=== PATIENT | male | born 1970 | race Caucasian/White ===

== ENCOUNTER → 2020-05-22 | Outpatient (CLI) | payer OTHER ==
[~2020-05-22] MED LIST: ASPI-9 PO; GEMF600T3 PO; NFNEB10T PO; POTA10TA36 PO
--- NOTE | 2020-05-22 10:49 | Diagnostic Imaging Report ---
EXAMINATION: Left wrist 3 or more views HISTORY: Pain COMPARISON: 06/07/2010 FINDINGS: Alignment is normal. No fracture is seen. Joint spaces are normal. IMPRESSION: 1. No fracture. Dictated by: Dictated on workstation # [id number]
== END ==
LOC: RAD 10:22
PROVIDERS: ATTEND Nurse Practitioner Family
DX: M25.532 Pain in left wrist (principal)
CPT/HCPCS: 73110

== ENCOUNTER 2021-05-20 11:10 | Inpatient (IN) | payer OTHER ==
[~2021-05-20] VITALS: Ht 177.8 cm; Wt 91.2 kg
[~2021-05-20 11:10] MED LIST changes: -ACETAMINOPHEN 500 MG TAB (TYLENOL) PO PRN; -ALBU18HF2 INH; -ASPI-1238 PO; -ATOR40TA70 PO; -AZIT250T12 PO; -CASIRIVIMAB/IMDEVIMAB 1,200 MG in NS (IVPB) 250 ML IV ONE; -EMPA10TA PO; -EPINEPHrine INJECTION 1 MG/ML AMP IM PRN; -FENO160T12 PO; -INSU100I44 SQ; -LOSA100T57 PO; -METO50TA7 PO; -MULT-1136 PO; -ONDANSETRON 4 MG/2 ML (SDV) Z0FRAN IV PRN; -diphenhydrAMINE 50 MG/ML INJ (BENADRYL) IV PRN
--- NOTE | 2021-05-20 11:26 | ED General ---
General Stated Complaint: LOW O2 Source of Information: Patient Exam Limitations: No Limitations History of Present Illness Date Seen by Provider: May 20, 2021 Time Seen by Provider: 11:23 Initial Comments To ER from the infusion center where he was to receive Regeneron with reports of hypoxia at 65% on room air. He did not receive the infusion but was given supplemental oxygen and brought to the emergency room. His is also receiving the Regeneron infusion for Covid. He is unvaccinated against Covid. He has hypertension and diabetes on insulin and oral medications to control the diabetes. This is day 8 of Covid for him, he states that symptoms began on 05/12/2021. Timing/Duration: 1 Week Severity: Moderate Associated Systoms: Cough Allergies and Home Medications Allergies Coded Allergies: No Known Drug Allergies (Unverified , 06/09/10) Patient Home Medication List Home Medication List Reviewed: Yes Aspirin/Calcium Carbonate/Mag (Aspirin Buffered 325 Mg Tab) 325 Mg Tablet, 325 MG PO DAILY, (Reported) Entered as Reported by: MAGED CHAKRABORTY on 04/22/1141 Gemfibrozil (Gemfibrozil) 600 Mg Tablet, 1 EACH PO BID, (Reported) Entered as Reported by: MAGED CHAKRABORTY on 04/22/1141 Nebivolol Hcl (Bystolic) 10 Mg Tablet, 1 EACH PO DAILY, (Reported) Entered as Reported by: MAGED CHAKRABORTY on 04/22/1141 Potassium Chloride (K-Dur) 10 Meq Tab.prt.sr, 1 EACH PO DAILY WITH MEAL, (Reported) Entered as Reported by: MAGED CHAKRABORTY on 04/22/1141 Review of Systems Review of Systems Constitutional: see HPI EENTM: see HPI Respiratory: see HPI, cough Cardiovascular: no symptoms reported Genitourinary: no symptoms reported Musculoskeletal: no symptoms reported Skin: no symptoms reported Psychiatric/Neurological: No Symptoms Reported Hematologic/Lymphatic: No Symptoms Reported Immunological/Allergic: no symptoms reported Physical Exam Vital Signs Capillary Refill : Height, Weight, BMI Height: '" Weight: lbs. oz. kg; BMI Method: General Appearance: No Apparent Distress, WD/WN, Other (87% on 15L simple mask. Will transition to Bipap) Eyes: Bilateral Eye Normal Inspection, Bilateral Eye PERRL, Bilateral Eye EOMI HEENT: PERRL/EOMI, TMs Normal Neck: Full Range of Motion, Normal Inspection Respiratory: No Accessory Muscle Use, No Respiratory Distress Cardiovascular: Regular Rate, Rhythm, Normal Peripheral Pulses Gastrointestinal: Normal Bowel Sounds, Non Tender, Soft Extremity: Normal Capillary Refill, Normal Inspection Neurologic/Psychiatric: Alert, Oriented x3 Skin: Normal Color, Warm/Dry Focused Exam Lactate Level 05/20/21 11:11: Lactic Acid Level Laboratory Tests Test 05/20/21 11:11 Progress/Results/Core Measures Suspected Sepsis SIRS Temperature: Pulse: Respiratory Rate: Laboratory Tests 05/20/21 11:11: White Blood Count 6.0 Blood Pressure / Mean: 05/20/21 11:11: Laboratory Tests 05/20/21 11:11: Creatinine 1.60H, Platelet Count 257, Total Bilirubin 0.5 Results/Orders Lab Results Laboratory Tests Test 05/20/21 11:11 Range/Units White Blood Count 6.0 4.3-11.0 10^3/uL Red Blood Count 4.85 4.30-5.52 10^6/uL Hemoglobin 13.4 13.3-17.7 g/dL Hematocrit 42 40-54 % Mean Corpuscular Volume 87 80-99 fL Mean Corpuscular Hemoglobin 28 25-34 pg Mean Corpuscular Hemoglobin Concent 32 32-36 g/dL Red Cell Distribution Width 13.2 10.0-14.5 % Platelet Count 257 130-400 10^3/uL Mean Platelet Volume 10.0 9.0-12.2 fL Immature Granulocyte % (Auto) 3 % Neutrophils (%) (Auto) 74 42-75 % Lymphocytes (%) (Auto) 17 12-44 % Monocytes (%) (Auto) 6 0-12 % Eosinophils (%) (Auto) 0 0-10 % Basophils (%) (Auto) 0 0-10 % Neutrophils # (Auto) 4.4 1.8-7.8 10^3/uL Lymphocytes # (Auto) 1.0 1.0-4.0 10^3/uL Monocytes # (Auto) 0.3 0.0-1.0 10^3/uL Eosinophils # (Auto) 0.0 0.0-0.3 10^3/uL Basophils # (Auto) 0.0 0.0-0.1 10^3/uL Immature Granulocyte # (Auto) 0.2 H 0.0-0.1 10^3/uL D-Dimer 3.66 H 0.00-0.49 UG/ML Blood Gas Puncture Site LEFT RADIAL Blood Gas Patient Temperature 36.6 Arterial Blood pH 7.34 *L 7.37-7.43 Arterial Blood Partial Pressure CO2 28 L 35-45 MMHG Arterial Blood Partial Pressure O2 67 L 79-93 MMHG Arterial Blood HCO3 15 *L 23-27 MMOL/L Arterial Blood Total CO2 15.7 L 21.0-31.0 MMOL/L Arterial Blood Oxygen Saturation 91 L 94-100 % Arterial Blood Base Excess -9.8 L -2.5-2.5 MMOL/L Bandar Test POSITIVE Blood Gas Ventilator Setting NO Blood Gas Inspired Oxygen 10 L Sodium Level 141 135-145 MMOL/L Potassium Level 4.3 3.6-5.0 MMOL/L Chloride Level 103 98-107 MMOL/L Carbon Dioxide Level 17 L 21-32 MMOL/L Anion Gap 21 H 5-14 MMOL/L Creatinine 1.60 H 0.60-1.30 MG/DL Estimat Glomerular Filtration Rate 46 Glucose Level 180 H 70-105 MG/DL Calcium Level 10.0 8.5-10.1 MG/DL Corrected Calcium 10.4 H 8.5-10.1 MG/DL Total Bilirubin 0.5 0.1-1.0 MG/DL Alkaline Phosphatase 62 40-136 U/L Total Protein 7.5 6.4-8.2 GM/DL Albumin 3.5 3.2-4.5 GM/DL My Orders Orders - MONICA [employer] Cbc With Automated Diff (05/20/21 11:20) Comprehensive Metabolic Panel (05/20/21 11:20) Hs C Reactive Protein (05/20/21 11:20) Fibrin Degradation Products (05/20/21 11:20) Procalcitonin (Pct) (05/20/21 11:20) Blood Culture (05/20/21 11:20) Lactic Acid Analyzer (05/20/21 11:20) Chest 1 View, Ap/Pa Only (05/20/21 11:20) Ed Iv/Invasive Line Start (05/20/21 11:20) Arterial Blood Gas (05/20/21 11:20) Vapotherm - Admin Rt Rfs (05/20/21 11:20) Vital Signs/I&O Capillary Refill : Diagnostic Imaging Diagonstic Imaging: Xray Plain Films/CT/US/NM/MRI: chest Comments NAME: NAVA GAMEZ [facility] REC#: [id number] PT STATUS: REG ER : 1970 PHYSICIAN: MONICA SALES APRN ADMIT DATE: 05/20/21/ER Draft Date of Exam:05/20/21 CHEST 1 VIEW, AP/PA ONLY INDICATION: Shortness of breath, pneumonia. COMPARISON: None FINDINGS: Single view of the chest demonstrates bilateral pulmonary infiltrates. Heart is normal. There is no pneumothorax or effusion. Osseous structures are normal. IMPRESSION: Bilateral pulmonary infiltrates compatible with pneumonia. Dictated on workstation # [id number] Dict: 05/20/21 1139 Trans: 05/20/21 1141 [facility] [id number] Interpreted by: SULEMAN LOUISE Electronically signed by: Departure Communication (Admissions) 1147-was SPO2 of 87% on 15 L simple mask. I put him on BiPAP 12/6 60% FiO2 with resultant SPO2 of 95%. Respiratory rate is 21. Backup rate on the BiPAP is 14. Heart rate 101 blood pressure 118/81. He is tolerating the mask well. Impression Primary Impression: COVID-19 Additional Impression: Hypoxia Disposition: ADMITTED INPATIENT Condition: Stable Admissions Decision to Admit Reason: Admit from ER (General) Decision to Admit/Date: May 20, 2021 Time/Decision to Admit Time: 11:49 Departure-Patient Inst. Referrals: ROXANNA MENDOZA MD (PCP/Family) Primary Care Physician MONICA SALES APRN May 20, 2021 11:26
--- OUTSIDE RECORDS SUMMARY | 2021-05-20 11:26 | XMS REPORT | CCD ---
Author Lio Rogel Organization Carolina Box MD, [facility] Address [address] [place] [address] Phone Care Team Providers Care Residency Program Coordinator Name Role Phone Carolina Box PP Unavailable CCM Unavailable Summary Purpose Interface Exchange Insurance Providers Payer name Policy type / Coverage type Covered constitution party ID Effective Begin Date Effective End Date UMR Commercial Insurance [id number] Unknown Unknown Family history Mother Diagnosis Age At Onset Hyperlipidemia Unknown Brother Diagnosis Age At Onset Diabetes mellitus Type 2 Unknown Hyperlipidemia Unknown Hypertension Unknown Sister Diagnosis Age At Onset Skin cancer Unknown Father Diagnosis Age At Onset Hypertension Unknown Stroke Unknown Hypertension Unknown Social History Social History Element Codes Description Effective Dates Number of children Unknown 1 10/13/[address]: 920983194 Never smoker 10/13/[address]: 021604763 Never drinks alcohol 2016 Allergies, Adverse Reactions, Alerts Substance Reaction Codes Entered Date Inactivated Date Status NO KNOWN ALLERGIES Unknown 10/13/2016 No Inactive Date Active Problems Condition Codes Effective Dates Condition Status Type 2 diabetes mellitus with hyperglycemia ICD-10: E1 1.65 ICD-9: 250.00 02/09/2017 Active Essential (primary) hypertension ICD-10: I10 ICD-9: 401.9 10/13/2016 Active Mixed hyperlipidemia ICD-10: E78.2 ICD-9: 272.2 05/18/2017 Active Left shoulder pain ICD-10: M25.512 ICD-9: 719.41 09/17/2020 Active Elevated C-reactive protein (CRP) ICD-10: R79.82 ICD-9: 790.95 05/20/2020 Active Left wrist pain ICD-10: M25.532 ICD-9: 719.43 05/19/2020 Active Type 2 diabetes mellitus without complications ICD-10: E11.9 ICD-9: 250.00 05/14/2020 Active Chronic kidney disease, stage 3 (moderate) ICD-10: N18 .3 ICD-9: 585.3 04/19/2018 Active Localized edema ICD-10: R60.0 ICD-9: 782.3 08/23/2018 Active Acute kidney failure, unspecified ICD-10: N17.9 ICD-9: 584.9 12/21/2017 Active Pain in right shoulder ICD-10: M25.511 ICD-9: 719.41 07/12/2017 Active Acute recurrent maxillary sinusitis ICD-10: J01.01 ICD-9: 461.0 05/18/2017 Active Bicipital tendinitis, right shoulder ICD-10: M75.21 ICD-9: 726.12 05/18/2017 Active Diabetes Unknown 02/09/2017 Active Hypertension Unknown 02/09/2017 Active Encounter for general adult medical examination withou t abnormal findings ICD- 10: Z00.00 ICD-9: V70.9 10/13/2016 Active Personal history of malignant melanoma of skin ICD-10: Z85.820 ICD-9: V10.82 10/13/2016 Active Medications Medication Codes Instructions Start Date Stop Date Status Fill Instructions losartan 100 mg tablet RxNorm: 584539 TAKE ONE TABLET BY MOUTH CRISTAL Y 05/05/2021 08/02/2021 Active fenofibrate 160 mg tablet RxNorm: 019832 TAKE ONE TABLET BY ROMEO TH DAILY 05/03/2021 06/01/2021 Active Novolin 70/30 U-100 Insulin 100 unit/mL subcutaneous suspens ion RxNorm: 160257 Administer 25 Unit(s) Subcutaneous two times a day 04/29/2021 10/25/2021 Active PT TO USE GOOD RX CARD FOR PENS acyclovir 800 mg tablet RxNorm: 818309 TAKE ONE TABLET BY MOUTH FOUR TIMES A DAY 03/17/2021 No Stop Date Active Lipitor 40 mg tablet RxNorm: 060363 TAKE ONE TABLET BY MOUTH EVERY NIGHT AT BEDTIME 02/21/2021 No Stop Date Active Novolin 70/30 U-100 Insulin 100 unit/mL subcutaneous suspens ion RxNorm: 126367 25 Unit(s) Subcutaneous two times a day 01/25/2021 04/28/2021 Inactive give qty sufficient for 30 days supply- either pen or vial. DC lantus Novolin 70/30 U-100 Insulin 100 unit/mL subcutaneous suspens ion RxNorm: 468553 25 Unit(s) Subcutaneous two times a day 01/25/2021 01/24/2021 Inactive give qty sufficient for 30 days supply- either pen or vial. DC lantus Jardiance 10 mg tablet RxNorm: 8362698 TAKE ONE TABLET BY MOUTH EVERY MORNING 01/24/2021 07/22/2021 Active - First Attempt Ref : [id number] Lantus Solostar U-100 Insulin 100 unit/mL (3 mL) subcu taneous pen RxNorm: 988449 55 Unit(s) Subcutaneous two times a day 01/17/2021 01/24/2021 I nactive qty sufficient for 30 day supply and pen needles Basaglar KwikPen U-100 Insulin 100 unit/mL (3 mL) subcutaneo us RxNorm: 4885044 55 Unit(s) Subcutaneous two times a day 01/14/2021 01/24/2021 Inactive Basaglar KwikPen U-100 Insulin 100 unit/mL (3 mL) subcutaneo us RxNorm: 6495695 55 Unit(s) Subcutaneous two times a day 01/14/2021 01/13/2021 Inactive tramadol 50 mg tablet RxNorm: 006112 TAKE ONE TABLET BY MOUTH EVERY 8 HOURS NEEDED FOR PAIN 11/18/2020 No Stop Date Active Lipitor 40 mg tablet RxNorm: 121751 TAKE ONE TABLET BY MOUTH EVERY NIGHT AT BEDTIME 10/11/2020 02/20/2021 Inactive Lantus Solostar U-100 Insulin 100 unit/mL (3 mL) subcu taneous pen RxNorm: 627850 55 Unit(s) Subcutaneous two times a day 10/06/2020 01/13/2021 I nactive qty sufficient for 30 day supply and pen needles Lantus Solostar U-100 Insulin 100 unit/mL (3 mL) subcu taneous pen RxNorm: 148793 55 Unit(s) Subcutaneous two times a day 10/06/2020 10/05/2020 I nactive Toujeo SoloStar U-300 Insulin 300 unit/mL (1.5 mL) sub cutaneous pen RxNorm: 0128993 INJECT 55 UNITS UNDER THE SKIN TWICE A DAY 09/22/202010/05 Inactive metoprolol succinate ER 50 mg tablet,extended release 24 hr RxNorm: 635988 TAKE ONE TABLET BY MOUTH TWICE A DAY 09/21/2020 No Stop Date Active tramadol 50 mg tablet RxNorm: 135604 1 Tablet(s) Oral E very 8 hrs as needed as needed pain 09/17/2020 09/17/2020 Inactive losartan 100 mg tablet RxNorm: 364455 TAKE ONE TABLET BY MOUTH CRISTAL Y 08/09/2020 08/09/2020 Inactive fenofibrate 160 mg tablet RxNorm: 018707 TAKE ONE TABLET BY ROMEO TH DAILY 07/26/2020 07/26/2020 Inactive Jardiance 10 mg tablet RxNorm: 6544911 TAKE ONE TABLET BY MOUTH EVERY MORNING 06/24/2020 12/20/2020 Inactive - First Attempt Ref : [id number] tramadol 50 mg tablet RxNorm: 666995 1 Tablet(s) Oral t hree times a day as needed pain 05/21/2020 05/20/2020 Inactive tramadol 50 mg tablet RxNorm: 331511 1 Tablet(s) Oral t hree times a day as needed pain 05/21/2020 05/21/2020 Inactive prednisone 20 mg tablet RxNorm: 689833 2 Tablet(s) Oral every day 0 05/19/2020 05/24/2020 Inactive Colcrys 0.6 mg tablet RxNorm: 202852 Tablet(s) Oral 2 p ills now and 1 pill in 1 hour 05/19/2020 04/28/2021 Inactive prednisone 20 mg tablet RxNorm: 664151 2 Tablet(s) Oral every day 0 05/19/2020 05/18/2020 Inactive Lipitor 40 mg tablet RxNorm: 568791 TAKE ONE TABLET BY MOUTH EVERY NIGHT AT BEDTIME 05/10/2020 10/10/2020 Inactive Toujeo SoloStar U-300 Insulin 300 unit/mL (1.5 mL) sub cutaneous pen RxNorm: 6294570 INJECT 50 UNITS UNDER THE SKIN TWICE A DAY 05/03/202009/21 Inactive Jardiance 10 mg tablet RxNorm: 3122478 TAKE ONE TABLET BY MOUTH EVERY MORNING 01/06/2020 06/23/2020 Inactive - First Attempt Ref: [id number] Toujeo SoloStar U-300 Insulin 300 unit/mL (1.5 mL) sub cutaneous pen RxNorm: 8323246 58 Unit(s) Subcutaneous two times a day 12/25/2019 09/16/2020 I nactive acyclovir 800 mg tablet RxNorm: 213838 TAKE ONE TABLET BY MOUTH FOUR TIMES A DAY 12/22/2019 06/10/2020 Inactive losartan 100 mg tablet RxNorm: 732145 TAKE ONE TABLET BY MOUTH CRISTAL Y 11/07/2019 08/08/2020 Inactive Lipitor 40 mg tablet RxNorm: 962550 TAKE ONE TABLET BY MOUTH EVERY NIGHT AT BEDTIME 11/07/2019 05/09/2020 Inactive metoprolol succinate ER 50 mg tablet,extended release 24 hr RxNorm: 645065 TAKE ONE TABLET BY MOUTH TWICE A DAY 11/03/2019 09/20/2020 Inactive fenofibrate 160 mg tablet RxNorm: 384413 TAKE ONE TABLET BY ROMEO TH DAILY 09/17/2019 07/25/2020 Inactive Lipitor 40 mg tablet RxNorm: 777851 TAKE ONE TABLET BY MOUTH EVERY NIGHT AT BEDTIME 08/08/2019 11/06/2019 Inactive Toujeo SoloStar U-300 Insulin 300 unit/mL (1.5 mL) sub cutaneous pen RxNorm: 3863670 55 Unit(s) Subcutaneous two times a day 07/30/2019 12/24/2019 I nactive Novolog Flexpen U-100 Insulin aspart 100 unit/mL (3 mL ) subcutaneous RxNorm: 7007258 5 Unit(s) Subcutaneous three times a day with meals 07/30/2012/11/2019 Inactive Toujeo SoloStar U-300 Insulin 300 unit/mL (1.5 mL) sub cutaneous pen RxNorm: 8418293 50 Unit(s) SQ BID 05/23/2019 07/29/2019 Inactive Lipitor 40 mg tablet RxNorm: 696734 TAKE ONE TABLET BY MOUTH EVERY NIGHT AT BEDTIME 03/27/2019 03/26/2019 Inactive Lipitor 40 mg tablet RxNorm: 018230 TAKE ONE TABLET BY MOUTH EVERY NIGHT AT BEDTIME 03/27/2019 06/10/2020 Inactive Lasix 20 mg tablet RxNorm: 916442 TAKE ONE TABLET BY MOUTH DAILY 06/10/2020 Inactive Jardiance 10 mg tablet RxNorm: 5842795 Tablet(s) TAKE ON E TABLET BY MOUTH EVERY MORNING 03/19/2019 03/18/2019 Inactive Jardiance 10 mg tablet RxNorm: 1237093 Tablet(s) TAKE ON E TABLET BY MOUTH EVERY MORNING 03/19/2019 01/05/2020 Inactive Toujeo SoloStar U-300 Insulin 300 unit/mL (1.5 mL) sub cutaneous pen RxNorm: 1457694 50 Unit(s) SQ BID 02/28/2019 05/22/2019 Inactive updated in structions metoprolol succinate ER 50 mg tablet,extended release 24 hr RxNorm: 664100 TAKE ONE TABLET BY MOUTH TWICE A DAY 01/15/2019 08/12/2019 Inactive Jardiance 10 mg tablet RxNorm: 0908890 TAKE ONE TABLET BY MOUTH EVERY MORNING 12/20/2018 03/18/2019 Inactive losartan 100 mg tablet RxNorm: 760372 1 Tablet(s) PO daily 11/06/1911/05/2018 Inactive losartan 100 mg tablet RxNorm: 948238 1 Tablet(s) PO daily 11/06/1910/31/2019 Inactive Toujeo SoloStar U-300 Insulin 300 unit/mL (1.5 mL) sub cutaneous pen RxNorm: 2583912 45 Unit(s) SQ BID 10/29/2018 02/27/2019 Inactive updated in structions Lipitor 40 mg tablet RxNorm: 148075 TAKE ONE TABLET BY MOUTH EVERY NIGHT AT BEDTIME 10/25/2018 03/23/2019 Inactive fenofibrate 160 mg tablet RxNorm: 878931 TAKE ONE TABLET BY ROMEO TH DAILY 10/15/2018 09/09/2019 Inactive Toujeo SoloStar U-300 Insulin 300 unit/mL (1.5 mL) sub cutaneous pen RxNorm: 5794076 45 Unit(s) SQ UD 40 units SQ QAM and 45 units SQ QPM 019 10/28/2018 Inactive updated instructions Lasix 20 mg tablet RxNorm: 932467 1 Tablet(s) PO daily as needed 09/21/2018 Inactive acyclovir 800 mg tablet RxNorm: 595181 1 Tablet(s) PO QID 08/23/2018 09/01/2018 Inactive Lasix 20 mg tablet RxNorm: 462332 1 Tablet(s) PO daily 08/12/2018 Inactive Lasix 20 mg tablet RxNorm: 814209 1 Tablet(s) PO daily 08/12/201810/2017 Inactive metoprolol succinate ER 50 mg tablet,extended release 24 hr RxNorm: 761512 TAKE ONE TABLET BY MOUTH TWICE A DAY 08/09/2018 01/05/2019 Inactive Benicar 40 mg tablet RxNorm: 230715 1 Tablet(s) PO daily 07/22/2018 1 09/20/2017 Inactive Med change! Toujeo SoloStar U-300 Insulin 300 unit/mL (1.5 mL) sub cutaneous pen RxNorm: 4894332 40 Unit(s) SQ BID x2 weeks then increase to 40 units SQ QAM and 45 units SQ QPM 07/22/2018 09/29/2018 Inactive updated instruct ions Benicar 40 mg tablet RxNorm: 854002 1 Tablet(s) PO daily 07/22/2018 0 11/05/2018 Inactive Med change! Toujeo SoloStar U-300 Insulin 300 unit/mL (1.5 mL) sub cutaneous pen RxNorm: 5188427 40 in am and 35 pm Unit(s) SQ BID 07/19/2018 07/21/2018 Inactiv e update instructions Jardiance 10 mg tablet RxNorm: 6405527 TAKE ONE TABLET BY MOUTH EVERY MORNING 06/24/2018 12/19/2018 Inactive Zyrtec 10 mg tablet RxNorm: 3722265 TAKE ONE TABLET BY MOUTH DAILY 05/01/2018 07/29/2018 Inactive Lipitor 40 mg tablet RxNorm: 762616 TAKE ONE TABLET BY MOUTH EVERY NIGHT AT BEDTIME 04/25/2018 10/21/2018 Inactive Toujeo SoloStar U-300 Insulin 300 unit/mL (1.5 mL) sub cutaneous pen RxNorm: 4339603 40 Unit(s) SQ BID 04/19/2018 07/18/2018 Inactive update ins tructions Benicar HCT 40 mg-25 mg tablet RxNorm: 413667 TAKE ONE TABLET B Y MOUTH DAILY 04/08/2018 07/21/2018 Inactive fenofibrate 160 mg tablet RxNorm: 491181 TAKE ONE TABLET BY ROMEO TH DAILY 03/20/2018 10/14/2018 Inactive fenofibrate 160 mg tablet RxNorm: 333914 TAKE ONE TABLET BY ROMEO TH DAILY 01/14/2018 03/19/2018 Inactive metoprolol succinate ER 50 mg tablet,extended release 24 hr RxNorm: 769823 TAKE ONE TABLET BY MOUTH TWICE A DAY 12/27/2017 06/24/2018 Inactive Toujeo SoloStar U-300 Insulin 300 unit/mL (1.5 mL) sub cutaneous pen RxNorm: 8259025 34 Unit(s) SQ BID 12/21/2017 04/18/2018 Inactive update ins tructions: increase to 32 units twice daily x 1 week then 34 units twice daily Jardiance 10 mg tablet RxNorm: 6210277 1 Tablet(s) PO QAM 11/28/2017 09/21/2020 Inactive Toujeo SoloStar U-300 Insulin 300 unit/mL (1.5 mL) sub cutaneous pen RxNorm: 1469373 30 Unit(s) SQ BID 10/25/2017 12/20/2017 Inactive Invokana 100 mg tablet RxNorm: 6200616 1 Tablet(s) PO daily 018 10/25/2017 Inactive Invokana 100 mg tablet RxNorm: 0205222 1 Tablet(s) PO daily 018 10/24/2017 Inactive Toujeo SoloStar U-300 Insulin 300 unit/mL (1.5 mL) sub cutaneous pen RxNorm: 5191359 30 Unit(s) SQ BID 10/25/2017 10/24/2017 Inactive Januvia 100 mg tablet RxNorm: 984840 1 Tablet(s) PO daily 10/25/2017 11/27/2017 Inactive fenofibrate 160 mg tablet RxNorm: 493587 TAKE ONE TABLET BY ROMEO TH DAILY 10/17/2017 01/13/2018 Inactive Tresiba FlexTouch U-200 200 unit/mL (3 mL) subcutaneou s insulin pen RxNorm: 2437648 66 Unit(s) SQ daily 10/16/2017 10/24/2017 Inactive Please g sapphire 90 day supply Tresiba FlexTouch U-200 200 unit/mL (3 mL) subcutaneou s insulin pen RxNorm: 6859282 66 Unit(s) SQ daily 10/11/2017 10/15/2017 Inactive Onglyza 5 mg tablet RxNorm: 016183 2 Tablet(s) PO daily 10/02/2017 Inactive d/c jardiance Onglyza 5 mg tablet RxNorm: 546947 2 Tablet(s) PO daily 10/02/2017 Inactive d/c jardiance Tresiba FlexTouch U-200 200 unit/mL (3 mL) subcutaneou s insulin pen RxNorm: 0421918 35 Unit(s) SQ BID 10/02/2017 06/12/2019 Inactive Lipitor 40 mg tablet RxNorm: 760187 TAKE ONE TABLET BY MOUTH EVERY NIGHT AT BEDTIME 09/17/2017 04/14/2018 Inactive Tresiba FlexTouch U-200 200 unit/mL (3 mL) subcutaneou s insulin pen RxNorm: 1478750 66 Unit(s) SQ daily 08/28/2017 08/29/2017 Inactive Jardiance 10 mg tablet RxNorm: 3813533 1 Tablet(s) PO QAM 08/28/2017 10/01/2017 Inactive Jardiance 10 mg tablet RxNorm: 1906272 1 Tablet(s) PO QAM 08/28/2017 08/27/2017 Inactive Tresiba FlexTouch U-200 200 unit/mL (3 mL) subcutaneou s insulin pen RxNorm: 7420156 62 Unit(s) SQ daily 08/17/2017 08/18/2017 Inactive Zipsor 25 mg capsule RxNorm: 496075 1 Capsule(s) PO QID as needed 1 09/12/2016 12/20/2017 Inactive fenofibrate 160 mg tablet RxNorm: 461862 TAKE ONE TABLET BY ROMEO TH DAILY 07/12/2017 10/16/2017 Inactive Lipitor 40 mg tablet RxNorm: 013541 TAKE ONE TABLET BY MOUTH EVERY NIGHT AT BEDTIME 06/14/2017 09/11/2017 Inactive metformin 1,000 mg tablet RxNorm: 309697 TAKE ONE TABLET BY ROMEO TH TWICE A DAY 06/01/2017 12/03/2017 Inactive metoprolol succinate ER 50 mg tablet,extended release 24 hr RxNorm: 930507 TAKE ONE TABLET BY MOUTH TWICE A DAY 06/01/2017 11/27/2017 Inactive prednisone 10 mg tablets in a dose pack RxNorm: 878194 1 Tablet(s) PO UD ; take as prescribed on dose pack 06/01/2017 06/05/2017 Inactive prednisone 10 mg tablets in a dose pack RxNorm: 821292 1 Tablet(s) PO UD ; take as prescribed on dose pack 06/01/2017 05/31/2017 Inactive Tresiba FlexTouch U-200 200 unit/mL (3 mL) subcutaneou s insulin pen RxNorm: 1099884 58 Unit(s) SQ daily INJECT 58 UNITS UNDER THE SKIN DAILY 05/24/2017 Inactive doxycycline hyclate 100 mg tablet RxNorm: 909942 1 Tablet(s) PO BID 05/18/2017 05/24/2017 Inactive metformin 1,000 mg tablet RxNorm: 494327 TAKE ONE TABLET BY ROMEO TH TWICE A DAY 04/30/2017 05/29/2017 Inactive fenofibrate 160 mg tablet RxNorm: 569569 TAKE ONE TABLET BY ROMEO TH DAILY 04/11/2017 07/11/2017 Inactive Benicar HCT 40 mg-25 mg tablet RxNorm: 534745 TAKE ONE TABLET B Y MOUTH DAILY 04/11/2017 04/05/2018 Inactive Tresiba FlexTouch U-200 200 unit/mL (3 mL) subcutaneou s insulin pen RxNorm: 8753879 54 Unit(s) SQ daily INJECT 54 UNITS UNDER THE SKIN DAILY 03/201705/22/2017 Inactive metoprolol succinate ER 50 mg tablet,extended release 24 hr RxNorm: 908088 TAKE ONE TABLET BY MOUTH TWICE A DAY 02/20/2017 04/20/2017 Inactive metformin 1,000 mg tablet RxNorm: 502261 TAKE ONE TABLET BY ROMEO TH TWICE A DAY 02/20/2017 04/20/2017 Inactive fenofibrate 160 mg tablet RxNorm: 593754 TAKE ONE TABLET BY ROMEO TH DAILY 02/13/2017 04/10/2017 Inactive Lipitor 40 mg tablet RxNorm: 346467 1 Tablet(s) PO QHS 02/07/2017 Inactive Lipitor 40 mg tablet RxNorm: 922288 1 Tablet(s) PO QHS 02/07/2017 Inactive Tresiba FlexTouch U-200 200 unit/mL (3 mL) subcutaneou s insulin pen RxNorm: 7134299 Unit(s) INJECT 45 UNITS UNDER THE SKIN DAILY 02/07/201702/2017 Inactive Benicar HCT 40 mg-25 mg tablet RxNorm: 859130 TAKE ONE TABLET B Y MOUTH DAILY 01/12/2017 04/10/2017 Inactive Tresiba FlexTouch U-200 200 unit/mL (3 mL) subcutaneou s insulin pen RxNorm: 6183230 INJECT 30 UNITS UNDER THE SKIN DAILY 12/28/2016 02/06/2017 Inac tive metoprolol succinate ER 50 mg tablet,extended release 24 hr RxNorm: 635175 TAKE ONE TABLET BY MOUTH TWICE A DAY 11/14/2016 02/11/2017 Inactive metformin 1,000 mg tablet RxNorm: 880443 TAKE ONE TABLET BY ROMEO TH TWICE A DAY 11/14/2016 02/11/2017 Inactive fenofibrate 160 mg tablet RxNorm: 592817 TAKE ONE TABLET BY ROMEO TH DAILY 11/14/2016 02/11/2017 Inactive Lipitor 10 mg tablet RxNorm: 085564 1 Tablet(s) PO daily 10/19/2016 0 10/18/2016 Inactive Januvia 100 mg tablet RxNorm: 226014 1 Tablet(s) PO daily 10/19/2016 02/08/2017 Inactive Lipitor 10 mg tablet RxNorm: 189243 1 Tablet(s) PO daily 10/19/2016 0 02/06/2017 Inactive Januvia 100 mg tablet RxNorm: 063745 1 Tablet(s) PO daily 10/15/2016 10/18/2016 Inactive Tresiba FlexTouch U-200 200 unit/mL (3 mL) subcutaneou s insulin pen RxNorm: 5788972 30 Unit(s) SQ daily 10/13/2016 12/27/2016 Inactive Please d ispense quantity sufficient for 90 days Zyrtec 10 mg tablet RxNorm: 4366030 1 Tablet(s) PO daily 10/13/2016 0 01/10/2017 Inactive metoprolol succinate ER 50 mg tablet,extended release 24 hr RxNorm: 266583 1 Tablet(s) PO BID 10/13/2016 11/11/2016 Inactive fenofibrate 160 mg tablet RxNorm: 618249 1 Tablet(s) PO daily 10/1311/11/2016 Inactive metformin 1,000 mg tablet RxNorm: 682621 1 Tablet(s) PO BID 017 11/11/2016 Inactive Benicar HCT 40 mg-25 mg tablet RxNorm: 515490 1 Tablet(s) PO daily 10/13/2016 01/10/2017 Inactive fenofibrate 160 mg tablet RxNorm: 845683 1 Tablet(s) PO daily 10/1310/12/2016 Inactive Januvia 100 mg tablet RxNorm: 473217 1 Tablet(s) PO daily 02/09/2017 02/08/2017 Inactive metformin 1,000 mg tablet RxNorm: 539244 1 Tablet(s) PO BID 017 10/12/2016 Inactive Novolin 70/30 U-100 Insulin subcutaneous RxNorm: 7516828 subcuta neous 01/25/2021 01/24/2021 Inactive Benicar HCT 40 mg-25 mg tablet RxNorm: 015647 1 Tablet(s) PO daily 10/13/2016 10/12/2016 Inactive Tresiba FlexTouch U-200 200 unit/mL (3 mL) subcutaneou s insulin pen RxNorm: 1049204 30 Unit(s) SQ daily 10/13/2016 10/12/2016 Inactive metoprolol succinate ER 50 mg tablet,extended release 24 hr RxNorm: 329938 1 Tablet(s) PO BID 10/13/2016 10/12/2016 Inactive Medication Administered No Medication Administered data Immunizations No Immunization data Results Observation Observation Code Item Item Code Result Date S ervice Location %Hba1C Uti102 % HbA1c 90412-2 14.0 % 01/14/2021 Unknown %Hba1C Wtz190 Gluc Ave 355 mg/dL 01/14/2021 Unknown Comp Metabolic Krx764 NA 139 mEq/L 01/14/2021 Unkn own Comp Metabolic Ocn441 K 4.0 mEq/L 01/14/2021 Unkn own Comp Metabolic Pyb876 CL 106 mEq/L 01/14/2021 Unkn own Comp Metabolic Cxb483 CO2 24.0 mEq/L 01/14/2021 Unk nown Comp Metabolic Kpp431 ANION GAP 13 01/14/2021 Unkn own Comp Metabolic Xyn127 GLUCOSE 295 mg/dL 01/14/2021 Unkn own Comp Metabolic Jtk122 Creat 1.2 mg/dL 01/14/2021 Unkn own Comp Metabolic Guc289 eGFR 68 ml/min/1.73m2 01/15/20 21 Unknown Comp Metabolic Phz420 BUN 37 mg/dL 01/14/2021 Unkn own Comp Metabolic Qbw311 B/C Ratio 30.8 Ratio 01/14/2021 Unk nown Comp Metabolic Gdh381 CALCIUM 9.2 mg/dL 01/14/2021 Unkn own Comp Metabolic Bxh904 ALK PHOS 58 U/L 01/14/2021 Unkn own Comp Metabolic Vfc410 AST(SGOT) 20 U/L 01/14/2021 Unkn own Comp Metabolic Hbv830 ALT(SGPT) 28 U/L 01/14/2021 Unkn own Comp Metabolic Epr983 BILI T 0.5 mg/dL 01/14/2021 Unkn own Comp Metabolic Wxh803 ALBUMIN 4.0 g/dL 01/14/2021 Unkn own Comp Metabolic Gji919 TPRO 6.4 g/dL 01/14/2021 Unkn own Comp Metabolic Azh454 GLOB 2.4 g/dL 01/14/2021 Unkn own Comp Metabolic Ego795 A/G Ratio 1.7 Ratio 01/14/2021 Unkn own Comp Metabolic Vgt840 Osmo 297 mOsmo 01/14/2021 Unkn own Lipid Ord30 CHOL 169 mg/dL 09/17/2020 Unknown Lipid Ord30 HDL 40.0 mg/dl 09/17/2020 Unknown Lipid Ord30 TRIG 146 mg/dL 09/17/2020 Unknown Lipid Ord30 LDL 100 mg/dL 09/17/2020 Unknown Lipid Ord30 C/HDL 4.2 Ratio 09/17/2020 Unknown Comp Metabolic Eyc667 NA 141 mEq/L 09/17/2020 Unkn own Comp Metabolic Dix166 K 4.3 mEq/L 09/17/2020 Unkn own Comp Metabolic Rck556 CL 105 mEq/L 09/17/2020 Unkn own Comp Metabolic Qip972 CO2 28.0 mEq/L 09/17/2020 Unk nown Comp Metabolic Jea404 ANION GAP 12 09/17/2020 Unkn own Comp Metabolic Mcq136 GLUCOSE 126 mg/dL 09/17/2020 Unkn own Comp Metabolic Azw303 Creat 1.2 mg/dL 09/17/2020 Unkn own Comp Metabolic Qno687 eGFR 65 ml/min/1.73m2 09/17/19 21 Unknown Comp Metabolic Yhf460 BUN 27 mg/dL 09/17/2020 Unkn own Comp Metabolic Rwy970 B/C Ratio 21.8 Ratio 09/17/2020 Unk nown Comp Metabolic Yty314 CALCIUM 9.4 mg/dL 09/17/2020 Unkn own Comp Metabolic Thh531 ALK PHOS 49 U/L 09/17/2020 Unkn own Comp Metabolic Jze206 AST(SGOT) 24 U/L 09/17/2020 Unkn own Comp Metabolic Jdo201 ALT(SGPT) 33 U/L 09/17/2020 Unkn own Comp Metabolic Pzl361 BILI T 0.5 mg/dL 09/17/2020 Unkn own Comp Metabolic Ykd440 ALBUMIN 4.4 g/dL 09/17/2020 Unkn own Comp Metabolic Hxq053 TPRO 6.8 g/dL 09/17/2020 Unkn own Comp Metabolic Gpp596 GLOB 2.4 g/dL 09/17/2020 Unkn own Comp Metabolic Dlo140 A/G Ratio 1.8 Ratio 09/17/2020 Unkn own Comp Metabolic Cco811 Osmo 288 mOsmo 09/17/2020 Unkn own Cbc With Differential Ord2 WBC 5.08 K/ul 09/17/19 21 Unknown Cbc With Differential Ord2 RBC 5.37 M/ul 09/17/19 21 Unknown Cbc With Differential Ord2 HGB 14.9 g/dl 09/17/19 21 Unknown Cbc With Differential Ord2 HCT 46.4 % 09/17/19 21 Unknown Cbc With Differential Ord2 Neut% 58.6 % 09/17/19 21 Unknown Cbc With Differential Ord2 MCV 86.4 fl 09/17/19 21 Unknown Cbc With Differential Ord2 Lymph% 29.3 % 09/17/19 21 Unknown Cbc With Differential Ord2 MCH 27.7 pg 09/17/19 21 Unknown Cbc With Differential Ord2 Evans% 9.1 % 09/17/19 21 Unknown Cbc With Differential Ord2 Eos% 2.4 % 09/17/19 21 Unknown Cbc With Differential Ord2 MCHC 32.1 pg 09/17/19 21 Unknown Cbc With Differential Ord2 PLT 235 K/ul 09/17/19 21 Unknown Cbc With Differential Ord2 Baso% 0.6 % 09/17/19 21 Unknown Cbc With Differential Ord2 RDW 14.4 % 09/17/19 21 Unknown Cbc With Differential Ord2 Neut ABS# 2.98 K/ul 09/17/19 21 Unknown Cbc With Differential Ord2 Lymph ABS# 1.49 K/ul 021 Unknown Cbc With Differential Ord2 Evans ABS# 0.5 K/ul 09/17/19 21 Unknown Cbc With Differential Ord2 Eos ABS# 0.1 K/ul 09/17/19 21 Unknown Cbc With Differential Ord2 Baso ABS# 0.0 K/ul 09/17/19 21 Unknown %Hba1C Gxx620 % HbA1c 18182-3 9.7 % 09/17/2020 Unknown %Hba1C Ycy956 Gluc Ave 232 mg/dL 09/17/2020 Unknown JESUS (ABE) ROUTINE F307 Antinuclear Antibody Negative 05/24/2020 Unknown Ra Factor Haw613 RA FACTOR 11.8 IU/ml 05/20/2020 Unknown Uric Acid Ord77 Uric A 4.2 mg/dL 05/19/2020 Unknown Sed Rate Ord21 ESR 1 mm/hr 05/19/2020 Unknown C-Reactive Protein Qnt Crqnt CRP 0.9 mg/dl 2019 Unknown %Hba1C Spv516 % HbA1c 18744-8 12.0 % 05/14/2020 Unknown %Hba1C Ypg462 Gluc Ave 298 mg/dL 05/14/2020 Unknown Comp Metabolic Ibj710 NA 142 mEq/L 05/14/2020 Unkn own Comp Metabolic Zpr172 K 4.1 mEq/L 05/14/2020 Unkn own Comp Metabolic Ofk356 CL 108 mEq/L 05/14/2020 Unkn own Comp Metabolic Yxn219 CO2 26.0 mEq/L 05/14/2020 Unk nown Comp Metabolic Kxo994 ANION GAP 12 05/14/2020 Unkn own Comp Metabolic Bdz136 GLUCOSE 229 mg/dL 05/14/2020 Unkn own Comp Metabolic Egl546 Creat 1.4 mg/dL 05/14/2020 Unkn own Comp Metabolic Ppk851 eGFR 58 ml/min/1.73m2 05/14/20 20 Unknown Comp Metabolic Jex995 BUN 27 mg/dL 05/14/2020 Unkn own Comp Metabolic Qgi216 B/C Ratio 19.7 Ratio 05/14/2020 Unk nown Comp Metabolic Clm572 CALCIUM 9.4 mg/dL 05/14/2020 Unkn own Comp Metabolic Jrf095 ALK PHOS 62 U/L 05/14/2020 Unkn own Comp Metabolic Nbh406 AST(SGOT) 21 U/L 05/14/2020 Unkn own Comp Metabolic Qav566 ALT(SGPT) 31 U/L 05/14/2020 Unkn own Comp Metabolic Cai650 BILI T 0.4 mg/dL 05/14/2020 Unkn own Comp Metabolic Ywd985 ALBUMIN 4.3 g/dL 05/14/2020 Unkn own Comp Metabolic Npu264 TPRO 6.8 g/dL 05/14/2020 Unkn own Comp Metabolic Ciu531 GLOB 2.5 g/dL 05/14/2020 Unkn own Comp Metabolic Qfk409 A/G Ratio 1.7 Ratio 05/14/2020 Unkn own Comp Metabolic Kke767 Osmo 295 mOsmo 05/14/2020 Unkn own Cbc With Differential Ord2 WBC 6.15 K/ul 05/14/20 20 Unknown Cbc With Differential Ord2 RBC 5.31 M/ul 05/14/20 20 Unknown Cbc With Differential Ord2 HGB 14.9 g/dl 05/14/20 20 Unknown Cbc With Differential Ord2 HCT 46.0 % 05/14/20 20 Unknown Cbc With Differential Ord2 Neut% 60.3 % 05/14/20 20 Unknown Cbc With Differential Ord2 Lymph% 29.6 % 05/14/20 20 Unknown Cbc With Differential Ord2 MCV 86.6 fl 05/14/20 20 Unknown Cbc With Differential Ord2 MCH 28.1 pg 05/14/20 20 Unknown Cbc With Differential Ord2 Evans% 7.6 % 05/14/20 20 Unknown Cbc With Differential Ord2 MCHC 32.4 pg 05/14/20 20 Unknown Cbc With Differential Ord2 Eos% 2.0 % 05/14/20 20 Unknown Cbc With Differential Ord2 PLT 222 K/ul 05/14/20 20 Unknown Cbc With Differential Ord2 Baso% 0.5 % 05/14/20 20 Unknown Cbc With Differential Ord2 Neut ABS# 3.71 K/ul 05/14/20 20 Unknown Cbc With Differential Ord2 RDW 14.0 % 05/14/20 20 Unknown Cbc With Differential Ord2 Lymph ABS# 1.82 K/ul 020 Unknown Cbc With Differential Ord2 Evans ABS# 0.5 K/ul 05/14/20 20 Unknown Cbc With Differential Ord2 Eos ABS# 0.1 K/ul 05/14/20 20 Unknown Cbc With Differential Ord2 Baso ABS# 0.0 K/ul 05/14/20 20 Unknown Tsh Ord6 TSH (3rd IS) 1.93 uIU/mL 12/12/2019 Unkn own Lipid Ord30 CHOL 156 mg/dL 12/12/2019 Unknown Lipid Ord30 HDL 36.0 mg/dl 12/12/2019 Unknown Lipid Ord30 TRIG 190 mg/dL 12/12/2019 Unknown Lipid Ord30 LDL 82 mg/dL 12/12/2019 Unknown Lipid Ord30 C/HDL 4.3 Ratio 12/12/2019 Unknown Cbc With Differential Ord2 WBC 4.61 K/ul 12/12/19 20 Unknown Cbc With Differential Ord2 RBC 5.24 M/ul 12/12/19 20 Unknown Cbc With Differential Ord2 HGB 14.4 g/dl 12/12/19 20 Unknown Cbc With Differential Ord2 HCT 44.4 % 12/12/19 20 Unknown Cbc With Differential Ord2 Neut% 52.8 % 12/12/19 Unknown Cbc With Differential Ord2 MCV 84.7 fl 12/12/19 Unknown Cbc With Differential Ord2 Lymph% 35.4 % 12/12/19 20 Unknown Cbc With Differential Ord2 Evans% 9.1 % 12/12/19 Unknown Cbc With Differential Ord2 MCH 27.5 pg 12/12/19 20 Unknown Cbc With Differential Ord2 MCHC 32.4 pg 12/12/19 20 Unknown Cbc With Differential Ord2 Eos% 2.0 % 12/12/19 20 Unknown Cbc With Differential Ord2 Baso% 0.7 % 12/12/19 20 Unknown Cbc With Differential Ord2 PLT 228 K/ul 12/12/19 20 Unknown Cbc With Differential Ord2 Neut ABS# 2.44 K/ul 12/12/19 20 Unknown Cbc With Differential Ord2 RDW 14.1 % 12/12/19 20 Unknown Cbc With Differential Ord2 Lymph ABS# 1.63 K/ul 020 Unknown Cbc With Differential Ord2 Evans ABS# 0.4 K/ul 12/12/19 20 Unknown Cbc With Differential Ord2 Eos ABS# 0.1 K/ul 12/12/19 20 Unknown Cbc With Differential Ord2 Baso ABS# 0.0 K/ul 12/12/19 20 Unknown %Hba1C Uxz394 % HbA1c 59543-6 11.3 % 12/12/2019 Unknown %Hba1C Yaz780 Gluc Ave 278 mg/dL 12/12/2019 Unknown Comp Metabolic Urj301 NA 147 mEq/L 12/12/2019 Unkn own Comp Metabolic Jrt190 K 3.9 mEq/L 12/12/2019 Unkn own Comp Metabolic Vdy941 CL 110 mEq/L 12/12/2019 Unkn own Comp Metabolic Xkq851 CO2 28.0 mEq/L 12/12/2019 Unk nown Comp Metabolic Mby491 ANION GAP 13 12/12/2019 Unkn own Comp Metabolic Aaj088 GLUCOSE 170 mg/dL 12/12/2019 Unkn own Comp Metabolic Rxl463 Creat 1.2 mg/dL 12/12/2019 Unkn own Comp Metabolic Ntw216 eGFR 65 ml/min/1.73m2 12/12/19 20 Unknown Comp Metabolic Mpj843 BUN 24 mg/dL 12/12/2019 Unkn own Comp Metabolic Buo051 B/C Ratio 19.4 Ratio 12/12/2019 Unk nown Comp Metabolic Wps527 CALCIUM 9.5 mg/dL 12/12/2019 Unkn own Comp Metabolic Ucd626 ALK PHOS 57 U/L 12/12/2019 Unkn own Comp Metabolic Ivw615 AST(SGOT) 21 U/L 12/12/2019 Unkn own Comp Metabolic Njf581 ALT(SGPT) 29 U/L 12/12/2019 Unkn own Comp Metabolic Wul689 BILI T 0.4 mg/dL 12/12/2019 Unkn own Comp Metabolic Ifw408 ALBUMIN 4.1 g/dL 12/12/2019 Unkn own Comp Metabolic Whx044 TPRO 6.7 g/dL 12/12/2019 Unkn own Comp Metabolic Wno727 GLOB 2.6 g/dL 12/12/2019 Unkn own Comp Metabolic Bnm201 A/G Ratio 1.6 Ratio 12/12/2019 Unkn own Comp Metabolic Oyk341 Osmo 300 mOsmo 12/12/2019 Unkn own %Hba1C Yrh298 % HbA1c 94652-3 10.0 % 06/13/2019 Unknown %Hba1C Pgu378 Gluc Ave 240 mg/dL 06/13/2019 Unknown Comp Metabolic Btc026 NA 143 mEq/L 06/13/2019 Unkn own Comp Metabolic Afw563 K 3.7 mEq/L 06/13/2019 Unkn own Comp Metabolic Lzu316 CL 107 mEq/L 06/13/2019 Unkn own Comp Metabolic Wlh345 CO2 26.0 mEq/L 06/13/2019 Unk nown Comp Metabolic Ywy905 ANION GAP 14 06/13/2019 Unkn own Comp Metabolic Ggv984 GLUCOSE 125 mg/dL 06/13/2019 Unkn own Comp Metabolic Jqz269 Creat 1.2 mg/dL 06/13/2019 Unkn own Comp Metabolic Ert922 eGFR 65 ml/min/1.73m2 06/13/20 19 Unknown Comp Metabolic Eaj077 BUN 25 mg/dL 06/13/2019 Unkn own Comp Metabolic Lpc576 B/C Ratio 20.2 Ratio 06/13/2019 Unk nown Comp Metabolic Jqc381 CALCIUM 9.2 mg/dL 06/13/2019 Unkn own Comp Metabolic Rcm002 ALK PHOS 54 U/L 06/13/2019 Unkn own Comp Metabolic Qhi636 AST(SGOT) 21 U/L 06/13/2019 Unkn own Comp Metabolic Abn614 ALT(SGPT) 30 U/L 06/13/2019 Unkn own Comp Metabolic Wmk666 BILI T 0.4 mg/dL 06/13/2019 Unkn own Comp Metabolic Gvd238 ALBUMIN 4.2 g/dL 06/13/2019 Unkn own Comp Metabolic Xxl811 TPRO 6.5 g/dL 06/13/2019 Unkn own Comp Metabolic Wgh691 GLOB 2.4 g/dL 06/13/2019 Unkn own Comp Metabolic Kcd008 A/G Ratio 1.8 Ratio 06/13/2019 Unkn own Comp Metabolic Wet392 Osmo 291 mOsmo 06/13/2019 Unkn own Cbc With Differential Ord2 WBC 5.22 K/ul 06/13/20 19 Unknown Cbc With Differential Ord2 RBC 5.23 M/ul 06/13/20 19 Unknown Cbc With Differential Ord2 HGB 14.3 g/dl 06/13/20 19 Unknown Cbc With Differential Ord2 Neut% 55.2 % 06/13/20 19 Unknown Cbc With Differential Ord2 HCT 44.2 % 06/13/20 19 Unknown Cbc With Differential Ord2 MCV 84.5 fl 06/13/20 19 Unknown Cbc With Differential Ord2 Lymph% 35.6 % 06/13/20 19 Unknown Cbc With Differential Ord2 MCH 27.3 pg 06/13/20 19 Unknown Cbc With Differential Ord2 Evans% 6.7 % 06/13/20 19 Unknown Cbc With Differential Ord2 MCHC 32.4 pg 06/13/20 19 Unknown Cbc With Differential Ord2 Eos% 1.9 % 06/13/20 19 Unknown Cbc With Differential Ord2 PLT 226 K/ul 06/13/20 19 Unknown Cbc With Differential Ord2 Baso% 0.6 % 06/13/20 19 Unknown Cbc With Differential Ord2 RDW 14.5 % 06/13/20 19 Unknown Cbc With Differential Ord2 Neut ABS# 2.88 K/ul 06/13/20 19 Unknown Cbc With Differential Ord2 Lymph ABS# 1.86 K/ul 019 Unknown Cbc With Differential Ord2 Evans ABS# 0.4 K/ul 06/13/20 19 Unknown Cbc With Differential Ord2 Eos ABS# 0.1 K/ul 06/13/20 19 Unknown Cbc With Differential Ord2 Baso ABS# 0.0 K/ul 06/13/20 19 Unknown Lipid Ord30 CHOL 164 mg/dL 02/14/2019 Unknown Lipid Ord30 HDL 38.0 mg/dl 02/14/2019 Unknown Lipid Ord30 TRIG 158 mg/dL 02/14/2019 Unknown Lipid Ord30 LDL 94 mg/dL 02/14/2019 Unknown Lipid Ord30 C/HDL 4.3 Ratio 02/14/2019 Unknown Comp Metabolic Ryw742 NA 144 mEq/L 02/14/2019 Unkn own Comp Metabolic Ajm533 K 3.8 mEq/L 02/14/2019 Unkn own Comp Metabolic Wef492 CL 110 mEq/L 02/14/2019 Unkn own Comp Metabolic Jdl241 CO2 26.0 mEq/L 02/14/2019 Unk nown Comp Metabolic Rlr034 ANION GAP 12 02/14/2019 Unkn own Comp Metabolic Tij428 GLUCOSE 143 mg/dL 02/14/2019 Unkn own Comp Metabolic Lmv841 Creat 1.3 mg/dL 02/14/2019 Unkn own Comp Metabolic Kre564 eGFR 61 ml/min/1.73m2 02/15/20 19 Unknown Comp Metabolic Uii887 BUN 29 mg/dL 02/14/2019 Unkn own Comp Metabolic Txc014 B/C Ratio 22.0 Ratio 02/14/2019 Unk nown Comp Metabolic Fmw729 CALCIUM 9.5 mg/dL 02/14/2019 Unkn own Comp Metabolic Ovb862 ALK PHOS 49 U/L 02/14/2019 Unkn own Comp Metabolic Zar028 AST(SGOT) 18 U/L 02/14/2019 Unkn own Comp Metabolic Iao982 ALT(SGPT) 23 U/L 02/14/2019 Unkn own Comp Metabolic Wjs349 BILI T 0.4 mg/dL 02/14/2019 Unkn own Comp Metabolic Ggs283 ALBUMIN 4.4 g/dL 02/14/2019 Unkn own Comp Metabolic Zfd005 TPRO 6.8 g/dL 02/14/2019 Unkn own Comp Metabolic Aag901 GLOB 2.4 g/dL 02/14/2019 Unkn own Comp Metabolic Gnn727 A/G Ratio 1.8 Ratio 02/14/2019 Unkn own Comp Metabolic Zhx310 Osmo 295 mOsmo 02/14/2019 Unkn own %Hba1C Veb997 % HbA1c 28820-2 9.9 % 02/14/2019 Unknown %Hba1C Jvf467 Gluc Ave 237 mg/dL 02/14/2019 Unknown Cbc With Differential Ord2 WBC 4.52 K/ul 10/25/19 19 Unknown Cbc With Differential Ord2 RBC 5.32 M/ul 10/25/19 19 Unknown Cbc With Differential Ord2 HGB 14.7 g/dl 10/25/19 19 Unknown Cbc With Differential Ord2 HCT 45.4 % 10/25/19 19 Unknown Cbc With Differential Ord2 Neut% 60.9 % 10/25/19 19 Unknown Cbc With Differential Ord2 MCV 85.3 fl 10/25/19 19 Unknown Cbc With Differential Ord2 Lymph% 28.3 % 10/25/19 19 Unknown Cbc With Differential Ord2 MCH 27.6 pg 10/25/19 19 Unknown Cbc With Differential Ord2 Evans% 8.6 % 10/25/19 19 Unknown Cbc With Differential Ord2 MCHC 32.4 pg 10/25/19 19 Unknown Cbc With Differential Ord2 Eos% 1.8 % 10/25/19 19 Unknown Cbc With Differential Ord2 Baso% 0.4 % 10/25/19 19 Unknown Cbc With Differential Ord2 PLT 216 K/ul 10/25/19 19 Unknown Cbc With Differential Ord2 RDW 15.0 % 10/25/19 19 Unknown Cbc With Differential Ord2 Neut ABS# 2.75 K/ul 10/25/19 19 Unknown Cbc With Differential Ord2 Lymph ABS# 1.28 K/ul 019 Unknown Cbc With Differential Ord2 Evans ABS# 0.4 K/ul 10/25/19 19 Unknown Cbc With Differential Ord2 Eos ABS# 0.1 K/ul 10/25/19 19 Unknown Cbc With Differential Ord2 Baso ABS# 0.0 K/ul 10/25/19 19 Unknown Lipid Ord30 CHOL 153 mg/dL 10/25/2018 Unknown Lipid Ord30 HDL 39.0 mg/dl 10/25/2018 Unknown Lipid Ord30 TRIG 112 mg/dL 10/25/2018 Unknown Lipid Ord30 LDL 92 mg/dL 10/25/2018 Unknown Lipid Ord30 C/HDL 3.9 Ratio 10/25/2018 Unknown Comp Metabolic Sxc772 NA 144 mEq/L 10/25/2018 Unkn own Comp Metabolic Lpg706 K 4.7 mEq/L 10/25/2018 Unkn own Comp Metabolic Okt408 CL 113 mEq/L 10/25/2018 Unkn own Comp Metabolic Gqb304 CO2 21.0 mEq/L 10/25/2018 Unk nown Comp Metabolic Bvm419 ANION GAP 15 10/25/2018 Unkn own Comp Metabolic Hgu832 GLUCOSE 136 mg/dL 10/25/2018 Unkn own Comp Metabolic Pcj991 Creat 1.3 mg/dL 10/25/2018 Unkn own Comp Metabolic Mbk815 eGFR 61 ml/min/1.73m2 10/25/19 19 Unknown Comp Metabolic Ofm216 BUN 26 mg/dL 10/25/2018 Unkn own Comp Metabolic Ade045 B/C Ratio 19.7 Ratio 10/25/2018 Unk nown Comp Metabolic Hjs743 CALCIUM 9.8 mg/dL 10/25/2018 Unkn own Comp Metabolic Sor133 ALK PHOS 51 U/L 10/25/2018 Unkn own Comp Metabolic Faf045 AST(SGOT) 33 U/L 10/25/2018 Unkn own Comp Metabolic Kwj839 ALT(SGPT) 28 U/L 10/25/2018 Unkn own Comp Metabolic Kxz136 BILI T 0.5 mg/dL 10/25/2018 Unkn own Comp Metabolic Tax434 ALBUMIN 4.3 g/dL 10/25/2018 Unkn own Comp Metabolic Lhq199 TPRO 6.9 g/dL 10/25/2018 Unkn own Comp Metabolic Hvh619 GLOB 2.6 g/dL 10/25/2018 Unkn own Comp Metabolic Acv101 A/G Ratio 1.6 Ratio 10/25/2018 Unkn own Comp Metabolic Hvj090 Osmo 294 mOsmo 10/25/2018 Unkn own %Hba1C Ghr424 % HbA1c 17606-1 9.7 % 10/25/2018 Unknown %Hba1C Ndy562 Gluc Ave 232 mg/dL 10/25/2018 Unknown Metabolic Ord15 NA 143 mEq/L 08/23/2018 Unknown Metabolic Ord15 K 3.7 mEq/L 08/23/2018 Unknown Metabolic Ord15 CL 107 mEq/L 08/23/2018 Unknown Metabolic Ord15 CO2 28.0 mEq/L 08/23/2018 Unknown Metabolic Ord15 GLUCOSE 99 mg/dL 08/23/2018 Unknown Metabolic Ord15 BUN 35 mg/dL 08/23/2018 Unknown Metabolic Ord15 Creat 1.3 mg/dL 08/23/2018 Unknown Metabolic Ord15 B/C Ratio 27.1 Ratio 08/23/2018 Unknown Metabolic Ord15 eGFR 63 ml/min/1.73m2 08/23/2018 Un known Metabolic Ord15 Osmo 293 mOsmo 08/23/2018 Unknown Metabolic Ord15 ANION GAP 12 08/23/2018 Unknown Metabolic Ord15 CALCIUM 10.1 mg/dL 08/23/2018 Unknown %Hba1C Cbb231 % HbA1c 03074-9 12.4 % 07/19/2018 Unknown %Hba1C Fno381 Gluc Ave 309 mg/dL 07/19/2018 Unknown Lipid Ord30 CHOL 159 mg/dL 07/19/2018 Unknown Lipid Ord30 HDL 36.0 mg/dl 07/19/2018 Unknown Lipid Ord30 TRIG 218 mg/dL 07/19/2018 Unknown Lipid Ord30 LDL 79 mg/dL 07/19/2018 Unknown Lipid Ord30 C/HDL 4.4 Ratio 07/19/2018 Unknown Cbc With Differential Ord2 WBC 4.81 K/ul 07/19/20 18 Unknown Cbc With Differential Ord2 RBC 5.16 M/ul 07/19/20 18 Unknown Cbc With Differential Ord2 HGB 13.9 g/dl 07/19/20 18 Unknown Cbc With Differential Ord2 Neut% 54.7 % 07/19/20 18 Unknown Cbc With Differential Ord2 HCT 43.0 % 07/19/20 18 Unknown Cbc With Differential Ord2 Lymph% 34.1 % 07/19/20 18 Unknown Cbc With Differential Ord2 MCV 83.3 fl 07/19/20 18 Unknown Cbc With Differential Ord2 Evans% 8.1 % 07/19/20 18 Unknown Cbc With Differential Ord2 MCH 26.9 pg 07/19/20 18 Unknown Cbc With Differential Ord2 MCHC 32.3 pg 07/19/20 18 Unknown Cbc With Differential Ord2 Eos% 2.9 % 07/19/20 18 Unknown Cbc With Differential Ord2 Baso% 0.2 % 07/19/20 18 Unknown Cbc With Differential Ord2 PLT 232 K/ul 07/19/20 18 Unknown Cbc With Differential Ord2 Neut ABS# 2.63 K/ul 07/19/20 18 Unknown Cbc With Differential Ord2 RDW 14.9 % 07/19/20 18 Unknown Cbc With Differential Ord2 Lymph ABS# 1.64 K/ul 018 Unknown Cbc With Differential Ord2 Evans ABS# 0.4 K/ul 07/19/20 18 Unknown Cbc With Differential Ord2 Eos ABS# 0.1 K/ul 07/19/20 18 Unknown Cbc With Differential Ord2 Baso ABS# 0.0 K/ul 07/19/20 18 Unknown Comp Metabolic Zbe289 NA 142 mEq/L 07/19/2018 Unkn own Comp Metabolic Igb201 K 3.9 mEq/L 07/19/2018 Unkn own Comp Metabolic Rex785 CL 104 mEq/L 07/19/2018 Unkn own Comp Metabolic Gom586 CO2 27.0 mEq/L 07/19/2018 Unk nown Comp Metabolic Hdr566 ANION GAP 15 07/19/2018 Unkn own Comp Metabolic Zut345 GLUCOSE 168 mg/dL 07/19/2018 Unkn own Comp Metabolic Zxw847 Creat 1.4 mg/dL 07/19/2018 Unkn own Comp Metabolic Rez377 eGFR 56 ml/min/1.73m2 07/19/20 18 Unknown Comp Metabolic Nap311 BUN 34 mg/dL 07/19/2018 Unkn own Comp Metabolic Kyc134 B/C Ratio 23.8 Ratio 07/19/2018 Unk nown Comp Metabolic Huf776 CALCIUM 9.6 mg/dL 07/19/2018 Unkn own Comp Metabolic Dbz815 ALK PHOS 55 U/L 07/19/2018 Unkn own Comp Metabolic Jsb393 AST(SGOT) 24 U/L 07/19/2018 Unkn own Comp Metabolic Jrn336 ALT(SGPT) 30 U/L 07/19/2018 Unkn own Comp Metabolic Mre704 BILI T 0.4 mg/dL 07/19/2018 Unkn own Comp Metabolic Ieo120 ALBUMIN 4.2 g/dL 07/19/2018 Unkn own Comp Metabolic Cwz443 TPRO 6.8 g/dL 07/19/2018 Unkn own Comp Metabolic Bci842 GLOB 2.6 g/dL 07/19/2018 Unkn own Comp Metabolic Eru235 A/G Ratio 1.6 Ratio 07/19/2018 Unkn own Comp Metabolic Skp634 Osmo 295 mOsmo 07/19/2018 Unkn own Cbc With Differential Ord2 WBC 4.88 K/ul 04/12/20 18 Unknown Cbc With Differential Ord2 RBC 5.03 M/ul 04/12/20 18 Unknown Cbc With Differential Ord2 HGB 13.8 g/dl 04/12/20 18 Unknown Cbc With Differential Ord2 Neut% 50.0 % 04/12/20 18 Unknown Cbc With Differential Ord2 HCT 42.5 % 04/12/20 18 Unknown Cbc With Differential Ord2 MCV 84.5 fl 04/12/20 18 Unknown Cbc With Differential Ord2 Lymph% 39.1 % 04/12/20 18 Unknown Cbc With Differential Ord2 MCH 27.4 pg 04/12/20 18 Unknown Cbc With Differential Ord2 Evans% 8.0 % 04/12/20 18 Unknown Cbc With Differential Ord2 Eos% 2.3 % 04/12/20 18 Unknown Cbc With Differential Ord2 MCHC 32.5 pg 04/12/20 18 Unknown Cbc With Differential Ord2 PLT 229 K/ul 04/12/20 18 Unknown Cbc With Differential Ord2 Baso% 0.6 % 04/12/20 18 Unknown Cbc With Differential Ord2 RDW 13.9 % 04/12/20 18 Unknown Cbc With Differential Ord2 Neut ABS# 2.44 K/ul 04/12/20 18 Unknown Cbc With Differential Ord2 Lymph ABS# 1.91 K/ul 018 Unknown Cbc With Differential Ord2 Evans ABS# 0.4 K/ul 04/12/20 18 Unknown Cbc With Differential Ord2 Eos ABS# 0.1 K/ul 04/12/20 18 Unknown Cbc With Differential Ord2 Baso ABS# 0.0 K/ul 04/12/20 18 Unknown %Hba1C Jta368 % HbA1c 83805-0 10.8 % 04/12/2018 Unknown %Hba1C Lmo365 Gluc Ave 263 mg/dL 04/12/2018 Unknown Comp Metabolic Xbs065 NA 143 mEq/L 04/12/2018 Unkn own Comp Metabolic Mfy371 K 3.9 mEq/L 04/12/2018 Unkn own Comp Metabolic Ehd787 CL 106 mEq/L 04/12/2018 Unkn own Comp Metabolic Ewd711 CO2 30.0 mEq/L 04/12/2018 Unk nown Comp Metabolic Fhk721 ANION GAP 11 04/12/2018 Unkn own Comp Metabolic Nox188 GLUCOSE 203 mg/dL 04/12/2018 Unkn own Comp Metabolic Xuf730 Creat 1.5 mg/dL 04/12/2018 Unkn own Comp Metabolic Yec705 eGFR 53 ml/min/1.73m2 04/12/20 18 Unknown Comp Metabolic Drw154 BUN 37 mg/dL 04/12/2018 Unkn own Comp Metabolic Lnb258 B/C Ratio 24.7 Ratio 04/12/2018 Unk nown Comp Metabolic Wgh610 CALCIUM 9.5 mg/dL 04/12/2018 Unkn own Comp Metabolic Hsv190 ALK PHOS 46 U/L 04/12/2018 Unkn own Comp Metabolic Nvg153 AST(SGOT) 19 U/L 04/12/2018 Unkn own Comp Metabolic Rol827 ALT(SGPT) 25 U/L 04/12/2018 Unkn own Comp Metabolic Ydf266 BILI T 0.4 mg/dL 04/12/2018 Unkn own Comp Metabolic Xyj904 ALBUMIN 4.1 g/dL 04/12/2018 Unkn own Comp Metabolic Dih066 TPRO 6.6 g/dL 04/12/2018 Unkn own Comp Metabolic Qdq486 GLOB 2.5 g/dL 04/12/2018 Unkn own Comp Metabolic Vdf185 A/G Ratio 1.7 Ratio 04/12/2018 Unkn own Comp Metabolic Ozy402 Osmo 299 mOsmo 04/12/2018 Unkn own Metabolic Ord15 NA 145 mEq/L 01/18/2018 Unknown Metabolic Ord15 K 4.0 mEq/L 01/18/2018 Unknown Metabolic Ord15 CL 108 mEq/L 01/18/2018 Unknown Metabolic Ord15 CO2 27.0 mEq/L 01/18/2018 Unknown Metabolic Ord15 GLUCOSE 159 mg/dL 01/18/2018 Unknown Metabolic Ord15 BUN 29 mg/dL 01/18/2018 Unknown Metabolic Ord15 Creat 1.5 mg/dL 01/18/2018 Unknown Metabolic Ord15 B/C Ratio 19.6 Ratio 01/18/2018 Unknown Metabolic Ord15 eGFR 54 ml/min/1.73m2 01/18/2018 Un known Metabolic Ord15 Osmo 298 mOsmo 01/18/2018 Unknown Metabolic Ord15 ANION GAP 14 01/18/2018 Unknown Metabolic Ord15 CALCIUM 9.7 mg/dL 01/18/2018 Unknown Lipid Ord30 CHOL 172 mg/dL 12/03/2017 Unknown Lipid Ord30 HDL 37.0 mg/dl 12/03/2017 Unknown Lipid Ord30 TRIG 214 mg/dL 12/03/2017 Unknown Lipid Ord30 LDL 92 mg/dL 12/03/2017 Unknown Lipid Ord30 C/HDL 4.6 Ratio 12/03/2017 Unknown Comp Metabolic God924 NA 140 mEq/L 12/03/2017 Unkn own Comp Metabolic Slv567 K 4.0 mEq/L 12/03/2017 Unkn own Comp Metabolic Uqe804 CL 103 mEq/L 12/03/2017 Unkn own Comp Metabolic Plp170 CO2 26.0 mEq/L 12/03/2017 Unk nown Comp Metabolic Fvt883 ANION GAP 15 12/03/2017 Unkn own Comp Metabolic Xzy121 GLUCOSE 142 mg/dL 12/03/2017 Unkn own Comp Metabolic Ima658 Creat 1.9 mg/dL 12/03/2017 Unkn own Comp Metabolic Yxg064 eGFR 39 ml/min/1.73m2 12/04/19 18 Unknown Comp Metabolic Ysd574 BUN 34 mg/dL 12/03/2017 Unkn own Comp Metabolic Iwx215 B/C Ratio 17.5 Ratio 12/03/2017 Unk nown Comp Metabolic Jjl154 CALCIUM 9.7 mg/dL 12/03/2017 Unkn own Comp Metabolic Buz722 ALK PHOS 46 U/L 12/03/2017 Unkn own Comp Metabolic Ilf184 AST(SGOT) 34 U/L 12/03/2017 Unkn own Comp Metabolic Bpn574 ALT(SGPT) 38 U/L 12/03/2017 Unkn own Comp Metabolic Epe255 BILI T 0.5 mg/dL 12/03/2017 Unkn own Comp Metabolic Jsf371 ALBUMIN 4.5 g/dL 12/03/2017 Unkn own Comp Metabolic Ctx240 TPRO 6.9 g/dL 12/03/2017 Unkn own Comp Metabolic Qou001 GLOB 2.4 g/dL 12/03/2017 Unkn own Comp Metabolic Jzf900 A/G Ratio 1.8 Ratio 12/03/2017 Unkn own Comp Metabolic Tqe032 Osmo 289 mOsmo 12/03/2017 Unkn own %Hba1C Tsc520 % HbA1c 53223-4 10.2 % 12/03/2017 Unknown %Hba1C Toi424 Gluc Ave 246 mg/dL 12/03/2017 Unknown Cbc With Differential Ord2 WBC 8.08 K/ul 12/04/19 18 Unknown Cbc With Differential Ord2 RBC 4.77 M/ul 12/04/19 18 Unknown Cbc With Differential Ord2 HGB 13.3 g/dl 12/04/19 18 Unknown Cbc With Differential Ord2 Neut% 59.6 % 12/04/19 18 Unknown Cbc With Differential Ord2 HCT 40.0 % 12/04/19 18 Unknown Cbc With Differential Ord2 Lymph% 31.3 % 12/04/19 18 Unknown Cbc With Differential Ord2 MCV 83.9 fl 12/04/19 18 Unknown Cbc With Differential Ord2 Evans% 7.7 % 12/04/19 18 Unknown Cbc With Differential Ord2 MCH 27.9 pg 12/04/19 18 Unknown Cbc With Differential Ord2 MCHC 33.3 pg 12/04/19 18 Unknown Cbc With Differential Ord2 Eos% 1.0 % 12/04/19 18 Unknown Cbc With Differential Ord2 PLT 248 K/ul 12/04/19 18 Unknown Cbc With Differential Ord2 Baso% 0.4 % 12/04/19 18 Unknown Cbc With Differential Ord2 Neut ABS# 4.82 K/ul 12/04/19 18 Unknown Cbc With Differential Ord2 RDW 14.5 % 12/04/19 18 Unknown Cbc With Differential Ord2 Lymph ABS# 2.53 K/ul 018 Unknown Cbc With Differential Ord2 Evans ABS# 0.6 K/ul 12/04/19 18 Unknown Cbc With Differential Ord2 Eos ABS# 0.1 K/ul 12/04/19 18 Unknown Cbc With Differential Ord2 Baso ABS# 0.0 K/ul 12/04/19 18 Unknown Lipid Ord30 CHOL 146 mg/dL 08/17/2017 Unknown Lipid Ord30 HDL 35.0 mg/dl 08/17/2017 Unknown Lipid Ord30 TRIG 210 mg/dL 08/17/2017 Unknown Lipid Ord30 LDL 69 mg/dL 08/17/2017 Unknown Lipid Ord30 C/HDL 4.2 Ratio 08/17/2017 Unknown Comp Metabolic Fjk197 NA 142 mEq/L 08/17/2017 Unkn own Comp Metabolic Eoy081 K 4.0 mEq/L 08/17/2017 Unkn own Comp Metabolic Tlc324 CL 108 mEq/L 08/17/2017 Unkn own Comp Metabolic Fvv203 CO2 27.0 mEq/L 08/17/2017 Unk nown Comp Metabolic Gpv164 ANION GAP 11 08/17/2017 Unkn own Comp Metabolic Xbq812 GLUCOSE 213 mg/dL 08/17/2017 Unkn own Comp Metabolic Ajj749 Creat 1.2 mg/dL 08/17/2017 Unkn own Comp Metabolic Jxf934 eGFR 70 ml/min/1.73m2 08/17/20 17 Unknown Comp Metabolic Ekb218 BUN 29 mg/dL 08/17/2017 Unkn own Comp Metabolic Yxm688 B/C Ratio 24.6 Ratio 08/17/2017 Unk nown Comp Metabolic Hzc436 CALCIUM 9.3 mg/dL 08/17/2017 Unkn own Comp Metabolic Ldj863 ALK PHOS 43 U/L 08/17/2017 Unkn own Comp Metabolic Cxw523 AST(SGOT) 18 U/L 08/17/2017 Unkn own Comp Metabolic Qzj926 ALT(SGPT) 23 U/L 08/17/2017 Unkn own Comp Metabolic Yth516 BILI T 0.3 mg/dL 08/17/2017 Unkn own Comp Metabolic Bmg037 ALBUMIN 4.0 g/dL 08/17/2017 Unkn own Comp Metabolic Zep190 TPRO 6.1 g/dL 08/17/2017 Unkn own Comp Metabolic Gbq779 GLOB 2.1 g/dL 08/17/2017 Unkn own Comp Metabolic Prx731 A/G Ratio 1.9 Ratio 08/17/2017 Unkn own Comp Metabolic Kgb839 Osmo 295 mOsmo 08/17/2017 Unkn own Cbc With Differential Ord2 WBC 5.36 K/ul 08/17/20 17 Unknown Cbc With Differential Ord2 RBC 4.67 M/ul 08/17/20 17 Unknown Cbc With Differential Ord2 HGB 12.6 g/dl 08/17/20 17 Unknown Cbc With Differential Ord2 HCT 39.2 % 08/17/20 17 Unknown Cbc With Differential Ord2 Neut% 61.0 % 08/17/20 17 Unknown Cbc With Differential Ord2 Lymph% 27.8 % 08/17/20 17 Unknown Cbc With Differential Ord2 MCV 83.9 fl 08/17/20 17 Unknown Cbc With Differential Ord2 Evans% 8.0 % 08/17/20 17 Unknown Cbc With Differential Ord2 MCH 27.0 pg 08/17/20 17 Unknown Cbc With Differential Ord2 MCHC 32.1 pg 08/17/20 17 Unknown Cbc With Differential Ord2 Eos% 2.6 % 08/17/20 17 Unknown Cbc With Differential Ord2 PLT 225 K/ul 08/17/20 17 Unknown Cbc With Differential Ord2 Baso% 0.6 % 08/17/20 17 Unknown Cbc With Differential Ord2 RDW 14.4 % 08/17/20 17 Unknown Cbc With Differential Ord2 Neut ABS# 3.27 K/ul 08/17/20 17 Unknown Cbc With Differential Ord2 Lymph ABS# 1.49 K/ul 017 Unknown Cbc With Differential Ord2 Evans ABS# 0.4 K/ul 08/17/20 17 Unknown Cbc With Differential Ord2 Eos ABS# 0.1 K/ul 08/17/20 17 Unknown Cbc With Differential Ord2 Baso ABS# 0.0 K/ul 08/17/20 17 Unknown %Hba1C Uqi762 % HbA1c 00045-4 10.6 % 08/17/2017 Unknown %Hba1C Dym058 Gluc Ave 258 mg/dL 08/17/2017 Unknown Microalbumin Ify757 MicroAlb 4.2 mg/dL 05/18/2017 Unknow n %Hba1C Pim493 % HbA1c 55534-9 10.4 % 05/18/2017 Unknown %Hba1C Sdr317 Gluc Ave 252 mg/dL 05/18/2017 Unknown Comp Metabolic Whu163 NA 141 mEq/L 05/18/2017 Unkn own Comp Metabolic Bfd904 K 4.0 mEq/L 05/18/2017 Unkn own Comp Metabolic Esr424 CL 104 mEq/L 05/18/2017 Unkn own Comp Metabolic Hpi874 CO2 28.0 mEq/L 05/18/2017 Unk nown Comp Metabolic Qbp298 ANION GAP 13 05/18/2017 Unkn own Comp Metabolic Fsb976 GLUCOSE 157 mg/dL 05/18/2017 Unkn own Comp Metabolic Qhq907 Creat 1.2 mg/dL 05/18/2017 Unkn own Comp Metabolic Nub755 eGFR 68 ml/min/1.73m2 05/18/20 17 Unknown Comp Metabolic Gir748 BUN 32 mg/dL 05/18/2017 Unkn own Comp Metabolic Mfx664 B/C Ratio 26.4 Ratio 05/18/2017 Unk nown Comp Metabolic Mvi772 CALCIUM 9.5 mg/dL 05/18/2017 Unkn own Comp Metabolic Ifq927 ALK PHOS 51 U/L 05/18/2017 Unkn own Comp Metabolic Gaq893 AST(SGOT) 18 U/L 05/18/2017 Unkn own Comp Metabolic Jpr033 ALT(SGPT) 24 U/L 05/18/2017 Unkn own Comp Metabolic Lhl203 BILI T 0.5 mg/dL 05/18/2017 Unkn own Comp Metabolic Clx559 ALBUMIN 4.1 g/dL 05/18/2017 Unkn own Comp Metabolic Ncm649 TPRO 6.7 g/dL 05/18/2017 Unkn own Comp Metabolic Axd669 GLOB 2.6 g/dL 05/18/2017 Unkn own Comp Metabolic Dtl736 A/G Ratio 1.5 Ratio 05/18/2017 Unkn own Comp Metabolic Kip062 Osmo 291 mOsmo 05/18/2017 Unkn own Cbc With Differential Ord2 WBC 5.19 K/ul 05/18/20 17 Unknown Cbc With Differential Ord2 RBC 4.91 M/ul 05/18/20 17 Unknown Cbc With Differential Ord2 HGB 13.6 g/dl 05/18/20 17 Unknown Cbc With Differential Ord2 Neut% 54.5 % 05/18/20 17 Unknown Cbc With Differential Ord2 HCT 41.6 % 05/18/20 17 Unknown Cbc With Differential Ord2 Lymph% 32.9 % 05/18/20 17 Unknown Cbc With Differential Ord2 MCV 84.7 fl 05/18/20 17 Unknown Cbc With Differential Ord2 MCH 27.7 pg 05/18/20 17 Unknown Cbc With Differential Ord2 Evans% 8.5 % 05/18/20 17 Unknown Cbc With Differential Ord2 MCHC 32.7 pg 05/18/20 17 Unknown Cbc With Differential Ord2 Eos% 3.7 % 05/18/20 17 Unknown Cbc With Differential Ord2 Baso% 0.4 % 05/18/20 17 Unknown Cbc With Differential Ord2 PLT 224 K/ul 05/18/20 17 Unknown Cbc With Differential Ord2 RDW 13.9 % 05/18/20 17 Unknown Cbc With Differential Ord2 Neut ABS# 2.83 K/ul 05/18/20 17 Unknown Cbc With Differential Ord2 Lymph ABS# 1.71 K/ul 017 Unknown Cbc With Differential Ord2 Evans ABS# 0.4 K/ul 05/18/20 17 Unknown Cbc With Differential Ord2 Eos ABS# 0.2 K/ul 05/18/20 17 Unknown Cbc With Differential Ord2 Baso ABS# 0.0 K/ul 05/18/20 17 Unknown Tsh Ord6 hTSH II 1.11 uIU/mL 05/18/2017 Unknown Lipid Ord30 CHOL 156 mg/dL 05/18/2017 Unknown Lipid Ord30 HDL 40.0 mg/dl 05/18/2017 Unknown Lipid Ord30 TRIG 155 mg/dL 05/18/2017 Unknown Lipid Ord30 LDL 85 mg/dL 05/18/2017 Unknown Lipid Ord30 C/HDL 3.9 Ratio 05/18/2017 Unknown Lipid Ord30 CHOL 198 mg/dL 01/26/2017 Unknown Lipid Ord30 HDL 35.0 mg/dl 01/26/2017 Unknown Lipid Ord30 TRIG 370 mg/dL 01/26/2017 Unknown Lipid Ord30 LDL Unable to calculate Due t o elevated triglycerides mg/dL 01/26/2017 Unknown Lipid Ord30 C/HDL 5.7 Ratio 01/26/2017 Unknown %Hba1C Uns884 % HbA1c 58106-5 13.2 % 01/26/2017 Unknown %Hba1C Xxn130 Gluc Ave 332 mg/dL 01/26/2017 Unknown %Hba1C Lym987 % HbA1c 24201-6 12.1 % 10/13/2016 Unknown %Hba1C Ltx791 Gluc Ave 301 mg/dL 10/13/2016 Unknown Tsh Ord6 hTSH II 0.78 uIU/mL 10/13/2016 Unknown Comp Metabolic Oad560 NA 137 mEq/L 10/13/2016 Unkn own Comp Metabolic Wfn573 K 4.1 mEq/L 10/13/2016 Unkn own Comp Metabolic Ucf427 CL 104 mEq/L 10/13/2016 Unkn own Comp Metabolic Sun366 CO2 26.0 mEq/L 10/13/2016 Unk nown Comp Metabolic Roz962 ANION GAP 11 10/13/2016 Unkn own Comp Metabolic Foo426 GLUCOSE 308 mg/dL 10/13/2016 Unkn own Comp Metabolic Tws613 Creat 1.0 mg/dL 10/13/2016 Unkn own Comp Metabolic Wre727 eGFR 81 ml/min/1.73m2 10/13/19 17 Unknown Comp Metabolic Mzw785 BUN 20 mg/dL 10/13/2016 Unkn own Comp Metabolic Qew687 B/C Ratio 19.2 Ratio 10/13/2016 Unk nown Comp Metabolic Qcr481 CALCIUM 9.7 mg/dL 10/13/2016 Unkn own Comp Metabolic Wrg991 ALK PHOS 62 U/L 10/13/2016 Unkn own Comp Metabolic Kyc160 AST(SGOT) 24 U/L 10/13/2016 Unkn own Comp Metabolic Zqw781 ALT(SGPT) 37 U/L 10/13/2016 Unkn own Comp Metabolic Mqz057 BILI T 0.4 mg/dL 10/13/2016 Unkn own Comp Metabolic Cvf726 ALBUMIN 4.2 g/dL 10/13/2016 Unkn own Comp Metabolic Ucv242 TPRO 6.9 g/dL 10/13/2016 Unkn own Comp Metabolic Ymz272 GLOB 2.7 g/dL 10/13/2016 Unkn own Comp Metabolic Nod444 A/G Ratio 1.5 Ratio 10/13/2016 Unkn own Comp Metabolic Rgq013 Osmo 288 mOsmo 10/13/2016 Unkn own Cbc With Differential Ord2 WBC 4.86 K/ul 10/13/19 17 Unknown Cbc With Differential Ord2 RBC 4.91 M/ul 10/13/19 17 Unknown Cbc With Differential Ord2 HGB 13.7 g/dl 10/13/19 17 Unknown Cbc With Differential Ord2 HCT 40.9 % 10/13/19 17 Unknown Cbc With Differential Ord2 Neut% 57.2 % 10/13/19 17 Unknown Cbc With Differential Ord2 Lymph% 32.9 % 10/13/19 17 Unknown Cbc With Differential Ord2 MCV 83.3 fl 10/13/19 17 Unknown Cbc With Differential Ord2 MCH 27.9 pg 10/13/19 17 Unknown Cbc With Differential Ord2 Evans% 7.4 % 10/13/19 17 Unknown Cbc With Differential Ord2 MCHC 33.5 pg 10/13/19 17 Unknown Cbc With Differential Ord2 Eos% 2.1 % 10/13/19 17 Unknown Cbc With Differential Ord2 Baso% 0.4 % 10/13/19 17 Unknown Cbc With Differential Ord2 PLT 231 K/ul 10/13/19 17 Unknown Cbc With Differential Ord2 Neut ABS# 2.78 K/ul 10/13/19 17 Unknown Cbc With Differential Ord2 RDW 14.0 % 10/13/19 17 Unknown Cbc With Differential Ord2 Lymph ABS# 1.60 K/ul 017 Unknown Cbc With Differential Ord2 Evans ABS# 0.4 K/ul 10/13/19 17 Unknown Cbc With Differential Ord2 Eos ABS# 0.1 K/ul 10/13/19 17 Unknown Cbc With Differential Ord2 Baso ABS# 0.0 K/ul 10/13/19 17 Unknown Lipid Ord30 CHOL 228 mg/dL 10/13/2016 Unknown Lipid Ord30 HDL 40.0 mg/dl 10/13/2016 Unknown Lipid Ord30 TRIG 326 mg/dL 10/13/2016 Unknown Lipid Ord30 LDL 123 mg/dL 10/13/2016 Unknown Lipid Ord30 C/HDL 5.7 Ratio 10/13/2016 Unknown Procedures No Procedures data Vital Signs Date Vital 04/29/2021 Blood Pressure 1: 140/90 Code: 8480-6 BMI: 31.9 Code: 07233-0 Heart Rate 1: 96 bpm Height: 5'10" Code: 8302-2 SpO2: 96% Temperature: 36.3 (C) / 97.4 (F) Weight: 222 lbs Code: 87107-4 01/14/2021 Blood Pressure 1: 140/90 Code: 8480-6 BMI: 31.7 Code: 52762-6 Heart Rate 1: 92 bpm Height: 5'10" Code: 8302-2 SpO2: 93% Temperature: 36.3 (C) / 97.3 (F) Weight: 221 lbs Code: 74315-5 09/17/2020 Blood Pressure 1: 116/72 Code: 8480-6 BMI: 32.6 Code: 00589-0 Heart Rate 1: 89 bpm Height: 5'10" Code: 8302-2 SpO2: 97% Temperature: 35.8 (C) / 96.4 (F) Weight: 227 lbs Code: 84558-6 06/11/2020 Blood Pressure 1: 122/70 Code: 8480-6 BMI: 32.7 Code: 83313-4 Heart Rate 1: 75 bpm Height: 5'10" Code: 8302-2 SpO2: 97% Temperature: 36.2 (C) / 97.1 (F) Weight: 228 lbs Code: 36017-2 05/19/2020 Blood Pressure 1: 154/66 Code: 8480-6 BMI: 33.1 Code: 24239-3 Heart Rate 1: 80 bpm Height: 5'10" Code: 8302-2 SpO2: 98% Temperature: 36.3 (C) / 97.3 (F) Weight: 231 lbs Code: 75859-0 12/12/2019 Blood Pressure 1: 130/74 Code: 8480-6 BMI: 32.9 Code: 81220-7 Heart Rate 1: 95 bpm Height: 5'10" Code: 8302-2 SpO2: 96% Temperature: 36.3 (C) / 97.4 (F) Weight: 229 lbs Code: 71093-0 06/13/2019 Blood Pressure 1: 138/82 Code: 8480-6 BMI: 33.1 Code: 21719-9 Heart Rate 1: 80 bpm Height: 5'10" Code: 8302-2 SpO2: 96% Weight: 231 l bs Code: 91227-5 02/14/2019 Blood Pressure 1: 120/84 Code: 8480-6 BMI: 33.1 Code: 78531-7 Heart Rate 1: 85 bpm Height: 5'10" Code: 8302-2 SpO2: 98% Weight: 231 l bs Code: 42731-6 10/18/2018 Blood Pressure 1: 126/78 Code: 8480-6 BMI: 33.0 Code: 27596-2 Heart Rate 1: 81 bpm Height: 5'10" Code: 8302-2 SpO2: 98% Weight: 230 l bs Code: 08043-7 08/23/2018 Blood Pressure 1: 130/70 Code: 8480-6 BMI: 32.9 Code: 39838-1 Heart Rate 1: 85 bpm Height: 5'10" Code: 8302-2 SpO2: 96% Weight: 229 l bs Code: 85266-0 07/19/2018 Blood Pressure 1: 130/80 Code: 8480-6 BMI: 32.3 Code: 43794-3 Heart Rate 1: 86 bpm Height: 5'10" Code: 8302-2 SpO2: 96% Weight: 225 l bs Code: 60795-0 04/19/2018 Blood Pressure 1: 128/82 Code: 8480-6 BMI: 32.7 Code: 45493-1 Heart Rate 1: 83 bpm Height: 5'10" Code: 8302-2 SpO2: 94% Weight: 228 l bs Code: 50059-8 01/18/2018 Blood Pressure 1: 130/78 Code: 8480-6 BMI: 32.9 Code: 99589-2 Heart Rate 1: 80 bpm Height: 5'10" Code: 8302-2 SpO2: 95% Weight: 229 l bs Code: 92309-3 12/21/2017 Blood Pressure 1: 112/60 Code: 8480-6 BMI: 32.9 Code: 94165-9 Heart Rate 1: 92 bpm Height: 5'10" Code: 8302-2 SpO2: 93% Weight: 229 l bs Code: 81058-5 08/17/2017 Blood Pressure 1: 130/78 Code: 8480-6 BMI: 33.3 Code: 77493-8 Heart Rate 1: 88 bpm Height: 5'10" Code: 8302-2 SpO2: 96% Weight: 232 l bs Code: 08048-2 07/12/2017 Blood Pressure 1: 130/74 Code: 8480-6 BMI: 32.7 Code: 27966-4 Heart Rate 1: 88 bpm Height: 5'10" Code: 8302-2 SpO2: 98% Weight: 228 l bs Code: 62442-6 05/18/2017 Blood Pressure 1: 120/74 Code: 8480-6 BMI: 32.7 Code: 05397-9 Heart Rate 1: 86 bpm Height: 5'10" Code: 8302-2 SpO2: 97% Weight: 228 l bs Code: 37515-5 03/16/2017 Blood Pressure 1: 126/78 Code: 8480-6 BMI: 32.6 Code: 94480-6 Heart Rate 1: 81 bpm Height: 5'10" Code: 8302-2 SpO2: 95% Weight: 227 l bs Code: 90420-1 02/09/2017 Blood Pressure 1: 132/80 Code: 8480-6 BMI: 32.6 Code: 21856-5 Heart Rate 1: 89 bpm Height: 5'10" Code: 8302-2 SpO2: 96% Weight: 227 l bs Code: 85078-7 10/13/2016 Blood Pressure 1: 146/90 Code: 8480-6 BMI: 32.3 Code: 37811-6 Heart Rate 1: 88 bpm Height: 5'10" Code: 8302-2 SpO2: 98% Weight: 225 l bs Code: 94540-1 Functional Status No Functional Status data Reason For Visit Reason For Visit Effective Dates Notes diabetes mellitus 04/29/2021 diabetes mellitus 01/14/2021 diabetes mellitus 09/17/2020 diabetes mellitus 06/11/2020 wrist pain 05/19/2020 diabetes mellitus 12/12/2019 diabetes mellitus 06/13/2019 diabetes mellitus 02/14/2019 diabetes mellitus 10/18/2018 diabetes mellitus 08/23/2018 diabetes mellitus 07/19/2018 diabetes mellitus 04/19/2018 diabetes mellitus 01/18/2018 diabetes mellitus 12/21/2017 diabetes mellitus 08/17/2017 shoulder pain 07/12/2017 diabetes mellitus 05/18/2017 diabetes mellitus 03/16/2017 diabetes mellitus 02/09/2017 diabetes mellitus 10/13/2016 Encounters Encounter Performer Location Codes Date ([id number]) [id number] EST. PATIENT, LEVEL III Diagnosis: Type 2 diabetes mellitus with hyperglycemia[ICD10: E11.65] [facility] CPT-4: 83871 04/29/2021 [id number]) 01949 EST. PATIENT, LEVEL IV Diagnosis: Essential (primary) hypertension[ICD10: I10] Diagnosis: Type 2 diabetes mellitus with hyperglycemia[ICD10: E11.65] Diagnosis: Mixed hyperlipidemia[ICD10: E78.2] [facility] CPT-4: 41194 01/14/2021 ([id number]) 20787 EST. PATIENT, LEVEL IV Diagnosis: Type 2 diabetes mellitus with hyperglycemia[ICD10: E11.65] Diagnosis: Essential (primary) hypertension[ICD10: I10] Diagnosis: Mixed hyperlipidemia[ICD10: E78.2] Diagnosis: Left shoulder pain[ICD10: M25.512] Mary espinoza MD, [facility] CPT-4: 61182 09/17/2020 ([id number]) 20137 EST. PATIENT, LEVEL IV Diagnosis: Essential (primary) hypertension[ICD10: I10] Diagnosis: Type 2 diabetes mellitus with hyperglycemia[ICD10: E11.65] Mary Box MD, [facility] CPT-4: 50620 06/11/2020 [id number] EST. PATIENT, LEVEL III Diagnosis: Left wrist pain[ICD10: M25.532] Miya Box MD , [facility] CPT-4: 83985 05/19/2020 [id number] EST. PATIENT, LEVEL IV Diagnosis: Essential (primary) hypertension[ICD10: I10] Diagnosis: Type 2 diabetes mellitus without complications[ICD10: E11.9] Miya Box MD, [facility] CPT-4: 59436 12/12/2019 ([id number]) 82575 EST. PATIENT, LEVEL IV Diagnosis: Type 2 diabetes mellitus with hyperglycemia[ICD10: E11.65] Diagnosis: Essential (primary) hypertension[ICD10: I10] Diagnosis: Chronic kidney disease, stage 3 (moderate)[ICD10: N18.3] Mary Box MD, [facility] CPT-4: 36934 06/13/2019 ([id number]) 99290 EST. PATIENT, LEVEL III Diagnosis: Type 2 diabetes mellitus with hyperglycemia[ICD10: E11.65] Diagnosis: Essential (primary) hypertension[ICD10: I10] Mary Box MD, [facility] CPT-4: 49305 02/14/2019 ([id number]) 31529 EST. PATIENT, LEVEL IV Diagnosis: Type 2 diabetes mellitus with hyperglycemia[ICD10: E11.65] Diagnosis: Essential (primary) hypertension[ICD10: I10] Diagnosis: Chronic kidney disease, stage 3 (moderate)[ICD10: N18.3] Diagnosis: Mixed hyperlipidemia[ICD10: E78.2] Mary espinoza MD, [facility] CPT-4: 18990 10/18/2018 ([id number]) 29124 EST. PATIENT, LEVEL IV Diagnosis: Essential (primary) hypertension[ICD10: I10] Diagnosis: Type 2 diabetes mellitus with hyperglycemia[ICD10: E11.65] Diagnosis: Localized edema[ICD10: R60.0] Mary perla MD, [facility] CPT-4: 28833 08/23/2018 ([id number]) 00105 EST. PATIENT, LEVEL IV Diagnosis: Type 2 diabetes mellitus with hyperglycemia[ICD10: E11.65] Diagnosis: Mixed hyperlipidemia[ICD10: E78.2] Diagnosis: Essential (primary) hypertension[ICD10: I10] Mary Box MD, [facility] CPT-4: 22977 07/19/2018 ([id number]) 33784 EST. PATIENT, LEVEL IV Diagnosis: Type 2 diabetes mellitus with hyperglycemia[ICD10: E11.65] Diagnosis: Essential (primary) hypertension[ICD10: I10] Diagnosis: Chronic kidney disease, stage 3 (moderate)[ICD10: N18.3] Mary Box MD, [facility] CPT-4: 45445 04/19/2018 ([id number]) 98687 EST. PATIENT, LEVEL III Diagnosis: Type 2 diabetes mellitus with hyperglycemia[ICD10: E11.65] Mary Box MD, [facility] CPT-4: 41723 01/18/2018 ([id number]) 68086 EST. PATIENT, LEVEL IV Diagnosis: Type 2 diabetes mellitus with hyperglycemia[ICD10: E11.65] Diagnosis: Essential (primary) hypertension[ICD10: I10] Diagnosis: Mixed hyperlipidemia[ICD10: E78.2] Diagnosis: Acute kidney failure, unspecified[ICD10: N17.9] Mary Box MD, [facility] CPT-4: 42873 12/21/2017 ([id number]) 64885 EST. PATIENT, LEVEL IV Diagnosis: Type 2 diabetes mellitus with hyperglycemia[ICD10: E11.65] Diagnosis: Essential (primary) hypertension[ICD10: I10] Diagnosis: Mixed hyperlipidemia[ICD10: E78.2] Mary espinoza MD, [facility] CPT-4: 66477 08/17/2017 97065 EST. PATIENT, LEVEL III Diagnosis: Pain in right shoulder[ICD10: M25.511] Miya Hanley MD, [facility] CPT-4: 31115 07/12/2017 ([id number]) 37709 EST. PATIENT, LEVEL IV Diagnosis: Type 2 diabetes mellitus with hyperglycemia[ICD10: E11.65] Diagnosis: Essential (primary) hypertension[ICD10: I10] Diagnosis: Mixed hyperlipidemia[ICD10: E78.2] Diagnosis: Bicipital tendinitis, right shoulder[ICD10: M75.21] Diagnosis: Acute recurrent maxillary sinusitis[ICD10: J01.01] Mary Box MD, [facility] CPT-4: 84765 05/18/2017 ([id number]) 65376 EST. PATIENT, LEVEL III Diagnosis: Type 2 diabetes mellitus with hyperglycemia[ICD10: E11.65] Mary Box MD, [facility] CPT-4: 44155 03/16/2017 ([id number]) 92279 EST. PATIENT, LEVEL III Diagnosis: Type 2 diabetes mellitus with hyperglycemia[ICD10: E11.65] Diagnosis: Essential (primary) hypertension[ICD10: I10] Mary Box MD, [facility] CPT-4: 18088 02/09/2017 OFFICE VISIT, NEW - LEVEL 4 Diagnosis: Essential (primary) hypertension[ICD10: I10] Diagnosis: Type 2 diabetes mellitus without complications[ICD10: E11.9] Diagnosis: Personal history of malignant melanoma of skin[ICD10: Z85.820] Miya Box MD, [facility] CPT-4: 70901 10/13/2016 Plan of Care Planned Activity Notes Codes Status Date Visit Plan: Diabetes Mellitus - Uncontro lled - I have recommended for the patient to have follow up labs prior to the next office visit. The patient has been instructed to continue with current medications as previously directed, continue with regular FSBS monitoring to assure continued control of diabetes. Pt to call for any acute concerns, complaints, or if the blood glucose readings are starting to become less controlled. I have recommended for the patient to follow more strictly to the diabetic diet as discussed in clinic to allow for greater blood glucose control. 04/29/2021 Patient Education: Patient Medication Summary Completed 04/29/2021 Patient Education: Hypertension Completed 04/29/2021 [facility]ment[facility] [phone] [phone] (15 min) Moderate 04/15/2021 Visit Plan: Hypertension - well controll ed - continue with current medications, continue with no added salt diet. Pt has been encouraged to exercise daily. The pt has been advised to call the office if there are any acute concerns about change in blood pressure readings at home. Diabetes Mellitus - Uncontrolled - per recent FSBS reports. I have recommended for the patient to have follow up labs prior to the next office visit. The patient has been instructed to continue with current medications as previously directed, continue with regular FSBS monitoring to assure continued control of diabetes. Pt to call for any acute concerns, complaints, or if the blood glucose readings are starting to become less controlled. I have recommended for the patient to follow more strictly to the diabetic diet as discussed in clinic to allow for greater blood glucose control. Pt reports has not been on insulin since September. BS today 363. Reports insurance was no longer covering Toujeo with discount card and Lantus was $700. Discussed importance of taking insulin and notifying provider of coverage issues to find alternative. Basaglar rx sent to pharmacy. Provided samples of Basaglar and discount card. Pt to agreed to notify office if issues with cost. Pt to start Basaglar at 1/2 of previous dose and titrate up to 55 units twice a day. Will check labs today. Hyperlipidemia- continue current medications 01/14/2021 Appointment: [facility] Craw[facility] [phone] [phone] (15 min) Moderate 01/14/2021 Patient Education: Patient Medication Summary Completed 01/14/2021 Patient Education: Hypertension Completed 01/14/2021 Patient Education: Cholesterol Management Completed 01/14/2021 Visit Plan: Hypertension - well controll ed - continue with current medications, continue with no added salt diet. Pt has been encouraged to exercise daily. The pt has been advised to call the office if there are any acute concerns about change in blood pressure readings at home. Hyperlipidemia - pt has been counseled about appropriate diet, exercise, and need for low fat food choices. I have discussed the need for the patient to take medications as prescribed. If the patient has negative side effects from the medication, they are to CALL the office and not abruptly discontinue the medication without discussion with a practitioner in the office. We will check labs in 3-6 months for follow up on the patient's chronic medical problem and to assure normal liver response to medications. DM - patient taking toujeo 50 units twice daily - check hgb a1c today Left shoulder pain -refill tramadol for prn use- patient to go through work comp for evaluation 09/17/2020 Appointment: [facility] Craw[facility] [phone] [phone] (15 min) Moderate 09/17/2020 Patient Education: Patient Medication Summary Completed 09/17/2020 Patient Education: Hypertension Completed 09/17/2020 Patient Education: Cholesterol Management Completed 09/17/2020 Visit Plan: Diabetes Mellitus - Uncontro lled - per recent FSBS reports. I have recommended for the patient to have follow up labs prior to the next office visit. The patient has been instructed to continue with current medications as previously directed, continue with regular FSBS monitoring to assure continued control of diabetes. Pt to call for any acute concerns, complaints, or if the blood glucose readings are starting to become less controlled. I have recommended for the patient to follow more strictly to the diabetic diet as discussed in clinic to allow for greater blood glucose control. Obtain follow up labs in 3 months. Hypertension - well controlled - continue with current medications, continue with no added salt diet. Pt has been encouraged to exercise daily. The pt has been advised to call the office if there are any acute concerns about change in blood pressure readings at home. 06/11/2020 Appointment: Mary Crawley [facility]el[facility] [phone] [facility] [phone] [place] (15 min) Moderate 06/11/2020 Patient Education: Patient Medication Summary Completed 06/11/2020 Patient Education: Hypertension Completed 06/11/2020 Patient Education: Diabetes Completed 06/11/2020 Patient Education: Patient Medication Summary Completed 05/20/2020 Visit Plan: Left wrist pain - will check labs and treat as indicated - will send RX - pt is to notify clinic if symptoms do not improve, if they worsen, or with any changes, questions, or concerns. 05/19/2020 Appointment: Miya Ruelas [facility]el[facility] [phone] [facility] [place] [place] (30 min) Complex 05/19/2020 Patient Education: Patient Medication Summary Completed 05/19/2020 Patient Education: Patient Medication Summary Completed 05/14/2020 Visit Plan: Hypertension - well controll ed - continue with current medications, continue with no added salt diet. Pt has been encouraged to exercise daily. The pt has been advised to call the office if there are any acute concerns about change in blood pressure readings at home. Diabetes Mellitus - I have recommended for the patient to have follow up labs prior to the next office visit. The patient has been instructed to continue with current medications as previously directed, continue with regular FSBS monitoring to assure continued control of diabetes. Pt to call for any acute concerns, complaints, or if the blood glucose readings are starting to become less controlled. I have recommended for the patient to follow more strictly to the diabetic diet as discussed in clinic to allow for greater blood glucose control. 12/12/2019 Appointment: Miya Ruelas [facility]el[facility] [phone] [facility] [place] [place] (15 min) Moderate 12/12/2019 Patient Education: Patient Medication Summary Completed 12/12/2019 Patient Education: Hypertension Completed 12/12/2019 Patient Education: Diabetes Completed 12/12/2019 Visit Plan: Diabetes Mellitus - controll ed - per recent FSBS reports. I have recommended for the patient to have follow up labs prior to the next office visit. The patient has been instructed to continue with current medications as previously directed, continue with regular FSBS monitoring to assure continued control of diabetes. Pt to call for any acute concerns, complaints, or if the blood glucose readings are starting to become less controlled. Hypertension - well controlled - continue with current medications, continue with no added salt diet. Pt has been encouraged to exercise daily. The pt has been advised to call the office if there are any acute concerns about change in blood pressure readings at home. CKD-check labs today 06/13/2019 Appointment: Mary Crawley WPtel: [phone] [phone] [place] (15 min) Moderate 06/13/2019 Patient Education: Patient Medication Summary Completed 06/13/2019 Patient Education: Hypertension Completed 06/13/2019 Visit Plan: Diabetes Mellitus - controll ed - per recent FSBS reports. I have recommended for the patient to have follow up labs prior to the next office visit. The patient has been instructed to continue with current medications as previously directed, continue with regular FSBS monitoring to assure continued control of diabetes. Pt to call for any acute concerns, complaints, or if the blood glucose readings are starting to become less controlled. Hypertension - well controlled - continue with current medications, continue with no added salt diet. Pt has been encouraged to exercise daily. The pt has been advised to call the office if there are any acute concerns about change in blood pressure readings at home. 02/14/2019 Appointment: Mary Crawley WPtel: [phone] [phone] [place] (15 min) Moderate 02/14/2019 Patient Education: Patient Medication Summary Completed 02/14/2019 Patient Education: Hypertension Completed 02/14/2019 Appointment: Mary Crawley WPtel: [phone] [phone] [place] (15 min) Moderate 11/22/2018 Visit Plan: Diabetes Mellitus - I have r ecommended for the patient to have follow up labs prior to the next office visit. The patient has been instructed to continue with current medications as previously directed, continue with regular FSBS monitoring to assure continued control of diabetes. Pt to call for any acute concerns, complaints, or if the blood glucose readings are starting to become less controlled. I have recommended for the patient to follow more strictly to the diabetic diet as discussed in clinic to allow for greater blood glucose control. Hypertension - well controlled - continue with current me dications, continue with no added salt diet. Pt has been encouraged to exercise daily. The pt has been advised to call the office if there are any acute concerns about change in blood pressure readings at home. Hyperlipidemia - pt has been counseled about appropriate diet, exercise, and need for low fat food choices. I have discussed the need for the patient to take medications as prescribed. If the patient has negative side effects from the medication, they are to CALL the office and not abruptly discontinue the medication without discussion with a practitioner in the office. We will check labs in 3-6 months for follow up on the patient's chronic medical problem and to assure normal liver response to medications. 10/18/2018 Appointment: Mary Crawley WPtel: [phone] [phone] (15 min) Moderate 10/18/2018 Patient Education: Patient Medication Summary Completed 10/18/2018 Patient Education: Hypertension Completed 10/18/2018 Patient Education: Cholesterol Management Completed 10/18/2018 Visit Plan: Hypertension - well controll ed - continue with current medications, continue with no added salt diet. Pt has been encouraged to exercise daily. The pt has been advised to call the office if there are any acute concerns about change in blood pressure readings at home. DM-improved per patient's readings-no changes today-repeat labs in 3 months to monitor a1c Kyzkq-fpyqen-hrpvl lasix only as needed for swelling-check kidney function today 08/23/2018 Appointment: Mary Crawley WPtel: [phone] [id number] [place] (15 min) Moderate 08/23/2018 Patient Education: Patient Medication Summary Completed 08/23/2018 Patient Education: Hypertension Completed 08/23/2018 Visit Plan: Hypertension - well controll ed - continue with current medications, continue with no added salt diet. Pt has been encouraged to exercise daily. The pt has been advised to call the office if there are any acute concerns about change in blood pressure readings at home. Hyperlipidemia - pt has been counseled about appropriate diet, exercise, and need for low fat food choices. I have discussed the need for the patient to take medications as prescribed. If the patient has negative side effects from the medication, they are to CALL the office and not abruptly discontinue the medication without discussion with a practitioner in the office. We will check labs in 3-6 months for follow up on the patient's chronic medical problem and to assure normal liver response to medications. Diabetes Mellitus - I have recommended for the patient to have follow up labs prior to the next office visit. The patient has been instructed to continue with current medications as previously directed, continue with regular FSBS monitoring to assure continued control of diabetes. Pt to call for any acute concerns, complaints, or if the blood glucose readings are starting to become less controlled. 07/19/2018 Appointment: Mary Crawley [facility]el[phone] (15 min) Moderate 07/19/2018 Patient Education: Patient Medication Summary Completed 07/19/2018 Patient Education: Cholesterol Management Completed 07/19/2018 Patient Education: Hypertension Completed 07/19/2018 Visit Plan: Diabetes Mellitus - Uncontro lled - per recent FSBS reports. I have recommended for the patient to have follow up labs prior to the next office visit. The patient has been instructed to continue with current medications as previously directed, continue with regular FSBS monitoring to assure continued control of diabetes. Pt to call for any acute concerns, complaints, or if the blood glucose readings are starting to become less controlled. I have recommended for the patient to follow more strictly to the diabetic diet as discussed in clinic to allow for greater blood glucose control. INCREASE TOUJEO TO 40 UNITS TWICE DAILY -WILL SEND IN INSURANCE VERIFICATION TO SEE IF SM[employer]CT (CONTINUOUS GLUCOSE MONITOR) IS COVERED. Hyperlipidemia - pt has been counseled about appropriate diet, exercise, and need for low fat food choices. I have discussed the need for the patient to take medications as prescribed. If the patient has negative side effects from the medication, they are to CALL the office and not abruptly discontinue the medication without discussion with a practitioner in the office. We will check labs in 3-6 months for follow up on the patient's chronic medical problem and to assure normal liver response to medications. 04/19/2018 Appointment: Mary Crawley WPtel: [phone] [phone] (15 min) Moderate 04/19/2018 Patient Education: Patient Medication Summary Completed 04/19/2018 Patient Education: Patient Medication Summary Completed 04/11/2018 Visit Plan: Diabetes Mellitus - I have r ecommended for the patient to have follow up labs prior to the next office visit. The patient has been instructed to continue with current medications as previously directed, continue with regular FSBS monitoring to assure continued control of diabetes. Pt to call for any acute concerns, complaints, or if the blood glucose readings are starting to become less controlled. Decreased renal function-patient off metformin-check labs today 01/18/2018 Appointment: Mary Crawleyl: [address] [id number] (15 min) Moderate 01/18/2018 Patient Education: Patient Medication Summary Completed 01/18/2018 Visit Plan: Hypertension - well controll ed - continue with current medications, continue with no added salt diet. Pt has been encouraged to exercise daily. The pt has been advised to call the office if there are any acute concerns about change in blood pressure readings at home. Hyperlipidemia - pt has been counseled about appropriate diet, exercise, and need for low fat food choices. I have discussed the need for the patient to take medications as prescribed. If the patient has negative side effects from the medication, they are to CALL the office and not abruptly discontinue the medication without discussion with a practitioner in the office. We will check labs in 3-6 months for follow up on the patient's chronic medical problem and to assure normal liver response to medications. Diabetes Mellitus - Uncontrolled - per recent FSBS reports. I have recommended for the patient to have follow up labs prior to the next office visit. The patient has been instructed to continue with current medications as previously directed, continue with regular FSBS monitoring to assure continued control of diabetes. Pt to call for any acute concerns, complaints, or if the blood glucose readings are starting to become less controlled. I have recommended for the patient to follow more strictly to the diabetic diet as discussed in clinic to allow for greater blood glucose control. Renal failure- due to NSAIDS/metformin-patient has stopped both-stay adequately hydrated-repeat labs in 1 month to monitor 12/21/2017 Appointment: Mary Crawley WPtel: [phone] [phone] (15 min) Moderate 12/21/2017 Patient Education: Patient Medication Summary Completed 12/21/2017 Care Plan: Comp Metabolic patient to have done in 1 month before appt Pending 12/21/2017 Appointment: Mary Crawley WPtel: [phone] [phone] (30 min) Complex 12/14/2017 Visit Plan: Hypertension - well controll ed - continue with current medications, continue with no added salt diet. Pt has been encouraged to exercise daily. The pt has been advised to call the office if there are any acute concerns about change in blood pressure readings at home. Diabetes Mellitus - I have recommended for the patient to have follow up labs prior to the next office visit. The patient has been instructed to continue with current medications as previously directed, continue with regular FSBS monitoring to assure continued control of diabetes. Pt to call for any acute concerns, complaints, or if the blood glucose readings are starting to become less controlled. I have recommended for the patient to follow more strictly to the diabetic diet as discussed in clinic to allow for greater blood glucose control. Hyperlipidemia - pt has been counseled about appropriate diet, exercise, and need for low fat food choices. I have discussed the need for the patient to take medications as prescribed. If the patient has negative side effects from the medication, they are to CALL the office and not abruptly discontinue the medication without discussion with a practitioner in the office. We will check labs in 3-6 months for follow up on the patient's chronic medical problem and to assure normal liver response to medications. 08/17/2017 Appointment: Mary Crawley WPtel: [phone] [phone] (15 min) Moderate 08/17/2017 Patient Education: Patient Medication Summary Completed 08/17/2017 Visit Plan: Right shoulder pain - ongoin g - pt would like to think about being referred vs getting imaging - The pt is to use prn antiinflammatories to manage acute pain. The patient is to call the office if the pain is worsening or does not improve. 07/12/2017 Appointment: Miya Ruelas WPtel: [phone] [place] (30 min) Complex 07/12/2017 Patient Education: Patient Medication Summary Completed 07/12/2017 Visit Plan: Diabetes Mellitus - Uncontro lled - per recent FSBS reports. I have recommended for the patient to have follow up labs prior to the next office visit. The patient has been instructed to continue with current medications as previously directed, continue with regular FSBS monitoring to assure continued control of diabetes. Pt to call for any acute concerns, complaints, or if the blood glucose readings are starting to become less controlled. I have recommended for the patient to follow more strictly to the diabetic diet as discussed in clinic to allow for greater blood glucose control. Hypertension - well controlled - continue with current medications, continue with no added salt diet. Pt has been encouraged to exercise daily. The pt has been advised to call the office if there are any acute concerns about change in blood pressure readings at home. Hyperlipidemia - pt has been counseled about appropriate diet, exercise, and need for low fat food choices. I have discussed the need for the patient to take medications as prescribed. If the patient has negative side effects from the medication, they are to CALL the office and not abruptly discontinue the medication without discussion with a practitioner in the office. We will check labs in 3-6 months for follow up on the patient's chronic medical problem and to assure normal liver response to medications. Sinusitis - Pt has acute infection - pain in face, maxillary region, Pt informed to use decongestant, RX given to patient, sinus rinses also recommended. Call if symptoms do not show improvement. Biceps tendinitis - pt to do exercises as directed, ant-inflammatories directed to be taken per RX instructions and pt to call if symptoms are not improved. 05/18/2017 Appointment: Mary Crawley WPtel: [phone] (15 min) Moderate 05/18/2017 Patient Education: Patient Medication Summary Completed 05/18/2017 Patient Education: Obesity Completed 0 05/18/2017 Visit Plan: Diabetes Mellitus - I have r ecommended for the patient to have follow up labs prior to the next office visit. The patient has been instructed to continue with current medications as previously directed, continue with regular FSBS monitoring to assure continued control of diabetes. Pt to call for any acute concerns, complaints, or if the blood glucose readings are starting to become less controlled. I have recommended for the patient to follow more strictly to the diabetic diet as discussed in clinic to allow for greater blood glucose control. 03/16/2017 Appointment: Mary Crawley WPtel: [phone] [phone] (15 min) Moderate 03/16/2017 Patient Education: Patient Medication Summary Completed 03/16/2017 Patient Education: Obesity Completed 0 03/16/2017 Visit Plan: Diabetes Mellitus - Uncontro lled - per recent FSBS reports. I have recommended for the patient to have follow up labs prior to the next office visit. The patient has been instructed to continue with current medications as previously directed, continue with regular FSBS monitoring to assure continued control of diabetes. Pt to call for any acute concerns, complaints, or if the blood glucose readings are starting to become less controlled. I have recommended for the patient to follow more strictly to the diabetic diet as discussed in clinic to allow for greater blood glucose control. Hypertension - well controlled - continue with current medications, continue with no added salt diet. Pt has been encouraged to exercise daily. The pt has been advised to call the office if there are any acute concerns about change in blood pressure readings at home. 02/09/2017 Appointment: Mary Crawley WPtel: [phone] [phone] (30 min) [facility] 02/09/2017 Patient Education: Patient Medication Summary Completed 02/09/2017 Patient Education: Obesity Completed 0 02/09/2017 Referral: Maryana Wick WPtel: Referral Initiated 10/17/2016 Care Plan: Referral Order SNOMED-CT : [id number] Pending 10/15/2016 Visit Plan: Hypertension - well controll ed - continue with current medications, continue with no added salt diet. Pt has been encouraged to exercise daily. The pt has been advised to call the office if there are any acute concerns about change in blood pressure readings at home. Diabetes Mellitus - I have recommended for the patient to have follow up labs prior to the next office visit. The patient has been instructed to continue with current medications as previously directed, continue with regular FSBS monitoring to assure continued control of diabetes. Pt to call for any acute concerns, complaints, or if the blood glucose readings are starting to become less controlled. Personal history of melanoma - will refer to Dr. Wick for routine monitoring. 10/13/2016 Appointment: Miya Ruelas WPtel: [phone] [place] New Patient 10/13/2016 Patient Education: Patient Medication Summary Completed 10/13/2016 Care Plan: Comp Metabolic Pending Care Plan: Cbc With Differential Pending 10/13/2016 Care Plan: %Hba1C LOINC : 38580-0 Pending 10/13/2016 Care Plan: Tsh Pending 10/13/2016 Care Plan: Lipid Pending 10/13/2016 Referral: Maryana Wick WPtel: Referral Initiated Instructions Comment NOVOLOG 70/30 25 UNITS TWICE DAILY TO WA ROBERTO CARLOSEENS CALL IF YOU ARE UNABLE TO GET/DO THE INSULIN . Diabetes Mellitus - Uncontrolled - I h ave recommended for the patient to have follow up labs prior to the next office visit. The patient has been instructed to continue with current medications as previously directed, continue with regular FSBS monitoring to assure continued control of diabetes. Pt to call for any acute concerns, complaints, or if the blood glucose readings are starting to become less controlled. I have recommended for the patient to follow more strictly to the diabetic diet as discussed in clinic to allow for greater blood glucose control. START BASAGLAR AT 1/2 DOSE TWICE A DAY AND TITRATE UP TO 55 UNITS TWICE A DAY CHECK LABS TODAY . Hypertension - well controlled - freedom nue with current medications, continue with no added salt diet. Pt has been encouraged to exercise daily. The pt has been advised to call the office if there are any acute concerns about change in blood pressure readings at home. Diabetes Mellitus - Uncontrolled - per recent FSBS reports. I have recommended for the patient to have follow up labs prior to the next office visit. The patient has been instructed to continue with current medications as previously directed, continue with regular FSBS monitoring to assure continued control of diabetes. Pt to call for any acute concerns, complaints, or if the blood glucose readings are starting to become less controlled. I have recommended for the patient to follow more strictly to the diabetic diet as discussed in clinic to allow for greater blood glucose control. Pt reports has not been on insulin since September. BS today 363. Reports insurance was no longer covering Toujeo with discount card and Lantus was $700. Discussed importance of taking insulin and notifying provider of coverage issues to find alternative. Basaglar rx sent to pharmacy. Provided samples of Basaglar and discount card. Pt to agreed to notify office if issues with cost. Pt to start Basaglar at 1/2 of previous dose and titrate up to 55 units twice a day. Will check labs today. Hyperlipidemia- continue current medications . Hypertension - well controlled - freedom nue with current medications, continue with no added salt diet. Pt has been encouraged to exercise daily. The pt has been advised to call the office if there are any acute concerns about change in blood pressure readings at home. Hyperlipidemia - pt has been counseled about appropriate diet, exercise, and need for low fat food choices. I have discussed the need for the patient to take medications as prescribed. If the patient has negative side effects from the medication, they are to CALL the office and not abruptly discontinue the medication without discussion with a practitioner in the office. We will check labs in 3-6 months for follow up on the patient's chronic medical problem and to assure normal liver response to medications. DM - patient taking toujeo 50 units twice daily - check hgb a1c today Left shoulder pain -refill tramadol for prn use- patient to go through work comp for evaluation Continue working on diet, blood sugar mo nitoring, and lifestyle modifications Obtain labs in 3 months . Diabetes Mellitus - Uncontrolled - per recent FSBS reports. I have recommended for the patient to have follow up labs prior to the next office visit. The patient has been instructed to continue with current medications as previously directed, continue with regular FSBS monitoring to assure continued control of diabetes. Pt to call for any acute concerns, complaints, or if the blood glucose readings are starting to become less controlled. I have recommended for the patient to follow more strictly to the diabetic diet as discussed in clinic to allow for greater blood glucose control. Obtain follow up labs in 3 months. Hypertension - well controlled - continue with current medications, continue with no added salt diet. Pt has been encouraged to exercise daily. The pt has been advised to call the office if there are any acute concerns about change in blood pressure readings at home. . Left wrist pain - will check labs and treat as indicated - will send RX - pt is to notify clinic if symptoms do not improve, if they worsen, or with any changes, questions, or concerns. . Hypertension - well controlled - freedom nue with current medications, continue with no added salt diet. Pt has been encouraged to exercise daily. The pt has been advised to call the office if there are any acute concerns about change in blood pressure readings at home. Diabetes Mellitus - I have recommended for the patient to have follow up labs prior to the next office visit. The patient has been instructed to continue with current medications as previously directed, continue with regular FSBS monitoring to assure continued control of diabetes. Pt to call for any acute concerns, complaints, or if the blood glucose readings are starting to become less controlled. I have recommended for the patient to follow more strictly to the diabetic diet as discussed in clinic to allow for greater blood glucose control. . Diabetes Mellitus - controlled - per r ecent FSBS reports. I have recommended for the patient to have follow up labs prior to the next office visit. The patient has been instructed to continue with current medications as previously directed, continue with regular FSBS monitoring to assure continued control of diabetes. Pt to call for any acute concerns, complaints, or if the blood glucose readings are starting to become less controlled. Hypertension - well controlled - continue with current medications, continue with no added salt diet. Pt has been encouraged to exercise daily. The pt has been advised to call the office if there are any acute concerns about change in blood pressure readings at home. CKD-check labs today . Diabetes Mellitus - controlled - per r ecent FSBS reports. I have recommended for the patient to have follow up labs prior to the next office visit. The patient has been instructed to continue with current medications as previously directed, continue with regular FSBS monitoring to assure continued control of diabetes. Pt to call for any acute concerns, complaints, or if the blood glucose readings are starting to become less controlled. Hypertension - well controlled - continue with current medications, continue with no added salt diet. Pt has been encouraged to exercise daily. The pt has been advised to call the office if there are any acute concerns about change in blood pressure readings at home. COME NEXT SUNDAY FOR BLOODWORK . Diabetes Mellitus - I have recommende d for the patient to have follow up labs prior to the next office visit. The patient has been instructed to continue with current medications as previously directed, continue with regular FSBS monitoring to assure continued control of diabetes. Pt to call for any acute concerns, complaints, or if the blood glucose readings are starting to become less controlled. I have recommended for the patient to follow more strictly to the diabetic diet as discussed in clinic to allow for greater blood glucose control. Hypertension - well controlled - continue with current medications, continue with no added salt diet. Pt has been encouraged to exercise daily. The pt has been advised to call the office if there are any acute concerns about change in blood pressure readings at home. Hyperlipidemia - pt has been counseled about appropriate diet, exercise, and need for low fat food choices. I have discussed the need for the patient to take medications as prescribed. If the patient has negative side effects from the medication, they are to CALL the office and not abruptly discontinue the medication without discussion with a practitioner in the office. We will check labs in 3-6 months for follow up on the patient's chronic medical problem and to assure normal liver response to medications. . Hypertension - well controlled - freedom nue with current medications, continue with no added salt diet. Pt has been encouraged to exercise daily. The pt has been advised to call the office if there are any acute concerns about change in blood pressure readings at home. DM-improved per patient's readings-no changes today-repeat labs in 3 months to monitor a1c Ivzip-xzcxpm-gnnda lasix only as needed for swelling-check kidney function today . Hypertension - well controlled - freedom nue with current medications, continue with no added salt diet. Pt has been encouraged to exercise daily. The pt has been advised to call the office if there are any acute concerns about change in blood pressure readings at home. Hyperlipidemia - pt has been counseled about appropriate diet, exercise, and need for low fat food choices. I have discussed the need for the patient to take medications as prescribed. If the patient has negative side effects from the medication, they are to CALL the office and not abruptly discontinue the medication without discussion with a practitioner in the office. We will check labs in 3-6 months for follow up on the patient's chronic medical problem and to assure normal liver response to medications. Diabetes Mellitus - I have recommended for the patient to have follow up labs prior to the next office visit. The patient has been instructed to continue with current medications as previously directed, continue with regular FSBS monitoring to assure continued control of diabetes. Pt to call for any acute concerns, complaints, or if the blood glucose readings are starting to become less controlled. INCREASE TO 40 UNITS TWICE DAILY stay off metformin avoid NSAIDS . Diabetes Mellitus - Uncontrolled - per recent FSBS reports. I have recommended for the patient to have follow up labs prior to the next office visit. The patient has been instructed to continue with current medications as previously directed, continue with regular FSBS monitoring to assure continued control of diabetes. Pt to call for any acute concerns, complaints, or if the blood glucose readings are starting to become less controlled. I have recommended for the patient to follow more strictly to the diabetic diet as discussed in clinic to allow for greater blood glucose control. INCREASE TOUJEO TO 40 UNITS TWICE DAILY -WILL SEND IN INSURANCE VERIFICATION TO SEE IF [employer] (CONTINUOUS GLUCOSE MONITOR) IS COVERED. Hyperlipidemia - pt has been counseled about appropriate diet, exercise, and need for low fat food choices. I have discussed the need for the patient to take medications as prescribed. If the patient has negative side effects from the medication, they are to CALL the office and not abruptly discontinue the medication without discussion with a practitioner in the office. We will check labs in 3-6 months for follow up on the patient's chronic medical problem and to assure normal liver response to medications. . Diabetes Mellitus - I have recommende d for the patient to have follow up labs prior to the next office visit. The patient has been instructed to continue with current medications as previously directed, continue with regular FSBS monitoring to assure continued control of diabetes. Pt to call for any acute concerns, complaints, or if the blood glucose readings are starting to become less controlled. Decreased renal function-patient off metformin-check labs today STAY OFF METFORMIN -REPEAT KIDNEY FUNCTI ON IN 1 MONTH INCREASE TOUJEO TO 32 UNITS TWICE DAILY X 1 WEEK THEN 34 UNITS TWICE DAILY THEREAFTER . Hypertension - well controlled - freedom nue with current medications, continue with no added salt diet. Pt has been encouraged to exercise daily. The pt has been advised to call the office if there are any acute concerns about change in blood pressure readings at home. Hyperlipidemia - pt has been counseled about appropriate diet, exercise, and need for low fat food choices. I have discussed the need for the patient to take medications as prescribed. If the patient has negative side effects from the medication, they are to CALL the office and not abruptly discontinue the medication without discussion with a practitioner in the office. We will check labs in 3-6 months for follow up on the patient's chronic medical problem and to assure normal liver response to medications. Diabetes Mellitus - Uncontrolled - per recent FSBS reports. I have recommended for the patient to have follow up labs prior to the next office visit. The patient has been instructed to continue with current medications as previously directed, continue with regular FSBS monitoring to assure continued control of diabetes. Pt to call for any acute concerns, complaints, or if the blood glucose readings are starting to become less controlled. I have recommended for the patient to follow more strictly to the diabetic diet as discussed in clinic to allow for greater blood glucose control. Renal failure-due to NSAIDS/metformin-patient has stopped both-stay adequately hydrated-repeat labs in 1 month to monitor . Hypertension - well controlled - freedom nue with current medications, continue with no added salt diet. Pt has been encouraged to exercise daily. The pt has been advised to call the office if there are any acute concerns about change in blood pressure readings at home. Diabetes Mellitus - I have recommended for the patient to have follow up labs prior to the next office visit. The patient has been instructed to continue with current medications as previously directed, continue with regular FSBS monitoring to assure continued control of diabetes. Pt to call for any acute concerns, complaints, or if the blood glucose readings are starting to become less controlled. I have recommended for the patient to follow more strictly to the diabetic diet as discussed in clinic to allow for greater blood glucose control. Hyperlipidemia - pt has been counseled about appropriate diet, exercise, and need for low fat food choices. I have discussed the need for the patient to take medications as prescribed. If the patient has negative side effects from the medication, they are to CALL the office and not abruptly discontinue the medication without discussion with a practitioner in the office. We will check labs in 3-6 months for follow up on the patient's chronic medical problem and to assure normal liver response to medications. Zipsor 1 pill 4 times a day as needed. We need to either refer you to ortho or order an x-ray and MRI. Right shoulder pain - ongoing - pt would like to think about being referred vs getting imaging - The pt is to use prn antiinflammatories to manage acute pain. The patient is to call the office if the pain is worsening or does not improve. ALEVE 2 TABS TWICE DAILY WITH FOOD-CALL IF RIGHT SHOULDER PAIN DOES NOT IMPROVE CHECK LABS DOXYCYCLINE 100MG TWICE DAILY SENT TO [facility]-START OVER THE WEEKEND IF NEEDED FOR SINUSES/COUGH-CALL IF SYMPTOMS DO NOT RESOLVE . Diabetes Mellitus - Uncontrolled - per recent FSBS reports. I have recommended for the patient to have follow up labs prior to the next office visit. The patient has been instructed to continue with current medications as previously directed, continue with regular FSBS monitoring to assure continued control of diabetes. Pt to call for any acute concerns, complaints, or if the blood glucose readings are starting to become less controlled. I have recommended for the patient to follow more strictly to the diabetic diet as discussed in clinic to allow for greater blood glucose control. Hypertension - well controlled - continue with current medications, continue with no added salt diet. Pt has been encouraged to exercise daily. The pt has been advised to call the office if there are any acute concerns about change in blood pressure readings at home. Hyperlipidemia - pt has been counseled about appropriate diet, exercise, and need for low fat food choices. I have discussed the need for the patient to take medications as prescribed. If the patient has negative side effects from the medication, they are to CALL the office and not abruptly discontinue the medication without discussion with a practitioner in the office. We will check labs in 3-6 months for follow up on the patient's chronic medical problem and to assure normal liver response to medications. Sinusitis - Pt has acute infection - pain in face, maxillary region, Pt informed to use decongestant, RX given to patient, sinus rinses also recommended. Call if symptoms do not show improvement. Biceps tendinitis - pt to do exercises as directed, ant-inflammatories directed to be taken per RX instructions and pt to call if symptoms are not improved. continue TRESIBA 54 UNITS DAILY Labs before next appointment Recommend yearly eye exam . Diabetes Mellitus - I have recommende d for the patient to have follow up labs prior to the next office visit. The patient has been instructed to continue with current medications as previously directed, continue with regular FSBS monitoring to assure continued control of diabetes. Pt to call for any acute concerns, complaints, or if the blood glucose readings are starting to become less controlled. I have recommended for the patient to follow more strictly to the diabetic diet as discussed in clinic to allow for greater blood glucose control. INCREASE TO 50 UNITS DAILY IF STILL OVER 200 THEN 55 UNITS IF BLOOD SUGARS CONTINUE TO RUN OVER 200 . Diabetes Mellitus - Uncontrolled - per recent FSBS reports. I have recommended for the patient to have follow up labs prior to the next office visit. The patient has been instructed to continue with current medications as previously directed, continue with regular FSBS monitoring to assure continued control of diabetes. Pt to call for any acute concerns, complaints, or if the blood glucose readings are starting to become less controlled. I have recommended for the patient to follow more strictly to the diabetic diet as discussed in clinic to allow for greater blood glucose control. Hypertension - well controlled - continue with current medications, continue with no added salt diet. Pt has been encouraged to exercise daily. The pt has been advised to call the office if there are any acute concerns about change in blood pressure readings at home. . Hypertension - well controlled - freedom nue with current medications, continue with no added salt diet. Pt has been encouraged to exercise daily. The pt has been advised to call the office if there are any acute concerns about change in blood pressure readings at home. Diabetes Mellitus - I have recommended for the patient to have follow up labs prior to the next office visit. The patient has been instructed to continue with current medications as previously directed, continue with regular FSBS monitoring to assure continued control of diabetes. Pt to call for any acute concerns, complaints, or if the blood glucose readings are starting to become less controlled. Personal history of melanoma - will refer to Dr. Wick for routine monitoring. Medical Equipment No Medical Equipment data Health Concerns Section Health Concerns data not found Goals Section Goals data not found Interventions Section Interventions data not found Health Status Evaluations/Outcomes Section Health Status Evaluations/Outcomes data not found Advance Directives No Advance Directive data
--- OUTSIDE RECORDS SUMMARY | 2021-05-20 11:26 | XMS REPORT | CCD ---
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 [id number] Unknown Unknown Family history Mother Diagnosis Age At Onset Hyperlipidemia Unknown Brother Diagnosis Age At Onset Diabetes mellitus Type 2 Unknown Hyperlipidemia Unknown Hypertension Unknown Sister Diagnosis Age At Onset Skin cancer Unknown Father Diagnosis Age At Onset Hypertension Unknown Stroke Unknown Hypertension Unknown Social History Social History Element Codes Description Effective Dates Number of children Unknown 1 10/13/[address]: 721098097 Never smoker 10/13/[address]: 400903222 Never drinks alcohol 2016 Allergies, Adverse Reactions, Alerts Substance Reaction Codes Entered Date Inactivated Date Status NO KNOWN ALLERGIES Unknown 10/13/2016 No Inactive Date Active Problems Condition Codes Effective Dates Condition Status Cough ICD-10: R05 ICD-9: 786.2 05/19/2021 Active COVID-19 ICD-10: U07.1 ICD-9: 079.89 05/19/2021 Active Essential (primary) hypertension ICD-10: I10 ICD-9: 401.9 10/13/2016 Active Type 2 diabetes mellitus with hyperglycemia ICD-10: E1 1.65 ICD-9: 250.00 02/09/2017 Active Mixed hyperlipidemia ICD-10: E78.2 ICD-9: 272.2 [...] Start Date Stop Date Status Fill Instructions dexamethasone 0.5 mg tablet RxNorm: 785234 Take 1 Tablet(s) Ora l every day 05/19/2021 05/23/2021 Active Zithromax 250 mg tablet RxNorm: 866891 Take 1 Tablet(s) Oral as directed 05/19/2021 05/23/2021 Active Ventolin HFA 90 mcg/actuation aerosol inhaler RxNorm: 767756 Take 1-2 Puff(s) Inhalation four times a day 05/19/2021 No Stop Date Active losartan 100 mg tablet RxNorm: 310356 TAKE ONE TABLET BY MOUTH CRISTAL Y 05/05/2021 08/02/2021 Active fenofibrate 160 mg tablet RxNorm: 146101 TAKE ONE TABLET BY ROMEO TH DAILY 05/03/2021 06/01/2021 Active Novolin 70/30 U-100 Insulin 100 unit/mL subcutaneous suspens ion RxNorm: 936253 Administer 25 Unit(s) Subcutaneous two times a day 04/29/2021 10/25/2021 Active PT TO USE GOOD RX CARD FOR PENS acyclovir 800 mg tablet RxNorm: 027215 TAKE ONE TABLET BY MOUTH FOUR TIMES A DAY 03/17/2021 No Stop Date Active Lipitor 40 mg tablet RxNorm: 791068 TAKE ONE TABLET BY MOUTH EVERY NIGHT AT BEDTIME 02/21/2021 No Stop Date Active Novolin 70/30 U-100 Insulin 100 unit/mL subcutaneous suspens ion RxNorm: 930889 25 Unit(s) Subcutaneous two times a day 01/25/2021 04/28/2021 Inactive give qty sufficient for 30 days supply- either pen or vial. DC lantus Novolin 70/30 U-100 Insulin 100 unit/mL subcutaneous suspens ion RxNorm: 359314 25 Unit(s) Subcutaneous two times a day 01/25/2021 01/24/2021 Inactive give qty sufficient for 30 days supply- either pen or vial. DC lantus Jardiance 10 mg tablet RxNorm: 6526664 TAKE ONE TABLET BY MOUTH EVERY MORNING 01/24/2021 07/22/2021 Active - First Attempt Ref : [id number] Lantus Solostar U-100 Insulin 100 unit/mL (3 mL) subcu taneous pen RxNorm: 673705 55 Unit(s) Subcutaneous two times a day 01/17/2021 01/24/2021 I nactive qty sufficient for 30 day supply and pen needles Basaglar KwikPen U-100 Insulin 100 unit/mL (3 mL) subcutaneo us RxNorm: 4307964 55 Unit(s) Subcutaneous two times a day 01/14/2021 01/24/2021 Inactive Basaglar KwikPen U-100 Insulin 100 unit/mL (3 mL) subcutaneo us RxNorm: 4183517 55 Unit(s) Subcutaneous two times a day 01/14/2021 01/13/2021 Inactive tramadol 50 mg tablet RxNorm: 898215 TAKE ONE TABLET BY MOUTH EVERY 8 HOURS NEEDED FOR PAIN 11/18/2020 No Stop Date Active Lipitor 40 mg tablet RxNorm: 580447 TAKE ONE TABLET BY MOUTH EVERY NIGHT AT BEDTIME 10/11/2020 02/20/2021 Inactive Lantus Solostar U-100 Insulin 100 unit/mL (3 mL) subcu taneous pen RxNorm: 546592 55 Unit(s) Subcutaneous two times a day 10/06/2020 01/13/2021 I nactive qty sufficient for 30 day supply and pen needles Lantus Solostar U-100 Insulin 100 unit/mL (3 mL) subcu taneous pen RxNorm: 090113 55 Unit(s) Subcutaneous two times a day 10/06/2020 10/05/2020 I nactive Toujeo SoloStar U-300 Insulin 300 unit/mL (1.5 mL) sub cutaneous pen RxNorm: 0739939 INJECT 55 UNITS UNDER THE SKIN TWICE A DAY 09/22/202010/05 Inactive metoprolol succinate ER 50 mg tablet,extended release 24 hr RxNorm: 225477 TAKE ONE TABLET BY MOUTH TWICE A DAY 09/21/2020 No Stop Date Active tramadol 50 mg tablet RxNorm: 819187 1 Tablet(s) Oral E very 8 hrs as needed as needed pain 09/17/2020 09/17/2020 Inactive losartan 100 mg tablet RxNorm: 739784 TAKE ONE TABLET BY MOUTH CRISTAL Y 08/09/2020 08/09/2020 Inactive fenofibrate 160 mg tablet RxNorm: 276923 TAKE ONE TABLET BY ROMEO TH DAILY 07/26/2020 07/26/2020 Inactive Jardiance 10 mg tablet RxNorm: 1623069 TAKE ONE TABLET BY MOUTH EVERY MORNING 06/24/2020 12/20/2020 Inactive - First Attempt Ref : [id number] tramadol 50 mg tablet RxNorm: 421666 1 Tablet(s) Oral t hree times a day as needed pain 05/21/2020 05/20/2020 Inactive tramadol 50 mg tablet RxNorm: 184895 1 Tablet(s) Oral t hree times a day as needed pain 05/21/2020 05/21/2020 Inactive prednisone 20 mg tablet RxNorm: 500049 2 Tablet(s) Oral every day 0 05/19/2020 05/24/2020 Inactive Colcrys 0.6 mg tablet RxNorm: 188371 Tablet(s) Oral 2 p ills now and 1 pill in 1 hour 05/19/2020 04/28/2021 Inactive prednisone 20 mg tablet RxNorm: 155888 2 Tablet(s) Oral every day 0 05/19/2020 05/18/2020 Inactive Lipitor 40 mg tablet RxNorm: 950219 TAKE ONE TABLET BY MOUTH EVERY NIGHT AT BEDTIME 05/10/2020 10/10/2020 Inactive Toujeo SoloStar U-300 Insulin 300 unit/mL (1.5 mL) sub cutaneous pen RxNorm: 0446189 INJECT 50 UNITS UNDER THE SKIN TWICE A DAY 05/03/202009/21 Inactive Jardiance 10 mg tablet RxNorm: 9871159 TAKE ONE TABLET BY MOUTH EVERY MORNING 01/06/2020 06/23/2020 Inactive - First Attempt Ref: [id number] Toujeo SoloStar U-300 Insulin 300 unit/mL (1.5 mL) sub cutaneous pen RxNorm: 2102755 58 Unit(s) Subcutaneous two times a day 12/25/2019 09/16/2020 I nactive acyclovir 800 mg tablet RxNorm: 579899 TAKE ONE TABLET BY MOUTH FOUR TIMES A DAY 12/22/2019 06/10/2020 Inactive losartan 100 mg tablet RxNorm: 128863 TAKE ONE TABLET BY MOUTH CRISTAL Y 11/07/2019 08/08/2020 Inactive Lipitor 40 mg tablet RxNorm: 868105 TAKE ONE TABLET BY MOUTH EVERY NIGHT AT BEDTIME 11/07/2019 05/09/2020 Inactive metoprolol succinate ER 50 mg tablet,extended release 24 hr RxNorm: 302567 TAKE ONE TABLET BY MOUTH TWICE A DAY 11/03/2019 09/20/2020 Inactive fenofibrate 160 mg tablet RxNorm: 156888 TAKE ONE TABLET BY ROMEO TH DAILY 09/17/2019 07/25/2020 Inactive Lipitor 40 mg tablet RxNorm: 135525 TAKE ONE TABLET BY MOUTH EVERY NIGHT AT BEDTIME 08/08/2019 11/06/2019 Inactive Toujeo SoloStar U-300 Insulin 300 unit/mL (1.5 mL) sub cutaneous pen RxNorm: 5905129 55 Unit(s) Subcutaneous two times a day 07/30/2019 12/24/2019 I nactive Novolog Flexpen U-100 Insulin aspart 100 unit/mL (3 mL ) subcutaneous RxNorm: 7314145 5 Unit(s) Subcutaneous three times a day with meals 07/30/2012/11/2019 Inactive Toujeo SoloStar U-300 Insulin 300 unit/mL (1.5 mL) sub cutaneous pen RxNorm: 5061923 50 Unit(s) SQ BID 05/23/2019 07/29/2019 Inactive Lipitor 40 mg tablet RxNorm: 401309 TAKE ONE TABLET BY MOUTH EVERY NIGHT AT BEDTIME 03/27/2019 03/26/2019 Inactive Lipitor 40 mg tablet RxNorm: 088730 TAKE ONE TABLET BY MOUTH EVERY NIGHT AT BEDTIME 03/27/2019 06/10/2020 Inactive Lasix 20 mg tablet RxNorm: 132492 TAKE ONE TABLET BY MOUTH DAILY 06/10/2020 Inactive Jardiance 10 mg tablet RxNorm: 2693951 Tablet(s) TAKE ON E TABLET BY MOUTH EVERY MORNING 03/19/2019 03/18/2019 Inactive Jardiance 10 mg tablet RxNorm: 5675186 Tablet(s) TAKE ON E TABLET BY MOUTH EVERY MORNING 03/19/2019 01/05/2020 Inactive Toujeo SoloStar U-300 Insulin 300 unit/mL (1.5 mL) sub cutaneous pen RxNorm: 4098977 50 Unit(s) SQ BID 02/28/2019 05/22/2019 Inactive updated in structions metoprolol succinate ER 50 mg tablet,extended release 24 hr RxNorm: 472457 TAKE ONE TABLET BY MOUTH TWICE A DAY 01/15/2019 08/12/2019 Inactive Jardiance 10 mg tablet RxNorm: 8830269 TAKE ONE TABLET BY MOUTH EVERY MORNING 12/20/2018 03/18/2019 Inactive losartan 100 mg tablet RxNorm: 692526 1 Tablet(s) PO daily 11/06/1911/05/2018 Inactive losartan 100 mg tablet RxNorm: 875379 1 Tablet(s) PO daily 11/06/1910/31/2019 Inactive Toujeo SoloStar U-300 Insulin 300 unit/mL (1.5 mL) sub cutaneous pen RxNorm: 6797666 45 Unit(s) SQ BID 10/29/2018 02/27/2019 Inactive updated in structions Lipitor 40 mg tablet RxNorm: 855773 TAKE ONE TABLET BY MOUTH EVERY NIGHT AT BEDTIME 10/25/2018 03/23/2019 Inactive fenofibrate 160 mg tablet RxNorm: 430921 TAKE ONE TABLET BY ROMEO TH DAILY 10/15/2018 09/09/2019 Inactive Toujeo SoloStar U-300 Insulin 300 unit/mL (1.5 mL) sub cutaneous pen RxNorm: 6427431 45 Unit(s) SQ UD 40 units SQ QAM and 45 units SQ QPM 019 10/28/2018 Inactive updated instructions Lasix 20 mg tablet RxNorm: 1 Tablet(s) PO daily as needed 09/21/2018 Inactive acyclovir 800 mg tablet RxNorm: 634237 1 Tablet(s) PO QID 08/23/2018 09/01/2018 Inactive Lasix 20 mg tablet RxNorm: 1 Tablet(s) PO daily 08/12/2018 Inactive Lasix 20 mg tablet RxNorm: 1 Tablet(s) PO daily 08/12/201810/2017 Inactive metoprolol succinate ER 50 mg tablet,extended release 24 hr RxNorm: 451701 TAKE ONE TABLET BY MOUTH TWICE A DAY 08/09/2018 01/05/2019 Inactive Benicar 40 mg tablet RxNorm: 374546 1 Tablet(s) PO daily 07/22/2018 1 09/20/2017 Inactive Med change! Toujeo SoloStar U-300 Insulin 300 unit/mL (1.5 mL) sub cutaneous pen RxNorm: 0948395 40 Unit(s) SQ BID x2 weeks then increase to 40 units SQ QAM and 45 units SQ QPM 07/22/2018 09/29/2018 Inactive updated instruct ions Benicar 40 mg tablet RxNorm: 034318 1 Tablet(s) PO daily 07/22/2018 0 11/05/2018 Inactive Med change! Toujeo SoloStar U-300 Insulin 300 unit/mL (1.5 mL) sub cutaneous pen RxNorm: 1019452 40 in am and 35 pm Unit(s) SQ BID 07/19/2018 07/21/2018 Inactiv e update instructions Jardiance 10 mg tablet RxNorm: 8580634 TAKE ONE TABLET BY MOUTH EVERY MORNING 06/24/2018 12/19/2018 Inactive Zyrtec 10 mg tablet RxNorm: 3319698 TAKE ONE TABLET BY MOUTH DAILY 05/01/2018 07/29/2018 Inactive Lipitor 40 mg tablet RxNorm: 230570 TAKE ONE TABLET BY MOUTH EVERY NIGHT AT BEDTIME 04/25/2018 10/21/2018 Inactive Toujeo SoloStar U-300 Insulin 300 unit/mL (1.5 mL) sub cutaneous pen RxNorm: 1444787 40 Unit(s) SQ BID 04/19/2018 07/18/2018 Inactive update ins tructions Benicar HCT 40 mg-25 mg tablet RxNorm: 516622 TAKE ONE TABLET B Y MOUTH DAILY 04/08/2018 07/21/2018 Inactive fenofibrate 160 mg tablet RxNorm: 728826 TAKE ONE TABLET BY ROMEO TH DAILY 03/20/2018 10/14/2018 Inactive fenofibrate 160 mg tablet RxNorm: 486506 TAKE ONE TABLET BY ROMEO TH DAILY 01/14/2018 03/19/2018 Inactive metoprolol succinate ER 50 mg tablet,extended release 24 hr RxNorm: 778132 TAKE ONE TABLET BY MOUTH TWICE A DAY 12/27/2017 06/24/2018 Inactive Toujeo SoloStar U-300 Insulin 300 unit/mL (1.5 mL) sub cutaneous pen RxNorm: 2591993 34 Unit(s) SQ BID 12/21/2017 04/18/2018 Inactive update ins tructions: increase to 32 units twice daily x 1 week then 34 units twice daily Jardiance 10 mg tablet RxNorm: 2651401 1 Tablet(s) PO QAM 11/28/2017 09/21/2020 Inactive Toujeo SoloStar U-300 Insulin 300 unit/mL (1.5 mL) sub cutaneous pen RxNorm: 6663658 30 Unit(s) SQ BID 10/25/2017 12/20/2017 Inactive Invokana 100 mg tablet RxNorm: 8354859 1 Tablet(s) PO daily 018 10/25/2017 Inactive Invokana 100 mg tablet RxNorm: 8424764 1 Tablet(s) PO daily 018 10/24/2017 Inactive Toujeo SoloStar U-300 Insulin 300 unit/mL (1.5 mL) sub cutaneous pen RxNorm: 9294231 30 Unit(s) SQ BID 10/25/2017 10/24/2017 Inactive Januvia 100 mg tablet RxNorm: 916991 1 Tablet(s) PO daily 10/25/2017 11/27/2017 Inactive fenofibrate 160 mg tablet RxNorm: 630769 TAKE ONE TABLET BY ROMEO TH DAILY 10/17/2017 01/13/2018 Inactive Tresiba FlexTouch U-200 200 unit/mL (3 mL) subcutaneou s insulin pen RxNorm: 7400747 66 Unit(s) SQ daily 10/16/2017 10/24/2017 Inactive Please doni sapphire 90 day supply Tresiba FlexTouch U-200 200 unit/mL (3 mL) subcutaneou s insulin pen RxNorm: 4183565 66 Unit(s) SQ daily 10/11/2017 10/15/2017 Inactive Onglyza 5 mg tablet RxNorm: 704546 2 Tablet(s) PO daily 10/02/2017 Inactive d/c jardiance Onglyza 5 mg tablet RxNorm: 771670 2 Tablet(s) PO daily 10/02/2017 Inactive d/c jardiance Tresiba FlexTouch U-200 200 unit/mL (3 mL) subcutaneou s insulin pen RxNorm: 2910833 35 Unit(s) SQ BID 10/02/2017 06/12/2019 Inactive Lipitor 40 mg tablet RxNorm: 633523 TAKE ONE TABLET BY MOUTH EVERY NIGHT AT BEDTIME 09/17/2017 04/14/2018 Inactive Tresiba FlexTouch U-200 200 unit/mL (3 mL) subcutaneou s insulin pen RxNorm: 6024566 66 Unit(s) SQ daily 08/28/2017 08/29/2017 Inactive Jardiance 10 mg tablet RxNorm: 7025071 1 Tablet(s) PO QAM 08/28/2017 10/01/2017 Inactive Jardiance 10 mg tablet RxNorm: 7266802 1 Tablet(s) PO QAM 08/28/2017 08/27/2017 Inactive Tresiba FlexTouch U-200 200 unit/mL (3 mL) subcutaneou s insulin pen RxNorm: 2129138 62 Unit(s) SQ daily 08/17/2017 08/18/2017 Inactive Zipsor 25 mg capsule RxNorm: 570951 1 Capsule(s) PO QID as needed 1 09/12/2016 12/20/2017 Inactive fenofibrate 160 mg tablet RxNorm: 090188 TAKE ONE TABLET BY ROMEO TH DAILY 07/12/2017 10/16/2017 Inactive Lipitor 40 mg tablet RxNorm: 245756 TAKE ONE TABLET BY MOUTH EVERY NIGHT AT BEDTIME 06/14/2017 09/11/2017 Inactive metformin 1,000 mg tablet RxNorm: 225941 TAKE ONE TABLET BY ROMEO TH TWICE A DAY 06/01/2017 12/03/2017 Inactive metoprolol succinate ER 50 mg tablet,extended release 24 hr RxNorm: 137401 TAKE ONE TABLET BY MOUTH TWICE A DAY 06/01/2017 11/27/2017 Inactive prednisone 10 mg tablets in a dose pack RxNorm: 867203 1 Tablet(s) PO UD ; take as prescribed on dose pack 06/01/2017 06/05/2017 Inactive prednisone 10 mg tablets in a dose pack RxNorm: 004858 1 Tablet(s) PO UD ; take as prescribed on dose pack 06/01/2017 05/31/2017 Inactive Tresiba FlexTouch U-200 200 unit/mL (3 mL) subcutaneou s insulin pen RxNorm: 3230049 58 Unit(s) SQ daily INJECT 58 UNITS UNDER THE SKIN DAILY 05/24/2017 Inactive doxycycline hyclate 100 mg tablet RxNorm: 231694 1 Tablet(s) PO BID 05/18/2017 05/24/2017 Inactive metformin 1,000 mg tablet RxNorm: 143170 TAKE ONE TABLET BY ROMEO TH TWICE A DAY 04/30/2017 05/29/2017 Inactive fenofibrate 160 mg tablet RxNorm: 657755 TAKE ONE TABLET BY ROMEO TH DAILY 04/11/2017 07/11/2017 Inactive Benicar HCT 40 mg-25 mg tablet RxNorm: 734728 TAKE ONE TABLET B Y MOUTH DAILY 04/11/2017 04/05/2018 Inactive Tresiba FlexTouch U-200 200 unit/mL (3 mL) subcutaneou s insulin pen RxNorm: 5937354 54 Unit(s) SQ daily INJECT 54 UNITS UNDER THE SKIN DAILY 03/201705/22/2017 Inactive metoprolol succinate ER 50 mg tablet,extended release 24 hr RxNorm: 906645 TAKE ONE TABLET BY MOUTH TWICE A DAY 02/20/2017 04/20/2017 Inactive metformin 1,000 mg tablet RxNorm: 900555 TAKE ONE TABLET BY ROMEO TH TWICE A DAY 02/20/2017 04/20/2017 Inactive fenofibrate 160 mg tablet RxNorm: 986700 TAKE ONE TABLET BY ROMEO TH DAILY 02/13/2017 04/10/2017 Inactive Lipitor 40 mg tablet RxNorm: 425737 1 Tablet(s) PO QHS 02/07/2017 Inactive Lipitor 40 mg tablet RxNorm: 419205 1 Tablet(s) PO QHS 02/07/2017 Inactive Tresiba FlexTouch U-200 200 unit/mL (3 mL) subcutaneou s insulin pen RxNorm: 5804085 Unit(s) INJECT 45 UNITS UNDER THE SKIN DAILY 02/07/201702/2017 Inactive Benicar HCT 40 mg-25 mg tablet RxNorm: 609705 TAKE ONE TABLET B Y MOUTH DAILY 01/12/2017 04/10/2017 Inactive Tresiba FlexTouch U-200 200 unit/mL (3 mL) subcutaneou s insulin pen RxNorm: 3564573 INJECT 30 UNITS UNDER THE SKIN DAILY 12/28/2016 02/06/2017 Inac tive metoprolol succinate ER 50 mg tablet,extended release 24 hr RxNorm: 423966 TAKE ONE TABLET BY MOUTH TWICE A DAY 11/14/2016 02/11/2017 Inactive metformin 1,000 mg tablet RxNorm: 374730 TAKE ONE TABLET BY ROMEO TH TWICE A DAY 11/14/2016 02/11/2017 Inactive fenofibrate 160 mg tablet RxNorm: 625480 TAKE ONE TABLET BY ROMEO TH DAILY 11/14/2016 02/11/2017 Inactive Lipitor 10 mg tablet RxNorm: 563394 1 Tablet(s) PO daily 10/19/2016 0 10/18/2016 Inactive Januvia 100 mg tablet RxNorm: 254927 1 Tablet(s) PO daily 10/19/2016 02/08/2017 Inactive Lipitor 10 mg tablet RxNorm: 190628 1 Tablet(s) PO daily 10/19/2016 0 02/06/2017 Inactive Januvia 100 mg tablet RxNorm: 802673 1 Tablet(s) PO daily 10/15/2016 10/18/2016 Inactive Tresiba FlexTouch U-200 200 unit/mL (3 mL) subcutaneou s insulin pen RxNorm: 6755847 30 Unit(s) SQ daily 10/13/2016 12/27/2016 Inactive Please d ispense quantity sufficient for 90 days Zyrtec 10 mg tablet RxNorm: 9359170 1 Tablet(s) PO daily 10/13/2016 0 01/10/2017 Inactive metoprolol succinate ER 50 mg tablet,extended release 24 hr RxNorm: 516986 1 Tablet(s) PO BID 10/13/2016 11/11/2016 Inactive fenofibrate 160 mg tablet RxNorm: 601352 1 Tablet(s) PO daily 10/1311/11/2016 Inactive metformin 1,000 mg tablet RxNorm: 201638 1 Tablet(s) PO BID 017 11/11/2016 Inactive Benicar HCT 40 mg-25 mg tablet RxNorm: 336214 1 Tablet(s) PO daily 10/13/2016 01/10/2017 Inactive fenofibrate 160 mg tablet RxNorm: 016277 1 Tablet(s) PO daily 10/1310/12/2016 Inactive Januvia 100 mg tablet RxNorm: 801590 1 Tablet(s) PO daily 02/09/2017 02/08/2017 Inactive metformin 1,000 mg tablet RxNorm: 470986 1 Tablet(s) PO BID 017 10/12/2016 Inactive Novolin 70/30 U-100 Insulin subcutaneous RxNorm: 9691669 subcuta neous 01/25/2021 01/24/2021 Inactive Benicar HCT 40 mg-25 mg tablet RxNorm: 273488 1 Tablet(s) PO daily 10/13/2016 10/12/2016 Inactive Tresiba FlexTouch U-200 200 unit/mL (3 mL) subcutaneou s insulin pen RxNorm: 7667855 30 Unit(s) SQ daily 10/13/2016 10/12/2016 Inactive metoprolol succinate ER 50 mg tablet,extended release 24 hr RxNorm: 939290 1 Tablet(s) PO BID 10/13/2016 10/12/2016 Inactive Medication Administered No Medication Administered data Immunizations No Immunization data Results Observation Observation Code Item Item Code Result Date S ervice Location %Hba1C Mra291 % HbA1c 60181-7 14.0 % 01/14/2021 Unknown %Hba1C Woh427 Gluc Ave 355 mg/dL 01/14/2021 Unknown Comp Metabolic Jnn151 NA 139 mEq/L 01/14/2021 Unkn own Comp Metabolic Szq103 K 4.0 mEq/L 01/14/2021 Unkn own Comp Metabolic Stz764 CL 106 mEq/L 01/14/2021 Unkn own Comp Metabolic Uny860 CO2 24.0 mEq/L 01/14/2021 Unk nown Comp Metabolic Wdy838 ANION GAP 13 01/14/2021 Unkn own Comp Metabolic Hnn774 GLUCOSE 295 mg/dL 01/14/2021 Unkn own Comp Metabolic Egs527 Creat 1.2 mg/dL 01/14/2021 Unkn own Comp Metabolic Cag351 eGFR 68 ml/min/1.73m2 01/15/20 21 Unknown Comp Metabolic Jrg200 BUN 37 mg/dL 01/14/2021 Unkn own Comp Metabolic Zgu591 B/C Ratio 30.8 Ratio 01/14/2021 Unk nown Comp Metabolic Wxa706 CALCIUM 9.2 mg/dL 01/14/2021 Unkn own Comp Metabolic Zfr730 ALK PHOS 58 U/L 01/14/2021 Unkn own Comp Metabolic Lzw242 AST(SGOT) 20 U/L 01/14/2021 Unkn own Comp Metabolic Mvs574 ALT(SGPT) 28 U/L 01/14/2021 Unkn own Comp Metabolic Fdg830 BILI T 0.5 mg/dL 01/14/2021 Unkn own Comp Metabolic Cva928 ALBUMIN 4.0 g/dL 01/14/2021 Unkn own Comp Metabolic Rvc329 TPRO 6.4 g/dL 01/14/2021 Unkn own Comp Metabolic Ted614 GLOB 2.4 g/dL 01/14/2021 Unkn own Comp Metabolic Ket786 A/G Ratio 1.7 Ratio 01/14/2021 Unkn own Comp Metabolic Wyt273 Osmo 297 mOsmo 01/14/2021 Unkn own Lipid Ord30 CHOL 169 mg/dL 09/17/2020 Unknown Lipid Ord30 HDL 40.0 mg/dl 09/17/2020 Unknown Lipid Ord30 TRIG 146 mg/dL 09/17/2020 Unknown Lipid Ord30 LDL 100 mg/dL 09/17/2020 Unknown Lipid Ord30 C/HDL 4.2 Ratio 09/17/2020 Unknown Comp Metabolic Ehc528 NA 141 mEq/L 09/17/2020 Unkn own Comp Metabolic Jim978 K 4.3 mEq/L 09/17/2020 Unkn own Comp Metabolic Het666 CL 105 mEq/L 09/17/2020 Unkn own Comp Metabolic Mlh794 CO2 28.0 mEq/L 09/17/2020 Unk nown Comp Metabolic Tue519 ANION GAP 12 09/17/2020 Unkn own Comp Metabolic Zhy873 GLUCOSE 126 mg/dL 09/17/2020 Unkn own Comp Metabolic Mzz270 Creat 1.2 mg/dL 09/17/2020 Unkn own Comp Metabolic Oqj874 eGFR 65 ml/min/1.73m2 09/17/19 21 Unknown Comp Metabolic Bow160 BUN 27 mg/dL 09/17/2020 Unkn own Comp Metabolic Vfu521 B/C Ratio 21.8 Ratio 09/17/2020 Unk nown Comp Metabolic Bng970 CALCIUM 9.4 mg/dL 09/17/2020 Unkn own Comp Metabolic Jcx164 ALK PHOS 49 U/L 09/17/2020 Unkn own Comp Metabolic Bzy752 AST(SGOT) 24 U/L 09/17/2020 Unkn own Comp Metabolic Qas551 ALT(SGPT) 33 U/L 09/17/2020 Unkn own Comp Metabolic Lnm785 BILI T 0.5 mg/dL 09/17/2020 Unkn own Comp Metabolic Cny375 ALBUMIN 4.4 g/dL 09/17/2020 Unkn own Comp Metabolic Seo988 TPRO 6.8 g/dL 09/17/2020 Unkn own Comp Metabolic Rki076 GLOB 2.4 g/dL 09/17/2020 Unkn own Comp Metabolic Dff171 A/G Ratio 1.8 Ratio 09/17/2020 Unkn own Comp Metabolic Zzf448 Osmo 288 mOsmo 09/17/2020 Unkn own Cbc [...] 09/17/19 21 Unknown Cbc With Differential Ord2 [place]% 9.1 % 09/17/19 21 Unknown Cbc With [...] K/ul 021 Unknown Cbc With Differential Ord2 [place] ABS# 0.5 K/ul 09/17/19 21 Unknown Cbc With Differential Ord2 Eos ABS# 0.1 K/ul 09/17/19 21 Unknown Cbc With Differential Ord2 Baso ABS# 0.0 K/ul 09/17/19 21 Unknown %Hba1C Ixb414 % HbA1c 13380-6 9.7 % 09/17/2020 Unknown %Hba1C Roz093 Gluc Ave 232 mg/dL 09/17/2020 Unknown JESUS (ABE) ROUTINE F307 Antinuclear Antibody Negative 05/24/2020 Unknown Ra Factor Cxr504 RA FACTOR 11.8 IU/ml 05/20/2020 Unknown Uric Acid Ord77 Uric A 4.2 mg/dL 05/19/2020 Unknown Sed Rate Ord21 ESR 1 mm/hr 05/19/2020 Unknown C-Reactive Protein Qnt Crqnt CRP 0.9 mg/dl 2019 Unknown %Hba1C Lvy048 % HbA1c 28836-8 12.0 % 05/14/2020 Unknown %Hba1C Bjq484 Gluc Ave 298 mg/dL 05/14/2020 Unknown Comp Metabolic Did754 NA 142 mEq/L 05/14/2020 Unkn own Comp Metabolic Ztf166 K 4.1 mEq/L 05/14/2020 Unkn own Comp Metabolic Pmt552 CL 108 mEq/L 05/14/2020 Unkn own Comp Metabolic Rlf274 CO2 26.0 mEq/L 05/14/2020 Unk nown Comp Metabolic Thj193 ANION GAP 12 05/14/2020 Unkn own Comp Metabolic Vpm447 GLUCOSE 229 mg/dL 05/14/2020 Unkn own Comp Metabolic Jnm380 Creat 1.4 mg/dL 05/14/2020 Unkn own Comp Metabolic Icu531 eGFR 58 ml/min/1.73m2 05/14/20 20 Unknown Comp Metabolic Rdu153 BUN 27 mg/dL 05/14/2020 Unkn own Comp Metabolic Mkr268 B/C Ratio 19.7 Ratio 05/14/2020 Unk nown Comp Metabolic Brq335 CALCIUM 9.4 mg/dL 05/14/2020 Unkn own Comp Metabolic Jhp414 ALK PHOS 62 U/L 05/14/2020 Unkn own Comp Metabolic Jzk389 AST(SGOT) 21 U/L 05/14/2020 Unkn own Comp Metabolic Swc800 ALT(SGPT) 31 U/L 05/14/2020 Unkn own Comp Metabolic Ceh112 BILI T 0.4 mg/dL 05/14/2020 Unkn own Comp Metabolic Hts473 ALBUMIN 4.3 g/dL 05/14/2020 Unkn own Comp Metabolic Fpz329 TPRO 6.8 g/dL 05/14/2020 Unkn own Comp Metabolic Wwe628 GLOB 2.5 g/dL 05/14/2020 Unkn own Comp Metabolic Rru726 A/G Ratio 1.7 Ratio 05/14/2020 Unkn own Comp Metabolic Lqx420 Osmo 295 mOsmo 05/14/2020 Unkn own Cbc [...] 05/14/20 20 Unknown Cbc With Differential Ord2 [place]% 7.6 % 05/14/20 20 Unknown Cbc With [...] K/ul 020 Unknown Cbc With Differential Ord2 [place] ABS# 0.5 K/ul 05/14/20 20 Unknown Cbc [...] With Differential Ord2 Neut% 52.8 % 12/12/19 20 Unknown Cbc With Differential Ord2 MCV 84.7 fl 12/12/19 20 Unknown Cbc With Differential Ord2 Lymph% 35.4 % 12/12/19 20 Unknown Cbc With Differential Ord2 [place]% 9.1 % 12/12/19 20 Unknown Cbc With Differential Ord2 MCH 27.5 [...] K/ul 020 Unknown Cbc With Differential Ord2 [place] ABS# 0.4 K/ul 12/12/19 20 Unknown Cbc With Differential Ord2 Eos ABS# 0.1 K/ul 12/12/19 20 Unknown Cbc With Differential Ord2 Baso ABS# 0.0 K/ul 12/12/19 20 Unknown %Hba1C Qqa650 % HbA1c 91060-0 11.3 % 12/12/2019 Unknown %Hba1C Uln290 Gluc Ave 278 mg/dL 12/12/2019 Unknown Comp Metabolic Tri156 NA 147 mEq/L 12/12/2019 Unkn own Comp Metabolic Iqb309 K 3.9 mEq/L 12/12/2019 Unkn own Comp Metabolic Qpj345 CL 110 mEq/L 12/12/2019 Unkn own Comp Metabolic Glb038 CO2 28.0 mEq/L 12/12/2019 Unk nown Comp Metabolic Mcw386 ANION GAP 13 12/12/2019 Unkn own Comp Metabolic Tvt730 GLUCOSE 170 mg/dL 12/12/2019 Unkn own Comp Metabolic Yxr484 Creat 1.2 mg/dL 12/12/2019 Unkn own Comp Metabolic Nbo441 eGFR 65 ml/min/1.73m2 12/12/19 20 Unknown Comp Metabolic Oru600 BUN 24 mg/dL 12/12/2019 Unkn own Comp Metabolic Zle657 B/C Ratio 19.4 Ratio 12/12/2019 Unk nown Comp Metabolic Iym744 CALCIUM 9.5 mg/dL 12/12/2019 Unkn own Comp Metabolic Sbc285 ALK PHOS 57 U/L 12/12/2019 Unkn own Comp Metabolic Abo660 AST(SGOT) 21 U/L 12/12/2019 Unkn own Comp Metabolic Ify395 ALT(SGPT) 29 U/L 12/12/2019 Unkn own Comp Metabolic Tvd579 BILI T 0.4 mg/dL 12/12/2019 Unkn own Comp Metabolic Vbx541 ALBUMIN 4.1 g/dL 12/12/2019 Unkn own Comp Metabolic Nwn785 TPRO 6.7 g/dL 12/12/2019 Unkn own Comp Metabolic Wnb226 GLOB 2.6 g/dL 12/12/2019 Unkn own Comp Metabolic Hfd577 A/G Ratio 1.6 Ratio 12/12/2019 Unkn own Comp Metabolic Yqv588 Osmo 300 mOsmo 12/12/2019 Unkn own %Hba1C Fwk291 % HbA1c 58236-6 10.0 % 06/13/2019 Unknown %Hba1C Pds274 Gluc Ave 240 mg/dL 06/13/2019 Unknown Comp Metabolic Pjo718 NA 143 mEq/L 06/13/2019 Unkn own Comp Metabolic Wqt281 K 3.7 mEq/L 06/13/2019 Unkn own Comp Metabolic Zuz006 CL 107 mEq/L 06/13/2019 Unkn own Comp Metabolic Agj206 CO2 26.0 mEq/L 06/13/2019 Unk nown Comp Metabolic Gjj074 ANION GAP 14 06/13/2019 Unkn own Comp Metabolic Xcj619 GLUCOSE 125 mg/dL 06/13/2019 Unkn own Comp Metabolic Yir351 Creat 1.2 mg/dL 06/13/2019 Unkn own Comp Metabolic Awf236 eGFR 65 ml/min/1.73m2 06/13/20 19 Unknown Comp Metabolic Diw238 BUN 25 mg/dL 06/13/2019 Unkn own Comp Metabolic Bgm099 B/C Ratio 20.2 Ratio 06/13/2019 Unk nown Comp Metabolic Gas295 CALCIUM 9.2 mg/dL 06/13/2019 Unkn own Comp Metabolic Moo990 ALK PHOS 54 U/L 06/13/2019 Unkn own Comp Metabolic Jdn568 AST(SGOT) 21 U/L 06/13/2019 Unkn own Comp Metabolic Mfz165 ALT(SGPT) 30 U/L 06/13/2019 Unkn own Comp Metabolic Lvo858 BILI T 0.4 mg/dL 06/13/2019 Unkn own Comp Metabolic Lir860 ALBUMIN 4.2 g/dL 06/13/2019 Unkn own Comp Metabolic Meb327 TPRO 6.5 g/dL 06/13/2019 Unkn own Comp Metabolic Kgg459 GLOB 2.4 g/dL 06/13/2019 Unkn own Comp Metabolic Wib377 A/G Ratio 1.8 Ratio 06/13/2019 Unkn own Comp Metabolic Kvb691 Osmo 291 mOsmo 06/13/2019 Unkn own Cbc [...] 06/13/20 19 Unknown Cbc With Differential Ord2 [place]% 6.7 % 06/13/20 19 Unknown Cbc With [...] K/ul 019 Unknown Cbc With Differential Ord2 [place] ABS# 0.4 K/ul 06/13/20 19 Unknown Cbc [...] C/HDL 4.3 Ratio 02/14/2019 Unknown Comp Metabolic Gks212 NA 144 mEq/L 02/14/2019 Unkn own Comp Metabolic Dei743 K 3.8 mEq/L 02/14/2019 Unkn own Comp Metabolic Fjb080 CL 110 mEq/L 02/14/2019 Unkn own Comp Metabolic Dwx011 CO2 26.0 mEq/L 02/14/2019 Unk nown Comp Metabolic Kem716 ANION GAP 12 02/14/2019 Unkn own Comp Metabolic Vbr803 GLUCOSE 143 mg/dL 02/14/2019 Unkn own Comp Metabolic Qly176 Creat 1.3 mg/dL 02/14/2019 Unkn own Comp Metabolic Kyn281 eGFR 61 ml/min/1.73m2 02/15/20 19 Unknown Comp Metabolic Fjy592 BUN 29 mg/dL 02/14/2019 Unkn own Comp Metabolic Wva409 B/C Ratio 22.0 Ratio 02/14/2019 Unk nown Comp Metabolic Vaz414 CALCIUM 9.5 mg/dL 02/14/2019 Unkn own Comp Metabolic Dct593 ALK PHOS 49 U/L 02/14/2019 Unkn own Comp Metabolic Lbl643 AST(SGOT) 18 U/L 02/14/2019 Unkn own Comp Metabolic Ukc260 ALT(SGPT) 23 U/L 02/14/2019 Unkn own Comp Metabolic Nzc707 BILI T 0.4 mg/dL 02/14/2019 Unkn own Comp Metabolic Tcu120 ALBUMIN 4.4 g/dL 02/14/2019 Unkn own Comp Metabolic Ajr035 TPRO 6.8 g/dL 02/14/2019 Unkn own Comp Metabolic Gpa665 GLOB 2.4 g/dL 02/14/2019 Unkn own Comp Metabolic Quv782 A/G Ratio 1.8 Ratio 02/14/2019 Unkn own Comp Metabolic Ktg131 Osmo 295 mOsmo 02/14/2019 Unkn own %Hba1C Kxi684 % HbA1c 93232-4 9.9 % 02/14/2019 Unknown %Hba1C Jxk349 Gluc Ave 237 mg/dL 02/14/2019 Unknown Cbc [...] 10/25/19 19 Unknown Cbc With Differential Ord2 [place]% 8.6 % 10/25/19 19 Unknown Cbc With [...] K/ul 019 Unknown Cbc With Differential Ord2 [place] ABS# 0.4 K/ul 10/25/19 19 Unknown Cbc [...] C/HDL 3.9 Ratio 10/25/2018 Unknown Comp Metabolic Nwe457 NA 144 mEq/L 10/25/2018 Unkn own Comp Metabolic Lup975 K 4.7 mEq/L 10/25/2018 Unkn own Comp Metabolic Vgj697 CL 113 mEq/L 10/25/2018 Unkn own Comp Metabolic Roe528 CO2 21.0 mEq/L 10/25/2018 Unk nown Comp Metabolic Gim484 ANION GAP 15 10/25/2018 Unkn own Comp Metabolic Boj031 GLUCOSE 136 mg/dL 10/25/2018 Unkn own Comp Metabolic Lxk474 Creat 1.3 mg/dL 10/25/2018 Unkn own Comp Metabolic Dyw771 eGFR 61 ml/min/1.73m2 10/25/19 19 Unknown Comp Metabolic Lis712 BUN 26 mg/dL 10/25/2018 Unkn own Comp Metabolic Fxq931 B/C Ratio 19.7 Ratio 10/25/2018 Unk nown Comp Metabolic Wpm030 CALCIUM 9.8 mg/dL 10/25/2018 Unkn own Comp Metabolic Euy133 ALK PHOS 51 U/L 10/25/2018 Unkn own Comp Metabolic Fdn160 AST(SGOT) 33 U/L 10/25/2018 Unkn own Comp Metabolic Onk368 ALT(SGPT) 28 U/L 10/25/2018 Unkn own Comp Metabolic Grl590 BILI T 0.5 mg/dL 10/25/2018 Unkn own Comp Metabolic Lvz991 ALBUMIN 4.3 g/dL 10/25/2018 Unkn own Comp Metabolic Rpp677 TPRO 6.9 g/dL 10/25/2018 Unkn own Comp Metabolic Ygs613 GLOB 2.6 g/dL 10/25/2018 Unkn own Comp Metabolic Upz843 A/G Ratio 1.6 Ratio 10/25/2018 Unkn own Comp Metabolic Kzk317 Osmo 294 mOsmo 10/25/2018 Unkn own %Hba1C Vpu331 % HbA1c 88967-8 9.7 % 10/25/2018 Unknown %Hba1C Cnv516 Gluc Ave 232 mg/dL 10/25/2018 Unknown Metabolic [...] Ord15 CALCIUM 10.1 mg/dL 08/23/2018 Unknown %Hba1C Dif132 % HbA1c 36889-7 12.4 % 07/19/2018 Unknown %Hba1C Udc815 Gluc Ave 309 mg/dL 07/19/2018 Unknown Lipid [...] 07/19/20 18 Unknown Cbc With Differential Ord2 [place]% 8.1 % 07/19/20 18 Unknown Cbc With [...] K/ul 018 Unknown Cbc With Differential Ord2 [place] ABS# 0.4 K/ul 07/19/20 18 Unknown Cbc With Differential Ord2 Eos ABS# 0.1 K/ul 07/19/20 18 Unknown Cbc With Differential Ord2 Baso ABS# 0.0 K/ul 07/19/20 18 Unknown Comp Metabolic Ypf646 NA 142 mEq/L 07/19/2018 Unkn own Comp Metabolic Hfv825 K 3.9 mEq/L 07/19/2018 Unkn own Comp Metabolic Uly751 CL 104 mEq/L 07/19/2018 Unkn own Comp Metabolic Myo303 CO2 27.0 mEq/L 07/19/2018 Unk nown Comp Metabolic Mey825 ANION GAP 15 07/19/2018 Unkn own Comp Metabolic Djx628 GLUCOSE 168 mg/dL 07/19/2018 Unkn own Comp Metabolic Naj769 Creat 1.4 mg/dL 07/19/2018 Unkn own Comp Metabolic Ngp824 eGFR 56 ml/min/1.73m2 07/19/20 18 Unknown Comp Metabolic Opx023 BUN 34 mg/dL 07/19/2018 Unkn own Comp Metabolic Ocu965 B/C Ratio 23.8 Ratio 07/19/2018 Unk nown Comp Metabolic Wng970 CALCIUM 9.6 mg/dL 07/19/2018 Unkn own Comp Metabolic Pej478 ALK PHOS 55 U/L 07/19/2018 Unkn own Comp Metabolic Tvc887 AST(SGOT) 24 U/L 07/19/2018 Unkn own Comp Metabolic Hmo749 ALT(SGPT) 30 U/L 07/19/2018 Unkn own Comp Metabolic Zmc522 BILI T 0.4 mg/dL 07/19/2018 Unkn own Comp Metabolic Dqi270 ALBUMIN 4.2 g/dL 07/19/2018 Unkn own Comp Metabolic Qca452 TPRO 6.8 g/dL 07/19/2018 Unkn own Comp Metabolic Lxf953 GLOB 2.6 g/dL 07/19/2018 Unkn own Comp Metabolic Nne316 A/G Ratio 1.6 Ratio 07/19/2018 Unkn own Comp Metabolic Mag649 Osmo 295 mOsmo 07/19/2018 Unkn own Cbc [...] 04/12/20 18 Unknown Cbc With Differential Ord2 [place]% 8.0 % 04/12/20 18 Unknown Cbc With [...] K/ul 018 Unknown Cbc With Differential Ord2 [place] ABS# 0.4 K/ul 04/12/20 18 Unknown Cbc With Differential Ord2 Eos ABS# 0.1 K/ul 04/12/20 18 Unknown Cbc With Differential Ord2 Baso ABS# 0.0 K/ul 04/12/20 18 Unknown %Hba1C Lqg016 % HbA1c 01418-9 10.8 % 04/12/2018 Unknown %Hba1C Xqq306 Gluc Ave 263 mg/dL 04/12/2018 Unknown Comp Metabolic Jsy635 NA 143 mEq/L 04/12/2018 Unkn own Comp Metabolic Lke362 K 3.9 mEq/L 04/12/2018 Unkn own Comp Metabolic Sik871 CL 106 mEq/L 04/12/2018 Unkn own Comp Metabolic Urs093 CO2 30.0 mEq/L 04/12/2018 Unk nown Comp Metabolic Gir516 ANION GAP 11 04/12/2018 Unkn own Comp Metabolic Eon486 GLUCOSE 203 mg/dL 04/12/2018 Unkn own Comp Metabolic Coa233 Creat 1.5 mg/dL 04/12/2018 Unkn own Comp Metabolic Lsm018 eGFR 53 ml/min/1.73m2 04/12/20 18 Unknown Comp Metabolic Syo203 BUN 37 mg/dL 04/12/2018 Unkn own Comp Metabolic Upb558 B/C Ratio 24.7 Ratio 04/12/2018 Unk nown Comp Metabolic Wig747 CALCIUM 9.5 mg/dL 04/12/2018 Unkn own Comp Metabolic Isx812 ALK PHOS 46 U/L 04/12/2018 Unkn own Comp Metabolic Uch584 AST(SGOT) 19 U/L 04/12/2018 Unkn own Comp Metabolic Vvy465 ALT(SGPT) 25 U/L 04/12/2018 Unkn own Comp Metabolic Adn151 BILI T 0.4 mg/dL 04/12/2018 Unkn own Comp Metabolic Ssh036 ALBUMIN 4.1 g/dL 04/12/2018 Unkn own Comp Metabolic Iox855 TPRO 6.6 g/dL 04/12/2018 Unkn own Comp Metabolic Dgg580 GLOB 2.5 g/dL 04/12/2018 Unkn own Comp Metabolic Qml237 A/G Ratio 1.7 Ratio 04/12/2018 Unkn own Comp Metabolic Erq910 Osmo 299 mOsmo 04/12/2018 Unkn own Metabolic [...] C/HDL 4.6 Ratio 12/03/2017 Unknown Comp Metabolic Qko795 NA 140 mEq/L 12/03/2017 Unkn own Comp Metabolic Vnz100 K 4.0 mEq/L 12/03/2017 Unkn own Comp Metabolic Qpa764 CL 103 mEq/L 12/03/2017 Unkn own Comp Metabolic Bdn823 CO2 26.0 mEq/L 12/03/2017 Unk nown Comp Metabolic Nmc200 ANION GAP 15 12/03/2017 Unkn own Comp Metabolic Jir314 GLUCOSE 142 mg/dL 12/03/2017 Unkn own Comp Metabolic Tlp735 Creat 1.9 mg/dL 12/03/2017 Unkn own Comp Metabolic Qox263 eGFR 39 ml/min/1.73m2 12/04/19 18 Unknown Comp Metabolic Qpq072 BUN 34 mg/dL 12/03/2017 Unkn own Comp Metabolic Vrr534 B/C Ratio 17.5 Ratio 12/03/2017 Unk nown Comp Metabolic Lrg737 CALCIUM 9.7 mg/dL 12/03/2017 Unkn own Comp Metabolic Wtn386 ALK PHOS 46 U/L 12/03/2017 Unkn own Comp Metabolic Rgd705 AST(SGOT) 34 U/L 12/03/2017 Unkn own Comp Metabolic Ern787 ALT(SGPT) 38 U/L 12/03/2017 Unkn own Comp Metabolic Obk077 BILI T 0.5 mg/dL 12/03/2017 Unkn own Comp Metabolic Cbk214 ALBUMIN 4.5 g/dL 12/03/2017 Unkn own Comp Metabolic Aca662 TPRO 6.9 g/dL 12/03/2017 Unkn own Comp Metabolic Ldv397 GLOB 2.4 g/dL 12/03/2017 Unkn own Comp Metabolic Fcq096 A/G Ratio 1.8 Ratio 12/03/2017 Unkn own Comp Metabolic Nny950 Osmo 289 mOsmo 12/03/2017 Unkn own %Hba1C Ney399 % HbA1c 46390-4 10.2 % 12/03/2017 Unknown %Hba1C Fov955 Gluc Ave 246 mg/dL 12/03/2017 Unknown Cbc [...] 12/04/19 18 Unknown Cbc With Differential Ord2 [place]% 7.7 % 12/04/19 18 Unknown Cbc With [...] K/ul 018 Unknown Cbc With Differential Ord2 [place] ABS# 0.6 K/ul 12/04/19 18 Unknown Cbc [...] C/HDL 4.2 Ratio 08/17/2017 Unknown Comp Metabolic Ked037 NA 142 mEq/L 08/17/2017 Unkn own Comp Metabolic Coh521 K 4.0 mEq/L 08/17/2017 Unkn own Comp Metabolic Ovt816 CL 108 mEq/L 08/17/2017 Unkn own Comp Metabolic Cjn649 CO2 27.0 mEq/L 08/17/2017 Unk nown Comp Metabolic Nbi969 ANION GAP 11 08/17/2017 Unkn own Comp Metabolic Rkz286 GLUCOSE 213 mg/dL 08/17/2017 Unkn own Comp Metabolic Xag936 Creat 1.2 mg/dL 08/17/2017 Unkn own Comp Metabolic Dfj357 eGFR 70 ml/min/1.73m2 08/17/20 17 Unknown Comp Metabolic Yph652 BUN 29 mg/dL 08/17/2017 Unkn own Comp Metabolic Cyi159 B/C Ratio 24.6 Ratio 08/17/2017 Unk nown Comp Metabolic Rvm986 CALCIUM 9.3 mg/dL 08/17/2017 Unkn own Comp Metabolic Mcv136 ALK PHOS 43 U/L 08/17/2017 Unkn own Comp Metabolic Zyy553 AST(SGOT) 18 U/L 08/17/2017 Unkn own Comp Metabolic Qpl113 ALT(SGPT) 23 U/L 08/17/2017 Unkn own Comp Metabolic Akg651 BILI T 0.3 mg/dL 08/17/2017 Unkn own Comp Metabolic Wlm001 ALBUMIN 4.0 g/dL 08/17/2017 Unkn own Comp Metabolic Pqt132 TPRO 6.1 g/dL 08/17/2017 Unkn own Comp Metabolic Uzr583 GLOB 2.1 g/dL 08/17/2017 Unkn own Comp Metabolic Cqc467 A/G Ratio 1.9 Ratio 08/17/2017 Unkn own Comp Metabolic Cet737 Osmo 295 mOsmo 08/17/2017 Unkn own Cbc [...] 08/17/20 17 Unknown Cbc With Differential Ord2 [place]% 8.0 % 08/17/20 17 Unknown Cbc With [...] K/ul 017 Unknown Cbc With Differential Ord2 [place] ABS# 0.4 K/ul 08/17/20 17 Unknown Cbc With Differential Ord2 Eos ABS# 0.1 K/ul 08/17/20 17 Unknown Cbc With Differential Ord2 Baso ABS# 0.0 K/ul 08/17/20 17 Unknown %Hba1C Afg940 % HbA1c 38384-3 10.6 % 08/17/2017 Unknown %Hba1C Nsa250 Gluc Ave 258 mg/dL 08/17/2017 Unknown Microalbumin Epf547 MicroAlb 4.2 mg/dL 05/18/2017 Unknow n %Hba1C Klg317 % HbA1c 85692-8 10.4 % 05/18/2017 Unknown %Hba1C Ssc657 Gluc Ave 252 mg/dL 05/18/2017 Unknown Comp Metabolic Vyq854 NA 141 mEq/L 05/18/2017 Unkn own Comp Metabolic Vgw758 K 4.0 mEq/L 05/18/2017 Unkn own Comp Metabolic Nlj829 CL 104 mEq/L 05/18/2017 Unkn own Comp Metabolic Grx573 CO2 28.0 mEq/L 05/18/2017 Unk nown Comp Metabolic Ktp428 ANION GAP 13 05/18/2017 Unkn own Comp Metabolic Hlg303 GLUCOSE 157 mg/dL 05/18/2017 Unkn own Comp Metabolic Suc856 Creat 1.2 mg/dL 05/18/2017 Unkn own Comp Metabolic Auk327 eGFR 68 ml/min/1.73m2 05/18/20 17 Unknown Comp Metabolic Ior281 BUN 32 mg/dL 05/18/2017 Unkn own Comp Metabolic Wat040 B/C Ratio 26.4 Ratio 05/18/2017 Unk nown Comp Metabolic Eks326 CALCIUM 9.5 mg/dL 05/18/2017 Unkn own Comp Metabolic Zaa721 ALK PHOS 51 U/L 05/18/2017 Unkn own Comp Metabolic Shm495 AST(SGOT) 18 U/L 05/18/2017 Unkn own Comp Metabolic Kkp503 ALT(SGPT) 24 U/L 05/18/2017 Unkn own Comp Metabolic Olp311 BILI T 0.5 mg/dL 05/18/2017 Unkn own Comp Metabolic Jwr352 ALBUMIN 4.1 g/dL 05/18/2017 Unkn own Comp Metabolic Mbv640 TPRO 6.7 g/dL 05/18/2017 Unkn own Comp Metabolic Cta064 GLOB 2.6 g/dL 05/18/2017 Unkn own Comp Metabolic Clu759 A/G Ratio 1.5 Ratio 05/18/2017 Unkn own Comp Metabolic Slp688 Osmo 291 mOsmo 05/18/2017 Unkn own Cbc [...] 05/18/20 17 Unknown Cbc With Differential Ord2 [place]% 8.5 % 05/18/20 17 Unknown Cbc With [...] K/ul 017 Unknown Cbc With Differential Ord2 [place] ABS# 0.4 K/ul 05/18/20 17 Unknown Cbc [...] Ord30 C/HDL 5.7 Ratio 01/26/2017 Unknown %Hba1C Mrc178 % HbA1c 97827-2 13.2 % 01/26/2017 Unknown %Hba1C Oli764 Gluc Ave 332 mg/dL 01/26/2017 Unknown %Hba1C Wwe084 % HbA1c 52664-1 12.1 % 10/13/2016 Unknown %Hba1C Jty319 Gluc Ave 301 mg/dL 10/13/2016 Unknown Tsh Ord6 hTSH II 0.78 uIU/mL 10/13/2016 Unknown Comp Metabolic Xlv652 NA 137 mEq/L 10/13/2016 Unkn own Comp Metabolic Dpt721 K 4.1 mEq/L 10/13/2016 Unkn own Comp Metabolic Rhl922 CL 104 mEq/L 10/13/2016 Unkn own Comp Metabolic Vro667 CO2 26.0 mEq/L 10/13/2016 Unk nown Comp Metabolic Ehp430 ANION GAP 11 10/13/2016 Unkn own Comp Metabolic Xti111 GLUCOSE 308 mg/dL 10/13/2016 Unkn own Comp Metabolic Csj011 Creat 1.0 mg/dL 10/13/2016 Unkn own Comp Metabolic Fyg281 eGFR 81 ml/min/1.73m2 10/13/19 17 Unknown Comp Metabolic Frx840 BUN 20 mg/dL 10/13/2016 Unkn own Comp Metabolic Toi546 B/C Ratio 19.2 Ratio 10/13/2016 Unk nown Comp Metabolic Slr088 CALCIUM 9.7 mg/dL 10/13/2016 Unkn own Comp Metabolic Xlr743 ALK PHOS 62 U/L 10/13/2016 Unkn own Comp Metabolic Hna155 AST(SGOT) 24 U/L 10/13/2016 Unkn own Comp Metabolic Igf731 ALT(SGPT) 37 U/L 10/13/2016 Unkn own Comp Metabolic Xqh894 BILI T 0.4 mg/dL 10/13/2016 Unkn own Comp Metabolic Otq908 ALBUMIN 4.2 g/dL 10/13/2016 Unkn own Comp Metabolic Vgf352 TPRO 6.9 g/dL 10/13/2016 Unkn own Comp Metabolic Qek196 GLOB 2.7 g/dL 10/13/2016 Unkn own Comp Metabolic Svl505 A/G Ratio 1.5 Ratio 10/13/2016 Unkn own Comp Metabolic Rce504 Osmo 288 mOsmo 10/13/2016 Unkn own Cbc [...] 10/13/19 17 Unknown Cbc With Differential Ord2 [place]% 7.4 % 10/13/19 17 Unknown Cbc With [...] K/ul 017 Unknown Cbc With Differential Ord2 [place] ABS# 0.4 K/ul 10/13/19 17 Unknown Cbc [...] No Procedures data Vital Signs Date Vital 05/19/2021 Height: Code: 8302-2 Weight: Code: 294 63-7 04/29/2021 Blood Pressure 1: 140/90 Code: 8480-6 BMI: 31.9 Code: 58650-1 Heart Rate 1: 96 bpm Height: 5'10" Code: 8302-2 SpO2: 96% Temperature: 36.3 (C) / 97.4 (F) Weight: 222 lbs Code: 02429-9 01/14/2021 Blood Pressure 1: 140/90 Code: 8480-6 BMI: 31.7 Code: 28707-4 Heart Rate 1: 92 bpm Height: 5'10" Code: 8302-2 SpO2: 93% Temperature: 36.3 (C) / 97.3 (F) Weight: 221 lbs Code: 43911-3 09/17/2020 Blood Pressure 1: 116/72 Code: 8480-6 BMI: 32.6 Code: 69481-1 Heart Rate 1: 89 bpm Height: 5'10" Code: 8302-2 SpO2: 97% Temperature: 35.8 (C) / 96.4 (F) Weight: 227 lbs Code: 33432-5 06/11/2020 Blood Pressure 1: 122/70 Code: 8480-6 BMI: 32.7 Code: 70528-5 Heart Rate 1: 75 bpm Height: 5'10" Code: 8302-2 SpO2: 97% Temperature: 36.2 (C) / 97.1 (F) Weight: 228 lbs Code: 78460-2 05/19/2020 Blood Pressure 1: 154/66 Code: 8480-6 BMI: 33.1 Code: 50043-4 Heart Rate 1: 80 bpm Height: 5'10" Code: 8302-2 SpO2: 98% Temperature: 36.3 (C) / 97.3 (F) Weight: 231 lbs Code: 37487-3 12/12/2019 Blood Pressure 1: 130/74 Code: 8480-6 BMI: 32.9 Code: 27076-8 Heart Rate 1: 95 bpm Height: 5'10" Code: 8302-2 SpO2: 96% Temperature: 36.3 (C) / 97.4 (F) Weight: 229 lbs Code: 91202-8 06/13/2019 Blood Pressure 1: 138/82 Code: 8480-6 BMI: 33.1 Code: 93861-0 Heart Rate 1: 80 bpm Height: 5'10" Code: 8302-2 SpO2: 96% Weight: 231 l bs Code: 46591-2 02/14/2019 Blood Pressure 1: 120/84 Code: 8480-6 BMI: 33.1 Code: 88017-2 Heart Rate 1: 85 bpm Height: 5'10" Code: 8302-2 SpO2: 98% Weight: 231 l bs Code: 45541-0 10/18/2018 Blood Pressure 1: 126/78 Code: 8480-6 BMI: 33.0 Code: 69969-3 Heart Rate 1: 81 bpm Height: 5'10" Code: 8302-2 SpO2: 98% Weight: 230 l bs Code: 58544-7 08/23/2018 Blood Pressure 1: 130/70 Code: 8480-6 BMI: 32.9 Code: 81232-6 Heart Rate 1: 85 bpm Height: 5'10" Code: 8302-2 SpO2: 96% Weight: 229 l bs Code: 00505-2 07/19/2018 Blood Pressure 1: 130/80 Code: 8480-6 BMI: 32.3 Code: 27734-2 Heart Rate 1: 86 bpm Height: 5'10" Code: 8302-2 SpO2: 96% Weight: 225 l bs Code: 90904-2 04/19/2018 Blood Pressure 1: 128/82 Code: 8480-6 BMI: 32.7 Code: 99882-1 Heart Rate 1: 83 bpm Height: 5'10" Code: 8302-2 SpO2: 94% Weight: 228 l bs Code: 99053-7 01/18/2018 Blood Pressure 1: 130/78 Code: 8480-6 BMI: 32.9 Code: 51584-3 Heart Rate 1: 80 bpm Height: 5'10" Code: 8302-2 SpO2: 95% Weight: 229 l bs Code: 75870-1 12/21/2017 Blood Pressure 1: 112/60 Code: 8480-6 BMI: 32.9 Code: 53872-2 Heart Rate 1: 92 bpm Height: 5'10" Code: 8302-2 SpO2: 93% Weight: 229 l bs Code: 15386-8 08/17/2017 Blood Pressure 1: 130/78 Code: 8480-6 BMI: 33.3 Code: 96180-5 Heart Rate 1: 88 bpm Height: 5'10" Code: 8302-2 SpO2: 96% Weight: 232 l bs Code: 91442-3 07/12/2017 Blood Pressure 1: 130/74 Code: 8480-6 BMI: 32.7 Code: 67684-4 Heart Rate 1: 88 bpm Height: 5'10" Code: 8302-2 SpO2: 98% Weight: 228 l bs Code: 05738-2 05/18/2017 Blood Pressure 1: 120/74 Code: 8480-6 BMI: 32.7 Code: 62565-4 Heart Rate 1: 86 bpm Height: 5'10" Code: 8302-2 SpO2: 97% Weight: 228 l bs Code: 62730-6 03/16/2017 Blood Pressure 1: 126/78 Code: 8480-6 BMI: 32.6 Code: 81349-8 Heart Rate 1: 81 bpm Height: 5'10" Code: 8302-2 SpO2: 95% Weight: 227 l bs Code: 44058-1 02/09/2017 Blood Pressure 1: 132/80 Code: 8480-6 BMI: 32.6 Code: 22356-9 Heart Rate 1: 89 bpm Height: 5'10" Code: 8302-2 SpO2: 96% Weight: 227 l bs Code: 94091-0 10/13/2016 Blood Pressure 1: 146/90 Code: 8480-6 BMI: 32.3 Code: 22817-7 Heart Rate 1: 88 bpm Height: 5'10" Code: 8302-2 SpO2: 98% Weight: 225 l bs Code: 85777-8 Functional Status No Functional Status data Reason For Visit Reason For Visit Effective Dates Notes dyspnea 05/19/2021 diabetes mellitus 04/29/2021 diabetes mellitus 01/14/2021 diabetes [...] 10/13/2016 Encounters Encounter Performer Location Codes Date () [id number] EST. PATIENT, LEVEL III Diagnosis: COVID-19[ICD10: U07.1] Diagnosis: Cough[ICD10: R05] Diagnosis: Type 2 diabetes mellitus with hyperglycemia[ICD10: E11.65] Diagnosis: Essential (primary) hypertension[ICD10: I10] Mary Craw[facility] CPT-4: 27584 05/19/2021 ([id number]) 34743 EST. PATIENT, LEVEL III Diagnosis: Type 2 diabetes mellitus with hyperglycemia[ICD10: E11.65] Mary Box MD, [facility] CPT-4: 76834 04/29/2021 ([id number]) 84030 EST. PATIENT, LEVEL IV Diagnosis: Essential (primary) hypertension[ICD10: I10] Diagnosis: Type 2 diabetes mellitus with hyperglycemia[ICD10: E11.65] Diagnosis: Mixed hyperlipidemia[ICD10: E78.2] Mary espinoza MD, [facility] CPT-4: 54394 01/14/2021 ([id number]) 19813 EST. PATIENT, LEVEL IV Diagnosis: Type 2 diabetes mellitus with hyperglycemia[ICD10: E11.65] Diagnosis: Essential (primary) hypertension[ICD10: I10] Diagnosis: Mixed hyperlipidemia[ICD10: E78.2] Diagnosis: Left shoulder pain[ICD10: M25.512] Mary espinoza MD, [facility] CPT-4: 95822 09/17/2020 ([id number]) 26215 EST. PATIENT, LEVEL IV Diagnosis: Essential (primary) hypertension[ICD10: I10] Diagnosis: Type 2 diabetes mellitus with hyperglycemia[ICD10: E11.65] Mary Box MD, [facility] CPT-4: 04831 06/11/2020 62337 EST. PATIENT, LEVEL III Diagnosis: Left wrist pain[ICD10: M25.532] Miya Box MD , [facility] CPT-4: 81654 05/19/2020 [id number] EST. PATIENT, LEVEL IV Diagnosis: Essential (primary) hypertension[ICD10: I10] Diagnosis: Type 2 diabetes mellitus without complications[ICD10: E11.9] Miya Box MD, [facility] CPT-4: 42304 12/12/2019 ([id number]) 06193 EST. PATIENT, LEVEL IV Diagnosis: Type 2 diabetes mellitus with hyperglycemia[ICD10: E11.65] Diagnosis: Essential (primary) hypertension[ICD10: I10] Diagnosis: Chronic kidney disease, stage 3 (moderate)[ICD10: N18.3] Mary Box MD, [facility] CPT-4: 38630 06/13/2019 ([id number]) 76471 EST. PATIENT, LEVEL III Diagnosis: Type 2 diabetes mellitus with hyperglycemia[ICD10: E11.65] Diagnosis: Essential (primary) hypertension[ICD10: I10] Mary Box MD, [facility] CPT-4: 12327 02/14/2019 ([id number]) 44063 EST. PATIENT, LEVEL IV Diagnosis: Type 2 diabetes mellitus with hyperglycemia[ICD10: E11.65] Diagnosis: Essential (primary) hypertension[ICD10: I10] Diagnosis: Chronic kidney disease, stage 3 (moderate)[ICD10: N18.3] Diagnosis: Mixed hyperlipidemia[ICD10: E78.2] Mary espinoza MD, [facility] CPT-4: 44432 10/18/2018 ([id number]) 41890 EST. PATIENT, LEVEL IV Diagnosis: Essential (primary) hypertension[ICD10: I10] Diagnosis: Type 2 diabetes mellitus with hyperglycemia[ICD10: E11.65] Diagnosis: Localized edema[ICD10: R60.0] Mary perla MD, [facility] CPT-4: 55803 08/23/2018 ([id number]) 57509 EST. PATIENT, LEVEL IV Diagnosis: Type 2 diabetes mellitus with hyperglycemia[ICD10: E11.65] Diagnosis: Mixed hyperlipidemia[ICD10: E78.2] Diagnosis: Essential (primary) hypertension[ICD10: I10] Mary Box MD, [facility] CPT-4: 11882 07/19/2018 ([id number]) 06183 EST. PATIENT, LEVEL IV Diagnosis: Type 2 diabetes mellitus with hyperglycemia[ICD10: E11.65] Diagnosis: Essential (primary) hypertension[ICD10: I10] Diagnosis: Chronic kidney disease, stage 3 (moderate)[ICD10: N18.3] Mary Box MD, [facility] CPT-4: 13602 04/19/2018 ([id number]) [id number] EST. PATIENT, LEVEL III Diagnosis: Type 2 diabetes mellitus with hyperglycemia[ICD10: E11.65] Mary Box MD, [facility] CPT-4: 65593 01/18/2018 ([id number]) [id number] EST. PATIENT, LEVEL IV Diagnosis: Type 2 diabetes mellitus with hyperglycemia[ICD10: E11.65] Diagnosis: Essential (primary) hypertension[ICD10: I10] Diagnosis: Mixed hyperlipidemia[ICD10: E78.2] Diagnosis: Acute kidney failure, unspecified[ICD10: N17.9] Mary Box MD, [facility] CPT-4: 45258 12/21/2017 ([id number]) 53568 EST. PATIENT, LEVEL IV Diagnosis: Type 2 diabetes mellitus with hyperglycemia[ICD10: E11.65] Diagnosis: Essential (primary) hypertension[ICD10: I10] Diagnosis: Mixed hyperlipidemia[ICD10: E78.2] Mary espinoza MD, [facility] CPT-4: 42705 08/17/2017 [id number] EST. PATIENT, LEVEL III Diagnosis: Pain in right shoulder[ICD10: M25.511] Miya Hanley MD, [facility] CPT-4: 11415 07/12/2017 ([id number]) 22934 EST. PATIENT, LEVEL IV Diagnosis: Type 2 diabetes mellitus with hyperglycemia[ICD10: E11.65] Diagnosis: Essential (primary) hypertension[ICD10: I10] Diagnosis: Mixed hyperlipidemia[ICD10: E78.2] Diagnosis: Bicipital tendinitis, right shoulder[ICD10: M75.21] Diagnosis: Acute recurrent maxillary sinusitis[ICD10: J01.01] Mary Box MD, [facility] CPT-4: 08526 05/18/2017 ([id number]) 12693 EST. PATIENT, LEVEL III Diagnosis: Type 2 diabetes mellitus with hyperglycemia[ICD10: E11.65] Mary Box MD, [facility] CPT-4: 09420 03/16/2017 ([id number]) [id number] EST. PATIENT, LEVEL III Diagnosis: Type 2 diabetes mellitus with hyperglycemia[ICD10: E11.65] Diagnosis: Essential (primary) hypertension[ICD10: I10] [facility] CPT-4: 55817 02/09/2017 OFFICE VISIT, NEW - LEVEL 4 Diagnosis: Essential (primary) hypertension[ICD10: I10] Diagnosis: Type 2 diabetes mellitus without complications[ICD10: E11.9] Diagnosis: Personal history of malignant melanoma of skin[ICD10: Z85.820] [facility] CPT-4: 97136 10/13/2016 Plan of Care Planned Activity Notes Codes Status Date Visit Plan: COVID-19 positive Discussed treatment with patient - pt to start on Vitamin C 500mg daily Zinc 50mg daily Pepcid 20mg twice daily baby aspirin RX for albuterol inhaler or neb to be sent out for patient. Discussed outpatient treatment with monoclonal antibody, casirivimab and that it is not yet FDA approved but has been approved for mild to moderate symptoms of COVID 19. Patient agrees to treatment. Will fax orders to [facility]. PT to go to ER if symptoms not improving or if ANY worse. Patient and verbalized understanding of plan. 05/19/2021 Patient Education: Patient Medication Summary Completed 05/19/2021 Patient Education: Hypertension Completed 05/19/2021 Visit Plan: Diabetes Mellitus - Uncontro lled [...] Hypertension Completed 04/29/2021 Appointment: Mary Crawley WPtel: [address] [place], [place] [phone] (15 min) Moderate 04/15/2021 Visit Plan: Hypertension [...] continue current medications 01/14/2021 Appointment: Mary Crawley WPte: [phone] (15 min) Moderate 01/14/2021 Patient Education: Patient [...] evaluation 09/17/2020 Appointment: [facility] [phone] [phone] (15 min) Moderate 09/17/2020 Patient Education: Patient [...] home. 06/11/2020 Appointment: [facility] [phone] [phone] (15 min) Moderate 06/11/2020 Patient Education: Patient [...] concerns. 05/19/2020 Appointment: Mi[facility] Ruelas [facility] [phone] [phone] (30 min) Complex 05/19/2020 Patient Education: Patient [...] control. 12/12/2019 Appointment: [facility] [phone] [facility] [place] (15 min) Moderate 12/12/2019 Patient Education: [...] today 06/13/2019 Appointment: [facility] Craw[facility]el[facility] [phone] [phone] [place] (15 min) Moderate 06/13/2019 Patient Education: [...] blood pressure readings at home. 02/14/2019 Appointment: aMry Crawley WPtel: [phone] [phone] (15 min) Moderate 02/14/2019 Patient Education: Patient Medication Summary Completed 02/14/2019 Patient Education: Hypertension Completed 02/14/2019 Appointment: Mary Crawley WPtel: [phone] [phone] (15 min) Moderate 11/22/2018 Visit Plan: Diabetes [...] medications. 10/18/2018 Appointment: Mary Crawley WPtel: [phone] [phone] [place] (15 min) Moderate 10/18/2018 Patient Education: Patient [...] labs in 3 months to monitor a1c Cemcb-rsmtae-zsbvy lasix only as needed for swelling-check kidney function today 08/23/2018 Appointment: [facility] Craw[facility]Ptel[facility] [phone] [phone] (15 min) Moderate 08/23/2018 Patient Education: Patient [...] less controlled. 07/19/2018 Appointment: [facility] Craw[facility]el[facility] [phone] [phone] (15 min) Moderate 07/19/2018 Patient Education: Patient [...] SEND IN INSURANCE VERIFICATION TO SEE IF Glowing PlantAN CONNECT (CONTINUOUS GLUCOSE MONITOR) IS COVERED. Hyperlipidemia [...] to medications. 04/19/2018 Appointment: Mary Crawley WPtel: [facility] [place] [phone] (15 min) Moderate 04/19/2018 Patient Education: Patient [...] off metformin-check labs today 01/18/2018 Appointment: Mary Crawley WPtel: [phone] [phone] (15 min) Moderate 01/18/2018 Patient Education: Patient [...] to monitor 12/21/2017 Appointment: Mary Crawley WPtel: [phone] [facility] [place] [address] (15 min) Moderate 12/21/2017 Patient Education: Patient Medication Summary Completed 12/21/2017 Care Plan: Comp Metabolic patient to have done in 1 month before appt Pending 12/21/2017 Appointment: [facility] Craw[facility]Ptel[facility] [phone] [phone] (30 min) Complex 12/14/2017 Visit Plan: Hypertension [...] medications. 08/17/2017 Appointment: [facility] Craw[facility]el[facility] [phone] [phone] (15 min) Moderate 08/17/2017 Patient Education: Patient [...] improve. 07/12/2017 Appointment: Mi[facility] Ruelas [facility]Ptel[facility] [phone] [phone] (30 min) Complex 07/12/2017 Patient Education: Patient [...] not improved. 05/18/2017 Appointment: Mary Crawley WPtel: [phone] [phone] (15 min) Moderate 05/18/2017 Patient Education: Patient [...] control. 03/16/2017 Appointment: Mary Crawley WPtel: [phone] [phone] (15 min) Moderate 03/16/2017 Patient Education: [...] at home. 02/09/2017 Appointment: Mary Crawley WPtel: [phone] (30 min) Complex 02/09/2017 Patient Education: Patient Medication Summary Completed 02/09/2017 Patient Education: Obesity Completed 0 02/09/2017 Referral: Maryana Wick WPtel: Referral Initiated 10/17/2016 Care Plan: Referral Order SNOMED-CT : [id number] Pending 10/15/2016 Visit Plan: Hypertension - well [...] routine monitoring. 10/13/2016 Appointment: Miya Ruelas WPtel: [facility] New Patient 10/13/2016 Patient Education: Patient Medication Summary Completed 10/13/2016 Care Plan: Comp Metabolic Pending Care Plan: Cbc With Differential Pending 10/13/2016 Care Plan: %Hba1C LOINC : 39877-6 Pending 10/13/2016 Care Plan: Tsh Pending 10/13/2016 Care Plan: Lipid Pending 10/13/2016 Referral: Maryana Wick WPtel: Referral Initiated Instructions Comment . COVID-19 positive Discussed treatment with patient - pt to start on Vitamin C 500mg daily Zinc 50mg daily Pepcid 20mg twice daily baby aspirin RX for albuterol inhaler or neb to be sent out for patient. Discussed outpatient treatment with monoclonal antibody, casirivimab and that it is not yet FDA approved but has been approved for mild to moderate symptoms of COVID 19. Patient agrees to treatment. Will fax orders to [facility]. PT to go to ER if symptoms not improving or if ANY worse. Patient and verbalized understanding of plan. NOVOLOG 70/30 25 UNITS TWICE DAILY TO [facility] CALL IF YOU ARE UNABLE TO GET/DO [...] labs in 3 months to monitor a1c Ffdbb-mkaewd-jgigs lasix only as needed for swelling-check kidney [...] LABS DOXYCYCLINE 100MG TWICE DAILY SENT TO [facility] OVER THE WEEKEND IF NEEDED FOR SINUSES/COUGH-CALL [...]
--- OUTSIDE RECORDS SUMMARY | 2021-05-20 11:27 | XMS REPORT | CCD ---
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 [id number] Unknown Unknown Family history Mother Diagnosis Age At Onset Hyperlipidemia Unknown Brother Diagnosis Age At Onset Diabetes mellitus Type 2 Unknown Hyperlipidemia Unknown Hypertension Unknown Sister Diagnosis Age At Onset Skin cancer Unknown Father Diagnosis Age At Onset Hypertension Unknown Stroke Unknown Hypertension Unknown Social History Social History Element Codes Description Effective Dates Number of children Unknown 1 10/13/[address]: 812399692 Never smoker 10/13/[address]: 278328229 Never drinks alcohol 2016 Allergies, Adverse Reactions, [...] Start Date Stop Date Status Fill Instructions fenofibrate 160 mg tablet RxNorm: 879476 TAKE ONE TABLET BY ROMEO TH DAILY 05/03/2021 06/01/2021 Active Novolin 70/30 U-100 Insulin 100 unit/mL subcutaneous suspens ion RxNorm: 724152 Administer 25 Unit(s) Subcutaneous two times a day 04/29/2021 10/25/2021 Active PT TO USE GOOD RX CARD FOR PENS acyclovir 800 mg tablet RxNorm: 782032 TAKE ONE TABLET BY MOUTH FOUR TIMES A DAY 03/17/2021 No Stop Date Active Lipitor 40 mg tablet RxNorm: 026212 TAKE ONE TABLET BY MOUTH EVERY NIGHT AT BEDTIME 02/21/2021 No Stop Date Active Novolin 70/30 U-100 Insulin 100 unit/mL subcutaneous suspens ion RxNorm: 293740 25 Unit(s) Subcutaneous two times a day 01/25/2021 04/28/2021 Inactive give qty sufficient for 30 days supply- either pen or vial. DC lantus Novolin 70/30 U-100 Insulin 100 unit/mL subcutaneous suspens ion RxNorm: 009267 25 Unit(s) Subcutaneous two times a day 01/25/2021 01/24/2021 Inactive give qty sufficient for 30 days supply- either pen or vial. DC lantus Jardiance 10 mg tablet RxNorm: 8793518 TAKE ONE TABLET BY MOUTH EVERY MORNING 01/24/2021 07/22/2021 Active - First Attempt Ref : [id number] Lantus Solostar U-100 Insulin 100 unit/mL (3 mL) subcu taneous pen RxNorm: 573789 55 Unit(s) Subcutaneous two times a day 01/17/2021 01/24/2021 I nactive qty sufficient for 30 day supply and pen needles Basaglar KwikPen U-100 Insulin 100 unit/mL (3 mL) subcutaneo us RxNorm: 2103580 55 Unit(s) Subcutaneous two times a day 01/14/2021 01/24/2021 Inactive Basaglar KwikPen U-100 Insulin 100 unit/mL (3 mL) subcutaneo us RxNorm: 5086081 55 Unit(s) Subcutaneous two times a day 01/14/2021 01/13/2021 Inactive tramadol 50 mg tablet RxNorm: 081954 TAKE ONE TABLET BY MOUTH EVERY 8 HOURS NEEDED FOR PAIN 11/18/2020 No Stop Date Active Lipitor 40 mg tablet RxNorm: 663516 TAKE ONE TABLET BY MOUTH EVERY NIGHT AT BEDTIME 10/11/2020 02/20/2021 Inactive Lantus Solostar U-100 Insulin 100 unit/mL (3 mL) subcu taneous pen RxNorm: 559891 55 Unit(s) Subcutaneous two times a day 10/06/2020 01/13/2021 I nactive qty sufficient for 30 day supply and pen needles Lantus Solostar U-100 Insulin 100 unit/mL (3 mL) subcu taneous pen RxNorm: 505213 55 Unit(s) Subcutaneous two times a day 10/06/2020 10/05/2020 I nactive Toujeo SoloStar U-300 Insulin 300 unit/mL (1.5 mL) sub cutaneous pen RxNorm: 3678330 INJECT 55 UNITS UNDER THE SKIN TWICE A DAY 09/22/202010/05 Inactive metoprolol succinate ER 50 mg tablet,extended release 24 hr RxNorm: 470529 TAKE ONE TABLET BY MOUTH TWICE A DAY 09/21/2020 No Stop Date Active tramadol 50 mg tablet RxNorm: 006340 1 Tablet(s) Oral E very 8 hrs as needed as needed pain 09/17/2020 09/17/2020 Inactive losartan 100 mg tablet RxNorm: 433402 TAKE ONE TABLET BY MOUTH CRISTAL Y 08/09/2020 No Stop Date Active fenofibrate 160 mg tablet RxNorm: 918688 TAKE ONE TABLET BY ROMEO TH DAILY 07/26/2020 07/26/2020 Inactive Jardiance 10 mg tablet RxNorm: 2406899 TAKE ONE TABLET BY MOUTH EVERY MORNING 06/24/2020 12/20/2020 Inactive - First Attempt Ref : [id number] tramadol 50 mg tablet RxNorm: 596207 1 Tablet(s) Oral t hree times a day as needed pain 05/21/2020 05/20/2020 Inactive tramadol 50 mg tablet RxNorm: 749011 1 Tablet(s) Oral t hree times a day as needed pain 05/21/2020 05/21/2020 Inactive prednisone 20 mg tablet RxNorm: 219844 2 Tablet(s) Oral every day 0 05/19/2020 05/24/2020 Inactive Colcrys 0.6 mg tablet RxNorm: 608741 Tablet(s) Oral 2 p ills now and 1 pill in 1 hour 05/19/2020 04/28/2021 Inactive prednisone 20 mg tablet RxNorm: 002247 2 Tablet(s) Oral every day 0 05/19/2020 05/18/2020 Inactive Lipitor 40 mg tablet RxNorm: 612089 TAKE ONE TABLET BY MOUTH EVERY NIGHT AT BEDTIME 05/10/2020 10/10/2020 Inactive Toujeo SoloStar U-300 Insulin 300 unit/mL (1.5 mL) sub cutaneous pen RxNorm: 3680069 INJECT 50 UNITS UNDER THE SKIN TWICE A DAY 05/03/202009/21 Inactive Jardiance 10 mg tablet RxNorm: 5758634 TAKE ONE TABLET BY MOUTH EVERY MORNING 01/06/2020 06/23/2020 Inactive - First Attempt Ref: [id number] Toujeo SoloStar U-300 Insulin 300 unit/mL (1.5 mL) sub cutaneous pen RxNorm: 1495970 58 Unit(s) Subcutaneous two times a day 12/25/2019 09/16/2020 I nactive acyclovir 800 mg tablet RxNorm: 976679 TAKE ONE TABLET BY MOUTH FOUR TIMES A DAY 12/22/2019 06/10/2020 Inactive losartan 100 mg tablet RxNorm: 023935 TAKE ONE TABLET BY MOUTH CRISTAL Y 11/07/2019 08/08/2020 Inactive Lipitor 40 mg tablet RxNorm: 496323 TAKE ONE TABLET BY MOUTH EVERY NIGHT AT BEDTIME 11/07/2019 05/09/2020 Inactive metoprolol succinate ER 50 mg tablet,extended release 24 hr RxNorm: 541908 TAKE ONE TABLET BY MOUTH TWICE A DAY 11/03/2019 09/20/2020 Inactive fenofibrate 160 mg tablet RxNorm: 404759 TAKE ONE TABLET BY ROMEO TH DAILY 09/17/2019 07/25/2020 Inactive Lipitor 40 mg tablet RxNorm: 416756 TAKE ONE TABLET BY MOUTH EVERY NIGHT AT BEDTIME 08/08/2019 11/06/2019 Inactive Toujeo SoloStar U-300 Insulin 300 unit/mL (1.5 mL) sub cutaneous pen RxNorm: 8670150 55 Unit(s) Subcutaneous two times a day 07/30/2019 12/24/2019 I nactive Novolog Flexpen U-100 Insulin aspart 100 unit/mL (3 mL ) subcutaneous RxNorm: 6195193 5 Unit(s) Subcutaneous three times a day with meals 07/30/2012/11/2019 Inactive Toujeo SoloStar U-300 Insulin 300 unit/mL (1.5 mL) sub cutaneous pen RxNorm: 5887647 50 Unit(s) SQ BID 05/23/2019 07/29/2019 Inactive Lipitor 40 mg tablet RxNorm: 505598 TAKE ONE TABLET BY MOUTH EVERY NIGHT AT BEDTIME 03/27/2019 03/26/2019 Inactive Lipitor 40 mg tablet RxNorm: 699484 TAKE ONE TABLET BY MOUTH EVERY NIGHT AT BEDTIME 03/27/2019 06/10/2020 Inactive Lasix 20 mg tablet RxNorm: 550350 TAKE ONE TABLET BY MOUTH DAILY 06/10/2020 Inactive Jardiance 10 mg tablet RxNorm: 7844603 Tablet(s) TAKE ON E TABLET BY MOUTH EVERY MORNING 03/19/2019 03/18/2019 Inactive Jardiance 10 mg tablet RxNorm: 6739175 Tablet(s) TAKE ON E TABLET BY MOUTH EVERY MORNING 03/19/2019 01/05/2020 Inactive Toujeo SoloStar U-300 Insulin 300 unit/mL (1.5 mL) sub cutaneous pen RxNorm: 0074302 50 Unit(s) SQ BID 02/28/2019 05/22/2019 Inactive updated in structions metoprolol succinate ER 50 mg tablet,extended release 24 hr RxNorm: 771569 TAKE ONE TABLET BY MOUTH TWICE A DAY 01/15/2019 08/12/2019 Inactive Jardiance 10 mg tablet RxNorm: 3007698 TAKE ONE TABLET BY MOUTH EVERY MORNING 12/20/2018 03/18/2019 Inactive losartan 100 mg tablet RxNorm: 607669 1 Tablet(s) PO daily 11/06/1911/05/2018 Inactive losartan 100 mg tablet RxNorm: 521559 1 Tablet(s) PO daily 11/06/1910/31/2019 Inactive Toujeo SoloStar U-300 Insulin 300 unit/mL (1.5 mL) sub cutaneous pen RxNorm: 2155020 45 Unit(s) SQ BID 10/29/2018 02/27/2019 Inactive updated in structions Lipitor 40 mg tablet RxNorm: 202522 TAKE ONE TABLET BY MOUTH EVERY NIGHT AT BEDTIME 10/25/2018 03/23/2019 Inactive fenofibrate 160 mg tablet RxNorm: 952985 TAKE ONE TABLET BY RMOEO TH DAILY 10/15/2018 09/09/2019 Inactive Toujeo SoloStar U-300 Insulin 300 unit/mL (1.5 mL) sub cutaneous pen RxNorm: 3059054 45 Unit(s) SQ UD 40 units SQ QAM and 45 units SQ QPM 019 10/28/2018 Inactive updated instructions Lasix 20 mg tablet RxNorm: 1 Tablet(s) PO daily as needed 09/21/2018 Inactive acyclovir 800 mg tablet RxNorm: 542530 1 Tablet(s) PO QID 08/23/2018 09/01/2018 Inactive Lasix 20 mg tablet RxNorm: 1 Tablet(s) PO daily 08/12/2018 Inactive Lasix 20 mg tablet RxNorm: 1 Tablet(s) PO daily 08/12/201810/2017 Inactive metoprolol succinate ER 50 mg tablet,extended release 24 hr RxNorm: 675206 TAKE ONE TABLET BY MOUTH TWICE A DAY 08/09/2018 01/05/2019 Inactive Benicar 40 mg tablet RxNorm: 827808 1 Tablet(s) PO daily 07/22/2018 1 09/20/2017 Inactive Med change! Toujeo SoloStar U-300 Insulin 300 unit/mL (1.5 mL) sub cutaneous pen RxNorm: 7601841 40 Unit(s) SQ BID x2 weeks then increase to 40 units SQ QAM and 45 units SQ QPM 07/22/2018 09/29/2018 Inactive updated instruct ions Benicar 40 mg tablet RxNorm: 879357 1 Tablet(s) PO daily 07/22/2018 0 11/05/2018 Inactive Med change! Toujeo SoloStar U-300 Insulin 300 unit/mL (1.5 mL) sub cutaneous pen RxNorm: 1604081 40 in am and 35 pm Unit(s) SQ BID 07/19/2018 07/21/2018 Inactiv e update instructions Jardiance 10 mg tablet RxNorm: 4649010 TAKE ONE TABLET BY MOUTH EVERY MORNING 06/24/2018 12/19/2018 Inactive Zyrtec 10 mg tablet RxNorm: 4504633 TAKE ONE TABLET BY MOUTH DAILY 05/01/2018 07/29/2018 Inactive Lipitor 40 mg tablet RxNorm: 545463 TAKE ONE TABLET BY MOUTH EVERY NIGHT AT BEDTIME 04/25/2018 10/21/2018 Inactive Toujeo SoloStar U-300 Insulin 300 unit/mL (1.5 mL) sub cutaneous pen RxNorm: 3901214 40 Unit(s) SQ BID 04/19/2018 07/18/2018 Inactive update ins tructions Benicar HCT 40 mg-25 mg tablet RxNorm: 802790 TAKE ONE TABLET B Y MOUTH DAILY 04/08/2018 07/21/2018 Inactive fenofibrate 160 mg tablet RxNorm: 749678 TAKE ONE TABLET BY ROMEO TH DAILY 03/20/2018 10/14/2018 Inactive fenofibrate 160 mg tablet RxNorm: 847622 TAKE ONE TABLET BY ROMOE TH DAILY 01/14/2018 03/19/2018 Inactive metoprolol succinate ER 50 mg tablet,extended release 24 hr RxNorm: 934902 TAKE ONE TABLET BY MOUTH TWICE A DAY 12/27/2017 06/24/2018 Inactive Toujeo SoloStar U-300 Insulin 300 unit/mL (1.5 mL) sub cutaneous pen RxNorm: 8980068 34 Unit(s) SQ BID 12/21/2017 04/18/2018 Inactive update ins tructions: increase to 32 units twice daily x 1 week then 34 units twice daily Jardiance 10 mg tablet RxNorm: 8177470 1 Tablet(s) PO QAM 11/28/2017 09/21/2020 Inactive Toujeo SoloStar U-300 Insulin 300 unit/mL (1.5 mL) sub cutaneous pen RxNorm: 5293309 30 Unit(s) SQ BID 10/25/2017 12/20/2017 Inactive Invokana 100 mg tablet RxNorm: 1278272 1 Tablet(s) PO daily 018 10/25/2017 Inactive Invokana 100 mg tablet RxNorm: 8367747 1 Tablet(s) PO daily 018 10/24/2017 Inactive Toujeo SoloStar U-300 Insulin 300 unit/mL (1.5 mL) sub cutaneous pen RxNorm: 5540468 30 Unit(s) SQ BID 10/25/2017 10/24/2017 Inactive Januvia 100 mg tablet RxNorm: 547152 1 Tablet(s) PO daily 10/25/2017 11/27/2017 Inactive fenofibrate 160 mg tablet RxNorm: 018377 TAKE ONE TABLET BY ROMEO TH DAILY 10/17/2017 01/13/2018 Inactive Tresiba FlexTouch U-200 200 unit/mL (3 mL) subcutaneou s insulin pen RxNorm: 9672646 66 Unit(s) SQ daily 10/16/2017 10/24/2017 Inactive Please g sapphire 90 day supply Tresiba FlexTouch U-200 200 unit/mL (3 mL) subcutaneou s insulin pen RxNorm: 7846135 66 Unit(s) SQ daily 10/11/2017 10/15/2017 Inactive Onglyza 5 mg tablet RxNorm: 820779 2 Tablet(s) PO daily 10/02/2017 Inactive d/c jardiance Onglyza 5 mg tablet RxNorm: 034316 2 Tablet(s) PO daily 10/02/2017 Inactive d/c jardiance Tresiba FlexTouch U-200 200 unit/mL (3 mL) subcutaneou s insulin pen RxNorm: 2635589 35 Unit(s) SQ BID 10/02/2017 06/12/2019 Inactive Lipitor 40 mg tablet RxNorm: 416568 TAKE ONE TABLET BY MOUTH EVERY NIGHT AT BEDTIME 09/17/2017 04/14/2018 Inactive Tresiba FlexTouch U-200 200 unit/mL (3 mL) subcutaneou s insulin pen RxNorm: 1245895 66 Unit(s) SQ daily 08/28/2017 08/29/2017 Inactive Jardiance 10 mg tablet RxNorm: 8401703 1 Tablet(s) PO QAM 08/28/2017 10/01/2017 Inactive Jardiance 10 mg tablet RxNorm: 3429192 1 Tablet(s) PO QAM 08/28/2017 08/27/2017 Inactive Tresiba FlexTouch U-200 200 unit/mL (3 mL) subcutaneou s insulin pen RxNorm: 9798461 62 Unit(s) SQ daily 08/17/2017 08/18/2017 Inactive Zipsor 25 mg capsule RxNorm: 399359 1 Capsule(s) PO QID as needed 1 09/12/2016 12/20/2017 Inactive fenofibrate 160 mg tablet RxNorm: 992220 TAKE ONE TABLET BY ROMEO TH DAILY 07/12/2017 10/16/2017 Inactive Lipitor 40 mg tablet RxNorm: 898572 TAKE ONE TABLET BY MOUTH EVERY NIGHT AT BEDTIME 06/14/2017 09/11/2017 Inactive metformin 1,000 mg tablet RxNorm: 759663 TAKE ONE TABLET BY ROMEO TH TWICE A DAY 06/01/2017 12/03/2017 Inactive metoprolol succinate ER 50 mg tablet,extended release 24 hr RxNorm: 977119 TAKE ONE TABLET BY MOUTH TWICE A DAY 06/01/2017 11/27/2017 Inactive prednisone 10 mg tablets in a dose pack RxNorm: 964183 1 Tablet(s) PO UD ; take as prescribed on dose pack 06/01/2017 06/05/2017 Inactive prednisone 10 mg tablets in a dose pack RxNorm: 053659 1 Tablet(s) PO UD ; take as prescribed on dose pack 06/01/2017 05/31/2017 Inactive Tresiba FlexTouch U-200 200 unit/mL (3 mL) subcutaneou s insulin pen RxNorm: 9220642 58 Unit(s) SQ daily INJECT 58 UNITS UNDER THE SKIN DAILY 05/24/2017 Inactive doxycycline hyclate 100 mg tablet RxNorm: 679872 1 Tablet(s) PO BID 05/18/2017 05/24/2017 Inactive metformin 1,000 mg tablet RxNorm: 609508 TAKE ONE TABLET BY ROMEO TH TWICE A DAY 04/30/2017 05/29/2017 Inactive fenofibrate 160 mg tablet RxNorm: 994016 TAKE ONE TABLET BY ROMEO TH DAILY 04/11/2017 07/11/2017 Inactive Benicar HCT 40 mg-25 mg tablet RxNorm: 593631 TAKE ONE TABLET B Y MOUTH DAILY 04/11/2017 04/05/2018 Inactive Tresiba FlexTouch U-200 200 unit/mL (3 mL) subcutaneou s insulin pen RxNorm: 0527915 54 Unit(s) SQ daily INJECT 54 UNITS UNDER THE SKIN DAILY 03/201705/22/2017 Inactive metoprolol succinate ER 50 mg tablet,extended release 24 hr RxNorm: 537144 TAKE ONE TABLET BY MOUTH TWICE A DAY 02/20/2017 04/20/2017 Inactive metformin 1,000 mg tablet RxNorm: 325993 TAKE ONE TABLET BY ROMEO TH TWICE A DAY 02/20/2017 04/20/2017 Inactive fenofibrate 160 mg tablet RxNorm: 281723 TAKE ONE TABLET BY ROMEO TH DAILY 02/13/2017 04/10/2017 Inactive Lipitor 40 mg tablet RxNorm: 245552 1 Tablet(s) PO QHS 02/07/2017 Inactive Lipitor 40 mg tablet RxNorm: 174838 1 Tablet(s) PO QHS 02/07/2017 Inactive Tresiba FlexTouch U-200 200 unit/mL (3 mL) subcutaneou s insulin pen RxNorm: 4722211 Unit(s) INJECT 45 UNITS UNDER THE SKIN DAILY 02/07/201702/2017 Inactive Benicar HCT 40 mg-25 mg tablet RxNorm: 557627 TAKE ONE TABLET B Y MOUTH DAILY 01/12/2017 04/10/2017 Inactive Tresiba FlexTouch U-200 200 unit/mL (3 mL) subcutaneou s insulin pen RxNorm: 6458875 INJECT 30 UNITS UNDER THE SKIN DAILY 12/28/2016 02/06/2017 Inac tive metoprolol succinate ER 50 mg tablet,extended release 24 hr RxNorm: 201850 TAKE ONE TABLET BY MOUTH TWICE A DAY 11/14/2016 02/11/2017 Inactive metformin 1,000 mg tablet RxNorm: 961268 TAKE ONE TABLET BY ROMEO TH TWICE A DAY 11/14/2016 02/11/2017 Inactive fenofibrate 160 mg tablet RxNorm: 050921 TAKE ONE TABLET BY ROMEO TH DAILY 11/14/2016 02/11/2017 Inactive Lipitor 10 mg tablet RxNorm: 396961 1 Tablet(s) PO daily 10/19/2016 0 10/18/2016 Inactive Januvia 100 mg tablet RxNorm: 608242 1 Tablet(s) PO daily 10/19/2016 02/08/2017 Inactive Lipitor 10 mg tablet RxNorm: 812390 1 Tablet(s) PO daily 10/19/2016 0 02/06/2017 Inactive Januvia 100 mg tablet RxNorm: 142998 1 Tablet(s) PO daily 10/15/2016 10/18/2016 Inactive Tresiba FlexTouch U-200 200 unit/mL (3 mL) subcutaneou s insulin pen RxNorm: 5780369 30 Unit(s) SQ daily 10/13/2016 12/27/2016 Inactive Please d ispense quantity sufficient for 90 days Zyrtec 10 mg tablet RxNorm: 6077838 1 Tablet(s) PO daily 10/13/2016 0 01/10/2017 Inactive metoprolol succinate ER 50 mg tablet,extended release 24 hr RxNorm: 270501 1 Tablet(s) PO BID 10/13/2016 11/11/2016 Inactive fenofibrate 160 mg tablet RxNorm: 936769 1 Tablet(s) PO daily 10/1311/11/2016 Inactive metformin 1,000 mg tablet RxNorm: 627904 1 Tablet(s) PO BID 017 11/11/2016 Inactive Benicar HCT 40 mg-25 mg tablet RxNorm: 181504 1 Tablet(s) PO daily 10/13/2016 01/10/2017 Inactive fenofibrate 160 mg tablet RxNorm: 232710 1 Tablet(s) PO daily 10/1310/12/2016 Inactive Januvia 100 mg tablet RxNorm: 353223 1 Tablet(s) PO daily 02/09/2017 02/08/2017 Inactive metformin 1,000 mg tablet RxNorm: 556854 1 Tablet(s) PO BID 017 10/12/2016 Inactive Novolin 70/30 U-100 Insulin subcutaneous RxNorm: 7864438 subcuta neous 01/25/2021 01/24/2021 Inactive Benicar HCT 40 mg-25 mg tablet RxNorm: 902513 1 Tablet(s) PO daily 10/13/2016 10/12/2016 Inactive Tresiba FlexTouch U-200 200 unit/mL (3 mL) subcutaneou s insulin pen RxNorm: 9854279 30 Unit(s) SQ daily 10/13/2016 10/12/2016 Inactive metoprolol succinate ER 50 mg tablet,extended release 24 hr RxNorm: 228780 1 Tablet(s) PO BID 10/13/2016 10/12/2016 Inactive Medication Administered No Medication Administered data Immunizations No Immunization data Results Observation Observation Code Item Item Code Result Date S ervice Location %Hba1C Vyb834 % HbA1c 26446-3 14.0 % 01/14/2021 Unknown %Hba1C Ajz219 Gluc Ave 355 mg/dL 01/14/2021 Unknown Comp Metabolic Rre641 NA 139 mEq/L 01/14/2021 Unkn own Comp Metabolic Soi992 K 4.0 mEq/L 01/14/2021 Unkn own Comp Metabolic Fqj237 CL 106 mEq/L 01/14/2021 Unkn own Comp Metabolic Ufo635 CO2 24.0 mEq/L 01/14/2021 Unk nown Comp Metabolic Jxf835 ANION GAP 13 01/14/2021 Unkn own Comp Metabolic Wha520 GLUCOSE 295 mg/dL 01/14/2021 Unkn own Comp Metabolic Omr261 Creat 1.2 mg/dL 01/14/2021 Unkn own Comp Metabolic Tbl913 eGFR 68 ml/min/1.73m2 05/07/20 21 Unknown Comp Metabolic Uzc753 BUN 37 mg/dL 01/14/2021 Unkn own Comp Metabolic Hva455 B/C Ratio 30.8 Ratio 01/14/2021 Unk nown Comp Metabolic Qzh821 CALCIUM 9.2 mg/dL 01/14/2021 Unkn own Comp Metabolic Clx640 ALK PHOS 58 U/L 01/14/2021 Unkn own Comp Metabolic Hdk232 AST(SGOT) 20 U/L 01/14/2021 Unkn own Comp Metabolic Ebw097 ALT(SGPT) 28 U/L 01/14/2021 Unkn own Comp Metabolic Osl699 BILI T 0.5 mg/dL 01/14/2021 Unkn own Comp Metabolic Dmx980 ALBUMIN 4.0 g/dL 01/14/2021 Unkn own Comp Metabolic Jjq717 TPRO 6.4 g/dL 01/14/2021 Unkn own Comp Metabolic Jcb043 GLOB 2.4 g/dL 01/14/2021 Unkn own Comp Metabolic Wyi993 A/G Ratio 1.7 Ratio 01/14/2021 Unkn own Comp Metabolic Tpc426 Osmo 297 mOsmo 01/14/2021 Unkn own Lipid Ord30 CHOL 169 mg/dL 09/17/2020 Unknown Lipid Ord30 HDL 40.0 mg/dl 09/17/2020 Unknown Lipid Ord30 TRIG 146 mg/dL 09/17/2020 Unknown Lipid Ord30 LDL 100 mg/dL 09/17/2020 Unknown Lipid Ord30 C/HDL 4.2 Ratio 09/17/2020 Unknown Comp Metabolic Jkn838 NA 141 mEq/L 09/17/2020 Unkn own Comp Metabolic Yle568 K 4.3 mEq/L 09/17/2020 Unkn own Comp Metabolic Tyz873 CL 105 mEq/L 09/17/2020 Unkn own Comp Metabolic Oml578 CO2 28.0 mEq/L 09/17/2020 Unk nown Comp Metabolic Qop555 ANION GAP 12 09/17/2020 Unkn own Comp Metabolic Fdm504 GLUCOSE 126 mg/dL 09/17/2020 Unkn own Comp Metabolic Gmo285 Creat 1.2 mg/dL 09/17/2020 Unkn own Comp Metabolic Azt086 eGFR 65 ml/min/1.73m2 09/17/19 21 Unknown Comp Metabolic Jle448 BUN 27 mg/dL 09/17/2020 Unkn own Comp Metabolic Qvt587 B/C Ratio 21.8 Ratio 09/17/2020 Unk nown Comp Metabolic Vjn545 CALCIUM 9.4 mg/dL 09/17/2020 Unkn own Comp Metabolic Yps958 ALK PHOS 49 U/L 09/17/2020 Unkn own Comp Metabolic Ibh874 AST(SGOT) 24 U/L 09/17/2020 Unkn own Comp Metabolic Uwa953 ALT(SGPT) 33 U/L 09/17/2020 Unkn own Comp Metabolic Uzg367 BILI T 0.5 mg/dL 09/17/2020 Unkn own Comp Metabolic Vic845 ALBUMIN 4.4 g/dL 09/17/2020 Unkn own Comp Metabolic Uon494 TPRO 6.8 g/dL 09/17/2020 Unkn own Comp Metabolic Vmb480 GLOB 2.4 g/dL 09/17/2020 Unkn own Comp Metabolic Krv696 A/G Ratio 1.8 Ratio 09/17/2020 Unkn own Comp Metabolic Myg706 Osmo 288 mOsmo 09/17/2020 Unkn own Cbc [...] 09/17/19 21 Unknown Cbc With Differential Ord2 [place]% 9.1 % 09/17/19 21 Unknown Cbc With [...] K/ul 021 Unknown Cbc With Differential Ord2 [place] ABS# 0.5 K/ul 09/17/19 21 Unknown Cbc With Differential Ord2 Eos ABS# 0.1 K/ul 09/17/19 21 Unknown Cbc With Differential Ord2 Baso ABS# 0.0 K/ul 09/17/19 21 Unknown %Hba1C Uxc057 % HbA1c 79649-3 9.7 % 09/17/2020 Unknown %Hba1C Frz656 Gluc Ave 232 mg/dL 09/17/2020 Unknown JESUS (ABE) ROUTINE F307 Antinuclear Antibody Negative 05/24/2020 Unknown Ra Factor Lju524 RA FACTOR 11.8 IU/ml 05/20/2020 Unknown Uric Acid Ord77 Uric A 4.2 mg/dL 05/19/2020 Unknown Sed Rate Ord21 ESR 1 mm/hr 05/19/2020 Unknown C-Reactive Protein Qnt Crqnt CRP 0.9 mg/dl 2019 Unknown %Hba1C Rgc921 % HbA1c 69765-9 12.0 % 05/14/2020 Unknown %Hba1C Vpo430 Gluc Ave 298 mg/dL 05/14/2020 Unknown Comp Metabolic Kiq206 NA 142 mEq/L 05/14/2020 Unkn own Comp Metabolic Qvn651 K 4.1 mEq/L 05/14/2020 Unkn own Comp Metabolic Vju917 CL 108 mEq/L 05/14/2020 Unkn own Comp Metabolic Ctm894 CO2 26.0 mEq/L 05/14/2020 Unk nown Comp Metabolic Tbo568 ANION GAP 12 05/14/2020 Unkn own Comp Metabolic Kmd302 GLUCOSE 229 mg/dL 05/14/2020 Unkn own Comp Metabolic Ajc409 Creat 1.4 mg/dL 05/14/2020 Unkn own Comp Metabolic Szo590 eGFR 58 ml/min/1.73m2 05/14/20 20 Unknown Comp Metabolic Xpi865 BUN 27 mg/dL 05/14/2020 Unkn own Comp Metabolic Ovj951 B/C Ratio 19.7 Ratio 05/14/2020 Unk nown Comp Metabolic Jaz086 CALCIUM 9.4 mg/dL 05/14/2020 Unkn own Comp Metabolic Xkc301 ALK PHOS 62 U/L 05/14/2020 Unkn own Comp Metabolic Tns794 AST(SGOT) 21 U/L 05/14/2020 Unkn own Comp Metabolic Ola370 ALT(SGPT) 31 U/L 05/14/2020 Unkn own Comp Metabolic Tgy693 BILI T 0.4 mg/dL 05/14/2020 Unkn own Comp Metabolic Sxy224 ALBUMIN 4.3 g/dL 05/14/2020 Unkn own Comp Metabolic Lwm788 TPRO 6.8 g/dL 05/14/2020 Unkn own Comp Metabolic Xjj089 GLOB 2.5 g/dL 05/14/2020 Unkn own Comp Metabolic Qjt990 A/G Ratio 1.7 Ratio 05/14/2020 Unkn own Comp Metabolic Phg245 Osmo 295 mOsmo 05/14/2020 Unkn own Cbc [...] 05/14/20 20 Unknown Cbc With Differential Ord2 [place]% 7.6 % 05/14/20 20 Unknown Cbc With [...] K/ul 020 Unknown Cbc With Differential Ord2 [place] ABS# 0.5 K/ul 05/14/20 20 Unknown Cbc [...] 12/12/19 20 Unknown Cbc With Differential Ord2 [place]% 9.1 % 12/12/19 Unknown Cbc With Differential [...] K/ul 020 Unknown Cbc With Differential Ord2 [place] ABS# 0.4 K/ul 12/12/19 20 Unknown Cbc With Differential Ord2 Eos ABS# 0.1 K/ul 12/12/19 20 Unknown Cbc With Differential Ord2 Baso ABS# 0.0 K/ul 12/12/19 20 Unknown %Hba1C Yrn956 % HbA1c 59162-4 11.3 % 12/12/2019 Unknown %Hba1C Rfl118 Gluc Ave 278 mg/dL 12/12/2019 Unknown Comp Metabolic Vto280 NA 147 mEq/L 12/12/2019 Unkn own Comp Metabolic Kqq594 K 3.9 mEq/L 12/12/2019 Unkn own Comp Metabolic Ote998 CL 110 mEq/L 12/12/2019 Unkn own Comp Metabolic Kjn750 CO2 28.0 mEq/L 12/12/2019 Unk nown Comp Metabolic Vra672 ANION GAP 13 12/12/2019 Unkn own Comp Metabolic Zej452 GLUCOSE 170 mg/dL 12/12/2019 Unkn own Comp Metabolic Alm082 Creat 1.2 mg/dL 12/12/2019 Unkn own Comp Metabolic Aju959 eGFR 65 ml/min/1.73m2 12/12/19 20 Unknown Comp Metabolic Kfy976 BUN 24 mg/dL 12/12/2019 Unkn own Comp Metabolic Zis199 B/C Ratio 19.4 Ratio 12/12/2019 Unk nown Comp Metabolic Rla512 CALCIUM 9.5 mg/dL 12/12/2019 Unkn own Comp Metabolic Qhm872 ALK PHOS 57 U/L 12/12/2019 Unkn own Comp Metabolic Uhv617 AST(SGOT) 21 U/L 12/12/2019 Unkn own Comp Metabolic Mul325 ALT(SGPT) 29 U/L 12/12/2019 Unkn own Comp Metabolic Yqa611 BILI T 0.4 mg/dL 12/12/2019 Unkn own Comp Metabolic Bab320 ALBUMIN 4.1 g/dL 12/12/2019 Unkn own Comp Metabolic Say820 TPRO 6.7 g/dL 12/12/2019 Unkn own Comp Metabolic Qsf598 GLOB 2.6 g/dL 12/12/2019 Unkn own Comp Metabolic Xoq678 A/G Ratio 1.6 Ratio 12/12/2019 Unkn own Comp Metabolic Xje341 Osmo 300 mOsmo 12/12/2019 Unkn own %Hba1C Pmc074 % HbA1c 28955-8 10.0 % 06/13/2019 Unknown %Hba1C Syw807 Gluc Ave 240 mg/dL 06/13/2019 Unknown Comp Metabolic Jcq836 NA 143 mEq/L 06/13/2019 Unkn own Comp Metabolic Jjc692 K 3.7 mEq/L 06/13/2019 Unkn own Comp Metabolic Oyq215 CL 107 mEq/L 06/13/2019 Unkn own Comp Metabolic Hcg969 CO2 26.0 mEq/L 06/13/2019 Unk nown Comp Metabolic Oyg900 ANION GAP 14 06/13/2019 Unkn own Comp Metabolic Owu463 GLUCOSE 125 mg/dL 06/13/2019 Unkn own Comp Metabolic Cwf344 Creat 1.2 mg/dL 06/13/2019 Unkn own Comp Metabolic Vch831 eGFR 65 ml/min/1.73m2 06/13/20 19 Unknown Comp Metabolic Ziu318 BUN 25 mg/dL 06/13/2019 Unkn own Comp Metabolic Ibz795 B/C Ratio 20.2 Ratio 06/13/2019 Unk nown Comp Metabolic Yck920 CALCIUM 9.2 mg/dL 06/13/2019 Unkn own Comp Metabolic Lcj837 ALK PHOS 54 U/L 06/13/2019 Unkn own Comp Metabolic Dul518 AST(SGOT) 21 U/L 06/13/2019 Unkn own Comp Metabolic Cpc816 ALT(SGPT) 30 U/L 06/13/2019 Unkn own Comp Metabolic Sum129 BILI T 0.4 mg/dL 06/13/2019 Unkn own Comp Metabolic Yld729 ALBUMIN 4.2 g/dL 06/13/2019 Unkn own Comp Metabolic Cxj074 TPRO 6.5 g/dL 06/13/2019 Unkn own Comp Metabolic Vnm889 GLOB 2.4 g/dL 06/13/2019 Unkn own Comp Metabolic Uuy403 A/G Ratio 1.8 Ratio 06/13/2019 Unkn own Comp Metabolic Epv893 Osmo 291 mOsmo 06/13/2019 Unkn own Cbc [...] 06/13/20 19 Unknown Cbc With Differential Ord2 [place]% 6.7 % 06/13/20 19 Unknown Cbc With [...] K/ul 019 Unknown Cbc With Differential Ord2 [place] ABS# 0.4 K/ul 06/13/20 19 Unknown Cbc [...] C/HDL 4.3 Ratio 02/14/2019 Unknown Comp Metabolic Pvx413 NA 144 mEq/L 02/14/2019 Unkn own Comp Metabolic Xeq408 K 3.8 mEq/L 02/14/2019 Unkn own Comp Metabolic Vqg393 CL 110 mEq/L 02/14/2019 Unkn own Comp Metabolic Ojq510 CO2 26.0 mEq/L 02/14/2019 Unk nown Comp Metabolic Gdu553 ANION GAP 12 02/14/2019 Unkn own Comp Metabolic Pyh624 GLUCOSE 143 mg/dL 02/14/2019 Unkn own Comp Metabolic Csh582 Creat 1.3 mg/dL 02/14/2019 Unkn own Comp Metabolic Lfw784 eGFR 61 ml/min/1.73m2 02/15/20 19 Unknown Comp Metabolic Xfv127 BUN 29 mg/dL 02/14/2019 Unkn own Comp Metabolic Qny316 B/C Ratio 22.0 Ratio 02/14/2019 Unk nown Comp Metabolic Jgh760 CALCIUM 9.5 mg/dL 02/14/2019 Unkn own Comp Metabolic Hsw284 ALK PHOS 49 U/L 02/14/2019 Unkn own Comp Metabolic Ypw881 AST(SGOT) 18 U/L 02/14/2019 Unkn own Comp Metabolic Aoj730 ALT(SGPT) 23 U/L 02/14/2019 Unkn own Comp Metabolic Atz084 BILI T 0.4 mg/dL 02/14/2019 Unkn own Comp Metabolic Lja055 ALBUMIN 4.4 g/dL 02/14/2019 Unkn own Comp Metabolic Vgc428 TPRO 6.8 g/dL 02/14/2019 Unkn own Comp Metabolic Ori060 GLOB 2.4 g/dL 02/14/2019 Unkn own Comp Metabolic Jiw712 A/G Ratio 1.8 Ratio 02/14/2019 Unkn own Comp Metabolic Qdu203 Osmo 295 mOsmo 02/14/2019 Unkn own %Hba1C Mld302 % HbA1c 05417-4 9.9 % 02/14/2019 Unknown %Hba1C Img232 Gluc Ave 237 mg/dL 02/14/2019 Unknown Cbc [...] 10/25/19 19 Unknown Cbc With Differential Ord2 [place]% 8.6 % 10/25/19 19 Unknown Cbc With [...] K/ul 019 Unknown Cbc With Differential Ord2 [place] ABS# 0.4 K/ul 10/25/19 19 Unknown Cbc [...] C/HDL 3.9 Ratio 10/25/2018 Unknown Comp Metabolic Ubb752 NA 144 mEq/L 10/25/2018 Unkn own Comp Metabolic Qyl102 K 4.7 mEq/L 10/25/2018 Unkn own Comp Metabolic Wnm553 CL 113 mEq/L 10/25/2018 Unkn own Comp Metabolic Qzq057 CO2 21.0 mEq/L 10/25/2018 Unk nown Comp Metabolic Rgd496 ANION GAP 15 10/25/2018 Unkn own Comp Metabolic Txp970 GLUCOSE 136 mg/dL 10/25/2018 Unkn own Comp Metabolic Wso710 Creat 1.3 mg/dL 10/25/2018 Unkn own Comp Metabolic Lhx430 eGFR 61 ml/min/1.73m2 10/25/19 19 Unknown Comp Metabolic Gyw593 BUN 26 mg/dL 10/25/2018 Unkn own Comp Metabolic Mgh608 B/C Ratio 19.7 Ratio 10/25/2018 Unk nown Comp Metabolic Fng278 CALCIUM 9.8 mg/dL 10/25/2018 Unkn own Comp Metabolic Sxi911 ALK PHOS 51 U/L 10/25/2018 Unkn own Comp Metabolic Rtg877 AST(SGOT) 33 U/L 10/25/2018 Unkn own Comp Metabolic Knw361 ALT(SGPT) 28 U/L 10/25/2018 Unkn own Comp Metabolic Rvy508 BILI T 0.5 mg/dL 10/25/2018 Unkn own Comp Metabolic Fgf760 ALBUMIN 4.3 g/dL 10/25/2018 Unkn own Comp Metabolic Ugw796 TPRO 6.9 g/dL 10/25/2018 Unkn own Comp Metabolic Sfr000 GLOB 2.6 g/dL 10/25/2018 Unkn own Comp Metabolic Jxz934 A/G Ratio 1.6 Ratio 10/25/2018 Unkn own Comp Metabolic Izn615 Osmo 294 mOsmo 10/25/2018 Unkn own %Hba1C Ttn135 % HbA1c 14078-2 9.7 % 10/25/2018 Unknown %Hba1C Dpq702 Gluc Ave 232 mg/dL 10/25/2018 Unknown Metabolic [...] Ord15 CALCIUM 10.1 mg/dL 08/23/2018 Unknown %Hba1C Twv391 % HbA1c 84049-2 12.4 % 07/19/2018 Unknown %Hba1C Tts815 Gluc Ave 309 mg/dL 07/19/2018 Unknown Lipid [...] 07/19/20 18 Unknown Cbc With Differential Ord2 [place]% 8.1 % 07/19/20 18 Unknown Cbc With [...] K/ul 018 Unknown Cbc With Differential Ord2 [place] ABS# 0.4 K/ul 07/19/20 18 Unknown Cbc With Differential Ord2 Eos ABS# 0.1 K/ul 07/19/20 18 Unknown Cbc With Differential Ord2 Baso ABS# 0.0 K/ul 07/19/20 18 Unknown Comp Metabolic Hey118 NA 142 mEq/L 07/19/2018 Unkn own Comp Metabolic Xai705 K 3.9 mEq/L 07/19/2018 Unkn own Comp Metabolic Ovo815 CL 104 mEq/L 07/19/2018 Unkn own Comp Metabolic Gxz567 CO2 27.0 mEq/L 07/19/2018 Unk nown Comp Metabolic Ryn415 ANION GAP 15 07/19/2018 Unkn own Comp Metabolic Wxp375 GLUCOSE 168 mg/dL 07/19/2018 Unkn own Comp Metabolic Ien965 Creat 1.4 mg/dL 07/19/2018 Unkn own Comp Metabolic Dpa158 eGFR 56 ml/min/1.73m2 07/19/20 18 Unknown Comp Metabolic Asb195 BUN 34 mg/dL 07/19/2018 Unkn own Comp Metabolic Bfq795 B/C Ratio 23.8 Ratio 07/19/2018 Unk nown Comp Metabolic Ybl532 CALCIUM 9.6 mg/dL 07/19/2018 Unkn own Comp Metabolic Unt121 ALK PHOS 55 U/L 07/19/2018 Unkn own Comp Metabolic Obc455 AST(SGOT) 24 U/L 07/19/2018 Unkn own Comp Metabolic Nsj561 ALT(SGPT) 30 U/L 07/19/2018 Unkn own Comp Metabolic Rcp710 BILI T 0.4 mg/dL 07/19/2018 Unkn own Comp Metabolic Pbe921 ALBUMIN 4.2 g/dL 07/19/2018 Unkn own Comp Metabolic Euk764 TPRO 6.8 g/dL 07/19/2018 Unkn own Comp Metabolic Cgz378 GLOB 2.6 g/dL 07/19/2018 Unkn own Comp Metabolic Mbj242 A/G Ratio 1.6 Ratio 07/19/2018 Unkn own Comp Metabolic Pqw451 Osmo 295 mOsmo 07/19/2018 Unkn own Cbc [...] 04/12/20 18 Unknown Cbc With Differential Ord2 [place]% 8.0 % 04/12/20 18 Unknown Cbc With [...] K/ul 018 Unknown Cbc With Differential Ord2 [place] ABS# 0.4 K/ul 04/12/20 18 Unknown Cbc With Differential Ord2 Eos ABS# 0.1 K/ul 04/12/20 18 Unknown Cbc With Differential Ord2 Baso ABS# 0.0 K/ul 04/12/20 18 Unknown %Hba1C Tmg430 % HbA1c 93003-3 10.8 % 04/12/2018 Unknown %Hba1C Pbd453 Gluc Ave 263 mg/dL 04/12/2018 Unknown Comp Metabolic Smj067 NA 143 mEq/L 04/12/2018 Unkn own Comp Metabolic Agu557 K 3.9 mEq/L 04/12/2018 Unkn own Comp Metabolic Jro906 CL 106 mEq/L 04/12/2018 Unkn own Comp Metabolic Cew706 CO2 30.0 mEq/L 04/12/2018 Unk nown Comp Metabolic Dzd206 ANION GAP 11 04/12/2018 Unkn own Comp Metabolic Iwo230 GLUCOSE 203 mg/dL 04/12/2018 Unkn own Comp Metabolic Gzj814 Creat 1.5 mg/dL 04/12/2018 Unkn own Comp Metabolic Syv994 eGFR 53 ml/min/1.73m2 04/12/20 18 Unknown Comp Metabolic Oxd506 BUN 37 mg/dL 04/12/2018 Unkn own Comp Metabolic Tik669 B/C Ratio 24.7 Ratio 04/12/2018 Unk nown Comp Metabolic Aaz024 CALCIUM 9.5 mg/dL 04/12/2018 Unkn own Comp Metabolic Ooe238 ALK PHOS 46 U/L 04/12/2018 Unkn own Comp Metabolic Dvn243 AST(SGOT) 19 U/L 04/12/2018 Unkn own Comp Metabolic Vqm770 ALT(SGPT) 25 U/L 04/12/2018 Unkn own Comp Metabolic Rxj933 BILI T 0.4 mg/dL 04/12/2018 Unkn own Comp Metabolic Aqm011 ALBUMIN 4.1 g/dL 04/12/2018 Unkn own Comp Metabolic Rhr920 TPRO 6.6 g/dL 04/12/2018 Unkn own Comp Metabolic Kpm725 GLOB 2.5 g/dL 04/12/2018 Unkn own Comp Metabolic Xmm260 A/G Ratio 1.7 Ratio 04/12/2018 Unkn own Comp Metabolic Jaa683 Osmo 299 mOsmo 04/12/2018 Unkn own Metabolic [...] C/HDL 4.6 Ratio 12/03/2017 Unknown Comp Metabolic Iee241 NA 140 mEq/L 12/03/2017 Unkn own Comp Metabolic Zzf092 K 4.0 mEq/L 12/03/2017 Unkn own Comp Metabolic Daa332 CL 103 mEq/L 12/03/2017 Unkn own Comp Metabolic Tyz454 CO2 26.0 mEq/L 12/03/2017 Unk nown Comp Metabolic Fbu292 ANION GAP 15 12/03/2017 Unkn own Comp Metabolic Miq611 GLUCOSE 142 mg/dL 12/03/2017 Unkn own Comp Metabolic Zhy467 Creat 1.9 mg/dL 12/03/2017 Unkn own Comp Metabolic Yri627 eGFR 39 ml/min/1.73m2 12/04/19 18 Unknown Comp Metabolic Rnr790 BUN 34 mg/dL 12/03/2017 Unkn own Comp Metabolic Mxt129 B/C Ratio 17.5 Ratio 12/03/2017 Unk nown Comp Metabolic Yek340 CALCIUM 9.7 mg/dL 12/03/2017 Unkn own Comp Metabolic Nyv778 ALK PHOS 46 U/L 12/03/2017 Unkn own Comp Metabolic Vnn747 AST(SGOT) 34 U/L 12/03/2017 Unkn own Comp Metabolic Pdc485 ALT(SGPT) 38 U/L 12/03/2017 Unkn own Comp Metabolic Gtq868 BILI T 0.5 mg/dL 12/03/2017 Unkn own Comp Metabolic Gem453 ALBUMIN 4.5 g/dL 12/03/2017 Unkn own Comp Metabolic Ecm787 TPRO 6.9 g/dL 12/03/2017 Unkn own Comp Metabolic Ama873 GLOB 2.4 g/dL 12/03/2017 Unkn own Comp Metabolic Vrr388 A/G Ratio 1.8 Ratio 12/03/2017 Unkn own Comp Metabolic Gkx870 Osmo 289 mOsmo 12/03/2017 Unkn own %Hba1C Kwi343 % HbA1c 95884-2 10.2 % 12/03/2017 Unknown %Hba1C Pwd571 Gluc Ave 246 mg/dL 12/03/2017 Unknown Cbc [...] 12/04/19 18 Unknown Cbc With Differential Ord2 [place]% 7.7 % 12/04/19 18 Unknown Cbc With [...] K/ul 018 Unknown Cbc With Differential Ord2 [place] ABS# 0.6 K/ul 12/04/19 18 Unknown Cbc [...] C/HDL 4.2 Ratio 08/17/2017 Unknown Comp Metabolic Pfb412 NA 142 mEq/L 08/17/2017 Unkn own Comp Metabolic Wvu181 K 4.0 mEq/L 08/17/2017 Unkn own Comp Metabolic Knp538 CL 108 mEq/L 08/17/2017 Unkn own Comp Metabolic Gaq546 CO2 27.0 mEq/L 08/17/2017 Unk nown Comp Metabolic Wyj661 ANION GAP 11 08/17/2017 Unkn own Comp Metabolic Kag883 GLUCOSE 213 mg/dL 08/17/2017 Unkn own Comp Metabolic Ucj600 Creat 1.2 mg/dL 08/17/2017 Unkn own Comp Metabolic Foo613 eGFR 70 ml/min/1.73m2 08/17/20 17 Unknown Comp Metabolic Fmr232 BUN 29 mg/dL 08/17/2017 Unkn own Comp Metabolic Gkt055 B/C Ratio 24.6 Ratio 08/17/2017 Unk nown Comp Metabolic Mdl495 CALCIUM 9.3 mg/dL 08/17/2017 Unkn own Comp Metabolic Bmu113 ALK PHOS 43 U/L 08/17/2017 Unkn own Comp Metabolic Fvb644 AST(SGOT) 18 U/L 08/17/2017 Unkn own Comp Metabolic Vpo468 ALT(SGPT) 23 U/L 08/17/2017 Unkn own Comp Metabolic Uuk665 BILI T 0.3 mg/dL 08/17/2017 Unkn own Comp Metabolic Ojr751 ALBUMIN 4.0 g/dL 08/17/2017 Unkn own Comp Metabolic Gwj192 TPRO 6.1 g/dL 08/17/2017 Unkn own Comp Metabolic Fej462 GLOB 2.1 g/dL 08/17/2017 Unkn own Comp Metabolic Iim692 A/G Ratio 1.9 Ratio 08/17/2017 Unkn own Comp Metabolic Xsj093 Osmo 295 mOsmo 08/17/2017 Unkn own Cbc [...] 08/17/20 17 Unknown Cbc With Differential Ord2 [place]% 8.0 % 08/17/20 17 Unknown Cbc With [...] K/ul 017 Unknown Cbc With Differential Ord2 [place] ABS# 0.4 K/ul 08/17/20 17 Unknown Cbc With Differential Ord2 Eos ABS# 0.1 K/ul 08/17/20 17 Unknown Cbc With Differential Ord2 Baso ABS# 0.0 K/ul 08/17/20 17 Unknown %Hba1C Dey123 % HbA1c 23697-2 10.6 % 08/17/2017 Unknown %Hba1C Qri942 Gluc Ave 258 mg/dL 08/17/2017 Unknown Microalbumin Vnt522 MicroAlb 4.2 mg/dL 05/18/2017 Unknow n %Hba1C Ixt312 % HbA1c 15945-6 10.4 % 05/18/2017 Unknown %Hba1C Xge164 Gluc Ave 252 mg/dL 05/18/2017 Unknown Comp Metabolic Unz247 NA 141 mEq/L 05/18/2017 Unkn own Comp Metabolic Kgx520 K 4.0 mEq/L 05/18/2017 Unkn own Comp Metabolic Cpv347 CL 104 mEq/L 05/18/2017 Unkn own Comp Metabolic Zah803 CO2 28.0 mEq/L 05/18/2017 Unk nown Comp Metabolic Ted123 ANION GAP 13 05/18/2017 Unkn own Comp Metabolic Rrv398 GLUCOSE 157 mg/dL 05/18/2017 Unkn own Comp Metabolic Mqn467 Creat 1.2 mg/dL 05/18/2017 Unkn own Comp Metabolic Uab573 eGFR 68 ml/min/1.73m2 05/18/20 17 Unknown Comp Metabolic Rya531 BUN 32 mg/dL 05/18/2017 Unkn own Comp Metabolic Fzu022 B/C Ratio 26.4 Ratio 05/18/2017 Unk nown Comp Metabolic Zhc671 CALCIUM 9.5 mg/dL 05/18/2017 Unkn own Comp Metabolic Fzw781 ALK PHOS 51 U/L 05/18/2017 Unkn own Comp Metabolic Ixa533 AST(SGOT) 18 U/L 05/18/2017 Unkn own Comp Metabolic Cyt750 ALT(SGPT) 24 U/L 05/18/2017 Unkn own Comp Metabolic Gkw566 BILI T 0.5 mg/dL 05/18/2017 Unkn own Comp Metabolic Aqp427 ALBUMIN 4.1 g/dL 05/18/2017 Unkn own Comp Metabolic Thm241 TPRO 6.7 g/dL 05/18/2017 Unkn own Comp Metabolic Xxz365 GLOB 2.6 g/dL 05/18/2017 Unkn own Comp Metabolic Ysc419 A/G Ratio 1.5 Ratio 05/18/2017 Unkn own Comp Metabolic Akf360 Osmo 291 mOsmo 05/18/2017 Unkn own Cbc [...] 05/18/20 17 Unknown Cbc With Differential Ord2 [place]% 8.5 % 05/18/20 17 Unknown Cbc With [...] K/ul 017 Unknown Cbc With Differential Ord2 [place] ABS# 0.4 K/ul 05/18/20 17 Unknown Cbc [...] Ord30 C/HDL 5.7 Ratio 01/26/2017 Unknown %Hba1C Skb018 % HbA1c 40366-9 13.2 % 01/26/2017 Unknown %Hba1C Sly448 Gluc Ave 332 mg/dL 01/26/2017 Unknown %Hba1C Uzp570 % HbA1c 50660-4 12.1 % 10/13/2016 Unknown %Hba1C Juu134 Gluc Ave 301 mg/dL 10/13/2016 Unknown Tsh Ord6 hTSH II 0.78 uIU/mL 10/13/2016 Unknown Comp Metabolic Etc963 NA 137 mEq/L 10/13/2016 Unkn own Comp Metabolic Vmr155 K 4.1 mEq/L 10/13/2016 Unkn own Comp Metabolic Ypj085 CL 104 mEq/L 10/13/2016 Unkn own Comp Metabolic Iij145 CO2 26.0 mEq/L 10/13/2016 Unk nown Comp Metabolic Zkm993 ANION GAP 11 10/13/2016 Unkn own Comp Metabolic Aqi844 GLUCOSE 308 mg/dL 10/13/2016 Unkn own Comp Metabolic Uqa471 Creat 1.0 mg/dL 10/13/2016 Unkn own Comp Metabolic Ntz469 eGFR 81 ml/min/1.73m2 10/13/19 17 Unknown Comp Metabolic Mvu339 BUN 20 mg/dL 10/13/2016 Unkn own Comp Metabolic Cia050 B/C Ratio 19.2 Ratio 10/13/2016 Unk nown Comp Metabolic Ptw405 CALCIUM 9.7 mg/dL 10/13/2016 Unkn own Comp Metabolic Xbm296 ALK PHOS 62 U/L 10/13/2016 Unkn own Comp Metabolic Ksd857 AST(SGOT) 24 U/L 10/13/2016 Unkn own Comp Metabolic Lcz908 ALT(SGPT) 37 U/L 10/13/2016 Unkn own Comp Metabolic Vua612 BILI T 0.4 mg/dL 10/13/2016 Unkn own Comp Metabolic Ztr352 ALBUMIN 4.2 g/dL 10/13/2016 Unkn own Comp Metabolic Cpp172 TPRO 6.9 g/dL 10/13/2016 Unkn own Comp Metabolic Lvc724 GLOB 2.7 g/dL 10/13/2016 Unkn own Comp Metabolic Sgw336 A/G Ratio 1.5 Ratio 10/13/2016 Unkn own Comp Metabolic Fbc121 Osmo 288 mOsmo 10/13/2016 Unkn own Cbc [...] 10/13/19 17 Unknown Cbc With Differential Ord2 [place]% 7.4 % 10/13/19 17 Unknown Cbc With [...] K/ul 017 Unknown Cbc With Differential Ord2 [place] ABS# 0.4 K/ul 10/13/19 17 Unknown Cbc [...] 1: 140/90 Code: 8480-6 BMI: 31.9 Code: 89634-0 Heart Rate 1: 96 bpm Height: 5'10" Code: 8302-2 SpO2: 96% Temperature: 36.3 (C) / 97.4 (F) Weight: 222 lbs Code: 48000-6 01/14/2021 Blood Pressure 1: 140/90 Code: 8480-6 BMI: 31.7 Code: 60047-8 Heart Rate 1: 92 bpm Height: 5'10" Code: 8302-2 SpO2: 93% Temperature: 36.3 (C) / 97.3 (F) Weight: 221 lbs Code: 19521-3 09/17/2020 Blood Pressure 1: 116/72 Code: 8480-6 BMI: 32.6 Code: 02289-7 Heart Rate 1: 89 bpm Height: 5'10" Code: 8302-2 SpO2: 97% Temperature: 35.8 (C) / 96.4 (F) Weight: 227 lbs Code: 42302-0 06/11/2020 Blood Pressure 1: 122/70 Code: 8480-6 BMI: 32.7 Code: 11848-2 Heart Rate 1: 75 bpm Height: 5'10" Code: 8302-2 SpO2: 97% Temperature: 36.2 (C) / 97.1 (F) Weight: 228 lbs Code: 51821-1 05/19/2020 Blood Pressure 1: 154/66 Code: 8480-6 BMI: 33.1 Code: 51154-5 Heart Rate 1: 80 bpm Height: 5'10" Code: 8302-2 SpO2: 98% Temperature: 36.3 (C) / 97.3 (F) Weight: 231 lbs Code: 06159-0 12/12/2019 Blood Pressure 1: 130/74 Code: 8480-6 BMI: 32.9 Code: 70434-8 Heart Rate 1: 95 bpm Height: 5'10" Code: 8302-2 SpO2: 96% Temperature: 36.3 (C) / 97.4 (F) Weight: 229 lbs Code: 88786-1 06/13/2019 Blood Pressure 1: 138/82 Code: 8480-6 BMI: 33.1 Code: 93507-6 Heart Rate 1: 80 bpm Height: 5'10" Code: 8302-2 SpO2: 96% Weight: 231 l bs Code: 33839-5 02/14/2019 Blood Pressure 1: 120/84 Code: 8480-6 BMI: 33.1 Code: 67405-9 Heart Rate 1: 85 bpm Height: 5'10" Code: 8302-2 SpO2: 98% Weight: 231 l bs Code: 51625-1 10/18/2018 Blood Pressure 1: 126/78 Code: 8480-6 BMI: 33.0 Code: 72292-6 Heart Rate 1: 81 bpm Height: 5'10" Code: 8302-2 SpO2: 98% Weight: 230 l bs Code: 10771-7 08/23/2018 Blood Pressure 1: 130/70 Code: 8480-6 BMI: 32.9 Code: 37391-8 Heart Rate 1: 85 bpm Height: 5'10" Code: 8302-2 SpO2: 96% Weight: 229 l bs Code: 33182-3 07/19/2018 Blood Pressure 1: 130/80 Code: 8480-6 BMI: 32.3 Code: 00614-4 Heart Rate 1: 86 bpm Height: 5'10" Code: 8302-2 SpO2: 96% Weight: 225 l bs Code: 10204-0 04/19/2018 Blood Pressure 1: 128/82 Code: 8480-6 BMI: 32.7 Code: 93171-6 Heart Rate 1: 83 bpm Height: 5'10" Code: 8302-2 SpO2: 94% Weight: 228 l bs Code: 98561-1 01/18/2018 Blood Pressure 1: 130/78 Code: 8480-6 BMI: 32.9 Code: 79142-4 Heart Rate 1: 80 bpm Height: 5'10" Code: 8302-2 SpO2: 95% Weight: 229 l bs Code: 51201-9 12/21/2017 Blood Pressure 1: 112/60 Code: 8480-6 BMI: 32.9 Code: 40316-1 Heart Rate 1: 92 bpm Height: 5'10" Code: 8302-2 SpO2: 93% Weight: 229 l bs Code: 89548-9 08/17/2017 Blood Pressure 1: 130/78 Code: 8480-6 BMI: 33.3 Code: 04209-8 Heart Rate 1: 88 bpm Height: 5'10" Code: 8302-2 SpO2: 96% Weight: 232 l bs Code: 25804-0 07/12/2017 Blood Pressure 1: 130/74 Code: 8480-6 BMI: 32.7 Code: 98765-3 Heart Rate 1: 88 bpm Height: 5'10" Code: 8302-2 SpO2: 98% Weight: 228 l bs Code: 20681-9 05/18/2017 Blood Pressure 1: 120/74 Code: 8480-6 BMI: 32.7 Code: 11688-3 Heart Rate 1: 86 bpm Height: 5'10" Code: 8302-2 SpO2: 97% Weight: 228 l bs Code: 11629-0 03/16/2017 Blood Pressure 1: 126/78 Code: 8480-6 BMI: 32.6 Code: 06639-2 Heart Rate 1: 81 bpm Height: 5'10" Code: 8302-2 SpO2: 95% Weight: 227 l bs Code: 83104-4 02/09/2017 Blood Pressure 1: 132/80 Code: 8480-6 BMI: 32.6 Code: 18175-1 Heart Rate 1: 89 bpm Height: 5'10" Code: 8302-2 SpO2: 96% Weight: 227 l bs Code: 12242-6 10/13/2016 Blood Pressure 1: 146/90 Code: 8480-6 BMI: 32.3 Code: 99215-9 Heart Rate 1: 88 bpm Height: 5'10" Code: 8302-2 SpO2: 98% Weight: 225 l bs Code: 34949-4 Functional Status No Functional Status data Reason [...] 10/13/2016 Encounters Encounter Performer Location Codes Date EST. PATIENT, LEVEL III Diagnosis: Type 2 diabetes mellitus with hyperglycemia[ICD10: E11.65] Mary Box MD, [facility] CPT-4: 36240 04/29/2021 ([id number]) 19919 EST. PATIENT, LEVEL IV Diagnosis: Essential (primary) hypertension[ICD10: I10] Diagnosis: Type 2 diabetes mellitus with hyperglycemia[ICD10: E11.65] Diagnosis: Mixed hyperlipidemia[ICD10: E78.2] Mary espinoza MD, [facility] CPT-4: 51353 01/14/2021 [id number]) 57718 EST. PATIENT, LEVEL IV Diagnosis: Type 2 diabetes mellitus with hyperglycemia[ICD10: E11.65] Diagnosis: Essential (primary) hypertension[ICD10: I10] Diagnosis: Mixed hyperlipidemia[ICD10: E78.2] Diagnosis: Left shoulder pain[ICD10: M25.512] Mary espinoza MD, [facility] CPT-4: 04147 09/17/2020 ([id number]) 35725 EST. PATIENT, LEVEL IV Diagnosis: Essential (primary) hypertension[ICD10: I10] Diagnosis: Type 2 diabetes mellitus with hyperglycemia[ICD10: E11.65] Mary Box MD, [facility] CPT-4: 39870 06/11/2020 [id number] EST. PATIENT, LEVEL III Diagnosis: Left wrist pain[ICD10: M25.532] Miya Box MD , [facility] CPT-4: 49454 05/19/2020 13624 EST. PATIENT, LEVEL IV Diagnosis: Essential (primary) hypertension[ICD10: I10] Diagnosis: Type 2 diabetes mellitus without complications[ICD10: E11.9] Miya Box MD, [facility] CPT-4: 05165 12/12/2019 ([id number]) 25264 EST. PATIENT, LEVEL IV Diagnosis: Type 2 diabetes mellitus with hyperglycemia[ICD10: E11.65] Diagnosis: Essential (primary) hypertension[ICD10: I10] Diagnosis: Chronic kidney disease, stage 3 (moderate)[ICD10: N18.3] Mary Box MD, [facility] CPT-4: 34097 06/13/2019 ([id number]) 81396 EST. PATIENT, LEVEL III Diagnosis: Type 2 diabetes mellitus with hyperglycemia[ICD10: E11.65] Diagnosis: Essential (primary) hypertension[ICD10: I10] Mary Box MD, [facility] CPT-4: 67881 02/14/2019 ([id number]) 99907 EST. PATIENT, LEVEL IV Diagnosis: Type 2 diabetes mellitus with hyperglycemia[ICD10: E11.65] Diagnosis: Essential (primary) hypertension[ICD10: I10] Diagnosis: Chronic kidney disease, stage 3 (moderate)[ICD10: N18.3] Diagnosis: Mixed hyperlipidemia[ICD10: E78.2] Mary espinoza MD, [facility] CPT-4: 79389 10/18/2018 ([id number]) 55626 EST. PATIENT, LEVEL IV Diagnosis: Essential (primary) hypertension[ICD10: I10] Diagnosis: Type 2 diabetes mellitus with hyperglycemia[ICD10: E11.65] Diagnosis: Localized edema[ICD10: R60.0] Mary perla MD, [facility] CPT-4: 74348 08/23/2018 ([id number]) 00673 EST. PATIENT, LEVEL IV Diagnosis: Type 2 diabetes mellitus with hyperglycemia[ICD10: E11.65] Diagnosis: Mixed hyperlipidemia[ICD10: E78.2] Diagnosis: Essential (primary) hypertension[ICD10: I10] Mary Box MD, [facility] CPT-4: 41379 07/19/2018 ([id number]) 82158 EST. PATIENT, LEVEL IV Diagnosis: Type 2 diabetes mellitus with hyperglycemia[ICD10: E11.65] Diagnosis: Essential (primary) hypertension[ICD10: I10] Diagnosis: Chronic kidney disease, stage 3 (moderate)[ICD10: N18.3] Mary Box MD, [facility] CPT-4: 06203 04/19/2018 ([id number]) 75730 EST. PATIENT, LEVEL III Diagnosis: Type 2 diabetes mellitus with hyperglycemia[ICD10: E11.65] Mary Box MD, [facility] CPT-4: 55221 01/18/2018 ([id number]) 63158 EST. PATIENT, LEVEL IV Diagnosis: Type 2 diabetes mellitus with hyperglycemia[ICD10: E11.65] Diagnosis: Essential (primary) hypertension[ICD10: I10] Diagnosis: Mixed hyperlipidemia[ICD10: E78.2] Diagnosis: Acute kidney failure, unspecified[ICD10: N17.9] Mary Box MD, [facility] CPT-4: 28110 12/21/2017 ([id number]) 65184 EST. PATIENT, LEVEL IV Diagnosis: Type 2 diabetes mellitus with hyperglycemia[ICD10: E11.65] Diagnosis: Essential (primary) hypertension[ICD10: I10] Diagnosis: Mixed hyperlipidemia[ICD10: E78.2] Mary espinoza MD, [facility] CPT-4: 73427 08/17/2017 19113 EST. PATIENT, LEVEL III Diagnosis: Pain in right shoulder[ICD10: M25.511] Miya Hanley MD, [facility] CPT-4: 02760 07/12/2017 ([id number]) 50040 EST. PATIENT, LEVEL IV Diagnosis: Type 2 diabetes mellitus with hyperglycemia[ICD10: E11.65] Diagnosis: Essential (primary) hypertension[ICD10: I10] Diagnosis: Mixed hyperlipidemia[ICD10: E78.2] Diagnosis: Bicipital tendinitis, right shoulder[ICD10: M75.21] Diagnosis: Acute recurrent maxillary sinusitis[ICD10: J01.01] Mary Box MD, [facility] CPT-4: 00196 05/18/2017 ([id number]) 40951 EST. PATIENT, LEVEL III Diagnosis: Type 2 diabetes mellitus with hyperglycemia[ICD10: E11.65] Mary Box MD, [facility] CPT-4: 58624 03/16/2017 ([id number]) 49763 EST. PATIENT, LEVEL III Diagnosis: Type 2 diabetes mellitus with hyperglycemia[ICD10: E11.65] Diagnosis: Essential (primary) hypertension[ICD10: I10] Mary Box MD, [facility] CPT-4: 51757 02/09/2017 OFFICE VISIT, NEW - LEVEL 4 Diagnosis: Essential (primary) hypertension[ICD10: I10] Diagnosis: Type 2 diabetes mellitus without complications[ICD10: E11.9] Diagnosis: Personal history of malignant melanoma of skin[ICD10: Z85.820] Miya Box MD, [facility] CPT-4: 49832 10/13/2016 Plan of Care Planned Activity Notes [...] Education: Hypertension Completed 04/29/2021 Appointment: Mary Crawley WPtel:[phone] (15 min) Moderate 04/15/2021 Visit Plan: Hypertension [...] current medications 01/14/2021 [facility]ment[phone] [place] (15 min) Moderate 01/14/2021 Patient Education: Patient [...] evaluation 09/17/2020 Appointment: Mary Crawley WPtel: [phone] [phone] (15 min) Moderate 09/17/2020 Patient Education: Patient [...] at home. 06/11/2020 Appointment: Mary Crawley WPtel: [phone] [phone] (15 min) Moderate 06/11/2020 Patient Education: Patient [...] or concerns. 05/19/2020 [facility]ment[phone] [place] (30 min) Complex 05/19/2020 Patient Education: [...] control. 12/12/2019 App[facility]ment: [phone] [place] (15 min) Moderate 12/12/2019 Patient [...] today 06/13/2019 [facility]ment[phone] [place] (15 min) Moderate 06/13/2019 Patient [...] home. 02/14/2019 Appointment: Mary Crawley WPtel: [phone] [phone] (15 min) Moderate 02/14/2019 Patient Education: Patient Medication Summary Completed 02/14/2019 Patient Education: Hypertension Completed 02/14/2019 Appointment: Mary Crawley WPtel: [phone] [phone] (15 min) Moderate 11/22/2018 Visit Plan: Diabetes [...] medications. 10/18/2018 Appointment: Mary Crawley WPtel: [phone] [phone] (15 min) Moderate 10/18/2018 Patient Education: Patient [...] labs in 3 months to monitor a1c Kngkn-[id number]-[id number] lasix only as needed for swelling-check kidney function today 08/23/2018 Appointment: Mary Crawley WPtel: [phone] [phone] (15 min) Moderate 08/23/2018 Patient Education: Patient [...] controlled. 07/19/2018 Appointment: Mary Crawley WPtel: [phone] [place] [phone] (15 min) Moderate 07/19/2018 Patient Education: Patient Medication Summary Completed 07/19/2018 Patient Education: Cholesterol Management Completed 07/19/2018 Patient Education: Hypertension Completed 07/19/2018 Visit Plan: Diabetes Mellitus - Ceceliatrkadi parrished - per recent FSBS reports. I have [...] SEND IN INSURANCE VERIFICATION TO SEE IF CynnyAN CONNECT (CONTINUOUS GLUCOSE MONITOR) IS COVERED. Hyperlipidemia [...] medications. 04/19/2018 [phone] ([facility] min) Moderate 04/19/2018 Patient Education: Patient [...] today 01/18/2018 Appointment: Mary Crawley WPtel: [phone] [phone] [place] (15 min) Moderate 01/18/2018 Patient Education: Patient [...] monitor 12/21/2017 Appointment: Mary Crawley WPtel: [phone] [phone] (15 min) Moderate 12/21/2017 Patient Education: Patient Medication Summary Completed 12/21/2017 Care Plan: Comp Metabolic patient to have done in 1 month before appt Pending 12/21/2017 [phone] [place] (30 min) Complex 12/14/2017 Visit Plan: Hypertension [...] medications. 08/17/2017 [facility]ment[phone] (15 min) Moderate 08/17/2017 Patient Education: [...] not improve. 07/12/2017 [phone] (30 min) Complex 07/12/2017 Patient Education: [...] improved. 05/18/2017 Appointment: Mary Crawley WPtel: [phone] [phone] (15 min) Moderate 05/18/2017 Patient Education: Patient [...] control. 03/16/2017 [facility]ment[phone] (15 min) Moderate 03/16/2017 Patient Education: Patient [...] at home. 02/09/2017 [facility]ment: [phone] (30 min) Complex 02/09/2017 Patient Education: Patient Medication Summary Completed 02/09/2017 Patient Education: Obesity Completed 0 02/09/2017 Referral: Maryana iWck WPtel: Referral Initiated 10/17/2016 Care Plan: Referral Order SNOMED-CT : [id number] Pending 10/15/2016 Visit Plan: Hypertension - well [...] routine monitoring. 10/13/2016 [phone] New Patient 10/13/2016 Patient Education: Patient Medication Summary Completed 10/13/2016 Care Plan: Comp Metabolic Pending Care Plan: Cbc With Differential Pending 10/13/2016 Care Plan: %Hba1C LOINC : 53614-1 Pending 10/13/2016 Care Plan: Tsh Pending 10/13/2016 Care Plan: Lipid Pending 10/13/2016 Referral: Maryana Wick WPtel: Referral Initiated Instructions Comment NOVOLOG 70/30 25 UNITS [facility] IF [facility] ARE UNABLE TO GET/DO [...] 363. Reports insurance was no longer covering [email or web address] with discount card and Lantus was $700. [...] labs in 3 months to monitor a1c Ahnqx-vjwxcm-ageol lasix only as needed for swelling-check kidney [...] SEND IN INSURANCE VERIFICATION TO SEE IF CynnyAN [email or web address] (CONTINUOUS GLUCOSE MONITOR) IS COVERED. Hyperlipidemia - [...] LABS DOXYCYCLINE 100MG TWICE DAILY SENT TO [facility] OVER THE WEEKEND IF NEEDED FOR [...]
--- OUTSIDE RECORDS SUMMARY | 2021-05-20 11:27 | XMS REPORT | CCD ---
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 Name Role Phone Carolina Box PP Unavailable CCM Unavailable Summary Purpose Interface Exchange Insurance Providers Payer name Policy type / Coverage type Covered republican ID Effective Begin Date Effective End Date UMR Commercial Insurance [id number] Unknown Unknown Family history Mother Diagnosis Age At Onset Hyperlipidemia Unknown Brother Diagnosis Age At Onset Diabetes mellitus Type 2 Unknown Hyperlipidemia Unknown Hypertension Unknown Sister Diagnosis Age At Onset Skin cancer Unknown Father Diagnosis Age At Onset Hypertension Unknown Stroke Unknown Hypertension Unknown Social History Social History Element Codes Description Effective Dates Number of children Unknown 1 10/13/[address]: 765451418 Never smoker 10/13/[address]: 964712558 Never drinks alcohol 2016 Allergies, Adverse Reactions, [...] Fill Instructions losartan 100 mg tablet RxNorm: 879410 TAKE ONE TABLET BY MOUTH CRISTAL Y 05/05/2021 08/02/2021 Active fenofibrate 160 mg tablet RxNorm: 670869 TAKE ONE TABLET BY ROMEO TH DAILY 05/03/2021 06/01/2021 Active Novolin 70/30 U-100 Insulin 100 unit/mL subcutaneous suspens ion RxNorm: 989756 Administer 25 Unit(s) Subcutaneous two times a day 04/29/2021 10/25/2021 Active PT TO USE GOOD RX CARD FOR PENS acyclovir 800 mg tablet RxNorm: 941929 TAKE ONE TABLET BY MOUTH FOUR TIMES A DAY 03/17/2021 No Stop Date Active Lipitor 40 mg tablet RxNorm: 229587 TAKE ONE TABLET BY MOUTH EVERY NIGHT AT BEDTIME 02/21/2021 No Stop Date Active Novolin 70/30 U-100 Insulin 100 unit/mL subcutaneous suspens ion RxNorm: 265536 25 Unit(s) Subcutaneous two times a day 01/25/2021 04/28/2021 Inactive give qty sufficient for 30 days supply- either pen or vial. DC lantus Novolin 70/30 U-100 Insulin 100 unit/mL subcutaneous suspens ion RxNorm: 612641 25 Unit(s) Subcutaneous two times a day 01/25/2021 01/24/2021 Inactive give qty sufficient for 30 days supply- either pen or vial. DC lantus Jardiance 10 mg tablet RxNorm: 2750960 TAKE ONE TABLET BY MOUTH EVERY MORNING 01/24/2021 07/22/2021 Active - First Attempt Ref : [id number] Lantus Solostar U-100 Insulin 100 unit/mL (3 mL) subcu taneous pen RxNorm: 466288 55 Unit(s) Subcutaneous two times a day 01/17/2021 01/24/2021 I nactive qty sufficient for 30 day supply and pen needles Basaglar KwikPen U-100 Insulin 100 unit/mL (3 mL) subcutaneo us RxNorm: 4102022 55 Unit(s) Subcutaneous two times a day 01/14/2021 01/24/2021 Inactive Basaglar KwikPen U-100 Insulin 100 unit/mL (3 mL) subcutaneo us RxNorm: 3037080 55 Unit(s) Subcutaneous two times a day 01/14/2021 01/13/2021 Inactive tramadol 50 mg tablet RxNorm: 067690 TAKE ONE TABLET BY MOUTH EVERY 8 HOURS NEEDED FOR PAIN 11/18/2020 No Stop Date Active Lipitor 40 mg tablet RxNorm: 429860 TAKE ONE TABLET BY MOUTH EVERY NIGHT AT BEDTIME 10/11/2020 02/20/2021 Inactive Lantus Solostar U-100 Insulin 100 unit/mL (3 mL) subcu taneous pen RxNorm: 545081 55 Unit(s) Subcutaneous two times a day 10/06/2020 01/13/2021 I nactive qty sufficient for 30 day supply and pen needles Lantus Solostar U-100 Insulin 100 unit/mL (3 mL) subcu taneous pen RxNorm: 678694 55 Unit(s) Subcutaneous two times a day 10/06/2020 10/05/2020 I nactive Toujeo SoloStar U-300 Insulin 300 unit/mL (1.5 mL) sub cutaneous pen RxNorm: 6107770 INJECT 55 UNITS UNDER THE SKIN TWICE A DAY 09/22/202010/05 Inactive metoprolol succinate ER 50 mg tablet,extended release 24 hr RxNorm: 029921 TAKE ONE TABLET BY MOUTH TWICE A DAY 09/21/2020 No Stop Date Active tramadol 50 mg tablet RxNorm: 874853 1 Tablet(s) Oral E very 8 hrs as needed as needed pain 09/17/2020 09/17/2020 Inactive losartan 100 mg tablet RxNorm: 197152 TAKE ONE TABLET BY MOUTH CRISTAL Y 08/09/2020 08/09/2020 Inactive fenofibrate 160 mg tablet RxNorm: 520234 TAKE ONE TABLET BY ROMEO TH DAILY 07/26/2020 07/26/2020 Inactive Jardiance 10 mg tablet RxNorm: 0991297 TAKE ONE TABLET BY MOUTH EVERY MORNING 06/24/2020 12/20/2020 Inactive - First Attempt Ref : [id number] tramadol 50 mg tablet RxNorm: 680661 1 Tablet(s) Oral t hree times a day as needed pain 05/21/2020 05/20/2020 Inactive tramadol 50 mg tablet RxNorm: 468824 1 Tablet(s) Oral t hree times a day as needed pain 05/21/2020 05/21/2020 Inactive prednisone 20 mg tablet RxNorm: 444464 2 Tablet(s) Oral every day 0 05/19/2020 05/24/2020 Inactive Colcrys 0.6 mg tablet RxNorm: 742702 Tablet(s) Oral 2 p ills now and 1 pill in 1 hour 05/19/2020 04/28/2021 Inactive prednisone 20 mg tablet RxNorm: 484977 2 Tablet(s) Oral every day 0 05/19/2020 05/18/2020 Inactive Lipitor 40 mg tablet RxNorm: 143656 TAKE ONE TABLET BY MOUTH EVERY NIGHT AT BEDTIME 05/10/2020 10/10/2020 Inactive Toujeo SoloStar U-300 Insulin 300 unit/mL (1.5 mL) sub cutaneous pen RxNorm: 7516438 INJECT 50 UNITS UNDER THE SKIN TWICE A DAY 05/03/202009/21 Inactive Jardiance 10 mg tablet RxNorm: 8601452 TAKE ONE TABLET BY MOUTH EVERY MORNING 01/06/2020 06/23/2020 Inactive - First Attempt Ref: [id number] Toujeo SoloStar U-300 Insulin 300 unit/mL (1.5 mL) sub cutaneous pen RxNorm: 4072022 58 Unit(s) Subcutaneous two times a day 12/25/2019 09/16/2020 I nactive acyclovir 800 mg tablet RxNorm: 316250 TAKE ONE TABLET BY MOUTH FOUR TIMES A DAY 12/22/2019 06/10/2020 Inactive losartan 100 mg tablet RxNorm: 353873 TAKE ONE TABLET BY MOUTH CRISTAL Y 11/07/2019 08/08/2020 Inactive Lipitor 40 mg tablet RxNorm: 311703 TAKE ONE TABLET BY MOUTH EVERY NIGHT AT BEDTIME 11/07/2019 05/09/2020 Inactive metoprolol succinate ER 50 mg tablet,extended release 24 hr RxNorm: 834631 TAKE ONE TABLET BY MOUTH TWICE A DAY 11/03/2019 09/20/2020 Inactive fenofibrate 160 mg tablet RxNorm: 300734 TAKE ONE TABLET BY ROMEO TH DAILY 09/17/2019 07/25/2020 Inactive Lipitor 40 mg tablet RxNorm: 109625 TAKE ONE TABLET BY MOUTH EVERY NIGHT AT BEDTIME 08/08/2019 11/06/2019 Inactive Toujeo SoloStar U-300 Insulin 300 unit/mL (1.5 mL) sub cutaneous pen RxNorm: 3226196 55 Unit(s) Subcutaneous two times a day 07/30/2019 12/24/2019 I nactive Novolog Flexpen U-100 Insulin aspart 100 unit/mL (3 mL ) subcutaneous RxNorm: 9731112 5 Unit(s) Subcutaneous three times a day with meals 07/30/2012/11/2019 Inactive Toujeo SoloStar U-300 Insulin 300 unit/mL (1.5 mL) sub cutaneous pen RxNorm: 7040878 50 Unit(s) SQ BID 05/23/2019 07/29/2019 Inactive Lipitor 40 mg tablet RxNorm: 883290 TAKE ONE TABLET BY MOUTH EVERY NIGHT AT BEDTIME 03/27/2019 03/26/2019 Inactive Lipitor 40 mg tablet RxNorm: 427074 TAKE ONE TABLET BY MOUTH EVERY NIGHT AT BEDTIME 03/27/2019 06/10/2020 Inactive Lasix 20 mg tablet RxNorm: 258839 TAKE ONE TABLET BY MOUTH DAILY 06/10/2020 Inactive Jardiance 10 mg tablet RxNorm: 5712652 Tablet(s) TAKE ON E TABLET BY MOUTH EVERY MORNING 03/19/2019 03/18/2019 Inactive Jardiance 10 mg tablet RxNorm: 5129110 Tablet(s) TAKE ON E TABLET BY MOUTH EVERY MORNING 03/19/2019 01/05/2020 Inactive Toujeo SoloStar U-300 Insulin 300 unit/mL (1.5 mL) sub cutaneous pen RxNorm: 9032801 50 Unit(s) SQ BID 02/28/2019 05/22/2019 Inactive updated in structions metoprolol succinate ER 50 mg tablet,extended release 24 hr RxNorm: 263929 TAKE ONE TABLET BY MOUTH TWICE A DAY 01/15/2019 08/12/2019 Inactive Jardiance 10 mg tablet RxNorm: 4883956 TAKE ONE TABLET BY MOUTH EVERY MORNING 12/20/2018 03/18/2019 Inactive losartan 100 mg tablet RxNorm: 095207 1 Tablet(s) PO daily 11/06/1911/05/2018 Inactive losartan 100 mg tablet RxNorm: 498131 1 Tablet(s) PO daily 11/06/1910/31/2019 Inactive Toujeo SoloStar U-300 Insulin 300 unit/mL (1.5 mL) sub cutaneous pen RxNorm: 7224422 45 Unit(s) SQ BID 10/29/2018 02/27/2019 Inactive updated in structions Lipitor 40 mg tablet RxNorm: 448485 TAKE ONE TABLET BY MOUTH EVERY NIGHT AT BEDTIME 10/25/2018 03/23/2019 Inactive fenofibrate 160 mg tablet RxNorm: 679308 TAKE ONE TABLET BY ROMEO TH DAILY 10/15/2018 09/09/2019 Inactive Toujeo SoloStar U-300 Insulin 300 unit/mL (1.5 mL) sub cutaneous pen RxNorm: 5142932 45 Unit(s) SQ UD 40 units SQ QAM and 45 units SQ QPM 019 10/28/2018 Inactive updated instructions Lasix 20 mg tablet RxNorm: 069110 1 Tablet(s) PO daily as needed 09/21/2018 Inactive acyclovir 800 mg tablet RxNorm: 347234 1 Tablet(s) PO QID 08/23/2018 09/01/2018 Inactive Lasix 20 mg tablet RxNorm: 514415 1 Tablet(s) PO daily 08/12/2018 Inactive Lasix 20 mg tablet RxNorm: 326949 1 Tablet(s) PO daily 08/12/201810/2017 Inactive metoprolol succinate ER 50 mg tablet,extended release 24 hr RxNorm: 618637 TAKE ONE TABLET BY MOUTH TWICE A DAY 08/09/2018 01/05/2019 Inactive Benicar 40 mg tablet RxNorm: 790529 1 Tablet(s) PO daily 07/22/2018 1 09/20/2017 Inactive Med change! Toujeo SoloStar U-300 Insulin 300 unit/mL (1.5 mL) sub cutaneous pen RxNorm: 2830921 40 Unit(s) SQ BID x2 weeks then increase to 40 units SQ QAM and 45 units SQ QPM 07/22/2018 09/29/2018 Inactive updated instruct ions Benicar 40 mg tablet RxNorm: 804488 1 Tablet(s) PO daily 07/22/2018 0 11/05/2018 Inactive Med change! Toujeo SoloStar U-300 Insulin 300 unit/mL (1.5 mL) sub cutaneous pen RxNorm: 1716939 40 in am and 35 pm Unit(s) SQ BID 07/19/2018 07/21/2018 Inactiv e update instructions Jardiance 10 mg tablet RxNorm: 6534621 TAKE ONE TABLET BY MOUTH EVERY MORNING 06/24/2018 12/19/2018 Inactive Zyrtec 10 mg tablet RxNorm: 4454684 TAKE ONE TABLET BY MOUTH DAILY 05/01/2018 07/29/2018 Inactive Lipitor 40 mg tablet RxNorm: 588655 TAKE ONE TABLET BY MOUTH EVERY NIGHT AT BEDTIME 04/25/2018 10/21/2018 Inactive Toujeo SoloStar U-300 Insulin 300 unit/mL (1.5 mL) sub cutaneous pen RxNorm: 7827300 40 Unit(s) SQ BID 04/19/2018 07/18/2018 Inactive update ins tructions Benicar HCT 40 mg-25 mg tablet RxNorm: 941173 TAKE ONE TABLET B Y MOUTH DAILY 04/08/2018 07/21/2018 Inactive fenofibrate 160 mg tablet RxNorm: 540894 TAKE ONE TABLET BY ROMEO TH DAILY 03/20/2018 10/14/2018 Inactive fenofibrate 160 mg tablet RxNorm: 051386 TAKE ONE TABLET BY ROMEO TH DAILY 01/14/2018 03/19/2018 Inactive metoprolol succinate ER 50 mg tablet,extended release 24 hr RxNorm: 965613 TAKE ONE TABLET BY MOUTH TWICE A DAY 12/27/2017 06/24/2018 Inactive Toujeo SoloStar U-300 Insulin 300 unit/mL (1.5 mL) sub cutaneous pen RxNorm: 8578944 34 Unit(s) SQ BID 12/21/2017 04/18/2018 Inactive update ins tructions: increase to 32 units twice daily x 1 week then 34 units twice daily Jardiance 10 mg tablet RxNorm: 1956911 1 Tablet(s) PO QAM 11/28/2017 09/21/2020 Inactive Toujeo SoloStar U-300 Insulin 300 unit/mL (1.5 mL) sub cutaneous pen RxNorm: 6185251 30 Unit(s) SQ BID 10/25/2017 12/20/2017 Inactive Invokana 100 mg tablet RxNorm: 4736124 1 Tablet(s) PO daily 018 10/25/2017 Inactive Invokana 100 mg tablet RxNorm: 2790172 1 Tablet(s) PO daily 018 10/24/2017 Inactive Toujeo SoloStar U-300 Insulin 300 unit/mL (1.5 mL) sub cutaneous pen RxNorm: 1157050 30 Unit(s) SQ BID 10/25/2017 10/24/2017 Inactive Januvia 100 mg tablet RxNorm: 043253 1 Tablet(s) PO daily 10/25/2017 11/27/2017 Inactive fenofibrate 160 mg tablet RxNorm: 541381 TAKE ONE TABLET BY ROMEO TH DAILY 10/17/2017 01/13/2018 Inactive Tresiba FlexTouch U-200 200 unit/mL (3 mL) subcutaneou s insulin pen RxNorm: 1404199 66 Unit(s) SQ daily 10/16/2017 10/24/2017 Inactive Please g sapphire 90 day supply Tresiba FlexTouch U-200 200 unit/mL (3 mL) subcutaneou s insulin pen RxNorm: 2390557 66 Unit(s) SQ daily 10/11/2017 10/15/2017 Inactive Onglyza 5 mg tablet RxNorm: 891976 2 Tablet(s) PO daily 10/02/2017 Inactive d/c jardiance Onglyza 5 mg tablet RxNorm: 022504 2 Tablet(s) PO daily 10/02/2017 Inactive d/c jardiance Tresiba FlexTouch U-200 200 unit/mL (3 mL) subcutaneou s insulin pen RxNorm: 9588814 35 Unit(s) SQ BID 10/02/2017 06/12/2019 Inactive Lipitor 40 mg tablet RxNorm: 914127 TAKE ONE TABLET BY MOUTH EVERY NIGHT AT BEDTIME 09/17/2017 04/14/2018 Inactive Tresiba FlexTouch U-200 200 unit/mL (3 mL) subcutaneou s insulin pen RxNorm: 9322785 66 Unit(s) SQ daily 08/28/2017 08/29/2017 Inactive Jardiance 10 mg tablet RxNorm: 8353912 1 Tablet(s) PO QAM 08/28/2017 10/01/2017 Inactive Jardiance 10 mg tablet RxNorm: 7819318 1 Tablet(s) PO QAM 08/28/2017 08/27/2017 Inactive Tresiba FlexTouch U-200 200 unit/mL (3 mL) subcutaneou s insulin pen RxNorm: 7401128 62 Unit(s) SQ daily 08/17/2017 08/18/2017 Inactive Zipsor 25 mg capsule RxNorm: 440518 1 Capsule(s) PO QID as needed 1 09/12/2016 12/20/2017 Inactive fenofibrate 160 mg tablet RxNorm: 227261 TAKE ONE TABLET BY ROMEO TH DAILY 07/12/2017 10/16/2017 Inactive Lipitor 40 mg tablet RxNorm: 552837 TAKE ONE TABLET BY MOUTH EVERY NIGHT AT BEDTIME 06/14/2017 09/11/2017 Inactive metformin 1,000 mg tablet RxNorm: 539672 TAKE ONE TABLET BY ROMEO TH TWICE A DAY 06/01/2017 12/03/2017 Inactive metoprolol succinate ER 50 mg tablet,extended release 24 hr RxNorm: 471401 TAKE ONE TABLET BY MOUTH TWICE A DAY 06/01/2017 11/27/2017 Inactive prednisone 10 mg tablets in a dose pack RxNorm: 346831 1 Tablet(s) PO UD ; take as prescribed on dose pack 06/01/2017 06/05/2017 Inactive prednisone 10 mg tablets in a dose pack RxNorm: 909307 1 Tablet(s) PO UD ; take as prescribed on dose pack 06/01/2017 05/31/2017 Inactive Tresiba FlexTouch U-200 200 unit/mL (3 mL) subcutaneou s insulin pen RxNorm: 0151813 58 Unit(s) SQ daily INJECT 58 UNITS UNDER THE SKIN DAILY 05/24/2017 Inactive doxycycline hyclate 100 mg tablet RxNorm: 441929 1 Tablet(s) PO BID 05/18/2017 05/24/2017 Inactive metformin 1,000 mg tablet RxNorm: 995842 TAKE ONE TABLET BY ROMEO TH TWICE A DAY 04/30/2017 05/29/2017 Inactive fenofibrate 160 mg tablet RxNorm: 296681 TAKE ONE TABLET BY ROMEO TH DAILY 04/11/2017 07/11/2017 Inactive Benicar HCT 40 mg-25 mg tablet RxNorm: 689011 TAKE ONE TABLET B Y MOUTH DAILY 04/11/2017 04/05/2018 Inactive Tresiba FlexTouch U-200 200 unit/mL (3 mL) subcutaneou s insulin pen RxNorm: 6964509 54 Unit(s) SQ daily INJECT 54 UNITS UNDER THE SKIN DAILY 03/201705/22/2017 Inactive metoprolol succinate ER 50 mg tablet,extended release 24 hr RxNorm: 933661 TAKE ONE TABLET BY MOUTH TWICE A DAY 02/20/2017 04/20/2017 Inactive metformin 1,000 mg tablet RxNorm: 477881 TAKE ONE TABLET BY ROMEO TH TWICE A DAY 02/20/2017 04/20/2017 Inactive fenofibrate 160 mg tablet RxNorm: 871892 TAKE ONE TABLET BY ROMEO TH DAILY 02/13/2017 04/10/2017 Inactive Lipitor 40 mg tablet RxNorm: 358046 1 Tablet(s) PO QHS 02/07/2017 Inactive Lipitor 40 mg tablet RxNorm: 945945 1 Tablet(s) PO QHS 02/07/2017 Inactive Tresiba FlexTouch U-200 200 unit/mL (3 mL) subcutaneou s insulin pen RxNorm: 8546313 Unit(s) INJECT 45 UNITS UNDER THE SKIN DAILY 02/07/201702/2017 Inactive Benicar HCT 40 mg-25 mg tablet RxNorm: 385579 TAKE ONE TABLET B Y MOUTH DAILY 01/12/2017 04/10/2017 Inactive Tresiba FlexTouch U-200 200 unit/mL (3 mL) subcutaneou s insulin pen RxNorm: 3692904 INJECT 30 UNITS UNDER THE SKIN DAILY 12/28/2016 02/06/2017 Inac tive metoprolol succinate ER 50 mg tablet,extended release 24 hr RxNorm: 317520 TAKE ONE TABLET BY MOUTH TWICE A DAY 11/14/2016 02/11/2017 Inactive metformin 1,000 mg tablet RxNorm: 677039 TAKE ONE TABLET BY ROMEO TH TWICE A DAY 11/14/2016 02/11/2017 Inactive fenofibrate 160 mg tablet RxNorm: 092124 TAKE ONE TABLET BY ROMEO TH DAILY 11/14/2016 02/11/2017 Inactive Lipitor 10 mg tablet RxNorm: 273922 1 Tablet(s) PO daily 10/19/2016 0 10/18/2016 Inactive Januvia 100 mg tablet RxNorm: 581867 1 Tablet(s) PO daily 10/19/2016 02/08/2017 Inactive Lipitor 10 mg tablet RxNorm: 700097 1 Tablet(s) PO daily 10/19/2016 0 02/06/2017 Inactive Januvia 100 mg tablet RxNorm: 266242 1 Tablet(s) PO daily 10/15/2016 10/18/2016 Inactive Tresiba FlexTouch U-200 200 unit/mL (3 mL) subcutaneou s insulin pen RxNorm: 8902266 30 Unit(s) SQ daily 10/13/2016 12/27/2016 Inactive Please d ispense quantity sufficient for 90 days Zyrtec 10 mg tablet RxNorm: 7961563 1 Tablet(s) PO daily 10/13/2016 0 01/10/2017 Inactive metoprolol succinate ER 50 mg tablet,extended release 24 hr RxNorm: 111954 1 Tablet(s) PO BID 10/13/2016 11/11/2016 Inactive fenofibrate 160 mg tablet RxNorm: 695264 1 Tablet(s) PO daily 10/1311/11/2016 Inactive metformin 1,000 mg tablet RxNorm: 404400 1 Tablet(s) PO BID 017 11/11/2016 Inactive Benicar HCT 40 mg-25 mg tablet RxNorm: 688915 1 Tablet(s) PO daily 10/13/2016 01/10/2017 Inactive fenofibrate 160 mg tablet RxNorm: 725874 1 Tablet(s) PO daily 10/1310/12/2016 Inactive Januvia 100 mg tablet RxNorm: 073212 1 Tablet(s) PO daily 02/09/2017 02/08/2017 Inactive metformin 1,000 mg tablet RxNorm: 598281 1 Tablet(s) PO BID 017 10/12/2016 Inactive Novolin 70/30 U-100 Insulin subcutaneous RxNorm: 8425484 subcuta neous 01/25/2021 01/24/2021 Inactive Benicar HCT 40 mg-25 mg tablet RxNorm: 667446 1 Tablet(s) PO daily 10/13/2016 10/12/2016 Inactive Tresiba FlexTouch U-200 200 unit/mL (3 mL) subcutaneou s insulin pen RxNorm: 4587645 30 Unit(s) SQ daily 10/13/2016 10/12/2016 Inactive metoprolol succinate ER 50 mg tablet,extended release 24 hr RxNorm: 597739 1 Tablet(s) PO BID 10/13/2016 10/12/2016 Inactive Medication Administered No Medication Administered data Immunizations No Immunization data Results Observation Observation Code Item Item Code Result Date S ervice Location %Hba1C Gvy153 % HbA1c 75997-8 14.0 % 01/14/2021 Unknown %Hba1C Fow076 Gluc Ave 355 mg/dL 01/14/2021 Unknown Comp Metabolic Dmh664 NA 139 mEq/L 01/14/2021 Unkn own Comp Metabolic Dtg731 K 4.0 mEq/L 01/14/2021 Unkn own Comp Metabolic Syj752 CL 106 mEq/L 01/14/2021 Unkn own Comp Metabolic Bwq954 CO2 24.0 mEq/L 01/14/2021 Unk nown Comp Metabolic Lrb028 ANION GAP 13 01/14/2021 Unkn own Comp Metabolic Lgb933 GLUCOSE 295 mg/dL 01/14/2021 Unkn own Comp Metabolic Atv499 Creat 1.2 mg/dL 01/14/2021 Unkn own Comp Metabolic Jtb946 eGFR 68 ml/min/1.73m2 01/15/20 21 Unknown Comp Metabolic Mmj211 BUN 37 mg/dL 01/14/2021 Unkn own Comp Metabolic Aib704 B/C Ratio 30.8 Ratio 01/14/2021 Unk nown Comp Metabolic Vuo733 CALCIUM 9.2 mg/dL 01/14/2021 Unkn own Comp Metabolic Xfk526 ALK PHOS 58 U/L 01/14/2021 Unkn own Comp Metabolic Csg323 AST(SGOT) 20 U/L 01/14/2021 Unkn own Comp Metabolic Qoe952 ALT(SGPT) 28 U/L 01/14/2021 Unkn own Comp Metabolic Ibl473 BILI T 0.5 mg/dL 01/14/2021 Unkn own Comp Metabolic Hto713 ALBUMIN 4.0 g/dL 01/14/2021 Unkn own Comp Metabolic Duq355 TPRO 6.4 g/dL 01/14/2021 Unkn own Comp Metabolic Muo303 GLOB 2.4 g/dL 01/14/2021 Unkn own Comp Metabolic Jpx324 A/G Ratio 1.7 Ratio 01/14/2021 Unkn own Comp Metabolic Juh375 Osmo 297 mOsmo 01/14/2021 Unkn own Lipid Ord30 CHOL 169 mg/dL 09/17/2020 Unknown Lipid Ord30 HDL 40.0 mg/dl 09/17/2020 Unknown Lipid Ord30 TRIG 146 mg/dL 09/17/2020 Unknown Lipid Ord30 LDL 100 mg/dL 09/17/2020 Unknown Lipid Ord30 C/HDL 4.2 Ratio 09/17/2020 Unknown Comp Metabolic Ple139 NA 141 mEq/L 09/17/2020 Unkn own Comp Metabolic Eva046 K 4.3 mEq/L 09/17/2020 Unkn own Comp Metabolic Xux713 CL 105 mEq/L 09/17/2020 Unkn own Comp Metabolic Dic786 CO2 28.0 mEq/L 09/17/2020 Unk nown Comp Metabolic Mkq623 ANION GAP 12 09/17/2020 Unkn own Comp Metabolic Ais013 GLUCOSE 126 mg/dL 09/17/2020 Unkn own Comp Metabolic Urh398 Creat 1.2 mg/dL 09/17/2020 Unkn own Comp Metabolic Mln033 eGFR 65 ml/min/1.73m2 09/17/19 21 Unknown Comp Metabolic Jol047 BUN 27 mg/dL 09/17/2020 Unkn own Comp Metabolic Zzk833 B/C Ratio 21.8 Ratio 09/17/2020 Unk nown Comp Metabolic Gcj213 CALCIUM 9.4 mg/dL 09/17/2020 Unkn own Comp Metabolic Zbv446 ALK PHOS 49 U/L 09/17/2020 Unkn own Comp Metabolic Svz080 AST(SGOT) 24 U/L 09/17/2020 Unkn own Comp Metabolic Hee138 ALT(SGPT) 33 U/L 09/17/2020 Unkn own Comp Metabolic Xmp318 BILI T 0.5 mg/dL 09/17/2020 Unkn own Comp Metabolic Tlw098 ALBUMIN 4.4 g/dL 09/17/2020 Unkn own Comp Metabolic Phw234 TPRO 6.8 g/dL 09/17/2020 Unkn own Comp Metabolic Qor336 GLOB 2.4 g/dL 09/17/2020 Unkn own Comp Metabolic Ozh242 A/G Ratio 1.8 Ratio 09/17/2020 Unkn own Comp Metabolic Mrh771 Osmo 288 mOsmo 09/17/2020 Unkn own Cbc [...] 09/17/19 21 Unknown Cbc With Differential Ord2 [place]% 9.1 % 09/17/19 21 Unknown Cbc With [...] K/ul 021 Unknown Cbc With Differential Ord2 [place] ABS# 0.5 K/ul 09/17/19 21 Unknown Cbc With Differential Ord2 Eos ABS# 0.1 K/ul 09/17/19 21 Unknown Cbc With Differential Ord2 Baso ABS# 0.0 K/ul 09/17/19 21 Unknown %Hba1C Ifg919 % HbA1c 69800-6 9.7 % 09/17/2020 Unknown %Hba1C Pkf617 Gluc Ave 232 mg/dL 09/17/2020 Unknown JESUS (ABE) ROUTINE F307 Antinuclear Antibody Negative 05/24/2020 Unknown Ra Factor Xyd942 RA FACTOR 11.8 IU/ml 05/20/2020 Unknown Uric Acid Ord77 Uric A 4.2 mg/dL 05/19/2020 Unknown Sed Rate Ord21 ESR 1 mm/hr 05/19/2020 Unknown C-Reactive Protein Qnt Crqnt CRP 0.9 mg/dl 2019 Unknown %Hba1C Pmf747 % HbA1c 06554-4 12.0 % 05/14/2020 Unknown %Hba1C Tsv820 Gluc Ave 298 mg/dL 05/14/2020 Unknown Comp Metabolic Xqr627 NA 142 mEq/L 05/14/2020 Unkn own Comp Metabolic Jvb375 K 4.1 mEq/L 05/14/2020 Unkn own Comp Metabolic Vpw138 CL 108 mEq/L 05/14/2020 Unkn own Comp Metabolic Yuu394 CO2 26.0 mEq/L 05/14/2020 Unk nown Comp Metabolic Btv904 ANION GAP 12 05/14/2020 Unkn own Comp Metabolic Rho312 GLUCOSE 229 mg/dL 05/14/2020 Unkn own Comp Metabolic Dma624 Creat 1.4 mg/dL 05/14/2020 Unkn own Comp Metabolic Qmx525 eGFR 58 ml/min/1.73m2 05/14/20 20 Unknown Comp Metabolic Ego339 BUN 27 mg/dL 05/14/2020 Unkn own Comp Metabolic Rle341 B/C Ratio 19.7 Ratio 05/14/2020 Unk nown Comp Metabolic Two548 CALCIUM 9.4 mg/dL 05/14/2020 Unkn own Comp Metabolic Qnr056 ALK PHOS 62 U/L 05/14/2020 Unkn own Comp Metabolic Jlj207 AST(SGOT) 21 U/L 05/14/2020 Unkn own Comp Metabolic Jzc053 ALT(SGPT) 31 U/L 05/14/2020 Unkn own Comp Metabolic Pre355 BILI T 0.4 mg/dL 05/14/2020 Unkn own Comp Metabolic Bev756 ALBUMIN 4.3 g/dL 05/14/2020 Unkn own Comp Metabolic Obi592 TPRO 6.8 g/dL 05/14/2020 Unkn own Comp Metabolic Zzs748 GLOB 2.5 g/dL 05/14/2020 Unkn own Comp Metabolic Tkb447 A/G Ratio 1.7 Ratio 05/14/2020 Unkn own Comp Metabolic Fju767 Osmo 295 mOsmo 05/14/2020 Unkn own Cbc [...] 05/14/20 20 Unknown Cbc With Differential Ord2 [place]% 7.6 % 05/14/20 20 Unknown Cbc With [...] K/ul 020 Unknown Cbc With Differential Ord2 [place] ABS# 0.5 K/ul 05/14/20 20 Unknown Cbc [...] 12/12/19 20 Unknown Cbc With Differential Ord2 [place]% 9.1 % 12/12/19 Unknown Cbc With Differential [...] K/ul 020 Unknown Cbc With Differential Ord2 [place] ABS# 0.4 K/ul 12/12/19 20 Unknown Cbc With Differential Ord2 Eos ABS# 0.1 K/ul 12/12/19 20 Unknown Cbc With Differential Ord2 Baso ABS# 0.0 K/ul 12/12/19 20 Unknown %Hba1C Vmn516 % HbA1c 99059-7 11.3 % 12/12/2019 Unknown %Hba1C Sxr974 Gluc Ave 278 mg/dL 12/12/2019 Unknown Comp Metabolic Bqi423 NA 147 mEq/L 12/12/2019 Unkn own Comp Metabolic Ign576 K 3.9 mEq/L 12/12/2019 Unkn own Comp Metabolic Qtl218 CL 110 mEq/L 12/12/2019 Unkn own Comp Metabolic Gon310 CO2 28.0 mEq/L 12/12/2019 Unk nown Comp Metabolic Qiw475 ANION GAP 13 12/12/2019 Unkn own Comp Metabolic Xqb334 GLUCOSE 170 mg/dL 12/12/2019 Unkn own Comp Metabolic Ecb266 Creat 1.2 mg/dL 12/12/2019 Unkn own Comp Metabolic Cib241 eGFR 65 ml/min/1.73m2 12/12/19 20 Unknown Comp Metabolic Xvx629 BUN 24 mg/dL 12/12/2019 Unkn own Comp Metabolic Ntg853 B/C Ratio 19.4 Ratio 12/12/2019 Unk nown Comp Metabolic Qnf884 CALCIUM 9.5 mg/dL 12/12/2019 Unkn own Comp Metabolic Xoo249 ALK PHOS 57 U/L 12/12/2019 Unkn own Comp Metabolic Dmk131 AST(SGOT) 21 U/L 12/12/2019 Unkn own Comp Metabolic Req334 ALT(SGPT) 29 U/L 12/12/2019 Unkn own Comp Metabolic Ifj240 BILI T 0.4 mg/dL 12/12/2019 Unkn own Comp Metabolic Pzq055 ALBUMIN 4.1 g/dL 12/12/2019 Unkn own Comp Metabolic Qmu010 TPRO 6.7 g/dL 12/12/2019 Unkn own Comp Metabolic Mws298 GLOB 2.6 g/dL 12/12/2019 Unkn own Comp Metabolic Aif057 A/G Ratio 1.6 Ratio 12/12/2019 Unkn own Comp Metabolic Vey199 Osmo 300 mOsmo 12/12/2019 Unkn own %Hba1C Ska369 % HbA1c 88421-6 10.0 % 06/13/2019 Unknown %Hba1C Xvn227 Gluc Ave 240 mg/dL 06/13/2019 Unknown Comp Metabolic Uxy368 NA 143 mEq/L 06/13/2019 Unkn own Comp Metabolic Buy800 K 3.7 mEq/L 06/13/2019 Unkn own Comp Metabolic Hmk054 CL 107 mEq/L 06/13/2019 Unkn own Comp Metabolic Mxu470 CO2 26.0 mEq/L 06/13/2019 Unk nown Comp Metabolic Utp757 ANION GAP 14 06/13/2019 Unkn own Comp Metabolic Csx380 GLUCOSE 125 mg/dL 06/13/2019 Unkn own Comp Metabolic Mqc251 Creat 1.2 mg/dL 06/13/2019 Unkn own Comp Metabolic Upu565 eGFR 65 ml/min/1.73m2 06/13/20 19 Unknown Comp Metabolic Yhz569 BUN 25 mg/dL 06/13/2019 Unkn own Comp Metabolic Siz165 B/C Ratio 20.2 Ratio 06/13/2019 Unk nown Comp Metabolic Fno530 CALCIUM 9.2 mg/dL 06/13/2019 Unkn own Comp Metabolic Drd840 ALK PHOS 54 U/L 06/13/2019 Unkn own Comp Metabolic Kbn246 AST(SGOT) 21 U/L 06/13/2019 Unkn own Comp Metabolic Jaj447 ALT(SGPT) 30 U/L 06/13/2019 Unkn own Comp Metabolic Dve300 BILI T 0.4 mg/dL 06/13/2019 Unkn own Comp Metabolic Eyr996 ALBUMIN 4.2 g/dL 06/13/2019 Unkn own Comp Metabolic Umv631 TPRO 6.5 g/dL 06/13/2019 Unkn own Comp Metabolic Vtv507 GLOB 2.4 g/dL 06/13/2019 Unkn own Comp Metabolic Edx124 A/G Ratio 1.8 Ratio 06/13/2019 Unkn own Comp Metabolic Dfk141 Osmo 291 mOsmo 06/13/2019 Unkn own Cbc [...] 06/13/20 19 Unknown Cbc With Differential Ord2 [place]% 6.7 % 06/13/20 19 Unknown Cbc With [...] K/ul 019 Unknown Cbc With Differential Ord2 [place] ABS# 0.4 K/ul 06/13/20 19 Unknown Cbc [...] C/HDL 4.3 Ratio 02/14/2019 Unknown Comp Metabolic Vzs983 NA 144 mEq/L 02/14/2019 Unkn own Comp Metabolic Qpu148 K 3.8 mEq/L 02/14/2019 Unkn own Comp Metabolic Brq615 CL 110 mEq/L 02/14/2019 Unkn own Comp Metabolic Ddc283 CO2 26.0 mEq/L 02/14/2019 Unk nown Comp Metabolic Zca050 ANION GAP 12 02/14/2019 Unkn own Comp Metabolic Gwt000 GLUCOSE 143 mg/dL 02/14/2019 Unkn own Comp Metabolic Pjr482 Creat 1.3 mg/dL 02/14/2019 Unkn own Comp Metabolic Onr496 eGFR 61 ml/min/1.73m2 02/15/20 19 Unknown Comp Metabolic Osu655 BUN 29 mg/dL 02/14/2019 Unkn own Comp Metabolic Gqo662 B/C Ratio 22.0 Ratio 02/14/2019 Unk nown Comp Metabolic Xkw661 CALCIUM 9.5 mg/dL 02/14/2019 Unkn own Comp Metabolic Dru894 ALK PHOS 49 U/L 02/14/2019 Unkn own Comp Metabolic Val890 AST(SGOT) 18 U/L 02/14/2019 Unkn own Comp Metabolic Lyc006 ALT(SGPT) 23 U/L 02/14/2019 Unkn own Comp Metabolic Kun429 BILI T 0.4 mg/dL 02/14/2019 Unkn own Comp Metabolic Unw424 ALBUMIN 4.4 g/dL 02/14/2019 Unkn own Comp Metabolic Nay114 TPRO 6.8 g/dL 02/14/2019 Unkn own Comp Metabolic Cav973 GLOB 2.4 g/dL 02/14/2019 Unkn own Comp Metabolic Dqe259 A/G Ratio 1.8 Ratio 02/14/2019 Unkn own Comp Metabolic Szs465 Osmo 295 mOsmo 02/14/2019 Unkn own %Hba1C Thc541 % HbA1c 88829-4 9.9 % 02/14/2019 Unknown %Hba1C Ipr671 Gluc Ave 237 mg/dL 02/14/2019 Unknown Cbc [...] 10/25/19 19 Unknown Cbc With Differential Ord2 [place]% 8.6 % 10/25/19 19 Unknown Cbc With [...] K/ul 019 Unknown Cbc With Differential Ord2 [place] ABS# 0.4 K/ul 10/25/19 19 Unknown Cbc [...] C/HDL 3.9 Ratio 10/25/2018 Unknown Comp Metabolic Age697 NA 144 mEq/L 10/25/2018 Unkn own Comp Metabolic Yzs675 K 4.7 mEq/L 10/25/2018 Unkn own Comp Metabolic Wud781 CL 113 mEq/L 10/25/2018 Unkn own Comp Metabolic Ztr595 CO2 21.0 mEq/L 10/25/2018 Unk nown Comp Metabolic Skl652 ANION GAP 15 10/25/2018 Unkn own Comp Metabolic Msl128 GLUCOSE 136 mg/dL 10/25/2018 Unkn own Comp Metabolic Xvq608 Creat 1.3 mg/dL 10/25/2018 Unkn own Comp Metabolic Xyd658 eGFR 61 ml/min/1.73m2 10/25/19 19 Unknown Comp Metabolic Bte403 BUN 26 mg/dL 10/25/2018 Unkn own Comp Metabolic Hpi685 B/C Ratio 19.7 Ratio 10/25/2018 Unk nown Comp Metabolic Bpv435 CALCIUM 9.8 mg/dL 10/25/2018 Unkn own Comp Metabolic Eql124 ALK PHOS 51 U/L 10/25/2018 Unkn own Comp Metabolic Ida394 AST(SGOT) 33 U/L 10/25/2018 Unkn own Comp Metabolic Paq089 ALT(SGPT) 28 U/L 10/25/2018 Unkn own Comp Metabolic Gmg900 BILI T 0.5 mg/dL 10/25/2018 Unkn own Comp Metabolic Ngl181 ALBUMIN 4.3 g/dL 10/25/2018 Unkn own Comp Metabolic Stz565 TPRO 6.9 g/dL 10/25/2018 Unkn own Comp Metabolic Lkj312 GLOB 2.6 g/dL 10/25/2018 Unkn own Comp Metabolic Jkv764 A/G Ratio 1.6 Ratio 10/25/2018 Unkn own Comp Metabolic Cmk579 Osmo 294 mOsmo 10/25/2018 Unkn own %Hba1C Kxx393 % HbA1c 51513-1 9.7 % 10/25/2018 Unknown %Hba1C Gzo059 Gluc Ave 232 mg/dL 10/25/2018 Unknown Metabolic [...] Ord15 CALCIUM 10.1 mg/dL 08/23/2018 Unknown %Hba1C Xio614 % HbA1c 78706-3 12.4 % 07/19/2018 Unknown %Hba1C Xjv715 Gluc Ave 309 mg/dL 07/19/2018 Unknown Lipid [...] 07/19/20 18 Unknown Cbc With Differential Ord2 [place]% 8.1 % 07/19/20 18 Unknown Cbc With [...] K/ul 018 Unknown Cbc With Differential Ord2 [place] ABS# 0.4 K/ul 07/19/20 18 Unknown Cbc With Differential Ord2 Eos ABS# 0.1 K/ul 07/19/20 18 Unknown Cbc With Differential Ord2 Baso ABS# 0.0 K/ul 07/19/20 18 Unknown Comp Metabolic Hpm060 NA 142 mEq/L 07/19/2018 Unkn own Comp Metabolic Gbf186 K 3.9 mEq/L 07/19/2018 Unkn own Comp Metabolic Sqd269 CL 104 mEq/L 07/19/2018 Unkn own Comp Metabolic Xra308 CO2 27.0 mEq/L 07/19/2018 Unk nown Comp Metabolic Wup363 ANION GAP 15 07/19/2018 Unkn own Comp Metabolic Euu753 GLUCOSE 168 mg/dL 07/19/2018 Unkn own Comp Metabolic Arf306 Creat 1.4 mg/dL 07/19/2018 Unkn own Comp Metabolic Zuj777 eGFR 56 ml/min/1.73m2 07/19/20 18 Unknown Comp Metabolic Flv245 BUN 34 mg/dL 07/19/2018 Unkn own Comp Metabolic Iwl454 B/C Ratio 23.8 Ratio 07/19/2018 Unk nown Comp Metabolic Due942 CALCIUM 9.6 mg/dL 07/19/2018 Unkn own Comp Metabolic Pgf592 ALK PHOS 55 U/L 07/19/2018 Unkn own Comp Metabolic Nnu210 AST(SGOT) 24 U/L 07/19/2018 Unkn own Comp Metabolic Bjj669 ALT(SGPT) 30 U/L 07/19/2018 Unkn own Comp Metabolic Rxr928 BILI T 0.4 mg/dL 07/19/2018 Unkn own Comp Metabolic Slz852 ALBUMIN 4.2 g/dL 07/19/2018 Unkn own Comp Metabolic Qvy312 TPRO 6.8 g/dL 07/19/2018 Unkn own Comp Metabolic Rog699 GLOB 2.6 g/dL 07/19/2018 Unkn own Comp Metabolic Evy038 A/G Ratio 1.6 Ratio 07/19/2018 Unkn own Comp Metabolic Lhd237 Osmo 295 mOsmo 07/19/2018 Unkn own Cbc [...] 04/12/20 18 Unknown Cbc With Differential Ord2 [place]% 8.0 % 04/12/20 18 Unknown Cbc With [...] K/ul 018 Unknown Cbc With Differential Ord2 [place] ABS# 0.4 K/ul 04/12/20 18 Unknown Cbc With Differential Ord2 Eos ABS# 0.1 K/ul 04/12/20 18 Unknown Cbc With Differential Ord2 Baso ABS# 0.0 K/ul 04/12/20 18 Unknown %Hba1C Htv230 % HbA1c 69652-0 10.8 % 04/12/2018 Unknown %Hba1C Eth699 Gluc Ave 263 mg/dL 04/12/2018 Unknown Comp Metabolic Fsx168 NA 143 mEq/L 04/12/2018 Unkn own Comp Metabolic Cdo877 K 3.9 mEq/L 04/12/2018 Unkn own Comp Metabolic God588 CL 106 mEq/L 04/12/2018 Unkn own Comp Metabolic Nbl294 CO2 30.0 mEq/L 04/12/2018 Unk nown Comp Metabolic Dqc607 ANION GAP 11 04/12/2018 Unkn own Comp Metabolic Sdc671 GLUCOSE 203 mg/dL 04/12/2018 Unkn own Comp Metabolic Afq481 Creat 1.5 mg/dL 04/12/2018 Unkn own Comp Metabolic Vph156 eGFR 53 ml/min/1.73m2 04/12/20 18 Unknown Comp Metabolic Eth893 BUN 37 mg/dL 04/12/2018 Unkn own Comp Metabolic Jrd825 B/C Ratio 24.7 Ratio 04/12/2018 Unk nown Comp Metabolic Kgf547 CALCIUM 9.5 mg/dL 04/12/2018 Unkn own Comp Metabolic Png411 ALK PHOS 46 U/L 04/12/2018 Unkn own Comp Metabolic Egq074 AST(SGOT) 19 U/L 04/12/2018 Unkn own Comp Metabolic Szh373 ALT(SGPT) 25 U/L 04/12/2018 Unkn own Comp Metabolic Nvj304 BILI T 0.4 mg/dL 04/12/2018 Unkn own Comp Metabolic Eoe784 ALBUMIN 4.1 g/dL 04/12/2018 Unkn own Comp Metabolic Nhj036 TPRO 6.6 g/dL 04/12/2018 Unkn own Comp Metabolic Nkl067 GLOB 2.5 g/dL 04/12/2018 Unkn own Comp Metabolic Stf167 A/G Ratio 1.7 Ratio 04/12/2018 Unkn own Comp Metabolic Coo748 Osmo 299 mOsmo 04/12/2018 Unkn own Metabolic [...] C/HDL 4.6 Ratio 12/03/2017 Unknown Comp Metabolic Koa390 NA 140 mEq/L 12/03/2017 Unkn own Comp Metabolic Zcm767 K 4.0 mEq/L 12/03/2017 Unkn own Comp Metabolic Kul494 CL 103 mEq/L 12/03/2017 Unkn own Comp Metabolic Wfr606 CO2 26.0 mEq/L 12/03/2017 Unk nown Comp Metabolic Xag161 ANION GAP 15 12/03/2017 Unkn own Comp Metabolic Zin449 GLUCOSE 142 mg/dL 12/03/2017 Unkn own Comp Metabolic Cbq785 Creat 1.9 mg/dL 12/03/2017 Unkn own Comp Metabolic Hyy071 eGFR 39 ml/min/1.73m2 12/04/19 18 Unknown Comp Metabolic Gmj788 BUN 34 mg/dL 12/03/2017 Unkn own Comp Metabolic Sqz428 B/C Ratio 17.5 Ratio 12/03/2017 Unk nown Comp Metabolic Tyf943 CALCIUM 9.7 mg/dL 12/03/2017 Unkn own Comp Metabolic Fpc525 ALK PHOS 46 U/L 12/03/2017 Unkn own Comp Metabolic Qvy118 AST(SGOT) 34 U/L 12/03/2017 Unkn own Comp Metabolic Xrt511 ALT(SGPT) 38 U/L 12/03/2017 Unkn own Comp Metabolic Wyl620 BILI T 0.5 mg/dL 12/03/2017 Unkn own Comp Metabolic Dhn927 ALBUMIN 4.5 g/dL 12/03/2017 Unkn own Comp Metabolic Egv740 TPRO 6.9 g/dL 12/03/2017 Unkn own Comp Metabolic Yhh444 GLOB 2.4 g/dL 12/03/2017 Unkn own Comp Metabolic Nrf031 A/G Ratio 1.8 Ratio 12/03/2017 Unkn own Comp Metabolic Hum803 Osmo 289 mOsmo 12/03/2017 Unkn own %Hba1C Blx824 % HbA1c 85672-4 10.2 % 12/03/2017 Unknown %Hba1C Qet485 Gluc Ave 246 mg/dL 12/03/2017 Unknown Cbc [...] 12/04/19 18 Unknown Cbc With Differential Ord2 [place]% 7.7 % 12/04/19 18 Unknown Cbc With [...] K/ul 018 Unknown Cbc With Differential Ord2 [place] ABS# 0.6 K/ul 12/04/19 18 Unknown Cbc [...] C/HDL 4.2 Ratio 08/17/2017 Unknown Comp Metabolic Fbn113 NA 142 mEq/L 08/17/2017 Unkn own Comp Metabolic Uji055 K 4.0 mEq/L 08/17/2017 Unkn own Comp Metabolic Zwc555 CL 108 mEq/L 08/17/2017 Unkn own Comp Metabolic Byt444 CO2 27.0 mEq/L 08/17/2017 Unk nown Comp Metabolic Tod175 ANION GAP 11 08/17/2017 Unkn own Comp Metabolic Scv606 GLUCOSE 213 mg/dL 08/17/2017 Unkn own Comp Metabolic Cez469 Creat 1.2 mg/dL 08/17/2017 Unkn own Comp Metabolic Iir869 eGFR 70 ml/min/1.73m2 08/17/20 17 Unknown Comp Metabolic Vnb600 BUN 29 mg/dL 08/17/2017 Unkn own Comp Metabolic Izr387 B/C Ratio 24.6 Ratio 08/17/2017 Unk nown Comp Metabolic Tly516 CALCIUM 9.3 mg/dL 08/17/2017 Unkn own Comp Metabolic Pfs796 ALK PHOS 43 U/L 08/17/2017 Unkn own Comp Metabolic Nsi156 AST(SGOT) 18 U/L 08/17/2017 Unkn own Comp Metabolic Fnw550 ALT(SGPT) 23 U/L 08/17/2017 Unkn own Comp Metabolic Kva043 BILI T 0.3 mg/dL 08/17/2017 Unkn own Comp Metabolic Ndu823 ALBUMIN 4.0 g/dL 08/17/2017 Unkn own Comp Metabolic Mgn855 TPRO 6.1 g/dL 08/17/2017 Unkn own Comp Metabolic Sdm381 GLOB 2.1 g/dL 08/17/2017 Unkn own Comp Metabolic Ccz190 A/G Ratio 1.9 Ratio 08/17/2017 Unkn own Comp Metabolic Llc136 Osmo 295 mOsmo 08/17/2017 Unkn own Cbc [...] 08/17/20 17 Unknown Cbc With Differential Ord2 [place]% 8.0 % 08/17/20 17 Unknown Cbc With [...] K/ul 017 Unknown Cbc With Differential Ord2 [place] ABS# 0.4 K/ul 08/17/20 17 Unknown Cbc With Differential Ord2 Eos ABS# 0.1 K/ul 08/17/20 17 Unknown Cbc With Differential Ord2 Baso ABS# 0.0 K/ul 08/17/20 17 Unknown %Hba1C Qyj294 % HbA1c 85802-6 10.6 % 08/17/2017 Unknown %Hba1C Ywa680 Gluc Ave 258 mg/dL 08/17/2017 Unknown Microalbumin Uvb656 MicroAlb 4.2 mg/dL 05/18/2017 Unknow n %Hba1C Tzk131 % HbA1c 31668-8 10.4 % 05/18/2017 Unknown %Hba1C Jhf321 Gluc Ave 252 mg/dL 05/18/2017 Unknown Comp Metabolic Wrz792 NA 141 mEq/L 05/18/2017 Unkn own Comp Metabolic Qhb359 K 4.0 mEq/L 05/18/2017 Unkn own Comp Metabolic Yjz455 CL 104 mEq/L 05/18/2017 Unkn own Comp Metabolic Vqe751 CO2 28.0 mEq/L 05/18/2017 Unk nown Comp Metabolic Mwd264 ANION GAP 13 05/18/2017 Unkn own Comp Metabolic Yrs596 GLUCOSE 157 mg/dL 05/18/2017 Unkn own Comp Metabolic Wjs514 Creat 1.2 mg/dL 05/18/2017 Unkn own Comp Metabolic Vch793 eGFR 68 ml/min/1.73m2 05/18/20 17 Unknown Comp Metabolic Ran837 BUN 32 mg/dL 05/18/2017 Unkn own Comp Metabolic Mdd297 B/C Ratio 26.4 Ratio 05/18/2017 Unk nown Comp Metabolic Qhu969 CALCIUM 9.5 mg/dL 05/18/2017 Unkn own Comp Metabolic Cuf919 ALK PHOS 51 U/L 05/18/2017 Unkn own Comp Metabolic Yvb323 AST(SGOT) 18 U/L 05/18/2017 Unkn own Comp Metabolic Owk079 ALT(SGPT) 24 U/L 05/18/2017 Unkn own Comp Metabolic Jpi628 BILI T 0.5 mg/dL 05/18/2017 Unkn own Comp Metabolic Srn963 ALBUMIN 4.1 g/dL 05/18/2017 Unkn own Comp Metabolic Pdk640 TPRO 6.7 g/dL 05/18/2017 Unkn own Comp Metabolic Sbx441 GLOB 2.6 g/dL 05/18/2017 Unkn own Comp Metabolic Xhn162 A/G Ratio 1.5 Ratio 05/18/2017 Unkn own Comp Metabolic Kkz317 Osmo 291 mOsmo 05/18/2017 Unkn own Cbc [...] 05/18/20 17 Unknown Cbc With Differential Ord2 [place]% 8.5 % 05/18/20 17 Unknown Cbc With [...] K/ul 017 Unknown Cbc With Differential Ord2 [place] ABS# 0.4 K/ul 05/18/20 17 Unknown Cbc [...] Ord30 C/HDL 5.7 Ratio 01/26/2017 Unknown %Hba1C Org430 % HbA1c 54119-1 13.2 % 01/26/2017 Unknown %Hba1C Nqp232 Gluc Ave 332 mg/dL 01/26/2017 Unknown %Hba1C Jlt354 % HbA1c 11116-4 12.1 % 10/13/2016 Unknown %Hba1C Yzu817 Gluc Ave 301 mg/dL 10/13/2016 Unknown Tsh Ord6 hTSH II 0.78 uIU/mL 10/13/2016 Unknown Comp Metabolic Kyr620 NA 137 mEq/L 10/13/2016 Unkn own Comp Metabolic Bam695 K 4.1 mEq/L 10/13/2016 Unkn own Comp Metabolic Unb683 CL 104 mEq/L 10/13/2016 Unkn own Comp Metabolic Jsr796 CO2 26.0 mEq/L 10/13/2016 Unk nown Comp Metabolic Tyr412 ANION GAP 11 10/13/2016 Unkn own Comp Metabolic Kur434 GLUCOSE 308 mg/dL 10/13/2016 Unkn own Comp Metabolic Skl923 Creat 1.0 mg/dL 10/13/2016 Unkn own Comp Metabolic Bsc961 eGFR 81 ml/min/1.73m2 10/13/19 17 Unknown Comp Metabolic Yot727 BUN 20 mg/dL 10/13/2016 Unkn own Comp Metabolic Uzu012 B/C Ratio 19.2 Ratio 10/13/2016 Unk nown Comp Metabolic Opx729 CALCIUM 9.7 mg/dL 10/13/2016 Unkn own Comp Metabolic Iad692 ALK PHOS 62 U/L 10/13/2016 Unkn own Comp Metabolic Zrp597 AST(SGOT) 24 U/L 10/13/2016 Unkn own Comp Metabolic Wsk906 ALT(SGPT) 37 U/L 10/13/2016 Unkn own Comp Metabolic Hdy409 BILI T 0.4 mg/dL 10/13/2016 Unkn own Comp Metabolic Zkc603 ALBUMIN 4.2 g/dL 10/13/2016 Unkn own Comp Metabolic Bdf284 TPRO 6.9 g/dL 10/13/2016 Unkn own Comp Metabolic Rsh180 GLOB 2.7 g/dL 10/13/2016 Unkn own Comp Metabolic Feb441 A/G Ratio 1.5 Ratio 10/13/2016 Unkn own Comp Metabolic Ogj803 Osmo 288 mOsmo 10/13/2016 Unkn own Cbc [...] 10/13/19 17 Unknown Cbc With Differential Ord2 [place]% 7.4 % 10/13/19 17 Unknown Cbc With [...] K/ul 017 Unknown Cbc With Differential Ord2 [place] ABS# 0.4 K/ul 10/13/19 17 Unknown Cbc [...] 1: 140/90 Code: 8480-6 BMI: 31.9 Code: 03402-6 Heart Rate 1: 96 bpm Height: 5'10" Code: 8302-2 SpO2: 96% Temperature: 36.3 (C) / 97.4 (F) Weight: 222 lbs Code: 31725-1 01/14/2021 Blood Pressure 1: 140/90 Code: 8480-6 BMI: 31.7 Code: 17813-0 Heart Rate 1: 92 bpm Height: 5'10" Code: 8302-2 SpO2: 93% Temperature: 36.3 (C) / 97.3 (F) Weight: 221 lbs Code: 10764-0 09/17/2020 Blood Pressure 1: 116/72 Code: 8480-6 BMI: 32.6 Code: 42317-6 Heart Rate 1: 89 bpm Height: 5'10" Code: 8302-2 SpO2: 97% Temperature: 35.8 (C) / 96.4 (F) Weight: 227 lbs Code: 63757-2 06/11/2020 Blood Pressure 1: 122/70 Code: 8480-6 BMI: 32.7 Code: 50230-6 Heart Rate 1: 75 bpm Height: 5'10" Code: 8302-2 SpO2: 97% Temperature: 36.2 (C) / 97.1 (F) Weight: 228 lbs Code: 23112-0 05/19/2020 Blood Pressure 1: 154/66 Code: 8480-6 BMI: 33.1 Code: 21893-7 Heart Rate 1: 80 bpm Height: 5'10" Code: 8302-2 SpO2: 98% Temperature: 36.3 (C) / 97.3 (F) Weight: 231 lbs Code: 03061-3 12/12/2019 Blood Pressure 1: 130/74 Code: 8480-6 BMI: 32.9 Code: 37781-2 Heart Rate 1: 95 bpm Height: 5'10" Code: 8302-2 SpO2: 96% Temperature: 36.3 (C) / 97.4 (F) Weight: 229 lbs Code: 15039-9 06/13/2019 Blood Pressure 1: 138/82 Code: 8480-6 BMI: 33.1 Code: 15421-3 Heart Rate 1: 80 bpm Height: 5'10" Code: 8302-2 SpO2: 96% Weight: 231 l bs Code: 41626-3 02/14/2019 Blood Pressure 1: 120/84 Code: 8480-6 BMI: 33.1 Code: 59053-8 Heart Rate 1: 85 bpm Height: 5'10" Code: 8302-2 SpO2: 98% Weight: 231 l bs Code: 21116-3 10/18/2018 Blood Pressure 1: 126/78 Code: 8480-6 BMI: 33.0 Code: 57959-9 Heart Rate 1: 81 bpm Height: 5'10" Code: 8302-2 SpO2: 98% Weight: 230 l bs Code: 80291-0 08/23/2018 Blood Pressure 1: 130/70 Code: 8480-6 BMI: 32.9 Code: 42712-9 Heart Rate 1: 85 bpm Height: 5'10" Code: 8302-2 SpO2: 96% Weight: 229 l bs Code: 96812-5 07/19/2018 Blood Pressure 1: 130/80 Code: 8480-6 BMI: 32.3 Code: 54156-5 Heart Rate 1: 86 bpm Height: 5'10" Code: 8302-2 SpO2: 96% Weight: 225 l bs Code: 69270-1 04/19/2018 Blood Pressure 1: 128/82 Code: 8480-6 BMI: 32.7 Code: 56844-3 Heart Rate 1: 83 bpm Height: 5'10" Code: 8302-2 SpO2: 94% Weight: 228 l bs Code: 79263-0 01/18/2018 Blood Pressure 1: 130/78 Code: 8480-6 BMI: 32.9 Code: 92198-8 Heart Rate 1: 80 bpm Height: 5'10" Code: 8302-2 SpO2: 95% Weight: 229 l bs Code: 17132-9 12/21/2017 Blood Pressure 1: 112/60 Code: 8480-6 BMI: 32.9 Code: 21651-4 Heart Rate 1: 92 bpm Height: 5'10" Code: 8302-2 SpO2: 93% Weight: 229 l bs Code: 43658-0 08/17/2017 Blood Pressure 1: 130/78 Code: 8480-6 BMI: 33.3 Code: 44228-9 Heart Rate 1: 88 bpm Height: 5'10" Code: 8302-2 SpO2: 96% Weight: 232 l bs Code: 03838-5 07/12/2017 Blood Pressure 1: 130/74 Code: 8480-6 BMI: 32.7 Code: 24524-7 Heart Rate 1: 88 bpm Height: 5'10" Code: 8302-2 SpO2: 98% Weight: 228 l bs Code: 86346-3 05/18/2017 Blood Pressure 1: 120/74 Code: 8480-6 BMI: 32.7 Code: 93587-1 Heart Rate 1: 86 bpm Height: 5'10" Code: 8302-2 SpO2: 97% Weight: 228 l bs Code: 33295-7 03/16/2017 Blood Pressure 1: 126/78 Code: 8480-6 BMI: 32.6 Code: 41396-3 Heart Rate 1: 81 bpm Height: 5'10" Code: 8302-2 SpO2: 95% Weight: 227 l bs Code: 72629-6 02/09/2017 Blood Pressure 1: 132/80 Code: 8480-6 BMI: 32.6 Code: 48762-6 Heart Rate 1: 89 bpm Height: 5'10" Code: 8302-2 SpO2: 96% Weight: 227 l bs Code: 08207-9 10/13/2016 Blood Pressure 1: 146/90 Code: 8480-6 BMI: 32.3 Code: 93851-5 Heart Rate 1: 88 bpm Height: 5'10" Code: 8302-2 SpO2: 98% Weight: 225 l bs Code: 99371-7 Functional Status No Functional Status data Reason [...] 10/13/2016 Encounters Encounter Performer Location Codes Date ([id number]) [id number] EST. PATIENT, LEVEL III Diagnosis: Type 2 diabetes mellitus with hyperglycemia[ICD10: E11.65] [facility] CPT-4: 04513 04/29/2021 [id number]) [id number] EST. PATIENT, LEVEL IV Diagnosis: Essential (primary) hypertension[ICD10: I10] Diagnosis: Type 2 diabetes mellitus with hyperglycemia[ICD10: E11.65] Diagnosis: Mixed hyperlipidemia[ICD10: E78.2] [facility] CPT-4: 68069 01/14/2021 ([id number]) 03410 EST. PATIENT, LEVEL IV Diagnosis: Type 2 diabetes mellitus with hyperglycemia[ICD10: E11.65] Diagnosis: Essential (primary) hypertension[ICD10: I10] Diagnosis: Mixed hyperlipidemia[ICD10: E78.2] Diagnosis: Left shoulder pain[ICD10: M25.512] Mary espinoza MD, [facility] CPT-4: 80397 09/17/2020 ([id number]) 67447 EST. PATIENT, LEVEL IV Diagnosis: Essential (primary) hypertension[ICD10: I10] Diagnosis: Type 2 diabetes mellitus with hyperglycemia[ICD10: E11.65] Mary Box MD, [facility] CPT-4: 61899 06/11/2020 [id number] EST. PATIENT, LEVEL III Diagnosis: Left wrist pain[ICD10: M25.532] Miya Box MD , [facility] CPT-4: 12329 05/19/2020 [id number] EST. PATIENT, LEVEL IV Diagnosis: Essential (primary) hypertension[ICD10: I10] Diagnosis: Type 2 diabetes mellitus without complications[ICD10: E11.9] Miya Box MD, [facility] CPT-4: 80553 12/12/2019 ([id number]) 85785 EST. PATIENT, LEVEL IV Diagnosis: Type 2 diabetes mellitus with hyperglycemia[ICD10: E11.65] Diagnosis: Essential (primary) hypertension[ICD10: I10] Diagnosis: Chronic kidney disease, stage 3 (moderate)[ICD10: N18.3] Mary Box MD, [facility] CPT-4: 54792 06/13/2019 ([id number]) 98010 EST. PATIENT, LEVEL III Diagnosis: Type 2 diabetes mellitus with hyperglycemia[ICD10: E11.65] Diagnosis: Essential (primary) hypertension[ICD10: I10] Mary Box MD, [facility] CPT-4: 64583 02/14/2019 ([id number]) 69787 EST. PATIENT, LEVEL IV Diagnosis: Type 2 diabetes mellitus with hyperglycemia[ICD10: E11.65] Diagnosis: Essential (primary) hypertension[ICD10: I10] Diagnosis: Chronic kidney disease, stage 3 (moderate)[ICD10: N18.3] Diagnosis: Mixed hyperlipidemia[ICD10: E78.2] Mary espinoza MD, [facility] CPT-4: 09044 10/18/2018 ([id number]) 17375 EST. PATIENT, LEVEL IV Diagnosis: Essential (primary) hypertension[ICD10: I10] Diagnosis: Type 2 diabetes mellitus with hyperglycemia[ICD10: E11.65] Diagnosis: Localized edema[ICD10: R60.0] Mary perla MD, [facility] CPT-4: 62649 08/23/2018 ([id number]) 40519 EST. PATIENT, LEVEL IV Diagnosis: Type 2 diabetes mellitus with hyperglycemia[ICD10: E11.65] Diagnosis: Mixed hyperlipidemia[ICD10: E78.2] Diagnosis: Essential (primary) hypertension[ICD10: I10] Mary Box MD, [facility] CPT-4: 64382 07/19/2018 ([id number]) 72280 EST. PATIENT, LEVEL IV Diagnosis: Type 2 diabetes mellitus with hyperglycemia[ICD10: E11.65] Diagnosis: Essential (primary) hypertension[ICD10: I10] Diagnosis: Chronic kidney disease, stage 3 (moderate)[ICD10: N18.3] Mary Box MD, [facility] CPT-4: 13721 04/19/2018 ([id number]) 30250 EST. PATIENT, LEVEL III Diagnosis: Type 2 diabetes mellitus with hyperglycemia[ICD10: E11.65] Mary Box MD, [facility] CPT-4: 04056 01/18/2018 ([id number]) 68457 EST. PATIENT, LEVEL IV Diagnosis: Type 2 diabetes mellitus with hyperglycemia[ICD10: E11.65] Diagnosis: Essential (primary) hypertension[ICD10: I10] Diagnosis: Mixed hyperlipidemia[ICD10: E78.2] Diagnosis: Acute kidney failure, unspecified[ICD10: N17.9] Mary Box MD, [facility] CPT-4: 42545 12/21/2017 ([id number]) 73651 EST. PATIENT, LEVEL IV Diagnosis: Type 2 diabetes mellitus with hyperglycemia[ICD10: E11.65] Diagnosis: Essential (primary) hypertension[ICD10: I10] Diagnosis: Mixed hyperlipidemia[ICD10: E78.2] Mary espinoza MD, [facility] CPT-4: 82741 08/17/2017 47113 EST. PATIENT, LEVEL III Diagnosis: Pain in right shoulder[ICD10: M25.511] Miya Hanley MD, [facility] CPT-4: 55033 07/12/2017 ([id number]) 17571 EST. PATIENT, LEVEL IV Diagnosis: Type 2 diabetes mellitus with hyperglycemia[ICD10: E11.65] Diagnosis: Essential (primary) hypertension[ICD10: I10] Diagnosis: Mixed hyperlipidemia[ICD10: E78.2] Diagnosis: Bicipital tendinitis, right shoulder[ICD10: M75.21] Diagnosis: Acute recurrent maxillary sinusitis[ICD10: J01.01] Mary Box MD, [facility] CPT-4: 53592 05/18/2017 ([id number]) 18438 EST. PATIENT, LEVEL III Diagnosis: Type 2 diabetes mellitus with hyperglycemia[ICD10: E11.65] Mary Box MD, [facility] CPT-4: 89247 03/16/2017 ([id number]) 47569 EST. PATIENT, LEVEL III Diagnosis: Type 2 diabetes mellitus with hyperglycemia[ICD10: E11.65] Diagnosis: Essential (primary) hypertension[ICD10: I10] Mary Box MD, [facility] CPT-4: 42076 02/09/2017 OFFICE VISIT, NEW - LEVEL 4 Diagnosis: Essential (primary) hypertension[ICD10: I10] Diagnosis: Type 2 diabetes mellitus without complications[ICD10: E11.9] Diagnosis: Personal history of malignant melanoma of skin[ICD10: Z85.820] Miya Box MD, [facility] CPT-4: 51654 10/13/2016 Plan of Care Planned Activity Notes [...] Completed 04/29/2021 [phone] (15 min) Moderate 04/15/2021 Visit Plan: [...] medications 01/14/2021 [phone] (15 min) Moderate 01/14/2021 Patient Education: [...] evaluation 09/17/2020 [phone] (15 min) Moderate 09/17/2020 Patient Education: [...] home. 06/11/2020 [facility]ment: [phone] [place] (15 min) Moderate 06/11/2020 Patient Education: [...] concerns. 05/19/2020 App[facility]ment: [phone] [place] (30 min) Complex 05/19/2020 Patient [...] control. 12/12/2019 App[facility]ment: [phone] [place] (15 min) Moderate 12/12/2019 Patient [...] today 06/13/2019 Appointment: Mary Crawley WPtel: [phone] [phone] [place] (15 min) Moderate 06/13/2019 Patient Education: [...] home. 02/14/2019 Appointment: Mary Crawley WPtel: [phone] [phone] [place] (15 min) Moderate 02/14/2019 Patient Education: Patient Medication Summary Completed 02/14/2019 Patient Education: Hypertension Completed 02/14/2019 Appointment: Mary Crawley WPtel: [phone] [phone] [place] (15 min) Moderate 11/22/2018 Visit Plan: [...] medications. 10/18/2018 Appointment: Mary Crawley WPtel: [phone] [phone] (15 min) Moderate 10/18/2018 Patient Education: Patient [...] labs in 3 months to monitor a1c Jwiua-mdbhxd-ikrbg lasix only as needed for swelling-check kidney function today 08/23/2018 Appointment: Mary Crawley WPtel: [phone] [phone] [place] (15 min) Moderate 08/23/2018 Patient Education: [...] controlled. 07/19/2018 [facility]ment: [phone] (15 min) Moderate 07/19/2018 Patient Education: [...] SEND IN INSURANCE VERIFICATION TO SEE IF Dark Fibre [place] CONNECT (CONTINUOUS GLUCOSE MONITOR) IS COVERED. Hyperlipidemia [...] medications. 04/19/2018 [phone] (15 min) Moderate 04/19/2018 Patient Education: [...] labs today 01/18/2018 Appointment: Mary Crawleyl: [phone] [phone] (15 min) Moderate 01/18/2018 Patient Education: [...] to monitor 12/21/2017 Appointment: Mary Crawley WPtel: [phone] [phone] (15 min) Moderate 12/21/2017 Patient Education: Patient Medication Summary Completed 12/21/2017 Care Plan: Comp Metabolic patient to have done in 1 month before appt Pending 12/21/2017 Appointment: Mary Crawley WPtel: [phone] [phone] (30 min) Complex 12/14/2017 Visit Plan: Hypertension [...] medications. 08/17/2017 Appointment: Mary Crawley WPtel: [phone] [phone] (15 min) Moderate 08/17/2017 Patient Education: Patient [...] improve. 07/12/2017 App[facility]ment: [phone] (30 min) Complex 07/12/2017 Patient Education: [...] if symptoms are not improved. 05/18/2017 Appointment: aMry Crawley WPtel: [phone] (15 min) Moderate 05/18/2017 Patient Education: [...] control. 03/16/2017 Appointment: Mary Crawley WPtel: [phone] [phone] (15 min) Moderate 03/16/2017 Patient Education: Patient [...] home. 02/09/2017 Appointment: Mary Crawley WPtel: [phone] [phone] (30 min) [facility] 02/09/2017 Patient Education: Patient Medication Summary Completed 02/09/2017 Patient Education: Obesity Completed 0 02/09/2017 Referral: Maryana Wick WPtel: Referral Initiated 10/17/2016 Care Plan: Referral Order SNOMED-CT : [id number] Pending 10/15/2016 Visit Plan: Hypertension - well [...] monitoring. 10/13/2016 App[facility]ment: [phone] [facility] 10/13/2016 Patient Education: Patient Medication Summary Completed 10/13/2016 Care Plan: Comp Metabolic Pending Care Plan: Cbc With Differential Pending 10/13/2016 Care Plan: %Hba1C LOINC : 82896-7 Pending 10/13/2016 Care Plan: Tsh Pending 10/13/2016 [...] labs in 3 months to monitor a1c Smmat-[id number] lasix only as needed for swelling-check kidney [...] LABS DOXYCYCLINE 100MG TWICE DAILY SENT TO [facility] OVER THE WEEKEND IF NEEDED [...]
--- OUTSIDE RECORDS SUMMARY | 2021-05-20 11:27 | XMS REPORT | CCD ---
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 Role Phone Carolina Box PP Unavailable CCM Unavailable Summary Purpose Interface Exchange Insurance Providers Payer name Policy type / Coverage type Covered alliance party ID Effective Begin Date Effective End Date UMR Commercial Insurance [id number] Unknown Unknown Family history Mother Diagnosis Age At Onset Hyperlipidemia Unknown Brother Diagnosis Age At Onset Diabetes mellitus Type 2 Unknown Hyperlipidemia Unknown Hypertension Unknown Sister Diagnosis Age At Onset Skin cancer Unknown Father Diagnosis Age At Onset Hypertension Unknown Stroke Unknown Hypertension Unknown Social History Social History Element Codes Description Effective Dates Number of children Unknown 1 10/13/[address]: 528922403 Never smoker 10/13/[address]: 443062003 Never drinks alcohol 2016 Allergies, Adverse Reactions, [...] Start Date Stop Date Status Fill Instructions Novolin 70/30 U-100 Insulin 100 unit/mL subcutaneous suspens ion RxNorm: 185921 Administer 25 Unit(s) Subcutaneous two times a day 04/29/2021 10/25/2021 Active PT TO USE GOOD RX CARD FOR PENS acyclovir 800 mg tablet RxNorm: 701687 TAKE ONE TABLET BY MOUTH FOUR TIMES A DAY 03/17/2021 No Stop Date Active Lipitor 40 mg tablet RxNorm: 213063 TAKE ONE TABLET BY MOUTH EVERY NIGHT AT BEDTIME 02/21/2021 No Stop Date Active Novolin 70/30 U-100 Insulin 100 unit/mL subcutaneous suspens ion RxNorm: 143241 25 Unit(s) Subcutaneous two times a day 01/25/2021 04/28/2021 Inactive give qty sufficient for 30 days supply- either pen or vial. DC lantus Novolin 70/30 U-100 Insulin 100 unit/mL subcutaneous suspens ion RxNorm: 771705 25 Unit(s) Subcutaneous two times a day 01/25/2021 01/24/2021 Inactive give qty sufficient for 30 days supply- either pen or vial. DC lantus Jardiance 10 mg tablet RxNorm: 0081854 TAKE ONE TABLET BY MOUTH EVERY MORNING 01/24/2021 07/22/2021 Active - First Attempt Ref : [id number] Lantus Solostar U-100 Insulin 100 unit/mL (3 mL) subcu taneous pen RxNorm: 028549 55 Unit(s) Subcutaneous two times a day 01/17/2021 01/24/2021 I nactive qty sufficient for 30 day supply and pen needles Basaglar KwikPen U-100 Insulin 100 unit/mL (3 mL) subcutaneo us RxNorm: 2239530 55 Unit(s) Subcutaneous two times a day 01/14/2021 01/24/2021 Inactive Basaglar KwikPen U-100 Insulin 100 unit/mL (3 mL) subcutaneo us RxNorm: 8632714 55 Unit(s) Subcutaneous two times a day 01/14/2021 01/13/2021 Inactive tramadol 50 mg tablet RxNorm: 366645 TAKE ONE TABLET BY MOUTH EVERY 8 HOURS NEEDED FOR PAIN 11/18/2020 No Stop Date Active Lipitor 40 mg tablet RxNorm: 480596 TAKE ONE TABLET BY MOUTH EVERY NIGHT AT BEDTIME 10/11/2020 02/20/2021 Inactive Lantus Solostar U-100 Insulin 100 unit/mL (3 mL) subcu taneous pen RxNorm: 555408 55 Unit(s) Subcutaneous two times a day 10/06/2020 01/13/2021 I nactive qty sufficient for 30 day supply and pen needles Lantus Solostar U-100 Insulin 100 unit/mL (3 mL) subcu taneous pen RxNorm: 445665 55 Unit(s) Subcutaneous two times a day 10/06/2020 10/05/2020 I nactive Toujeo SoloStar U-300 Insulin 300 unit/mL (1.5 mL) sub cutaneous pen RxNorm: 7006941 INJECT 55 UNITS UNDER THE SKIN TWICE A DAY 09/22/202010/05 Inactive metoprolol succinate ER 50 mg tablet,extended release 24 hr RxNorm: 865556 TAKE ONE TABLET BY MOUTH TWICE A DAY 09/21/2020 No Stop Date Active tramadol 50 mg tablet RxNorm: 590460 1 Tablet(s) Oral E very 8 hrs as needed as needed pain 09/17/2020 09/17/2020 Inactive losartan 100 mg tablet RxNorm: 704107 TAKE ONE TABLET BY MOUTH CRISTAL Y 08/09/2020 No Stop Date Active fenofibrate 160 mg tablet RxNorm: 762030 TAKE ONE TABLET BY ROMEO TH DAILY 07/26/2020 No Stop Date Active Jardiance 10 mg tablet RxNorm: 1109556 TAKE ONE TABLET BY MOUTH EVERY MORNING 06/24/2020 12/20/2020 Inactive - First Attempt Ref : [id number] tramadol 50 mg tablet RxNorm: 788292 1 Tablet(s) Oral t hree times a day as needed pain 05/21/2020 05/20/2020 Inactive tramadol 50 mg tablet RxNorm: 773968 1 Tablet(s) Oral t hree times a day as needed pain 05/21/2020 05/21/2020 Inactive prednisone 20 mg tablet RxNorm: 366603 2 Tablet(s) Oral every day 0 05/19/2020 05/24/2020 Inactive Colcrys 0.6 mg tablet RxNorm: 955029 Tablet(s) Oral 2 p ills now and 1 pill in 1 hour 05/19/2020 04/28/2021 Inactive prednisone 20 mg tablet RxNorm: 511895 2 Tablet(s) Oral every day 0 05/19/2020 05/18/2020 Inactive Lipitor 40 mg tablet RxNorm: 310729 TAKE ONE TABLET BY MOUTH EVERY NIGHT AT BEDTIME 05/10/2020 10/10/2020 Inactive Toujeo SoloStar U-300 Insulin 300 unit/mL (1.5 mL) sub cutaneous pen RxNorm: 1171304 INJECT 50 UNITS UNDER THE SKIN TWICE A DAY 05/03/202009/21 Inactive Jardiance 10 mg tablet RxNorm: 4535239 TAKE ONE TABLET BY MOUTH EVERY MORNING 01/06/2020 06/23/2020 Inactive - First Attempt Ref: [id number] Toujeo SoloStar U-300 Insulin 300 unit/mL (1.5 mL) sub cutaneous pen RxNorm: 7548328 58 Unit(s) Subcutaneous two times a day 12/25/2019 09/16/2020 I nactive acyclovir 800 mg tablet RxNorm: 333341 TAKE ONE TABLET BY MOUTH FOUR TIMES A DAY 12/22/2019 06/10/2020 Inactive losartan 100 mg tablet RxNorm: 086150 TAKE ONE TABLET BY MOUTH CRISTAL Y 11/07/2019 08/08/2020 Inactive Lipitor 40 mg tablet RxNorm: 684297 TAKE ONE TABLET BY MOUTH EVERY NIGHT AT BEDTIME 11/07/2019 05/09/2020 Inactive metoprolol succinate ER 50 mg tablet,extended release 24 hr RxNorm: 725474 TAKE ONE TABLET BY MOUTH TWICE A DAY 11/03/2019 09/20/2020 Inactive fenofibrate 160 mg tablet RxNorm: 346216 TAKE ONE TABLET BY ROMEO TH DAILY 09/17/2019 07/25/2020 Inactive Lipitor 40 mg tablet RxNorm: 439842 TAKE ONE TABLET BY MOUTH EVERY NIGHT AT BEDTIME 08/08/2019 11/06/2019 Inactive Toujeo SoloStar U-300 Insulin 300 unit/mL (1.5 mL) sub cutaneous pen RxNorm: 4422098 55 Unit(s) Subcutaneous two times a day 07/30/2019 12/24/2019 I nactive Novolog Flexpen U-100 Insulin aspart 100 unit/mL (3 mL ) subcutaneous RxNorm: 3785740 5 Unit(s) Subcutaneous three times a day with meals 07/30/2012/11/2019 Inactive Toujeo SoloStar U-300 Insulin 300 unit/mL (1.5 mL) sub cutaneous pen RxNorm: 3043973 50 Unit(s) SQ BID 05/23/2019 07/29/2019 Inactive Lipitor 40 mg tablet RxNorm: 041865 TAKE ONE TABLET BY MOUTH EVERY NIGHT AT BEDTIME 03/27/2019 03/26/2019 Inactive Lipitor 40 mg tablet RxNorm: 677442 TAKE ONE TABLET BY MOUTH EVERY NIGHT AT BEDTIME 03/27/2019 06/10/2020 Inactive Lasix 20 mg tablet RxNorm: 374875 TAKE ONE TABLET BY MOUTH DAILY 06/10/2020 Inactive Jardiance 10 mg tablet RxNorm: 6373432 Tablet(s) TAKE ON E TABLET BY MOUTH EVERY MORNING 03/19/2019 03/18/2019 Inactive Jardiance 10 mg tablet RxNorm: 3278382 Tablet(s) TAKE ON E TABLET BY MOUTH EVERY MORNING 03/19/2019 01/05/2020 Inactive Toujeo SoloStar U-300 Insulin 300 unit/mL (1.5 mL) sub cutaneous pen RxNorm: 3522461 50 Unit(s) SQ BID 02/28/2019 05/22/2019 Inactive updated in structions metoprolol succinate ER 50 mg tablet,extended release 24 hr RxNorm: 355290 TAKE ONE TABLET BY MOUTH TWICE A DAY 01/15/2019 08/12/2019 Inactive Jardiance 10 mg tablet RxNorm: 0164971 TAKE ONE TABLET BY MOUTH EVERY MORNING 12/20/2018 03/18/2019 Inactive losartan 100 mg tablet RxNorm: 305606 1 Tablet(s) PO daily 11/06/1911/05/2018 Inactive losartan 100 mg tablet RxNorm: 905266 1 Tablet(s) PO daily 11/06/1910/31/2019 Inactive Toujeo SoloStar U-300 Insulin 300 unit/mL (1.5 mL) sub cutaneous pen RxNorm: 4900851 45 Unit(s) SQ BID 10/29/2018 02/27/2019 Inactive updated in structions Lipitor 40 mg tablet RxNorm: 644497 TAKE ONE TABLET BY MOUTH EVERY NIGHT AT BEDTIME 10/25/2018 03/23/2019 Inactive fenofibrate 160 mg tablet RxNorm: 282071 TAKE ONE TABLET BY ROMEO TH DAILY 10/15/2018 09/09/2019 Inactive Toujeo SoloStar U-300 Insulin 300 unit/mL (1.5 mL) sub cutaneous pen RxNorm: 5217418 45 Unit(s) SQ UD 40 units SQ QAM and 45 units SQ QPM 019 10/28/2018 Inactive updated instructions Lasix 20 mg tablet RxNorm: 1 Tablet(s) PO daily as needed 09/21/2018 Inactive acyclovir 800 mg tablet RxNorm: 666569 1 Tablet(s) PO QID 08/23/2018 09/01/2018 Inactive Lasix 20 mg tablet RxNorm: 1 Tablet(s) PO daily 08/12/2018 Inactive Lasix 20 mg tablet RxNorm: 1 Tablet(s) PO daily 08/12/201810/2017 Inactive metoprolol succinate ER 50 mg tablet,extended release 24 hr RxNorm: 452857 TAKE ONE TABLET BY MOUTH TWICE A DAY 08/09/2018 01/05/2019 Inactive Benicar 40 mg tablet RxNorm: 226191 1 Tablet(s) PO daily 07/22/2018 1 09/20/2017 Inactive Med change! Toujeo SoloStar U-300 Insulin 300 unit/mL (1.5 mL) sub cutaneous pen RxNorm: 3379459 40 Unit(s) SQ BID x2 weeks then increase to 40 units SQ QAM and 45 units SQ QPM 07/22/2018 09/29/2018 Inactive updated instruct ions Benicar 40 mg tablet RxNorm: 959101 1 Tablet(s) PO daily 07/22/2018 0 11/05/2018 Inactive Med change! Toujeo SoloStar U-300 Insulin 300 unit/mL (1.5 mL) sub cutaneous pen RxNorm: 8470973 40 in am and 35 pm Unit(s) SQ BID 07/19/2018 07/21/2018 Inactiv e update instructions Jardiance 10 mg tablet RxNorm: 5047268 TAKE ONE TABLET BY MOUTH EVERY MORNING 06/24/2018 12/19/2018 Inactive Zyrtec 10 mg tablet RxNorm: 6297667 TAKE ONE TABLET BY MOUTH DAILY 05/01/2018 07/29/2018 Inactive Lipitor 40 mg tablet RxNorm: 823152 TAKE ONE TABLET BY MOUTH EVERY NIGHT AT BEDTIME 04/25/2018 10/21/2018 Inactive Toujeo SoloStar U-300 Insulin 300 unit/mL (1.5 mL) sub cutaneous pen RxNorm: 8973691 40 Unit(s) SQ BID 04/19/2018 07/18/2018 Inactive update ins tructions Benicar HCT 40 mg-25 mg tablet RxNorm: 145696 TAKE ONE TABLET B Y MOUTH DAILY 04/08/2018 07/21/2018 Inactive fenofibrate 160 mg tablet RxNorm: 820447 TAKE ONE TABLET BY ROMEO TH DAILY 03/20/2018 10/14/2018 Inactive fenofibrate 160 mg tablet RxNorm: 798076 TAKE ONE TABLET BY ROMEO TH DAILY 01/14/2018 03/19/2018 Inactive metoprolol succinate ER 50 mg tablet,extended release 24 hr RxNorm: 531439 TAKE ONE TABLET BY MOUTH TWICE A DAY 12/27/2017 06/24/2018 Inactive Toujeo SoloStar U-300 Insulin 300 unit/mL (1.5 mL) sub cutaneous pen RxNorm: 6570119 34 Unit(s) SQ BID 12/21/2017 04/18/2018 Inactive update ins tructions: increase to 32 units twice daily x 1 week then 34 units twice daily Jardiance 10 mg tablet RxNorm: 7767705 1 Tablet(s) PO QAM 11/28/2017 09/21/2020 Inactive Toujeo SoloStar U-300 Insulin 300 unit/mL (1.5 mL) sub cutaneous pen RxNorm: 6555603 30 Unit(s) SQ BID 10/25/2017 12/20/2017 Inactive Invokana 100 mg tablet RxNorm: 7339212 1 Tablet(s) PO daily 018 10/25/2017 Inactive Invokana 100 mg tablet RxNorm: 5697834 1 Tablet(s) PO daily 018 10/24/2017 Inactive Toujeo SoloStar U-300 Insulin 300 unit/mL (1.5 mL) sub cutaneous pen RxNorm: 5690309 30 Unit(s) SQ BID 10/25/2017 10/24/2017 Inactive Januvia 100 mg tablet RxNorm: 008110 1 Tablet(s) PO daily 10/25/2017 11/27/2017 Inactive fenofibrate 160 mg tablet RxNorm: 406800 TAKE ONE TABLET BY ROMEO TH DAILY 10/17/2017 01/13/2018 Inactive Tresiba FlexTouch U-200 200 unit/mL (3 mL) subcutaneou s insulin pen RxNorm: 9952787 66 Unit(s) SQ daily 10/16/2017 10/24/2017 Inactive Please g sapphire 90 day supply Tresiba FlexTouch U-200 200 unit/mL (3 mL) subcutaneou s insulin pen RxNorm: 2503265 66 Unit(s) SQ daily 10/11/2017 10/15/2017 Inactive Onglyza 5 mg tablet RxNorm: 068994 2 Tablet(s) PO daily 10/02/2017 Inactive d/c jardiance Onglyza 5 mg tablet RxNorm: 232481 2 Tablet(s) PO daily 10/02/2017 Inactive d/c jardiance Tresiba FlexTouch U-200 200 unit/mL (3 mL) subcutaneou s insulin pen RxNorm: 8081561 35 Unit(s) SQ BID 10/02/2017 06/12/2019 Inactive Lipitor 40 mg tablet RxNorm: 100725 TAKE ONE TABLET BY MOUTH EVERY NIGHT AT BEDTIME 09/17/2017 04/14/2018 Inactive Tresiba FlexTouch U-200 200 unit/mL (3 mL) subcutaneou s insulin pen RxNorm: 2277350 66 Unit(s) SQ daily 08/28/2017 08/29/2017 Inactive Jardiance 10 mg tablet RxNorm: 0010521 1 Tablet(s) PO QAM 08/28/2017 10/01/2017 Inactive Jardiance 10 mg tablet RxNorm: 5537579 1 Tablet(s) PO QAM 08/28/2017 08/27/2017 Inactive Tresiba FlexTouch U-200 200 unit/mL (3 mL) subcutaneou s insulin pen RxNorm: 2057681 62 Unit(s) SQ daily 08/17/2017 08/18/2017 Inactive Zipsor 25 mg capsule RxNorm: 031926 1 Capsule(s) PO QID as needed 1 09/12/2016 12/20/2017 Inactive fenofibrate 160 mg tablet RxNorm: 336123 TAKE ONE TABLET BY ROMEO TH DAILY 07/12/2017 10/16/2017 Inactive Lipitor 40 mg tablet RxNorm: 839934 TAKE ONE TABLET BY MOUTH EVERY NIGHT AT BEDTIME 06/14/2017 09/11/2017 Inactive metformin 1,000 mg tablet RxNorm: 175623 TAKE ONE TABLET BY ROMEO TH TWICE A DAY 06/01/2017 12/03/2017 Inactive metoprolol succinate ER 50 mg tablet,extended release 24 hr RxNorm: 494270 TAKE ONE TABLET BY MOUTH TWICE A DAY 06/01/2017 11/27/2017 Inactive prednisone 10 mg tablets in a dose pack RxNorm: 579858 1 Tablet(s) PO UD ; take as prescribed on dose pack 06/01/2017 06/05/2017 Inactive prednisone 10 mg tablets in a dose pack RxNorm: 925814 1 Tablet(s) PO UD ; take as prescribed on dose pack 06/01/2017 05/31/2017 Inactive Tresiba FlexTouch U-200 200 unit/mL (3 mL) subcutaneou s insulin pen RxNorm: 1702217 58 Unit(s) SQ daily INJECT 58 UNITS UNDER THE SKIN DAILY 05/24/2017 Inactive doxycycline hyclate 100 mg tablet RxNorm: 225176 1 Tablet(s) PO BID 05/18/2017 05/24/2017 Inactive metformin 1,000 mg tablet RxNorm: 731105 TAKE ONE TABLET BY ROMEO TH TWICE A DAY 04/30/2017 05/29/2017 Inactive fenofibrate 160 mg tablet RxNorm: 628384 TAKE ONE TABLET BY ROMEO TH DAILY 04/11/2017 07/11/2017 Inactive Benicar HCT 40 mg-25 mg tablet RxNorm: 995732 TAKE ONE TABLET B Y MOUTH DAILY 04/11/2017 04/05/2018 Inactive Tresiba FlexTouch U-200 200 unit/mL (3 mL) subcutaneou s insulin pen RxNorm: 9473297 54 Unit(s) SQ daily INJECT 54 UNITS UNDER THE SKIN DAILY 03/201705/22/2017 Inactive metoprolol succinate ER 50 mg tablet,extended release 24 hr RxNorm: 177849 TAKE ONE TABLET BY MOUTH TWICE A DAY 02/20/2017 04/20/2017 Inactive metformin 1,000 mg tablet RxNorm: 965678 TAKE ONE TABLET BY ROMEO TH TWICE A DAY 02/20/2017 04/20/2017 Inactive fenofibrate 160 mg tablet RxNorm: 352736 TAKE ONE TABLET BY ROMEO TH DAILY 02/13/2017 04/10/2017 Inactive Lipitor 40 mg tablet RxNorm: 498963 1 Tablet(s) PO QHS 02/07/2017 Inactive Lipitor 40 mg tablet RxNorm: 009157 1 Tablet(s) PO QHS 02/07/2017 Inactive Tresiba FlexTouch U-200 200 unit/mL (3 mL) subcutaneou s insulin pen RxNorm: 9402902 Unit(s) INJECT 45 UNITS UNDER THE SKIN DAILY 02/07/201702/2017 Inactive Benicar HCT 40 mg-25 mg tablet RxNorm: 852419 TAKE ONE TABLET B Y MOUTH DAILY 01/12/2017 04/10/2017 Inactive Tresiba FlexTouch U-200 200 unit/mL (3 mL) subcutaneou s insulin pen RxNorm: 9607150 INJECT 30 UNITS UNDER THE SKIN DAILY 12/28/2016 02/06/2017 Inac tive metoprolol succinate ER 50 mg tablet,extended release 24 hr RxNorm: 460005 TAKE ONE TABLET BY MOUTH TWICE A DAY 11/14/2016 02/11/2017 Inactive metformin 1,000 mg tablet RxNorm: 343570 TAKE ONE TABLET BY ROMEO TH TWICE A DAY 11/14/2016 02/11/2017 Inactive fenofibrate 160 mg tablet RxNorm: 402371 TAKE ONE TABLET BY ROMEO TH DAILY 11/14/2016 02/11/2017 Inactive Lipitor 10 mg tablet RxNorm: 478052 1 Tablet(s) PO daily 10/19/2016 0 10/18/2016 Inactive Januvia 100 mg tablet RxNorm: 855656 1 Tablet(s) PO daily 10/19/2016 02/08/2017 Inactive Lipitor 10 mg tablet RxNorm: 001182 1 Tablet(s) PO daily 10/19/2016 0 02/06/2017 Inactive Januvia 100 mg tablet RxNorm: 499332 1 Tablet(s) PO daily 10/15/2016 10/18/2016 Inactive Tresiba FlexTouch U-200 200 unit/mL (3 mL) subcutaneou s insulin pen RxNorm: 1454218 30 Unit(s) SQ daily 10/13/2016 12/27/2016 Inactive Please d ispense quantity sufficient for 90 days Zyrtec 10 mg tablet RxNorm: 3879731 1 Tablet(s) PO daily 10/13/2016 0 01/10/2017 Inactive metoprolol succinate ER 50 mg tablet,extended release 24 hr RxNorm: 535338 1 Tablet(s) PO BID 10/13/2016 11/11/2016 Inactive fenofibrate 160 mg tablet RxNorm: 540448 1 Tablet(s) PO daily 10/1311/11/2016 Inactive metformin 1,000 mg tablet RxNorm: 648560 1 Tablet(s) PO BID 017 11/11/2016 Inactive Benicar HCT 40 mg-25 mg tablet RxNorm: 422205 1 Tablet(s) PO daily 10/13/2016 01/10/2017 Inactive fenofibrate 160 mg tablet RxNorm: 686090 1 Tablet(s) PO daily 10/1310/12/2016 Inactive Januvia 100 mg tablet RxNorm: 239549 1 Tablet(s) PO daily 02/09/2017 02/08/2017 Inactive metformin 1,000 mg tablet RxNorm: 211974 1 Tablet(s) PO BID 017 10/12/2016 Inactive Novolin 70/30 U-100 Insulin subcutaneous RxNorm: 6730151 subcuta neous 01/25/2021 01/24/2021 Inactive Benicar HCT 40 mg-25 mg tablet RxNorm: 415693 1 Tablet(s) PO daily 10/13/2016 10/12/2016 Inactive Tresiba FlexTouch U-200 200 unit/mL (3 mL) subcutaneou s insulin pen RxNorm: 6667070 30 Unit(s) SQ daily 10/13/2016 10/12/2016 Inactive metoprolol succinate ER 50 mg tablet,extended release 24 hr RxNorm: 641079 1 Tablet(s) PO BID 10/13/2016 10/12/2016 Inactive Medication Administered No Medication Administered data Immunizations No Immunization data Results Observation Observation Code Item Item Code Result Date S ervice Location %Hba1C Hkd774 % HbA1c 56610-3 14.0 % 01/14/2021 Unknown %Hba1C Qxn111 Gluc Ave 355 mg/dL 01/14/2021 Unknown Comp Metabolic Vya309 NA 139 mEq/L 01/14/2021 Unkn own Comp Metabolic Azi319 K 4.0 mEq/L 01/14/2021 Unkn own Comp Metabolic Yxa032 CL 106 mEq/L 01/14/2021 Unkn own Comp Metabolic Ncv289 CO2 24.0 mEq/L 01/14/2021 Unk nown Comp Metabolic Glf612 ANION GAP 13 01/14/2021 Unkn own Comp Metabolic Xzp683 GLUCOSE 295 mg/dL 01/14/2021 Unkn own Comp Metabolic Sbs246 Creat 1.2 mg/dL 01/14/2021 Unkn own Comp Metabolic Lsy089 eGFR 68 ml/min/1.73m2 01/15/20 21 Unknown Comp Metabolic Hpl062 BUN 37 mg/dL 01/14/2021 Unkn own Comp Metabolic Oeo869 B/C Ratio 30.8 Ratio 01/14/2021 Unk nown Comp Metabolic Hnn500 CALCIUM 9.2 mg/dL 01/14/2021 Unkn own Comp Metabolic Udc008 ALK PHOS 58 U/L 01/14/2021 Unkn own Comp Metabolic Uhx937 AST(SGOT) 20 U/L 01/14/2021 Unkn own Comp Metabolic Gwd981 ALT(SGPT) 28 U/L 01/14/2021 Unkn own Comp Metabolic Ykx873 BILI T 0.5 mg/dL 01/14/2021 Unkn own Comp Metabolic Bje700 ALBUMIN 4.0 g/dL 01/14/2021 Unkn own Comp Metabolic Vbk763 TPRO 6.4 g/dL 01/14/2021 Unkn own Comp Metabolic Gqs658 GLOB 2.4 g/dL 01/14/2021 Unkn own Comp Metabolic Dkt420 A/G Ratio 1.7 Ratio 01/14/2021 Unkn own Comp Metabolic Rjb475 Osmo 297 mOsmo 01/14/2021 Unkn own Lipid Ord30 CHOL 169 mg/dL 09/17/2020 Unknown Lipid Ord30 HDL 40.0 mg/dl 09/17/2020 Unknown Lipid Ord30 TRIG 146 mg/dL 09/17/2020 Unknown Lipid Ord30 LDL 100 mg/dL 09/17/2020 Unknown Lipid Ord30 C/HDL 4.2 Ratio 09/17/2020 Unknown Comp Metabolic Gbi366 NA 141 mEq/L 09/17/2020 Unkn own Comp Metabolic Mxx119 K 4.3 mEq/L 09/17/2020 Unkn own Comp Metabolic Qop925 CL 105 mEq/L 09/17/2020 Unkn own Comp Metabolic Tnu596 CO2 28.0 mEq/L 09/17/2020 Unk nown Comp Metabolic Fik310 ANION GAP 12 09/17/2020 Unkn own Comp Metabolic Sli726 GLUCOSE 126 mg/dL 09/17/2020 Unkn own Comp Metabolic Bfv084 Creat 1.2 mg/dL 09/17/2020 Unkn own Comp Metabolic Tgs475 eGFR 65 ml/min/1.73m2 09/17/19 21 Unknown Comp Metabolic Xxp764 BUN 27 mg/dL 09/17/2020 Unkn own Comp Metabolic Iim770 B/C Ratio 21.8 Ratio 09/17/2020 Unk nown Comp Metabolic Eyo903 CALCIUM 9.4 mg/dL 09/17/2020 Unkn own Comp Metabolic Ztg924 ALK PHOS 49 U/L 09/17/2020 Unkn own Comp Metabolic Kbb764 AST(SGOT) 24 U/L 09/17/2020 Unkn own Comp Metabolic Fdm657 ALT(SGPT) 33 U/L 09/17/2020 Unkn own Comp Metabolic Obn909 BILI T 0.5 mg/dL 09/17/2020 Unkn own Comp Metabolic Uju912 ALBUMIN 4.4 g/dL 09/17/2020 Unkn own Comp Metabolic Fcl380 TPRO 6.8 g/dL 09/17/2020 Unkn own Comp Metabolic Kbz972 GLOB 2.4 g/dL 09/17/2020 Unkn own Comp Metabolic Rnz323 A/G Ratio 1.8 Ratio 09/17/2020 Unkn own Comp Metabolic Frx272 Osmo 288 mOsmo 09/17/2020 Unkn own Cbc [...] 09/17/19 21 Unknown Cbc With Differential Ord2 [place]% 9.1 % 09/17/19 21 Unknown Cbc With [...] K/ul 021 Unknown Cbc With Differential Ord2 [place] ABS# 0.5 K/ul 09/17/19 21 Unknown Cbc With Differential Ord2 Eos ABS# 0.1 K/ul 09/17/19 21 Unknown Cbc With Differential Ord2 Baso ABS# 0.0 K/ul 09/17/19 21 Unknown %Hba1C Hst644 % HbA1c 04321-9 9.7 % 09/17/2020 Unknown %Hba1C Xfq555 Gluc Ave 232 mg/dL 09/17/2020 Unknown JESUS (ABE) ROUTINE F307 Antinuclear Antibody Negative 05/24/2020 Unknown Ra Factor Jgg305 RA FACTOR 11.8 IU/ml 05/20/2020 Unknown Uric Acid Ord77 Uric A 4.2 mg/dL 05/19/2020 Unknown Sed Rate Ord21 ESR 1 mm/hr 05/19/2020 Unknown C-Reactive Protein Qnt Crqnt CRP 0.9 mg/dl 2019 Unknown %Hba1C Nok897 % HbA1c 98956-7 12.0 % 05/14/2020 Unknown %Hba1C Uxr579 Gluc Ave 298 mg/dL 05/14/2020 Unknown Comp Metabolic Nil086 NA 142 mEq/L 05/14/2020 Unkn own Comp Metabolic Snu278 K 4.1 mEq/L 05/14/2020 Unkn own Comp Metabolic Her960 CL 108 mEq/L 05/14/2020 Unkn own Comp Metabolic Qeb780 CO2 26.0 mEq/L 05/14/2020 Unk nown Comp Metabolic Rwn886 ANION GAP 12 05/14/2020 Unkn own Comp Metabolic Qfp152 GLUCOSE 229 mg/dL 05/14/2020 Unkn own Comp Metabolic Kvr986 Creat 1.4 mg/dL 05/14/2020 Unkn own Comp Metabolic Fzy949 eGFR 58 ml/min/1.73m2 05/14/20 20 Unknown Comp Metabolic Gum184 BUN 27 mg/dL 05/14/2020 Unkn own Comp Metabolic Qzl355 B/C Ratio 19.7 Ratio 05/14/2020 Unk nown Comp Metabolic Xuo343 CALCIUM 9.4 mg/dL 05/14/2020 Unkn own Comp Metabolic Wwh327 ALK PHOS 62 U/L 05/14/2020 Unkn own Comp Metabolic Dls457 AST(SGOT) 21 U/L 05/14/2020 Unkn own Comp Metabolic Ucb852 ALT(SGPT) 31 U/L 05/14/2020 Unkn own Comp Metabolic Qfq389 BILI T 0.4 mg/dL 05/14/2020 Unkn own Comp Metabolic Edz412 ALBUMIN 4.3 g/dL 05/14/2020 Unkn own Comp Metabolic Ssy528 TPRO 6.8 g/dL 05/14/2020 Unkn own Comp Metabolic Zbs208 GLOB 2.5 g/dL 05/14/2020 Unkn own Comp Metabolic Gnu643 A/G Ratio 1.7 Ratio 05/14/2020 Unkn own Comp Metabolic Oka665 Osmo 295 mOsmo 05/14/2020 Unkn own Cbc [...] 05/14/20 20 Unknown Cbc With Differential Ord2 [place]% 7.6 % 05/14/20 20 Unknown Cbc With [...] K/ul 020 Unknown Cbc With Differential Ord2 [place] ABS# 0.5 K/ul 05/14/20 20 Unknown Cbc [...] 12/12/19 20 Unknown Cbc With Differential Ord2 [place]% 9.1 % 12/12/19 20 Unknown Cbc With Differential Ord2 MCH 27.5 pg 12/12/19 20 Unknown Cbc With Differential Ord2 MCHC 32.4 pg 12/12/19 20 Unknown Cbc With Differential Ord2 Eos% 2.0 % 12/12/19 Unknown Cbc With Differential Ord2 Baso% 0.7 % 12/12/19 20 Unknown Cbc With Differential Ord2 PLT 228 K/ul 12/12/19 20 Unknown Cbc With Differential Ord2 Neut ABS# 2.44 K/ul 12/12/19 20 Unknown Cbc With Differential Ord2 RDW 14.1 % 12/12/19 20 Unknown Cbc With Differential Ord2 Lymph ABS# 1.63 K/ul 020 Unknown Cbc With Differential Ord2 [place] ABS# 0.4 K/ul 12/12/19 20 Unknown Cbc With Differential Ord2 Eos ABS# 0.1 K/ul 12/12/19 20 Unknown Cbc With Differential Ord2 Baso ABS# 0.0 K/ul 12/12/19 20 Unknown %Hba1C Isd267 % HbA1c 62898-5 11.3 % 12/12/2019 Unknown %Hba1C Itw313 Gluc Ave 278 mg/dL 12/12/2019 Unknown Comp Metabolic Rgm122 NA 147 mEq/L 12/12/2019 Unkn own Comp Metabolic Puu092 K 3.9 mEq/L 12/12/2019 Unkn own Comp Metabolic Vxq178 CL 110 mEq/L 12/12/2019 Unkn own Comp Metabolic Pts822 CO2 28.0 mEq/L 12/12/2019 Unk nown Comp Metabolic Xwx987 ANION GAP 13 12/12/2019 Unkn own Comp Metabolic Pqq276 GLUCOSE 170 mg/dL 12/12/2019 Unkn own Comp Metabolic Vtc169 Creat 1.2 mg/dL 12/12/2019 Unkn own Comp Metabolic Rxx507 eGFR 65 ml/min/1.73m2 12/12/19 20 Unknown Comp Metabolic Tfu935 BUN 24 mg/dL 12/12/2019 Unkn own Comp Metabolic Hwk007 B/C Ratio 19.4 Ratio 12/12/2019 Unk nown Comp Metabolic Ffe859 CALCIUM 9.5 mg/dL 12/12/2019 Unkn own Comp Metabolic Ifx718 ALK PHOS 57 U/L 12/12/2019 Unkn own Comp Metabolic Qxd539 AST(SGOT) 21 U/L 12/12/2019 Unkn own Comp Metabolic Fvv249 ALT(SGPT) 29 U/L 12/12/2019 Unkn own Comp Metabolic Dla792 BILI T 0.4 mg/dL 12/12/2019 Unkn own Comp Metabolic Wet557 ALBUMIN 4.1 g/dL 12/12/2019 Unkn own Comp Metabolic Ebo995 TPRO 6.7 g/dL 12/12/2019 Unkn own Comp Metabolic Egx400 GLOB 2.6 g/dL 12/12/2019 Unkn own Comp Metabolic Mez607 A/G Ratio 1.6 Ratio 12/12/2019 Unkn own Comp Metabolic Dnj705 Osmo 300 mOsmo 12/12/2019 Unkn own %Hba1C Vdg436 % HbA1c 22463-5 10.0 % 06/13/2019 Unknown %Hba1C Pkx739 Gluc Ave 240 mg/dL 06/13/2019 Unknown Comp Metabolic Lrh323 NA 143 mEq/L 06/13/2019 Unkn own Comp Metabolic Wbk097 K 3.7 mEq/L 06/13/2019 Unkn own Comp Metabolic Srh808 CL 107 mEq/L 06/13/2019 Unkn own Comp Metabolic Rig384 CO2 26.0 mEq/L 06/13/2019 Unk nown Comp Metabolic Dhe973 ANION GAP 14 06/13/2019 Unkn own Comp Metabolic Okq874 GLUCOSE 125 mg/dL 06/13/2019 Unkn own Comp Metabolic Puw333 Creat 1.2 mg/dL 06/13/2019 Unkn own Comp Metabolic Gom234 eGFR 65 ml/min/1.73m2 06/13/20 19 Unknown Comp Metabolic Pgd686 BUN 25 mg/dL 06/13/2019 Unkn own Comp Metabolic Jgy876 B/C Ratio 20.2 Ratio 06/13/2019 Unk nown Comp Metabolic Vvq454 CALCIUM 9.2 mg/dL 06/13/2019 Unkn own Comp Metabolic Ias563 ALK PHOS 54 U/L 06/13/2019 Unkn own Comp Metabolic Gcn721 AST(SGOT) 21 U/L 06/13/2019 Unkn own Comp Metabolic Syd093 ALT(SGPT) 30 U/L 06/13/2019 Unkn own Comp Metabolic Grd617 BILI T 0.4 mg/dL 06/13/2019 Unkn own Comp Metabolic Tlw896 ALBUMIN 4.2 g/dL 06/13/2019 Unkn own Comp Metabolic Sif268 TPRO 6.5 g/dL 06/13/2019 Unkn own Comp Metabolic Ips774 GLOB 2.4 g/dL 06/13/2019 Unkn own Comp Metabolic Gsy553 A/G Ratio 1.8 Ratio 06/13/2019 Unkn own Comp Metabolic Rnq883 Osmo 291 mOsmo 06/13/2019 Unkn own Cbc [...] 06/13/20 19 Unknown Cbc With Differential Ord2 [place]% 6.7 % 06/13/20 19 Unknown Cbc With [...] K/ul 019 Unknown Cbc With Differential Ord2 [place] ABS# 0.4 K/ul 06/13/20 19 Unknown Cbc [...] C/HDL 4.3 Ratio 02/14/2019 Unknown Comp Metabolic Bzw958 NA 144 mEq/L 02/14/2019 Unkn own Comp Metabolic Zdo030 K 3.8 mEq/L 02/14/2019 Unkn own Comp Metabolic Smy159 CL 110 mEq/L 02/14/2019 Unkn own Comp Metabolic Fft774 CO2 26.0 mEq/L 02/14/2019 Unk nown Comp Metabolic Etq641 ANION GAP 12 02/14/2019 Unkn own Comp Metabolic Lgi143 GLUCOSE 143 mg/dL 02/14/2019 Unkn own Comp Metabolic Okh328 Creat 1.3 mg/dL 02/14/2019 Unkn own Comp Metabolic Hih656 eGFR 61 ml/min/1.73m2 02/15/20 19 Unknown Comp Metabolic Vcb078 BUN 29 mg/dL 02/14/2019 Unkn own Comp Metabolic Qdm705 B/C Ratio 22.0 Ratio 02/14/2019 Unk nown Comp Metabolic Lyf513 CALCIUM 9.5 mg/dL 02/14/2019 Unkn own Comp Metabolic Wlc954 ALK PHOS 49 U/L 02/14/2019 Unkn own Comp Metabolic Ite207 AST(SGOT) 18 U/L 02/14/2019 Unkn own Comp Metabolic Bes642 ALT(SGPT) 23 U/L 02/14/2019 Unkn own Comp Metabolic Gva601 BILI T 0.4 mg/dL 02/14/2019 Unkn own Comp Metabolic Hdz995 ALBUMIN 4.4 g/dL 02/14/2019 Unkn own Comp Metabolic Lty982 TPRO 6.8 g/dL 02/14/2019 Unkn own Comp Metabolic Dkh825 GLOB 2.4 g/dL 02/14/2019 Unkn own Comp Metabolic Mkd434 A/G Ratio 1.8 Ratio 02/14/2019 Unkn own Comp Metabolic Llz874 Osmo 295 mOsmo 02/14/2019 Unkn own %Hba1C Ooy635 % HbA1c 23939-4 9.9 % 02/14/2019 Unknown %Hba1C Onb620 Gluc Ave 237 mg/dL 02/14/2019 Unknown Cbc [...] 10/25/19 19 Unknown Cbc With Differential Ord2 [place]% 8.6 % 10/25/19 19 Unknown Cbc With [...] K/ul 019 Unknown Cbc With Differential Ord2 [place] ABS# 0.4 K/ul 10/25/19 19 Unknown Cbc [...] C/HDL 3.9 Ratio 10/25/2018 Unknown Comp Metabolic Ake229 NA 144 mEq/L 10/25/2018 Unkn own Comp Metabolic Hob750 K 4.7 mEq/L 10/25/2018 Unkn own Comp Metabolic Vgt055 CL 113 mEq/L 10/25/2018 Unkn own Comp Metabolic Bnz692 CO2 21.0 mEq/L 10/25/2018 Unk nown Comp Metabolic Sqg150 ANION GAP 15 10/25/2018 Unkn own Comp Metabolic Xuq632 GLUCOSE 136 mg/dL 10/25/2018 Unkn own Comp Metabolic Syn104 Creat 1.3 mg/dL 10/25/2018 Unkn own Comp Metabolic Aye024 eGFR 61 ml/min/1.73m2 10/25/19 19 Unknown Comp Metabolic Srb710 BUN 26 mg/dL 10/25/2018 Unkn own Comp Metabolic Nci090 B/C Ratio 19.7 Ratio 10/25/2018 Unk nown Comp Metabolic Iza018 CALCIUM 9.8 mg/dL 10/25/2018 Unkn own Comp Metabolic Kst533 ALK PHOS 51 U/L 10/25/2018 Unkn own Comp Metabolic Whf443 AST(SGOT) 33 U/L 10/25/2018 Unkn own Comp Metabolic Mqx023 ALT(SGPT) 28 U/L 10/25/2018 Unkn own Comp Metabolic Enp447 BILI T 0.5 mg/dL 10/25/2018 Unkn own Comp Metabolic Pok520 ALBUMIN 4.3 g/dL 10/25/2018 Unkn own Comp Metabolic Edt150 TPRO 6.9 g/dL 10/25/2018 Unkn own Comp Metabolic Tzd934 GLOB 2.6 g/dL 10/25/2018 Unkn own Comp Metabolic Tve321 A/G Ratio 1.6 Ratio 10/25/2018 Unkn own Comp Metabolic Tew868 Osmo 294 mOsmo 10/25/2018 Unkn own %Hba1C Cpe204 % HbA1c 59934-6 9.7 % 10/25/2018 Unknown %Hba1C Rxm541 Gluc Ave 232 mg/dL 10/25/2018 Unknown Metabolic [...] Ord15 CALCIUM 10.1 mg/dL 08/23/2018 Unknown %Hba1C Kuc573 % HbA1c 29561-0 12.4 % 07/19/2018 Unknown %Hba1C Uym707 Gluc Ave 309 mg/dL 07/19/2018 Unknown Lipid [...] 07/19/20 18 Unknown Cbc With Differential Ord2 [place]% 8.1 % 07/19/20 18 Unknown Cbc With [...] K/ul 018 Unknown Cbc With Differential Ord2 [place] ABS# 0.4 K/ul 07/19/20 18 Unknown Cbc With Differential Ord2 Eos ABS# 0.1 K/ul 07/19/20 18 Unknown Cbc With Differential Ord2 Baso ABS# 0.0 K/ul 07/19/20 18 Unknown Comp Metabolic Man806 NA 142 mEq/L 07/19/2018 Unkn own Comp Metabolic Vls681 K 3.9 mEq/L 07/19/2018 Unkn own Comp Metabolic Xjk944 CL 104 mEq/L 07/19/2018 Unkn own Comp Metabolic Zkf297 CO2 27.0 mEq/L 07/19/2018 Unk nown Comp Metabolic Jyd146 ANION GAP 15 07/19/2018 Unkn own Comp Metabolic Yqj536 GLUCOSE 168 mg/dL 07/19/2018 Unkn own Comp Metabolic Kvb471 Creat 1.4 mg/dL 07/19/2018 Unkn own Comp Metabolic Blf931 eGFR 56 ml/min/1.73m2 07/19/20 18 Unknown Comp Metabolic Uko009 BUN 34 mg/dL 07/19/2018 Unkn own Comp Metabolic Pgm899 B/C Ratio 23.8 Ratio 07/19/2018 Unk nown Comp Metabolic Qsx731 CALCIUM 9.6 mg/dL 07/19/2018 Unkn own Comp Metabolic Iys958 ALK PHOS 55 U/L 07/19/2018 Unkn own Comp Metabolic Gmp581 AST(SGOT) 24 U/L 07/19/2018 Unkn own Comp Metabolic Mfa743 ALT(SGPT) 30 U/L 07/19/2018 Unkn own Comp Metabolic Zlz089 BILI T 0.4 mg/dL 07/19/2018 Unkn own Comp Metabolic Npa956 ALBUMIN 4.2 g/dL 07/19/2018 Unkn own Comp Metabolic Wgp246 TPRO 6.8 g/dL 07/19/2018 Unkn own Comp Metabolic Awu617 GLOB 2.6 g/dL 07/19/2018 Unkn own Comp Metabolic Dju664 A/G Ratio 1.6 Ratio 07/19/2018 Unkn own Comp Metabolic Qoj630 Osmo 295 mOsmo 07/19/2018 Unkn own Cbc [...] 04/12/20 18 Unknown Cbc With Differential Ord2 [place]% 8.0 % 04/12/20 18 Unknown Cbc With [...] K/ul 018 Unknown Cbc With Differential Ord2 [place] ABS# 0.4 K/ul 04/12/20 18 Unknown Cbc With Differential Ord2 Eos ABS# 0.1 K/ul 04/12/20 18 Unknown Cbc With Differential Ord2 Baso ABS# 0.0 K/ul 04/12/20 18 Unknown %Hba1C Rvj444 % HbA1c 57357-0 10.8 % 04/12/2018 Unknown %Hba1C Apv653 Gluc Ave 263 mg/dL 04/12/2018 Unknown Comp Metabolic Vui519 NA 143 mEq/L 04/12/2018 Unkn own Comp Metabolic Csi401 K 3.9 mEq/L 04/12/2018 Unkn own Comp Metabolic Eve734 CL 106 mEq/L 04/12/2018 Unkn own Comp Metabolic Eps547 CO2 30.0 mEq/L 04/12/2018 Unk nown Comp Metabolic Nqu128 ANION GAP 11 04/12/2018 Unkn own Comp Metabolic Sis353 GLUCOSE 203 mg/dL 04/12/2018 Unkn own Comp Metabolic Tll533 Creat 1.5 mg/dL 04/12/2018 Unkn own Comp Metabolic Khw165 eGFR 53 ml/min/1.73m2 04/12/20 18 Unknown Comp Metabolic Udv616 BUN 37 mg/dL 04/12/2018 Unkn own Comp Metabolic Ewy624 B/C Ratio 24.7 Ratio 04/12/2018 Unk nown Comp Metabolic Kqe823 CALCIUM 9.5 mg/dL 04/12/2018 Unkn own Comp Metabolic Vxg160 ALK PHOS 46 U/L 04/12/2018 Unkn own Comp Metabolic Eba112 AST(SGOT) 19 U/L 04/12/2018 Unkn own Comp Metabolic Wls624 ALT(SGPT) 25 U/L 04/12/2018 Unkn own Comp Metabolic Nzx341 BILI T 0.4 mg/dL 04/12/2018 Unkn own Comp Metabolic Oag623 ALBUMIN 4.1 g/dL 04/12/2018 Unkn own Comp Metabolic Moo430 TPRO 6.6 g/dL 04/12/2018 Unkn own Comp Metabolic Pmh537 GLOB 2.5 g/dL 04/12/2018 Unkn own Comp Metabolic Nuq842 A/G Ratio 1.7 Ratio 04/12/2018 Unkn own Comp Metabolic Ehs001 Osmo 299 mOsmo 04/12/2018 Unkn own Metabolic [...] C/HDL 4.6 Ratio 12/03/2017 Unknown Comp Metabolic Riw361 NA 140 mEq/L 12/03/2017 Unkn own Comp Metabolic Miz367 K 4.0 mEq/L 12/03/2017 Unkn own Comp Metabolic Izx359 CL 103 mEq/L 12/03/2017 Unkn own Comp Metabolic Zwt796 CO2 26.0 mEq/L 12/03/2017 Unk nown Comp Metabolic Lgn966 ANION GAP 15 12/03/2017 Unkn own Comp Metabolic Csa664 GLUCOSE 142 mg/dL 12/03/2017 Unkn own Comp Metabolic Lha134 Creat 1.9 mg/dL 12/03/2017 Unkn own Comp Metabolic Kkz565 eGFR 39 ml/min/1.73m2 12/04/19 18 Unknown Comp Metabolic Bch369 BUN 34 mg/dL 12/03/2017 Unkn own Comp Metabolic Jbn829 B/C Ratio 17.5 Ratio 12/03/2017 Unk nown Comp Metabolic Vpy975 CALCIUM 9.7 mg/dL 12/03/2017 Unkn own Comp Metabolic Igo804 ALK PHOS 46 U/L 12/03/2017 Unkn own Comp Metabolic Ore170 AST(SGOT) 34 U/L 12/03/2017 Unkn own Comp Metabolic Bpl570 ALT(SGPT) 38 U/L 12/03/2017 Unkn own Comp Metabolic Lru983 BILI T 0.5 mg/dL 12/03/2017 Unkn own Comp Metabolic Fwo192 ALBUMIN 4.5 g/dL 12/03/2017 Unkn own Comp Metabolic Nkk899 TPRO 6.9 g/dL 12/03/2017 Unkn own Comp Metabolic Qzv969 GLOB 2.4 g/dL 12/03/2017 Unkn own Comp Metabolic Pqr944 A/G Ratio 1.8 Ratio 12/03/2017 Unkn own Comp Metabolic Xep624 Osmo 289 mOsmo 12/03/2017 Unkn own %Hba1C Gpe421 % HbA1c 66224-2 10.2 % 12/03/2017 Unknown %Hba1C Fgr916 Gluc Ave 246 mg/dL 12/03/2017 Unknown Cbc [...] 12/04/19 18 Unknown Cbc With Differential Ord2 [place]% 7.7 % 12/04/19 18 Unknown Cbc With [...] K/ul 018 Unknown Cbc With Differential Ord2 [place] ABS# 0.6 K/ul 12/04/19 18 Unknown Cbc [...] C/HDL 4.2 Ratio 08/17/2017 Unknown Comp Metabolic Ujv433 NA 142 mEq/L 08/17/2017 Unkn own Comp Metabolic Gzb390 K 4.0 mEq/L 08/17/2017 Unkn own Comp Metabolic Mwn537 CL 108 mEq/L 08/17/2017 Unkn own Comp Metabolic Blx232 CO2 27.0 mEq/L 08/17/2017 Unk nown Comp Metabolic Rrn315 ANION GAP 11 08/17/2017 Unkn own Comp Metabolic Jxz693 GLUCOSE 213 mg/dL 08/17/2017 Unkn own Comp Metabolic Tki620 Creat 1.2 mg/dL 08/17/2017 Unkn own Comp Metabolic Dmk034 eGFR 70 ml/min/1.73m2 08/17/20 17 Unknown Comp Metabolic Iuw760 BUN 29 mg/dL 08/17/2017 Unkn own Comp Metabolic Ory089 B/C Ratio 24.6 Ratio 08/17/2017 Unk nown Comp Metabolic Woa204 CALCIUM 9.3 mg/dL 08/17/2017 Unkn own Comp Metabolic Fqe995 ALK PHOS 43 U/L 08/17/2017 Unkn own Comp Metabolic Ikc207 AST(SGOT) 18 U/L 08/17/2017 Unkn own Comp Metabolic Nrn117 ALT(SGPT) 23 U/L 08/17/2017 Unkn own Comp Metabolic Ftq572 BILI T 0.3 mg/dL 08/17/2017 Unkn own Comp Metabolic Dga430 ALBUMIN 4.0 g/dL 08/17/2017 Unkn own Comp Metabolic Dwf103 TPRO 6.1 g/dL 08/17/2017 Unkn own Comp Metabolic Hdk046 GLOB 2.1 g/dL 08/17/2017 Unkn own Comp Metabolic Hop450 A/G Ratio 1.9 Ratio 08/17/2017 Unkn own Comp Metabolic Ymt444 Osmo 295 mOsmo 08/17/2017 Unkn own Cbc [...] 08/17/20 17 Unknown Cbc With Differential Ord2 [place]% 8.0 % 08/17/20 17 Unknown Cbc With [...] K/ul 017 Unknown Cbc With Differential Ord2 [place] ABS# 0.4 K/ul 08/17/20 17 Unknown Cbc With Differential Ord2 Eos ABS# 0.1 K/ul 08/17/20 17 Unknown Cbc With Differential Ord2 Baso ABS# 0.0 K/ul 08/17/20 17 Unknown %Hba1C Ofp792 % HbA1c 60502-5 10.6 % 08/17/2017 Unknown %Hba1C Tbu915 Gluc Ave 258 mg/dL 08/17/2017 Unknown Microalbumin Myr234 MicroAlb 4.2 mg/dL 05/18/2017 Unknow n %Hba1C Hnq246 % HbA1c 20044-0 10.4 % 05/18/2017 Unknown %Hba1C Eqe691 Gluc Ave 252 mg/dL 05/18/2017 Unknown Comp Metabolic Bgr671 NA 141 mEq/L 05/18/2017 Unkn own Comp Metabolic Bzq513 K 4.0 mEq/L 05/18/2017 Unkn own Comp Metabolic Ulp549 CL 104 mEq/L 05/18/2017 Unkn own Comp Metabolic Plq114 CO2 28.0 mEq/L 05/18/2017 Unk nown Comp Metabolic Gbu298 ANION GAP 13 05/18/2017 Unkn own Comp Metabolic Vsv600 GLUCOSE 157 mg/dL 05/18/2017 Unkn own Comp Metabolic Rbw998 Creat 1.2 mg/dL 05/18/2017 Unkn own Comp Metabolic Vja015 eGFR 68 ml/min/1.73m2 05/18/20 17 Unknown Comp Metabolic Xfc277 BUN 32 mg/dL 05/18/2017 Unkn own Comp Metabolic Skc679 B/C Ratio 26.4 Ratio 05/18/2017 Unk nown Comp Metabolic Adv288 CALCIUM 9.5 mg/dL 05/18/2017 Unkn own Comp Metabolic Ilq005 ALK PHOS 51 U/L 05/18/2017 Unkn own Comp Metabolic Kzc624 AST(SGOT) 18 U/L 05/18/2017 Unkn own Comp Metabolic Aje924 ALT(SGPT) 24 U/L 05/18/2017 Unkn own Comp Metabolic Pdu933 BILI T 0.5 mg/dL 05/18/2017 Unkn own Comp Metabolic Sns721 ALBUMIN 4.1 g/dL 05/18/2017 Unkn own Comp Metabolic Vaf312 TPRO 6.7 g/dL 05/18/2017 Unkn own Comp Metabolic Eir833 GLOB 2.6 g/dL 05/18/2017 Unkn own Comp Metabolic Uce722 A/G Ratio 1.5 Ratio 05/18/2017 Unkn own Comp Metabolic Bhc183 Osmo 291 mOsmo 05/18/2017 Unkn own Cbc [...] 05/18/20 17 Unknown Cbc With Differential Ord2 [place]% 8.5 % 05/18/20 17 Unknown Cbc With [...] K/ul 017 Unknown Cbc With Differential Ord2 [place] ABS# 0.4 K/ul 05/18/20 17 Unknown Cbc [...] Ord30 C/HDL 5.7 Ratio 01/26/2017 Unknown %Hba1C Iag382 % HbA1c 95719-3 13.2 % 01/26/2017 Unknown %Hba1C Mue948 Gluc Ave 332 mg/dL 01/26/2017 Unknown %Hba1C Qre264 % HbA1c 83968-4 12.1 % 10/13/2016 Unknown %Hba1C Nrf452 Gluc Ave 301 mg/dL 10/13/2016 Unknown Tsh Ord6 hTSH II 0.78 uIU/mL 10/13/2016 Unknown Comp Metabolic Ghe987 NA 137 mEq/L 10/13/2016 Unkn own Comp Metabolic Wsq338 K 4.1 mEq/L 10/13/2016 Unkn own Comp Metabolic Nck779 CL 104 mEq/L 10/13/2016 Unkn own Comp Metabolic Mle858 CO2 26.0 mEq/L 10/13/2016 Unk nown Comp Metabolic Njz920 ANION GAP 11 10/13/2016 Unkn own Comp Metabolic Dam273 GLUCOSE 308 mg/dL 10/13/2016 Unkn own Comp Metabolic Urb321 Creat 1.0 mg/dL 10/13/2016 Unkn own Comp Metabolic Ffj720 eGFR 81 ml/min/1.73m2 10/13/19 17 Unknown Comp Metabolic Ckv573 BUN 20 mg/dL 10/13/2016 Unkn own Comp Metabolic Avj696 B/C Ratio 19.2 Ratio 10/13/2016 Unk nown Comp Metabolic Acx108 CALCIUM 9.7 mg/dL 10/13/2016 Unkn own Comp Metabolic Peu307 ALK PHOS 62 U/L 10/13/2016 Unkn own Comp Metabolic Yjl865 AST(SGOT) 24 U/L 10/13/2016 Unkn own Comp Metabolic God456 ALT(SGPT) 37 U/L 10/13/2016 Unkn own Comp Metabolic Etw404 BILI T 0.4 mg/dL 10/13/2016 Unkn own Comp Metabolic Tco070 ALBUMIN 4.2 g/dL 10/13/2016 Unkn own Comp Metabolic Ali643 TPRO 6.9 g/dL 10/13/2016 Unkn own Comp Metabolic Zpn376 GLOB 2.7 g/dL 10/13/2016 Unkn own Comp Metabolic Nhv532 A/G Ratio 1.5 Ratio 10/13/2016 Unkn own Comp Metabolic Gxn724 Osmo 288 mOsmo 10/13/2016 Unkn own Cbc [...] 10/13/19 17 Unknown Cbc With Differential Ord2 [place]% 7.4 % 10/13/19 17 Unknown Cbc With [...] K/ul 017 Unknown Cbc With Differential Ord2 [place] ABS# 0.4 K/ul 10/13/19 17 Unknown Cbc [...] 1: 140/90 Code: 8480-6 BMI: 31.9 Code: 20987-5 Heart Rate 1: 96 bpm Height: 5'10" Code: 8302-2 SpO2: 96% Temperature: 36.3 (C) / 97.4 (F) Weight: 222 lbs Code: 12881-3 01/14/2021 Blood Pressure 1: 140/90 Code: 8480-6 BMI: 31.7 Code: 95627-9 Heart Rate 1: 92 bpm Height: 5'10" Code: 8302-2 SpO2: 93% Temperature: 36.3 (C) / 97.3 (F) Weight: 221 lbs Code: 36559-6 09/17/2020 Blood Pressure 1: 116/72 Code: 8480-6 BMI: 32.6 Code: 09506-9 Heart Rate 1: 89 bpm Height: 5'10" Code: 8302-2 SpO2: 97% Temperature: 35.8 (C) / 96.4 (F) Weight: 227 lbs Code: 30762-4 06/11/2020 Blood Pressure 1: 122/70 Code: 8480-6 BMI: 32.7 Code: 61868-9 Heart Rate 1: 75 bpm Height: 5'10" Code: 8302-2 SpO2: 97% Temperature: 36.2 (C) / 97.1 (F) Weight: 228 lbs Code: 25680-5 05/19/2020 Blood Pressure 1: 154/66 Code: 8480-6 BMI: 33.1 Code: 39204-6 Heart Rate 1: 80 bpm Height: 5'10" Code: 8302-2 SpO2: 98% Temperature: 36.3 (C) / 97.3 (F) Weight: 231 lbs Code: 64344-0 12/12/2019 Blood Pressure 1: 130/74 Code: 8480-6 BMI: 32.9 Code: 82636-9 Heart Rate 1: 95 bpm Height: 5'10" Code: 8302-2 SpO2: 96% Temperature: 36.3 (C) / 97.4 (F) Weight: 229 lbs Code: 62902-6 06/13/2019 Blood Pressure 1: 138/82 Code: 8480-6 BMI: 33.1 Code: 73387-0 Heart Rate 1: 80 bpm Height: 5'10" Code: 8302-2 SpO2: 96% Weight: 231 l bs Code: 57091-2 02/14/2019 Blood Pressure 1: 120/84 Code: 8480-6 BMI: 33.1 Code: 75424-9 Heart Rate 1: 85 bpm Height: 5'10" Code: 8302-2 SpO2: 98% Weight: 231 l bs Code: 42794-5 10/18/2018 Blood Pressure 1: 126/78 Code: 8480-6 BMI: 33.0 Code: 55757-3 Heart Rate 1: 81 bpm Height: 5'10" Code: 8302-2 SpO2: 98% Weight: 230 l bs Code: 18076-5 08/23/2018 Blood Pressure 1: 130/70 Code: 8480-6 BMI: 32.9 Code: 61564-4 Heart Rate 1: 85 bpm Height: 5'10" Code: 8302-2 SpO2: 96% Weight: 229 l bs Code: 63000-9 07/19/2018 Blood Pressure 1: 130/80 Code: 8480-6 BMI: 32.3 Code: 68161-6 Heart Rate 1: 86 bpm Height: 5'10" Code: 8302-2 SpO2: 96% Weight: 225 l bs Code: 09501-9 04/19/2018 Blood Pressure 1: 128/82 Code: 8480-6 BMI: 32.7 Code: 61808-0 Heart Rate 1: 83 bpm Height: 5'10" Code: 8302-2 SpO2: 94% Weight: 228 l bs Code: 44082-8 01/18/2018 Blood Pressure 1: 130/78 Code: 8480-6 BMI: 32.9 Code: 68519-5 Heart Rate 1: 80 bpm Height: 5'10" Code: 8302-2 SpO2: 95% Weight: 229 l bs Code: 00093-4 12/21/2017 Blood Pressure 1: 112/60 Code: 8480-6 BMI: 32.9 Code: 02261-8 Heart Rate 1: 92 bpm Height: 5'10" Code: 8302-2 SpO2: 93% Weight: 229 l bs Code: 12758-0 08/17/2017 Blood Pressure 1: 130/78 Code: 8480-6 BMI: 33.3 Code: 37624-7 Heart Rate 1: 88 bpm Height: 5'10" Code: 8302-2 SpO2: 96% Weight: 232 l bs Code: 20987-9 07/12/2017 Blood Pressure 1: 130/74 Code: 8480-6 BMI: 32.7 Code: 51240-3 Heart Rate 1: 88 bpm Height: 5'10" Code: 8302-2 SpO2: 98% Weight: 228 l bs Code: 76938-0 05/18/2017 Blood Pressure 1: 120/74 Code: 8480-6 BMI: 32.7 Code: 19754-2 Heart Rate 1: 86 bpm Height: 5'10" Code: 8302-2 SpO2: 97% Weight: 228 l bs Code: 35188-9 03/16/2017 Blood Pressure 1: 126/78 Code: 8480-6 BMI: 32.6 Code: 34302-3 Heart Rate 1: 81 bpm Height: 5'10" Code: 8302-2 SpO2: 95% Weight: 227 l bs Code: 22772-3 02/09/2017 Blood Pressure 1: 132/80 Code: 8480-6 BMI: 32.6 Code: 49624-6 Heart Rate 1: 89 bpm Height: 5'10" Code: 8302-2 SpO2: 96% Weight: 227 l bs Code: 08895-7 10/13/2016 Blood Pressure 1: 146/90 Code: 8480-6 BMI: 32.3 Code: 12495-6 Heart Rate 1: 88 bpm Height: 5'10" Code: 8302-2 SpO2: 98% Weight: 225 l bs Code: 74163-2 Functional Status No Functional Status data Reason [...] 10/13/2016 Encounters Encounter Performer Location Codes Date ( [id number] EST. PATIENT, LEVEL III Diagnosis: Type 2 diabetes mellitus with hyperglycemia[ICD10: E11.65] Mary Box MD, [facility] CPT-4: 09160 04/29/2021 ([id number]) 47469 EST. PATIENT, LEVEL IV Diagnosis: Essential (primary) hypertension[ICD10: I10] Diagnosis: Type 2 diabetes mellitus with hyperglycemia[ICD10: E11.65] Diagnosis: Mixed hyperlipidemia[ICD10: E78.2] Mary espinoza MD, [facility] CPT-4: 97946 01/14/2021 [id number]) 20640 EST. PATIENT, LEVEL IV Diagnosis: Type 2 diabetes mellitus with hyperglycemia[ICD10: E11.65] Diagnosis: Essential (primary) hypertension[ICD10: I10] Diagnosis: Mixed hyperlipidemia[ICD10: E78.2] Diagnosis: Left shoulder pain[ICD10: M25.512] Mary espinoza MD, [facility] CPT-4: 73419 09/17/2020 ([id number]) 17156 EST. PATIENT, LEVEL IV Diagnosis: Essential (primary) hypertension[ICD10: I10] Diagnosis: Type 2 diabetes mellitus with hyperglycemia[ICD10: E11.65] Mary Box MD, [facility] CPT-4: 07962 06/11/2020 [id number] EST. PATIENT, LEVEL III Diagnosis: Left wrist pain[ICD10: M25.532] Miya Box MD , [facility] CPT-4: 21805 05/19/2020 [id number] EST. PATIENT, LEVEL IV Diagnosis: Essential (primary) hypertension[ICD10: I10] Diagnosis: Type 2 diabetes mellitus without complications[ICD10: E11.9] Miya Box MD, [facility] CPT-4: 99415 12/12/2019 ([id number]) 45372 EST. PATIENT, LEVEL IV Diagnosis: Type 2 diabetes mellitus with hyperglycemia[ICD10: E11.65] Diagnosis: Essential (primary) hypertension[ICD10: I10] Diagnosis: Chronic kidney disease, stage 3 (moderate)[ICD10: N18.3] Mary Box MD, [facility] CPT-4: 54404 06/13/2019 ([id number]) 45561 EST. PATIENT, LEVEL III Diagnosis: Type 2 diabetes mellitus with hyperglycemia[ICD10: E11.65] Diagnosis: Essential (primary) hypertension[ICD10: I10] Mary Box MD, [facility] CPT-4: 37786 02/14/2019 ([id number]) 42275 EST. PATIENT, LEVEL IV Diagnosis: Type 2 diabetes mellitus with hyperglycemia[ICD10: E11.65] Diagnosis: Essential (primary) hypertension[ICD10: I10] Diagnosis: Chronic kidney disease, stage 3 (moderate)[ICD10: N18.3] Diagnosis: Mixed hyperlipidemia[ICD10: E78.2] Mary espinoza MD, [facility] CPT-4: 60681 10/18/2018 ([id number]) 68767 EST. PATIENT, LEVEL IV Diagnosis: Essential (primary) hypertension[ICD10: I10] Diagnosis: Type 2 diabetes mellitus with hyperglycemia[ICD10: E11.65] Diagnosis: Localized edema[ICD10: R60.0] Mary perla MD, [facility] CPT-4: 91925 08/23/2018 ([id number]) 46050 EST. PATIENT, LEVEL IV Diagnosis: Type 2 diabetes mellitus with hyperglycemia[ICD10: E11.65] Diagnosis: Mixed hyperlipidemia[ICD10: E78.2] Diagnosis: Essential (primary) hypertension[ICD10: I10] Mary Box MD, [facility] CPT-4: 20976 07/19/2018 ([id number]) 38550 EST. PATIENT, LEVEL IV Diagnosis: Type 2 diabetes mellitus with hyperglycemia[ICD10: E11.65] Diagnosis: Essential (primary) hypertension[ICD10: I10] Diagnosis: Chronic kidney disease, stage 3 (moderate)[ICD10: N18.3] Mary Box MD, [facility] CPT-4: 14042 04/19/2018 ([id number]) 28265 EST. PATIENT, LEVEL III Diagnosis: Type 2 diabetes mellitus with hyperglycemia[ICD10: E11.65] Mary Box MD, [facility] CPT-4: 46275 01/18/2018 ([id number]) 12225 EST. PATIENT, LEVEL IV Diagnosis: Type 2 diabetes mellitus with hyperglycemia[ICD10: E11.65] Diagnosis: Essential (primary) hypertension[ICD10: I10] Diagnosis: Mixed hyperlipidemia[ICD10: E78.2] Diagnosis: Acute kidney failure, unspecified[ICD10: N17.9] Mary Box MD, [facility] CPT-4: 03617 12/21/2017 ([id number]) 58224 EST. PATIENT, LEVEL IV Diagnosis: Type 2 diabetes mellitus with hyperglycemia[ICD10: E11.65] Diagnosis: Essential (primary) hypertension[ICD10: I10] Diagnosis: Mixed hyperlipidemia[ICD10: E78.2] Mary espinoza MD, [facility] CPT-4: 03506 08/17/2017 [id number] EST. PATIENT, LEVEL III Diagnosis: Pain in right shoulder[ICD10: M25.511] Miya Hanley MD, [facility] CPT-4: 63712 07/12/2017 ([id number]) 02227 EST. PATIENT, LEVEL IV Diagnosis: Type 2 diabetes mellitus with hyperglycemia[ICD10: E11.65] Diagnosis: Essential (primary) hypertension[ICD10: I10] Diagnosis: Mixed hyperlipidemia[ICD10: E78.2] Diagnosis: Bicipital tendinitis, right shoulder[ICD10: M75.21] Diagnosis: Acute recurrent maxillary sinusitis[ICD10: J01.01] Mary Box MD, [facility] CPT-4: 55115 05/18/2017 ([id number]) 07655 EST. PATIENT, LEVEL III Diagnosis: Type 2 diabetes mellitus with hyperglycemia[ICD10: E11.65] Mary Box MD, [facility] CPT-4: 38062 03/16/2017 ([id number]) [id number] EST. PATIENT, LEVEL III Diagnosis: Type 2 diabetes mellitus with hyperglycemia[ICD10: E11.65] Diagnosis: Essential (primary) hypertension[ICD10: I10] Mary Box MD, [facility] CPT-4: 24668 02/09/2017 OFFICE VISIT, NEW - LEVEL 4 Diagnosis: Essential (primary) hypertension[ICD10: I10] Diagnosis: Type 2 diabetes mellitus without complications[ICD10: E11.9] Diagnosis: Personal history of malignant melanoma of skin[ICD10: Z85.820] Miya Box MD, [facility] CPT-4: 12382 10/13/2016 Plan of Care Planned Activity Notes [...] Hypertension Completed 04/29/2021 Appointment: Mary Crawley WPtel: [address] [place], [place] [id number] (15 min) Moderate 04/15/2021 Visit Plan: Hypertension [...] current medications 01/14/2021 Appointment[phone] (15 min) Moderate 01/14/2021 Patient Education: [...] for evaluation 09/17/2020 Appointment: Mary Crawley WPtel: [phone] [phone] (15 min) Moderate 09/17/2020 Patient Education: Patient [...] home. 06/11/2020 App[facility]ment[phone] (15 min) Moderate 06/11/2020 Patient Education: [...] concerns. 05/19/2020 Appointment: [phone] (30 min) Complex 05/19/2020 Patient Education: [...] [phone] (15 min) Moderate 12/12/2019 Patient Education: Patient [...] [phone] (15 min) Moderate 02/14/2019 Patient Education: Patient Medication Summary Completed 02/14/2019 Patient Education: Hypertension Completed 02/14/2019 Appointment: Mary Crawley WPtel: [phone] [phone] (15 min) Moderate 11/22/2018 Visit Plan: [phone] [place] (15 min) Moderate 10/18/2018 Patient [...] labs in 3 months to monitor a1c Bjyoy-ewccxz-xglgn lasix only as needed for swelling-check kidney function today 08/23/2018 Appointment: Mary Crawley WPtel: [phone] (15 min) Moderate 08/23/2018 Patient Education: Patient [...] less controlled. 07/19/2018 Appointment: Mary Crawley WPtel: [phone] (15 min) Moderate 07/19/2018 Patient Education: Patient [...] SEND IN INSURANCE VERIFICATION TO SEE IF Image [employer]cher[employer] CONNECT (CONTINUOUS GLUCOSE MONITOR) IS COVERED. Hyperlipidemia [...] medications. 04/19/2018 Appointment: Mary Crawley WPtel: [phone] (15 min) Moderate 04/19/2018 Patient Education: Patient [...] today 01/18/2018 Appointment: Mary Crawley WPtel: [phone] [phone] (15 min) Moderate 01/18/2018 Patient Education: [...] monitor 12/21/2017 Appointment: Mary Crawley WPtel: [phone] [facility] [place] [address] (15 min) Moderate 12/21/2017 Patient Education: Patient Medication Summary Completed 12/21/2017 Care Plan: Comp Metabolic patient to have done in 1 month before appt Pending 12/21/2017 [facility]ment: [phone] (30 min) Complex 12/14/2017 Visit Plan: Hypertension [...] improve. 07/12/2017 Appointment: [facility]as [facility]el[phone] (30 min) Complex 07/12/2017 [...] improved. 05/18/2017 Appointment: Mary Crawley WPtel: [phone] (15 min) Moderate 05/18/2017 Patient [...] at home. 02/09/2017 Appointment: Mary Crawley WPtel: [phone] (30 min) Complex 02/09/2017 Patient Education: Patient Medication Summary Completed 02/09/2017 Patient Education: Obesity Completed 0 02/09/2017 Referral: Maryana Wick WPtel: Referral Initiated 10/17/2016 Care Plan: Referral Order SNOMED-CT : [id number] Pending 10/15/2016 Visit Plan: Hypertension - well [...] routine monitoring. 10/13/2016 Appointment: Miya Ruelas WPtel: [facility] [facility] 10/13/2016 Patient Education: Patient Medication Summary Completed 10/13/2016 Care Plan: Comp Metabolic Pending Care Plan: Cbc With Differential Pending 10/13/2016 Care Plan: %Hba1C LOINC : 87727-0 Pending 10/13/2016 Care Plan: Tsh Pending 10/13/2016 Care Plan: Lipid Pending 10/13/2016 Referral: Maryana Wick WPtel: Referral Initiated Instructions Comment NOVOLOG 70/30 25 UNITS TWICE DAILY TO [place] [facility] CALL IF YOU ARE UNABLE TO GET/DO [...] labs in 3 months to monitor a1c Blbye-imccra-hecea lasix only as needed for swelling-check kidney [...] LABS DOXYCYCLINE 100MG TWICE DAILY SENT TO [facility]START OVER THE WEEKEND IF NEEDED FOR [...]
--- OUTSIDE RECORDS SUMMARY | 2021-05-20 11:28 | XMS REPORT | CCD ---
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 [id number] Unknown Unknown Family history Mother Diagnosis Age At Onset Hyperlipidemia Unknown Brother Diagnosis Age At Onset Diabetes mellitus Type 2 Unknown Hyperlipidemia Unknown Hypertension Unknown Sister Diagnosis Age At Onset Skin cancer Unknown Father Diagnosis Age At Onset Hypertension Unknown Stroke Unknown Hypertension Unknown Social History Social History Element Codes Description Effective Dates Number of children Unknown 1 10/13/[address]: 304564278 Never smoker 10/13/[address]: 099536021 Never drinks alcohol 2016 Allergies, Adverse Reactions, Alerts Substance Reaction Codes Entered Date Inactivated Date Status NO KNOWN ALLERGIES Unknown 10/13/2016 No Inactive Date Active Problems Condition Codes Effective Dates Condition Status Essential (primary) hypertension ICD-10: I10 ICD-9: 401.9 10/13/2016 Active Mixed hyperlipidemia ICD-10: E78.2 ICD-9: 272.2 05/18/2017 Active Type 2 diabetes mellitus with hyperglycemia ICD-10: E1 1.65 ICD-9: 250.00 02/09/2017 Active Left shoulder pain ICD-10: M25.512 ICD-9: [...] Insulin 100 unit/mL subcutaneous suspens ion RxNorm: 025581 Administer 25 Unit(s) Subcutaneous two times a day 04/29/2021 10/25/2021 Active PT TO USE GOOD RX CARD FOR PENS acyclovir 800 mg tablet RxNorm: 485731 TAKE ONE TABLET BY MOUTH FOUR TIMES A DAY 03/17/2021 No Stop Date Active Lipitor 40 mg tablet RxNorm: 546896 TAKE ONE TABLET BY MOUTH EVERY NIGHT AT BEDTIME 02/21/2021 No Stop Date Active Novolin 70/30 U-100 Insulin 100 unit/mL subcutaneous suspens ion RxNorm: 420751 25 Unit(s) Subcutaneous two times a day 01/25/2021 04/28/2021 Inactive give qty sufficient for 30 days supply- either pen or vial. DC lantus Novolin 70/30 U-100 Insulin 100 unit/mL subcutaneous suspens ion RxNorm: 764590 25 Unit(s) Subcutaneous two times a day 01/25/2021 01/24/2021 Inactive give qty sufficient for 30 days supply- either pen or vial. DC lantus Jardiance 10 mg tablet RxNorm: 2609353 TAKE ONE TABLET BY MOUTH EVERY MORNING 01/24/2021 07/22/2021 Active - First Attempt Ref : [id number] Lantus Solostar U-100 Insulin 100 unit/mL (3 mL) subcu taneous pen RxNorm: 735283 55 Unit(s) Subcutaneous two times a day 01/17/2021 01/24/2021 I nactive qty sufficient for 30 day supply and pen needles Basaglar KwikPen U-100 Insulin 100 unit/mL (3 mL) subcutaneo us RxNorm: 5990428 55 Unit(s) Subcutaneous two times a day 01/14/2021 01/24/2021 Inactive Basaglar KwikPen U-100 Insulin 100 unit/mL (3 mL) subcutaneo us RxNorm: 0857942 55 Unit(s) Subcutaneous two times a day 01/14/2021 01/13/2021 Inactive tramadol 50 mg tablet RxNorm: 100276 TAKE ONE TABLET BY MOUTH EVERY 8 HOURS NEEDED FOR PAIN 11/18/2020 No Stop Date Active Lipitor 40 mg tablet RxNorm: 689926 TAKE ONE TABLET BY MOUTH EVERY NIGHT AT BEDTIME 10/11/2020 02/20/2021 Inactive Lantus Solostar U-100 Insulin 100 unit/mL (3 mL) subcu taneous pen RxNorm: 147863 55 Unit(s) Subcutaneous two times a day 10/06/2020 01/13/2021 I nactive qty sufficient for 30 day supply and pen needles Lantus Solostar U-100 Insulin 100 unit/mL (3 mL) subcu taneous pen RxNorm: 335846 55 Unit(s) Subcutaneous two times a day 10/06/2020 10/05/2020 I nactive Toujeo SoloStar U-300 Insulin 300 unit/mL (1.5 mL) sub cutaneous pen RxNorm: 1120318 INJECT 55 UNITS UNDER THE SKIN TWICE A DAY 09/22/202010/05 Inactive metoprolol succinate ER 50 mg tablet,extended release 24 hr RxNorm: 869386 TAKE ONE TABLET BY MOUTH TWICE A DAY 09/21/2020 No Stop Date Active tramadol 50 mg tablet RxNorm: 455416 1 Tablet(s) Oral E very 8 hrs as needed as needed pain 09/17/2020 09/17/2020 Inactive losartan 100 mg tablet RxNorm: 909682 TAKE ONE TABLET BY MOUTH CRISTAL Y 08/09/2020 No Stop Date Active fenofibrate 160 mg tablet RxNorm: 018389 TAKE ONE TABLET BY ROMEO TH DAILY 07/26/2020 No Stop Date Active Jardiance 10 mg tablet RxNorm: 8119533 TAKE ONE TABLET BY MOUTH EVERY MORNING 06/24/2020 12/20/2020 Inactive - First Attempt Ref : [id number] tramadol 50 mg tablet RxNorm: 391562 1 Tablet(s) Oral t hree times a day as needed pain 05/21/2020 05/20/2020 Inactive tramadol 50 mg tablet RxNorm: 265477 1 Tablet(s) Oral t hree times a day as needed pain 05/21/2020 05/21/2020 Inactive prednisone 20 mg tablet RxNorm: 941884 2 Tablet(s) Oral every day 0 05/19/2020 05/24/2020 Inactive Colcrys 0.6 mg tablet RxNorm: 788786 Tablet(s) Oral 2 p ills now and 1 pill in 1 hour 05/19/2020 04/28/2021 Inactive prednisone 20 mg tablet RxNorm: 558211 2 Tablet(s) Oral every day 0 05/19/2020 05/18/2020 Inactive Lipitor 40 mg tablet RxNorm: 549737 TAKE ONE TABLET BY MOUTH EVERY NIGHT AT BEDTIME 05/10/2020 10/10/2020 Inactive Toujeo SoloStar U-300 Insulin 300 unit/mL (1.5 mL) sub cutaneous pen RxNorm: 8478886 INJECT 50 UNITS UNDER THE SKIN TWICE A DAY 05/03/202009/21 Inactive Jardiance 10 mg tablet RxNorm: 5951408 TAKE ONE TABLET BY MOUTH EVERY MORNING 01/06/2020 06/23/2020 Inactive - First Attempt Ref: [id number] Toujeo SoloStar U-300 Insulin 300 unit/mL (1.5 mL) sub cutaneous pen RxNorm: 8363005 58 Unit(s) Subcutaneous two times a day 12/25/2019 09/16/2020 I nactive acyclovir 800 mg tablet RxNorm: 213257 TAKE ONE TABLET BY MOUTH FOUR TIMES A DAY 12/22/2019 06/10/2020 Inactive losartan 100 mg tablet RxNorm: 466625 TAKE ONE TABLET BY MOUTH CRISTAL Y 11/07/2019 08/08/2020 Inactive Lipitor 40 mg tablet RxNorm: 523734 TAKE ONE TABLET BY MOUTH EVERY NIGHT AT BEDTIME 11/07/2019 05/09/2020 Inactive metoprolol succinate ER 50 mg tablet,extended release 24 hr RxNorm: 908106 TAKE ONE TABLET BY MOUTH TWICE A DAY 11/03/2019 09/20/2020 Inactive fenofibrate 160 mg tablet RxNorm: 981575 TAKE ONE TABLET BY ROMEO TH DAILY 09/17/2019 07/25/2020 Inactive Lipitor 40 mg tablet RxNorm: 729506 TAKE ONE TABLET BY MOUTH EVERY NIGHT AT BEDTIME 08/08/2019 11/06/2019 Inactive Toujeo SoloStar U-300 Insulin 300 unit/mL (1.5 mL) sub cutaneous pen RxNorm: 0542331 55 Unit(s) Subcutaneous two times a day 07/30/2019 12/24/2019 I nactive Novolog Flexpen U-100 Insulin aspart 100 unit/mL (3 mL ) subcutaneous RxNorm: 0381623 5 Unit(s) Subcutaneous three times a day with meals 07/30/2012/11/2019 Inactive Toujeo SoloStar U-300 Insulin 300 unit/mL (1.5 mL) sub cutaneous pen RxNorm: 4339856 50 Unit(s) SQ BID 05/23/2019 07/29/2019 Inactive Lipitor 40 mg tablet RxNorm: 572691 TAKE ONE TABLET BY MOUTH EVERY NIGHT AT BEDTIME 03/27/2019 03/26/2019 Inactive Lipitor 40 mg tablet RxNorm: 658384 TAKE ONE TABLET BY MOUTH EVERY NIGHT AT BEDTIME 03/27/2019 06/10/2020 Inactive Lasix 20 mg tablet RxNorm: 359791 TAKE ONE TABLET BY MOUTH DAILY 06/10/2020 Inactive Jardiance 10 mg tablet RxNorm: 3835071 Tablet(s) TAKE ON E TABLET BY MOUTH EVERY MORNING 03/19/2019 03/18/2019 Inactive Jardiance 10 mg tablet RxNorm: 1809533 Tablet(s) TAKE ON E TABLET BY MOUTH EVERY MORNING 03/19/2019 01/05/2020 Inactive Toujeo SoloStar U-300 Insulin 300 unit/mL (1.5 mL) sub cutaneous pen RxNorm: 3653208 50 Unit(s) SQ BID 02/28/2019 05/22/2019 Inactive updated in structions metoprolol succinate ER 50 mg tablet,extended release 24 hr RxNorm: 032837 TAKE ONE TABLET BY MOUTH TWICE A DAY 01/15/2019 08/12/2019 Inactive Jardiance 10 mg tablet RxNorm: 6011445 TAKE ONE TABLET BY MOUTH EVERY MORNING 12/20/2018 03/18/2019 Inactive losartan 100 mg tablet RxNorm: 189125 1 Tablet(s) PO daily 11/06/1911/05/2018 Inactive losartan 100 mg tablet RxNorm: 247397 1 Tablet(s) PO daily 11/06/1910/31/2019 Inactive Toujeo SoloStar U-300 Insulin 300 unit/mL (1.5 mL) sub cutaneous pen RxNorm: 4312655 45 Unit(s) SQ BID 10/29/2018 02/27/2019 Inactive updated in structions Lipitor 40 mg tablet RxNorm: 049654 TAKE ONE TABLET BY MOUTH EVERY NIGHT AT BEDTIME 10/25/2018 03/23/2019 Inactive fenofibrate 160 mg tablet RxNorm: 879992 TAKE ONE TABLET BY ROMEO TH DAILY 10/15/2018 09/09/2019 Inactive Toujeo SoloStar U-300 Insulin 300 unit/mL (1.5 mL) sub cutaneous pen RxNorm: 2615277 45 Unit(s) SQ UD 40 units SQ QAM and 45 units SQ QPM 019 10/28/2018 Inactive updated instructions Lasix 20 mg tablet RxNorm: 1 Tablet(s) PO daily as needed 09/21/2018 Inactive acyclovir 800 mg tablet RxNorm: 497376 1 Tablet(s) PO QID 08/23/2018 09/01/2018 Inactive Lasix 20 mg tablet RxNorm: 1 Tablet(s) PO daily 08/12/2018 Inactive Lasix 20 mg tablet RxNorm: 1 Tablet(s) PO daily 08/12/201810/2017 Inactive metoprolol succinate ER 50 mg tablet,extended release 24 hr RxNorm: 114054 TAKE ONE TABLET BY MOUTH TWICE A DAY 08/09/2018 01/05/2019 Inactive Benicar 40 mg tablet RxNorm: 678988 1 Tablet(s) PO daily 07/22/2018 1 09/20/2017 Inactive Med change! Toujeo SoloStar U-300 Insulin 300 unit/mL (1.5 mL) sub cutaneous pen RxNorm: 5343468 40 Unit(s) SQ BID x2 weeks then increase to 40 units SQ QAM and 45 units SQ QPM 07/22/2018 09/29/2018 Inactive updated instruct ions Benicar 40 mg tablet RxNorm: 138047 1 Tablet(s) PO daily 07/22/2018 0 11/05/2018 Inactive Med change! Toujeo SoloStar U-300 Insulin 300 unit/mL (1.5 mL) sub cutaneous pen RxNorm: 5610358 40 in am and 35 pm Unit(s) SQ BID 07/19/2018 07/21/2018 Inactiv e update instructions Jardiance 10 mg tablet RxNorm: 4708858 TAKE ONE TABLET BY MOUTH EVERY MORNING 06/24/2018 12/19/2018 Inactive Zyrtec 10 mg tablet RxNorm: 8529387 TAKE ONE TABLET BY MOUTH DAILY 05/01/2018 07/29/2018 Inactive Lipitor 40 mg tablet RxNorm: 653451 TAKE ONE TABLET BY MOUTH EVERY NIGHT AT BEDTIME 04/25/2018 10/21/2018 Inactive Toujeo SoloStar U-300 Insulin 300 unit/mL (1.5 mL) sub cutaneous pen RxNorm: 0798372 40 Unit(s) SQ BID 04/19/2018 07/18/2018 Inactive update ins tructions Benicar HCT 40 mg-25 mg tablet RxNorm: 796592 TAKE ONE TABLET B Y MOUTH DAILY 04/08/2018 07/21/2018 Inactive fenofibrate 160 mg tablet RxNorm: 903722 TAKE ONE TABLET BY ROMEO TH DAILY 03/20/2018 10/14/2018 Inactive fenofibrate 160 mg tablet RxNorm: 436515 TAKE ONE TABLET BY ROMEO TH DAILY 01/14/2018 03/19/2018 Inactive metoprolol succinate ER 50 mg tablet,extended release 24 hr RxNorm: 280424 TAKE ONE TABLET BY MOUTH TWICE A DAY 12/27/2017 06/24/2018 Inactive Toujeo SoloStar U-300 Insulin 300 unit/mL (1.5 mL) sub cutaneous pen RxNorm: 3281761 34 Unit(s) SQ BID 12/21/2017 04/18/2018 Inactive update ins tructions: increase to 32 units twice daily x 1 week then 34 units twice daily Jardiance 10 mg tablet RxNorm: 7436571 1 Tablet(s) PO QAM 11/28/2017 09/21/2020 Inactive Toujeo SoloStar U-300 Insulin 300 unit/mL (1.5 mL) sub cutaneous pen RxNorm: 1781748 30 Unit(s) SQ BID 10/25/2017 12/20/2017 Inactive Invokana 100 mg tablet RxNorm: 8565029 1 Tablet(s) PO daily 018 10/25/2017 Inactive Invokana 100 mg tablet RxNorm: 1793594 1 Tablet(s) PO daily 018 10/24/2017 Inactive Toujeo SoloStar U-300 Insulin 300 unit/mL (1.5 mL) sub cutaneous pen RxNorm: 7314688 30 Unit(s) SQ BID 10/25/2017 10/24/2017 Inactive Januvia 100 mg tablet RxNorm: 355018 1 Tablet(s) PO daily 10/25/2017 11/27/2017 Inactive fenofibrate 160 mg tablet RxNorm: 119643 TAKE ONE TABLET BY ROMEO TH DAILY 10/17/2017 01/13/2018 Inactive Tresiba FlexTouch U-200 200 unit/mL (3 mL) subcutaneou s insulin pen RxNorm: 1213843 66 Unit(s) SQ daily 10/16/2017 10/24/2017 Inactive Please g sapphire 90 day supply Tresiba FlexTouch U-200 200 unit/mL (3 mL) subcutaneou s insulin pen RxNorm: 8791257 66 Unit(s) SQ daily 10/11/2017 10/15/2017 Inactive Onglyza 5 mg tablet RxNorm: 577509 2 Tablet(s) PO daily 10/02/2017 Inactive d/c jardiance Onglyza 5 mg tablet RxNorm: 413886 2 Tablet(s) PO daily 10/02/2017 Inactive d/c jardiance Tresiba FlexTouch U-200 200 unit/mL (3 mL) subcutaneou s insulin pen RxNorm: 5072202 35 Unit(s) SQ BID 10/02/2017 06/12/2019 Inactive Lipitor 40 mg tablet RxNorm: 127985 TAKE ONE TABLET BY MOUTH EVERY NIGHT AT BEDTIME 09/17/2017 04/14/2018 Inactive Tresiba FlexTouch U-200 200 unit/mL (3 mL) subcutaneou s insulin pen RxNorm: 5692430 66 Unit(s) SQ daily 08/28/2017 08/29/2017 Inactive Jardiance 10 mg tablet RxNorm: 5303587 1 Tablet(s) PO QAM 08/28/2017 10/01/2017 Inactive Jardiance 10 mg tablet RxNorm: 7902404 1 Tablet(s) PO QAM 08/28/2017 08/27/2017 Inactive Tresiba FlexTouch U-200 200 unit/mL (3 mL) subcutaneou s insulin pen RxNorm: 4466162 62 Unit(s) SQ daily 08/17/2017 08/18/2017 Inactive Zipsor 25 mg capsule RxNorm: 089989 1 Capsule(s) PO QID as needed 1 09/12/2016 12/20/2017 Inactive fenofibrate 160 mg tablet RxNorm: 863114 TAKE ONE TABLET BY ROMEO TH DAILY 07/12/2017 10/16/2017 Inactive Lipitor 40 mg tablet RxNorm: 519237 TAKE ONE TABLET BY MOUTH EVERY NIGHT AT BEDTIME 06/14/2017 09/11/2017 Inactive metformin 1,000 mg tablet RxNorm: 864377 TAKE ONE TABLET BY ROMEO TH TWICE A DAY 06/01/2017 12/03/2017 Inactive metoprolol succinate ER 50 mg tablet,extended release 24 hr RxNorm: 416889 TAKE ONE TABLET BY MOUTH TWICE A DAY 06/01/2017 11/27/2017 Inactive prednisone 10 mg tablets in a dose pack RxNorm: 320352 1 Tablet(s) PO UD ; take as prescribed on dose pack 06/01/2017 06/05/2017 Inactive prednisone 10 mg tablets in a dose pack RxNorm: 322570 1 Tablet(s) PO UD ; take as prescribed on dose pack 06/01/2017 05/31/2017 Inactive Tresiba FlexTouch U-200 200 unit/mL (3 mL) subcutaneou s insulin pen RxNorm: 3058511 58 Unit(s) SQ daily INJECT 58 UNITS UNDER THE SKIN DAILY 05/24/2017 Inactive doxycycline hyclate 100 mg tablet RxNorm: 101009 1 Tablet(s) PO BID 05/18/2017 05/24/2017 Inactive metformin 1,000 mg tablet RxNorm: 401137 TAKE ONE TABLET BY ROMEO TH TWICE A DAY 04/30/2017 05/29/2017 Inactive fenofibrate 160 mg tablet RxNorm: 434050 TAKE ONE TABLET BY ROMEO TH DAILY 04/11/2017 07/11/2017 Inactive Benicar HCT 40 mg-25 mg tablet RxNorm: 173502 TAKE ONE TABLET B Y MOUTH DAILY 04/11/2017 04/05/2018 Inactive Tresiba FlexTouch U-200 200 unit/mL (3 mL) subcutaneou s insulin pen RxNorm: 6604697 54 Unit(s) SQ daily INJECT 54 UNITS UNDER THE SKIN DAILY 03/201705/22/2017 Inactive metoprolol succinate ER 50 mg tablet,extended release 24 hr RxNorm: 321272 TAKE ONE TABLET BY MOUTH TWICE A DAY 02/20/2017 04/20/2017 Inactive metformin 1,000 mg tablet RxNorm: 053762 TAKE ONE TABLET BY ROMEO TH TWICE A DAY 02/20/2017 04/20/2017 Inactive fenofibrate 160 mg tablet RxNorm: 955317 TAKE ONE TABLET BY ROMEO TH DAILY 02/13/2017 04/10/2017 Inactive Lipitor 40 mg tablet RxNorm: 040942 1 Tablet(s) PO QHS 02/07/2017 Inactive Lipitor 40 mg tablet RxNorm: 274640 1 Tablet(s) PO QHS 02/07/2017 Inactive Tresiba FlexTouch U-200 200 unit/mL (3 mL) subcutaneou s insulin pen RxNorm: 4520731 Unit(s) INJECT 45 UNITS UNDER THE SKIN DAILY 02/07/201702/2017 Inactive Benicar HCT 40 mg-25 mg tablet RxNorm: 925468 TAKE ONE TABLET B Y MOUTH DAILY 01/12/2017 04/10/2017 Inactive Tresiba FlexTouch U-200 200 unit/mL (3 mL) subcutaneou s insulin pen RxNorm: 6336591 INJECT 30 UNITS UNDER THE SKIN DAILY 12/28/2016 02/06/2017 Inac tive metoprolol succinate ER 50 mg tablet,extended release 24 hr RxNorm: 580184 TAKE ONE TABLET BY MOUTH TWICE A DAY 11/14/2016 02/11/2017 Inactive metformin 1,000 mg tablet RxNorm: 175465 TAKE ONE TABLET BY ROMEO TH TWICE A DAY 11/14/2016 02/11/2017 Inactive fenofibrate 160 mg tablet RxNorm: 060607 TAKE ONE TABLET BY ROMEO TH DAILY 11/14/2016 02/11/2017 Inactive Lipitor 10 mg tablet RxNorm: 261025 1 Tablet(s) PO daily 10/19/2016 0 10/18/2016 Inactive Januvia 100 mg tablet RxNorm: 515085 1 Tablet(s) PO daily 10/19/2016 02/08/2017 Inactive Lipitor 10 mg tablet RxNorm: 823967 1 Tablet(s) PO daily 10/19/2016 0 02/06/2017 Inactive Januvia 100 mg tablet RxNorm: 691695 1 Tablet(s) PO daily 10/15/2016 10/18/2016 Inactive Tresiba FlexTouch U-200 200 unit/mL (3 mL) subcutaneou s insulin pen RxNorm: 9181949 30 Unit(s) SQ daily 10/13/2016 12/27/2016 Inactive Please d ispense quantity sufficient for 90 days Zyrtec 10 mg tablet RxNorm: 3302057 1 Tablet(s) PO daily 10/13/2016 0 01/10/2017 Inactive metoprolol succinate ER 50 mg tablet,extended release 24 hr RxNorm: 670387 1 Tablet(s) PO BID 10/13/2016 11/11/2016 Inactive fenofibrate 160 mg tablet RxNorm: 011393 1 Tablet(s) PO daily 10/1311/11/2016 Inactive metformin 1,000 mg tablet RxNorm: 756063 1 Tablet(s) PO BID 017 11/11/2016 Inactive Benicar HCT 40 mg-25 mg tablet RxNorm: 136047 1 Tablet(s) PO daily 10/13/2016 01/10/2017 Inactive fenofibrate 160 mg tablet RxNorm: 861904 1 Tablet(s) PO daily 10/1310/12/2016 Inactive Januvia 100 mg tablet RxNorm: 608344 1 Tablet(s) PO daily 02/09/2017 02/08/2017 Inactive metformin 1,000 mg tablet RxNorm: 658744 1 Tablet(s) PO BID 017 10/12/2016 Inactive Novolin 70/30 U-100 Insulin subcutaneous RxNorm: 3481030 subcuta neous 01/25/2021 01/24/2021 Inactive Benicar HCT 40 mg-25 mg tablet RxNorm: 092635 1 Tablet(s) PO daily 10/13/2016 10/12/2016 Inactive Tresiba FlexTouch U-200 200 unit/mL (3 mL) subcutaneou s insulin pen RxNorm: 6794009 30 Unit(s) SQ daily 10/13/2016 10/12/2016 Inactive metoprolol succinate ER 50 mg tablet,extended release 24 hr RxNorm: 165441 1 Tablet(s) PO BID 10/13/2016 10/12/2016 Inactive Medication Administered No Medication Administered data Immunizations No Immunization data Results Observation Observation Code Item Item Code Result Date S ervice Location %Hba1C Bti731 % HbA1c 33614-1 14.0 % 01/14/2021 Unknown %Hba1C Tsv584 Gluc Ave 355 mg/dL 01/14/2021 Unknown Comp Metabolic Sdz844 NA 139 mEq/L 01/14/2021 Unkn own Comp Metabolic Vjo503 K 4.0 mEq/L 01/14/2021 Unkn own Comp Metabolic Qdw148 CL 106 mEq/L 01/14/2021 Unkn own Comp Metabolic Qvk049 CO2 24.0 mEq/L 01/14/2021 Unk nown Comp Metabolic Flg113 ANION GAP 13 01/14/2021 Unkn own Comp Metabolic Gyw414 GLUCOSE 295 mg/dL 01/14/2021 Unkn own Comp Metabolic Xkr584 Creat 1.2 mg/dL 01/14/2021 Unkn own Comp Metabolic Hal613 eGFR 68 ml/min/1.73m2 01/15/20 21 Unknown Comp Metabolic Lpt802 BUN 37 mg/dL 01/14/2021 Unkn own Comp Metabolic Nmw282 B/C Ratio 30.8 Ratio 01/14/2021 Unk nown Comp Metabolic Esn179 CALCIUM 9.2 mg/dL 01/14/2021 Unkn own Comp Metabolic Pnr498 ALK PHOS 58 U/L 01/14/2021 Unkn own Comp Metabolic Gis397 AST(SGOT) 20 U/L 01/14/2021 Unkn own Comp Metabolic Rws712 ALT(SGPT) 28 U/L 01/14/2021 Unkn own Comp Metabolic Qbs135 BILI T 0.5 mg/dL 01/14/2021 Unkn own Comp Metabolic Wbg420 ALBUMIN 4.0 g/dL 01/14/2021 Unkn own Comp Metabolic Xrp804 TPRO 6.4 g/dL 01/14/2021 Unkn own Comp Metabolic Sdc251 GLOB 2.4 g/dL 01/14/2021 Unkn own Comp Metabolic Mzc042 A/G Ratio 1.7 Ratio 01/14/2021 Unkn own Comp Metabolic Auw570 Osmo 297 mOsmo 01/14/2021 Unkn own Lipid Ord30 CHOL 169 mg/dL 09/17/2020 Unknown Lipid Ord30 HDL 40.0 mg/dl 09/17/2020 Unknown Lipid Ord30 TRIG 146 mg/dL 09/17/2020 Unknown Lipid Ord30 LDL 100 mg/dL 09/17/2020 Unknown Lipid Ord30 C/HDL 4.2 Ratio 09/17/2020 Unknown Comp Metabolic Lyo624 NA 141 mEq/L 09/17/2020 Unkn own Comp Metabolic Pfx696 K 4.3 mEq/L 09/17/2020 Unkn own Comp Metabolic Bcb578 CL 105 mEq/L 09/17/2020 Unkn own Comp Metabolic Xwd492 CO2 28.0 mEq/L 09/17/2020 Unk nown Comp Metabolic Yrt765 ANION GAP 12 09/17/2020 Unkn own Comp Metabolic Jwl328 GLUCOSE 126 mg/dL 09/17/2020 Unkn own Comp Metabolic Fwr515 Creat 1.2 mg/dL 09/17/2020 Unkn own Comp Metabolic Vju800 eGFR 65 ml/min/1.73m2 09/17/19 21 Unknown Comp Metabolic Qtm055 BUN 27 mg/dL 09/17/2020 Unkn own Comp Metabolic Dms973 B/C Ratio 21.8 Ratio 09/17/2020 Unk nown Comp Metabolic Ujr748 CALCIUM 9.4 mg/dL 09/17/2020 Unkn own Comp Metabolic Wai033 ALK PHOS 49 U/L 09/17/2020 Unkn own Comp Metabolic Lvt150 AST(SGOT) 24 U/L 09/17/2020 Unkn own Comp Metabolic Klf008 ALT(SGPT) 33 U/L 09/17/2020 Unkn own Comp Metabolic Gvb038 BILI T 0.5 mg/dL 09/17/2020 Unkn own Comp Metabolic Xsk908 ALBUMIN 4.4 g/dL 09/17/2020 Unkn own Comp Metabolic Cio059 TPRO 6.8 g/dL 09/17/2020 Unkn own Comp Metabolic Rqm510 GLOB 2.4 g/dL 09/17/2020 Unkn own Comp Metabolic Hng076 A/G Ratio 1.8 Ratio 09/17/2020 Unkn own Comp Metabolic Cgz296 Osmo 288 mOsmo 09/17/2020 Unkn own Cbc [...] 09/17/19 21 Unknown Cbc With Differential Ord2 Daggett% 9.1 % 09/17/19 21 Unknown Cbc With [...] K/ul 021 Unknown Cbc With Differential Ord2 [place] ABS# 0.5 K/ul 09/17/19 21 Unknown Cbc With Differential Ord2 Eos ABS# 0.1 K/ul 09/17/19 21 Unknown Cbc With Differential Ord2 Baso ABS# 0.0 K/ul 09/17/19 21 Unknown %Hba1C Bgo006 % HbA1c 38499-8 9.7 % 09/17/2020 Unknown %Hba1C Jyq286 Gluc Ave 232 mg/dL 09/17/2020 Unknown JESUS (ABE) ROUTINE F307 Antinuclear Antibody Negative 05/24/2020 Unknown Ra Factor Rfb526 RA FACTOR 11.8 IU/ml 05/20/2020 Unknown Uric Acid Ord77 Uric A 4.2 mg/dL 05/19/2020 Unknown Sed Rate Ord21 ESR 1 mm/hr 05/19/2020 Unknown C-Reactive Protein Qnt Crqnt CRP 0.9 mg/dl 2019 Unknown %Hba1C Wcf460 % HbA1c 02458-7 12.0 % 05/14/2020 Unknown %Hba1C Pmp247 Gluc Ave 298 mg/dL 05/14/2020 Unknown Comp Metabolic Bqp558 NA 142 mEq/L 05/14/2020 Unkn own Comp Metabolic Rjp553 K 4.1 mEq/L 05/14/2020 Unkn own Comp Metabolic Imp559 CL 108 mEq/L 05/14/2020 Unkn own Comp Metabolic Wly867 CO2 26.0 mEq/L 05/14/2020 Unk nown Comp Metabolic Dlr104 ANION GAP 12 05/14/2020 Unkn own Comp Metabolic Yjf314 GLUCOSE 229 mg/dL 05/14/2020 Unkn own Comp Metabolic Zfb499 Creat 1.4 mg/dL 05/14/2020 Unkn own Comp Metabolic Aks571 eGFR 58 ml/min/1.73m2 05/14/20 20 Unknown Comp Metabolic Gsy782 BUN 27 mg/dL 05/14/2020 Unkn own Comp Metabolic Kds547 B/C Ratio 19.7 Ratio 05/14/2020 Unk nown Comp Metabolic Ulg019 CALCIUM 9.4 mg/dL 05/14/2020 Unkn own Comp Metabolic Qdg591 ALK PHOS 62 U/L 05/14/2020 Unkn own Comp Metabolic Ahb554 AST(SGOT) 21 U/L 05/14/2020 Unkn own Comp Metabolic Mbe131 ALT(SGPT) 31 U/L 05/14/2020 Unkn own Comp Metabolic Euk321 BILI T 0.4 mg/dL 05/14/2020 Unkn own Comp Metabolic Kdy988 ALBUMIN 4.3 g/dL 05/14/2020 Unkn own Comp Metabolic Fpr525 TPRO 6.8 g/dL 05/14/2020 Unkn own Comp Metabolic Nzb220 GLOB 2.5 g/dL 05/14/2020 Unkn own Comp Metabolic Psp063 A/G Ratio 1.7 Ratio 05/14/2020 Unkn own Comp Metabolic Prn484 Osmo 295 mOsmo 05/14/2020 Unkn own Cbc [...] 05/14/20 20 Unknown Cbc With Differential Ord2 [place]% 7.6 % 05/14/20 20 Unknown Cbc With [...] K/ul 020 Unknown Cbc With Differential Ord2 [place] ABS# 0.5 K/ul 05/14/20 20 Unknown Cbc [...] 12/12/19 20 Unknown Cbc With Differential Ord2 [place]% 9.1 % 12/12/19 20 Unknown Cbc With [...] K/ul 020 Unknown Cbc With Differential Ord2 [place] ABS# 0.4 K/ul 12/12/19 20 Unknown Cbc With Differential Ord2 Eos ABS# 0.1 K/ul 12/12/19 20 Unknown Cbc With Differential Ord2 Baso ABS# 0.0 K/ul 12/12/19 20 Unknown %Hba1C Lwc952 % HbA1c 50344-8 11.3 % 12/12/2019 Unknown %Hba1C Cbf329 Gluc Ave 278 mg/dL 12/12/2019 Unknown Comp Metabolic Zyu282 NA 147 mEq/L 12/12/2019 Unkn own Comp Metabolic Lul887 K 3.9 mEq/L 12/12/2019 Unkn own Comp Metabolic Zrz720 CL 110 mEq/L 12/12/2019 Unkn own Comp Metabolic Drh779 CO2 28.0 mEq/L 12/12/2019 Unk nown Comp Metabolic Bak488 ANION GAP 13 12/12/2019 Unkn own Comp Metabolic Rps147 GLUCOSE 170 mg/dL 12/12/2019 Unkn own Comp Metabolic Wel121 Creat 1.2 mg/dL 12/12/2019 Unkn own Comp Metabolic Qka497 eGFR 65 ml/min/1.73m2 12/12/19 20 Unknown Comp Metabolic Nyj277 BUN 24 mg/dL 12/12/2019 Unkn own Comp Metabolic Uny793 B/C Ratio 19.4 Ratio 12/12/2019 Unk nown Comp Metabolic Izh510 CALCIUM 9.5 mg/dL 12/12/2019 Unkn own Comp Metabolic Wer245 ALK PHOS 57 U/L 12/12/2019 Unkn own Comp Metabolic Viv643 AST(SGOT) 21 U/L 12/12/2019 Unkn own Comp Metabolic Oub719 ALT(SGPT) 29 U/L 12/12/2019 Unkn own Comp Metabolic Zih484 BILI T 0.4 mg/dL 12/12/2019 Unkn own Comp Metabolic Cnw040 ALBUMIN 4.1 g/dL 12/12/2019 Unkn own Comp Metabolic Hqh255 TPRO 6.7 g/dL 12/12/2019 Unkn own Comp Metabolic Nbl774 GLOB 2.6 g/dL 12/12/2019 Unkn own Comp Metabolic Txi772 A/G Ratio 1.6 Ratio 12/12/2019 Unkn own Comp Metabolic Ewm272 Osmo 300 mOsmo 12/12/2019 Unkn own %Hba1C Wjf880 % HbA1c 45765-7 10.0 % 06/13/2019 Unknown %Hba1C Vrl640 Gluc Ave 240 mg/dL 06/13/2019 Unknown Comp Metabolic Jld660 NA 143 mEq/L 06/13/2019 Unkn own Comp Metabolic Ouo287 K 3.7 mEq/L 06/13/2019 Unkn own Comp Metabolic Gph299 CL 107 mEq/L 06/13/2019 Unkn own Comp Metabolic Ong182 CO2 26.0 mEq/L 06/13/2019 Unk nown Comp Metabolic Avm845 ANION GAP 14 06/13/2019 Unkn own Comp Metabolic Qno406 GLUCOSE 125 mg/dL 06/13/2019 Unkn own Comp Metabolic Bnh599 Creat 1.2 mg/dL 06/13/2019 Unkn own Comp Metabolic Yfx644 eGFR 65 ml/min/1.73m2 06/13/20 19 Unknown Comp Metabolic Vqt407 BUN 25 mg/dL 06/13/2019 Unkn own Comp Metabolic Nyf873 B/C Ratio 20.2 Ratio 06/13/2019 Unk nown Comp Metabolic Lau000 CALCIUM 9.2 mg/dL 06/13/2019 Unkn own Comp Metabolic Nst300 ALK PHOS 54 U/L 06/13/2019 Unkn own Comp Metabolic Tfi402 AST(SGOT) 21 U/L 06/13/2019 Unkn own Comp Metabolic Rfv518 ALT(SGPT) 30 U/L 06/13/2019 Unkn own Comp Metabolic Kau197 BILI T 0.4 mg/dL 06/13/2019 Unkn own Comp Metabolic Iaw207 ALBUMIN 4.2 g/dL 06/13/2019 Unkn own Comp Metabolic Hgr144 TPRO 6.5 g/dL 06/13/2019 Unkn own Comp Metabolic Gej706 GLOB 2.4 g/dL 06/13/2019 Unkn own Comp Metabolic Szm118 A/G Ratio 1.8 Ratio 06/13/2019 Unkn own Comp Metabolic Xhq803 Osmo 291 mOsmo 06/13/2019 Unkn own Cbc [...] 06/13/20 19 Unknown Cbc With Differential Ord2 [place]% 6.7 % 06/13/20 19 Unknown Cbc With [...] K/ul 019 Unknown Cbc With Differential Ord2 [place] ABS# 0.4 K/ul 06/13/20 19 Unknown Cbc [...] C/HDL 4.3 Ratio 02/14/2019 Unknown Comp Metabolic Vvu100 NA 144 mEq/L 02/14/2019 Unkn own Comp Metabolic Gxj611 K 3.8 mEq/L 02/14/2019 Unkn own Comp Metabolic Mkl388 CL 110 mEq/L 02/14/2019 Unkn own Comp Metabolic Kvc344 CO2 26.0 mEq/L 02/14/2019 Unk nown Comp Metabolic Hdq446 ANION GAP 12 02/14/2019 Unkn own Comp Metabolic Tbc950 GLUCOSE 143 mg/dL 02/14/2019 Unkn own Comp Metabolic Zkq097 Creat 1.3 mg/dL 02/14/2019 Unkn own Comp Metabolic Kyq103 eGFR 61 ml/min/1.73m2 02/15/20 19 Unknown Comp Metabolic Xok980 BUN 29 mg/dL 02/14/2019 Unkn own Comp Metabolic Ffu555 B/C Ratio 22.0 Ratio 02/14/2019 Unk nown Comp Metabolic Ory762 CALCIUM 9.5 mg/dL 02/14/2019 Unkn own Comp Metabolic Dqr565 ALK PHOS 49 U/L 02/14/2019 Unkn own Comp Metabolic Aap773 AST(SGOT) 18 U/L 02/14/2019 Unkn own Comp Metabolic Eei440 ALT(SGPT) 23 U/L 02/14/2019 Unkn own Comp Metabolic Ayz772 BILI T 0.4 mg/dL 02/14/2019 Unkn own Comp Metabolic Emo732 ALBUMIN 4.4 g/dL 02/14/2019 Unkn own Comp Metabolic Dzu753 TPRO 6.8 g/dL 02/14/2019 Unkn own Comp Metabolic Oxm367 GLOB 2.4 g/dL 02/14/2019 Unkn own Comp Metabolic Prv637 A/G Ratio 1.8 Ratio 02/14/2019 Unkn own Comp Metabolic Wvz928 Osmo 295 mOsmo 02/14/2019 Unkn own %Hba1C Lgm496 % HbA1c 19188-3 9.9 % 02/14/2019 Unknown %Hba1C Ffv703 Gluc Ave 237 mg/dL 02/14/2019 Unknown Cbc [...] 10/25/19 19 Unknown Cbc With Differential Ord2 [place]% 8.6 % 10/25/19 19 Unknown Cbc With [...] K/ul 019 Unknown Cbc With Differential Ord2 [place] ABS# 0.4 K/ul 10/25/19 19 Unknown Cbc [...] C/HDL 3.9 Ratio 10/25/2018 Unknown Comp Metabolic Mcj106 NA 144 mEq/L 10/25/2018 Unkn own Comp Metabolic Col038 K 4.7 mEq/L 10/25/2018 Unkn own Comp Metabolic Oln886 CL 113 mEq/L 10/25/2018 Unkn own Comp Metabolic Kim312 CO2 21.0 mEq/L 10/25/2018 Unk nown Comp Metabolic Tsl054 ANION GAP 15 10/25/2018 Unkn own Comp Metabolic Igu276 GLUCOSE 136 mg/dL 10/25/2018 Unkn own Comp Metabolic Aqf610 Creat 1.3 mg/dL 10/25/2018 Unkn own Comp Metabolic Nmc410 eGFR 61 ml/min/1.73m2 10/25/19 19 Unknown Comp Metabolic Zkm686 BUN 26 mg/dL 10/25/2018 Unkn own Comp Metabolic Kdb799 B/C Ratio 19.7 Ratio 10/25/2018 Unk nown Comp Metabolic Ehi381 CALCIUM 9.8 mg/dL 10/25/2018 Unkn own Comp Metabolic Xsq689 ALK PHOS 51 U/L 10/25/2018 Unkn own Comp Metabolic Tgj187 AST(SGOT) 33 U/L 10/25/2018 Unkn own Comp Metabolic Oez260 ALT(SGPT) 28 U/L 10/25/2018 Unkn own Comp Metabolic Lsq076 BILI T 0.5 mg/dL 10/25/2018 Unkn own Comp Metabolic Lhy930 ALBUMIN 4.3 g/dL 10/25/2018 Unkn own Comp Metabolic Iyl006 TPRO 6.9 g/dL 10/25/2018 Unkn own Comp Metabolic Qxy761 GLOB 2.6 g/dL 10/25/2018 Unkn own Comp Metabolic Irq313 A/G Ratio 1.6 Ratio 10/25/2018 Unkn own Comp Metabolic Dnr210 Osmo 294 mOsmo 10/25/2018 Unkn own %Hba1C Tbm390 % HbA1c 47912-1 9.7 % 10/25/2018 Unknown %Hba1C Kes061 Gluc Ave 232 mg/dL 10/25/2018 Unknown Metabolic [...] Ord15 CALCIUM 10.1 mg/dL 08/23/2018 Unknown %Hba1C Kwg212 % HbA1c 98907-6 12.4 % 07/19/2018 Unknown %Hba1C Gob596 Gluc Ave 309 mg/dL 07/19/2018 Unknown Lipid [...] 07/19/20 18 Unknown Cbc With Differential Ord2 [place]% 8.1 % 07/19/20 18 Unknown Cbc With [...] K/ul 018 Unknown Cbc With Differential Ord2 [place] ABS# 0.4 K/ul 07/19/20 18 Unknown Cbc With Differential Ord2 Eos ABS# 0.1 K/ul 07/19/20 18 Unknown Cbc With Differential Ord2 Baso ABS# 0.0 K/ul 07/19/20 18 Unknown Comp Metabolic Hlx776 NA 142 mEq/L 07/19/2018 Unkn own Comp Metabolic Uky817 K 3.9 mEq/L 07/19/2018 Unkn own Comp Metabolic Ufk160 CL 104 mEq/L 07/19/2018 Unkn own Comp Metabolic Zmk349 CO2 27.0 mEq/L 07/19/2018 Unk nown Comp Metabolic Nwl012 ANION GAP 15 07/19/2018 Unkn own Comp Metabolic Xdk157 GLUCOSE 168 mg/dL 07/19/2018 Unkn own Comp Metabolic Zzt862 Creat 1.4 mg/dL 07/19/2018 Unkn own Comp Metabolic Vrf505 eGFR 56 ml/min/1.73m2 07/19/20 18 Unknown Comp Metabolic Umz098 BUN 34 mg/dL 07/19/2018 Unkn own Comp Metabolic Xzo131 B/C Ratio 23.8 Ratio 07/19/2018 Unk nown Comp Metabolic Itq861 CALCIUM 9.6 mg/dL 07/19/2018 Unkn own Comp Metabolic Jah857 ALK PHOS 55 U/L 07/19/2018 Unkn own Comp Metabolic Ftb012 AST(SGOT) 24 U/L 07/19/2018 Unkn own Comp Metabolic Sdl805 ALT(SGPT) 30 U/L 07/19/2018 Unkn own Comp Metabolic Xvo813 BILI T 0.4 mg/dL 07/19/2018 Unkn own Comp Metabolic Oya500 ALBUMIN 4.2 g/dL 07/19/2018 Unkn own Comp Metabolic Rlo745 TPRO 6.8 g/dL 07/19/2018 Unkn own Comp Metabolic Wbb348 GLOB 2.6 g/dL 07/19/2018 Unkn own Comp Metabolic Lga097 A/G Ratio 1.6 Ratio 07/19/2018 Unkn own Comp Metabolic Vbe440 Osmo 295 mOsmo 07/19/2018 Unkn own Cbc [...] 04/12/20 18 Unknown Cbc With Differential Ord2 [place]% 8.0 % 04/12/20 18 Unknown Cbc With [...] K/ul 018 Unknown Cbc With Differential Ord2 [place] ABS# 0.4 K/ul 04/12/20 18 Unknown Cbc With Differential Ord2 Eos ABS# 0.1 K/ul 04/12/20 18 Unknown Cbc With Differential Ord2 Baso ABS# 0.0 K/ul 04/12/20 18 Unknown %Hba1C Ere661 % HbA1c 56345-4 10.8 % 04/12/2018 Unknown %Hba1C Knt052 Gluc Ave 263 mg/dL 04/12/2018 Unknown Comp Metabolic Qcq918 NA 143 mEq/L 04/12/2018 Unkn own Comp Metabolic Jva544 K 3.9 mEq/L 04/12/2018 Unkn own Comp Metabolic Jgr164 CL 106 mEq/L 04/12/2018 Unkn own Comp Metabolic Koo986 CO2 30.0 mEq/L 04/12/2018 Unk nown Comp Metabolic Mnh594 ANION GAP 11 04/12/2018 Unkn own Comp Metabolic Hdn469 GLUCOSE 203 mg/dL 04/12/2018 Unkn own Comp Metabolic Ydr866 Creat 1.5 mg/dL 04/12/2018 Unkn own Comp Metabolic Xgt913 eGFR 53 ml/min/1.73m2 04/12/20 18 Unknown Comp Metabolic Rtj974 BUN 37 mg/dL 04/12/2018 Unkn own Comp Metabolic Mrm210 B/C Ratio 24.7 Ratio 04/12/2018 Unk nown Comp Metabolic Bit046 CALCIUM 9.5 mg/dL 04/12/2018 Unkn own Comp Metabolic Qtr978 ALK PHOS 46 U/L 04/12/2018 Unkn own Comp Metabolic Poz099 AST(SGOT) 19 U/L 04/12/2018 Unkn own Comp Metabolic Svc643 ALT(SGPT) 25 U/L 04/12/2018 Unkn own Comp Metabolic Raq252 BILI T 0.4 mg/dL 04/12/2018 Unkn own Comp Metabolic Iao025 ALBUMIN 4.1 g/dL 04/12/2018 Unkn own Comp Metabolic Vuz368 TPRO 6.6 g/dL 04/12/2018 Unkn own Comp Metabolic Dww958 GLOB 2.5 g/dL 04/12/2018 Unkn own Comp Metabolic Lkx722 A/G Ratio 1.7 Ratio 04/12/2018 Unkn own Comp Metabolic Cyo792 Osmo 299 mOsmo 04/12/2018 Unkn own Metabolic [...] C/HDL 4.6 Ratio 12/03/2017 Unknown Comp Metabolic Dsk753 NA 140 mEq/L 12/03/2017 Unkn own Comp Metabolic Odw098 K 4.0 mEq/L 12/03/2017 Unkn own Comp Metabolic Qwz601 CL 103 mEq/L 12/03/2017 Unkn own Comp Metabolic Plw496 CO2 26.0 mEq/L 12/03/2017 Unk nown Comp Metabolic Elw872 ANION GAP 15 12/03/2017 Unkn own Comp Metabolic Nlv775 GLUCOSE 142 mg/dL 12/03/2017 Unkn own Comp Metabolic Ptf902 Creat 1.9 mg/dL 12/03/2017 Unkn own Comp Metabolic Xym779 eGFR 39 ml/min/1.73m2 12/04/19 18 Unknown Comp Metabolic Ofb431 BUN 34 mg/dL 12/03/2017 Unkn own Comp Metabolic Jih835 B/C Ratio 17.5 Ratio 12/03/2017 Unk nown Comp Metabolic Zoa529 CALCIUM 9.7 mg/dL 12/03/2017 Unkn own Comp Metabolic Nus991 ALK PHOS 46 U/L 12/03/2017 Unkn own Comp Metabolic Yeq951 AST(SGOT) 34 U/L 12/03/2017 Unkn own Comp Metabolic Jov784 ALT(SGPT) 38 U/L 12/03/2017 Unkn own Comp Metabolic Tut930 BILI T 0.5 mg/dL 12/03/2017 Unkn own Comp Metabolic Bjh719 ALBUMIN 4.5 g/dL 12/03/2017 Unkn own Comp Metabolic Mwb322 TPRO 6.9 g/dL 12/03/2017 Unkn own Comp Metabolic Jqo147 GLOB 2.4 g/dL 12/03/2017 Unkn own Comp Metabolic Yow998 A/G Ratio 1.8 Ratio 12/03/2017 Unkn own Comp Metabolic Llm827 Osmo 289 mOsmo 12/03/2017 Unkn own %Hba1C Qmn940 % HbA1c 46362-2 10.2 % 12/03/2017 Unknown %Hba1C Xvt474 Gluc Ave 246 mg/dL 12/03/2017 Unknown Cbc [...] 12/04/19 18 Unknown Cbc With Differential Ord2 [place]% 7.7 % 12/04/19 18 Unknown Cbc With [...] K/ul 018 Unknown Cbc With Differential Ord2 [place] ABS# 0.6 K/ul 12/04/19 18 Unknown Cbc [...] C/HDL 4.2 Ratio 08/17/2017 Unknown Comp Metabolic Pxi280 NA 142 mEq/L 08/17/2017 Unkn own Comp Metabolic Xct876 K 4.0 mEq/L 08/17/2017 Unkn own Comp Metabolic Qys772 CL 108 mEq/L 08/17/2017 Unkn own Comp Metabolic Vay596 CO2 27.0 mEq/L 08/17/2017 Unk nown Comp Metabolic Fbl194 ANION GAP 11 08/17/2017 Unkn own Comp Metabolic Nbq562 GLUCOSE 213 mg/dL 08/17/2017 Unkn own Comp Metabolic Ccr618 Creat 1.2 mg/dL 08/17/2017 Unkn own Comp Metabolic Wqa197 eGFR 70 ml/min/1.73m2 08/17/20 17 Unknown Comp Metabolic Zcc402 BUN 29 mg/dL 08/17/2017 Unkn own Comp Metabolic Ont916 B/C Ratio 24.6 Ratio 08/17/2017 Unk nown Comp Metabolic Raz064 CALCIUM 9.3 mg/dL 08/17/2017 Unkn own Comp Metabolic Bzw373 ALK PHOS 43 U/L 08/17/2017 Unkn own Comp Metabolic Jig530 AST(SGOT) 18 U/L 08/17/2017 Unkn own Comp Metabolic Sir267 ALT(SGPT) 23 U/L 08/17/2017 Unkn own Comp Metabolic Etz584 BILI T 0.3 mg/dL 08/17/2017 Unkn own Comp Metabolic Wqk948 ALBUMIN 4.0 g/dL 08/17/2017 Unkn own Comp Metabolic Fbv416 TPRO 6.1 g/dL 08/17/2017 Unkn own Comp Metabolic Mlm850 GLOB 2.1 g/dL 08/17/2017 Unkn own Comp Metabolic Bib934 A/G Ratio 1.9 Ratio 08/17/2017 Unkn own Comp Metabolic Fvo079 Osmo 295 mOsmo 08/17/2017 Unkn own Cbc [...] 08/17/20 17 Unknown Cbc With Differential Ord2 [place]% 8.0 % 08/17/20 17 Unknown Cbc With [...] K/ul 017 Unknown Cbc With Differential Ord2 [place] ABS# 0.4 K/ul 08/17/20 17 Unknown Cbc With Differential Ord2 Eos ABS# 0.1 K/ul 08/17/20 17 Unknown Cbc With Differential Ord2 Baso ABS# 0.0 K/ul 08/17/20 17 Unknown %Hba1C Icl813 % HbA1c 90916-1 10.6 % 08/17/2017 Unknown %Hba1C Auj001 Gluc Ave 258 mg/dL 08/17/2017 Unknown Microalbumin Aqe483 MicroAlb 4.2 mg/dL 05/18/2017 Unknow n %Hba1C Mxx027 % HbA1c 86561-1 10.4 % 05/18/2017 Unknown %Hba1C Arc123 Gluc Ave 252 mg/dL 05/18/2017 Unknown Comp Metabolic Vhl976 NA 141 mEq/L 05/18/2017 Unkn own Comp Metabolic Uyv919 K 4.0 mEq/L 05/18/2017 Unkn own Comp Metabolic Bfa819 CL 104 mEq/L 05/18/2017 Unkn own Comp Metabolic Oib805 CO2 28.0 mEq/L 05/18/2017 Unk nown Comp Metabolic Suw440 ANION GAP 13 05/18/2017 Unkn own Comp Metabolic Ssk566 GLUCOSE 157 mg/dL 05/18/2017 Unkn own Comp Metabolic Gbw052 Creat 1.2 mg/dL 05/18/2017 Unkn own Comp Metabolic Htg410 eGFR 68 ml/min/1.73m2 05/18/20 17 Unknown Comp Metabolic Bbc700 BUN 32 mg/dL 05/18/2017 Unkn own Comp Metabolic Qxg704 B/C Ratio 26.4 Ratio 05/18/2017 Unk nown Comp Metabolic Lqp077 CALCIUM 9.5 mg/dL 05/18/2017 Unkn own Comp Metabolic Viw748 ALK PHOS 51 U/L 05/18/2017 Unkn own Comp Metabolic Hpx389 AST(SGOT) 18 U/L 05/18/2017 Unkn own Comp Metabolic Ykz544 ALT(SGPT) 24 U/L 05/18/2017 Unkn own Comp Metabolic Adv013 BILI T 0.5 mg/dL 05/18/2017 Unkn own Comp Metabolic Qra980 ALBUMIN 4.1 g/dL 05/18/2017 Unkn own Comp Metabolic Enc697 TPRO 6.7 g/dL 05/18/2017 Unkn own Comp Metabolic Vkz527 GLOB 2.6 g/dL 05/18/2017 Unkn own Comp Metabolic Duq652 A/G Ratio 1.5 Ratio 05/18/2017 Unkn own Comp Metabolic Bwx440 Osmo 291 mOsmo 05/18/2017 Unkn own Cbc [...] 05/18/20 17 Unknown Cbc With Differential Ord2 [place]% 8.5 % 05/18/20 17 Unknown Cbc With [...] K/ul 017 Unknown Cbc With Differential Ord2 [place] ABS# 0.4 K/ul 05/18/20 17 Unknown Cbc [...] Ord30 C/HDL 5.7 Ratio 01/26/2017 Unknown %Hba1C Azo106 % HbA1c 61197-5 13.2 % 01/26/2017 Unknown %Hba1C Ksq107 Gluc Ave 332 mg/dL 01/26/2017 Unknown %Hba1C Ppi337 % HbA1c 24050-9 12.1 % 10/13/2016 Unknown %Hba1C Vvd791 Gluc Ave 301 mg/dL 10/13/2016 Unknown Tsh Ord6 hTSH II 0.78 uIU/mL 10/13/2016 Unknown Comp Metabolic Jcr918 NA 137 mEq/L 10/13/2016 Unkn own Comp Metabolic Hqq078 K 4.1 mEq/L 10/13/2016 Unkn own Comp Metabolic Bfb423 CL 104 mEq/L 10/13/2016 Unkn own Comp Metabolic Pin126 CO2 26.0 mEq/L 10/13/2016 Unk nown Comp Metabolic Qav043 ANION GAP 11 10/13/2016 Unkn own Comp Metabolic Dng705 GLUCOSE 308 mg/dL 10/13/2016 Unkn own Comp Metabolic Akn565 Creat 1.0 mg/dL 10/13/2016 Unkn own Comp Metabolic Ekb342 eGFR 81 ml/min/1.73m2 10/13/19 17 Unknown Comp Metabolic Vgl940 BUN 20 mg/dL 10/13/2016 Unkn own Comp Metabolic Vir117 B/C Ratio 19.2 Ratio 10/13/2016 Unk nown Comp Metabolic Bjz292 CALCIUM 9.7 mg/dL 10/13/2016 Unkn own Comp Metabolic Rpz347 ALK PHOS 62 U/L 10/13/2016 Unkn own Comp Metabolic Win140 AST(SGOT) 24 U/L 10/13/2016 Unkn own Comp Metabolic Eub680 ALT(SGPT) 37 U/L 10/13/2016 Unkn own Comp Metabolic Psq043 BILI T 0.4 mg/dL 10/13/2016 Unkn own Comp Metabolic Ygm613 ALBUMIN 4.2 g/dL 10/13/2016 Unkn own Comp Metabolic Xmq947 TPRO 6.9 g/dL 10/13/2016 Unkn own Comp Metabolic Hdi146 GLOB 2.7 g/dL 10/13/2016 Unkn own Comp Metabolic Mqn674 A/G Ratio 1.5 Ratio 10/13/2016 Unkn own Comp Metabolic Uez467 Osmo 288 mOsmo 10/13/2016 Unkn own Cbc [...] 10/13/19 17 Unknown Cbc With Differential Ord2 [place]% 7.4 % 10/13/19 17 Unknown Cbc With [...] K/ul 017 Unknown Cbc With Differential Ord2 [place] ABS# 0.4 K/ul 10/13/19 17 Unknown Cbc [...] No Procedures data Vital Signs Date Vital 01/14/2021 Blood Pressure 1: 140/90 Code: 8480-6 BMI: 31.7 Code: 17644-0 Heart Rate 1: 92 bpm Height: 5'10" Code: 8302-2 SpO2: 93% Temperature: 36.3 (C) / 97.3 (F) Weight: 221 lbs Code: 31536-5 09/17/2020 Blood Pressure 1: 116/72 Code: 8480-6 BMI: 32.6 Code: 21993-0 Heart Rate 1: 89 bpm Height: 5'10" Code: 8302-2 SpO2: 97% Temperature: 35.8 (C) / 96.4 (F) Weight: 227 lbs Code: 31568-9 06/11/2020 Blood Pressure 1: 122/70 Code: 8480-6 BMI: 32.7 Code: 49124-1 Heart Rate 1: 75 bpm Height: 5'10" Code: 8302-2 SpO2: 97% Temperature: 36.2 (C) / 97.1 (F) Weight: 228 lbs Code: 27512-3 05/19/2020 Blood Pressure 1: 154/66 Code: 8480-6 BMI: 33.1 Code: 15316-2 Heart Rate 1: 80 bpm Height: 5'10" Code: 8302-2 SpO2: 98% Temperature: 36.3 (C) / 97.3 (F) Weight: 231 lbs Code: 28057-8 12/12/2019 Blood Pressure 1: 130/74 Code: 8480-6 BMI: 32.9 Code: 37291-9 Heart Rate 1: 95 bpm Height: 5'10" Code: 8302-2 SpO2: 96% Temperature: 36.3 (C) / 97.4 (F) Weight: 229 lbs Code: 85958-9 06/13/2019 Blood Pressure 1: 138/82 Code: 8480-6 BMI: 33.1 Code: 81342-2 Heart Rate 1: 80 bpm Height: 5'10" Code: 8302-2 SpO2: 96% Weight: 231 l bs Code: 14662-2 02/14/2019 Blood Pressure 1: 120/84 Code: 8480-6 BMI: 33.1 Code: 68647-6 Heart Rate 1: 85 bpm Height: 5'10" Code: 8302-2 SpO2: 98% Weight: 231 l bs Code: 19188-9 10/18/2018 Blood Pressure 1: 126/78 Code: 8480-6 BMI: 33.0 Code: 09313-9 Heart Rate 1: 81 bpm Height: 5'10" Code: 8302-2 SpO2: 98% Weight: 230 l bs Code: 42490-5 08/23/2018 Blood Pressure 1: 130/70 Code: 8480-6 BMI: 32.9 Code: 88924-9 Heart Rate 1: 85 bpm Height: 5'10" Code: 8302-2 SpO2: 96% Weight: 229 l bs Code: 78718-9 07/19/2018 Blood Pressure 1: 130/80 Code: 8480-6 BMI: 32.3 Code: 42650-3 Heart Rate 1: 86 bpm Height: 5'10" Code: 8302-2 SpO2: 96% Weight: 225 l bs Code: 33176-0 04/19/2018 Blood Pressure 1: 128/82 Code: 8480-6 BMI: 32.7 Code: 56921-3 Heart Rate 1: 83 bpm Height: 5'10" Code: 8302-2 SpO2: 94% Weight: 228 l bs Code: 16832-3 01/18/2018 Blood Pressure 1: 130/78 Code: 8480-6 BMI: 32.9 Code: 19506-6 Heart Rate 1: 80 bpm Height: 5'10" Code: 8302-2 SpO2: 95% Weight: 229 l bs Code: 99306-4 12/21/2017 Blood Pressure 1: 112/60 Code: 8480-6 BMI: 32.9 Code: 01004-4 Heart Rate 1: 92 bpm Height: 5'10" Code: 8302-2 SpO2: 93% Weight: 229 l bs Code: 17828-4 08/17/2017 Blood Pressure 1: 130/78 Code: 8480-6 BMI: 33.3 Code: 07065-6 Heart Rate 1: 88 bpm Height: 5'10" Code: 8302-2 SpO2: 96% Weight: 232 l bs Code: 94205-4 07/12/2017 Blood Pressure 1: 130/74 Code: 8480-6 BMI: 32.7 Code: 00756-3 Heart Rate 1: 88 bpm Height: 5'10" Code: 8302-2 SpO2: 98% Weight: 228 l bs Code: 18948-7 05/18/2017 Blood Pressure 1: 120/74 Code: 8480-6 BMI: 32.7 Code: 06847-2 Heart Rate 1: 86 bpm Height: 5'10" Code: 8302-2 SpO2: 97% Weight: 228 l bs Code: 83242-0 03/16/2017 Blood Pressure 1: 126/78 Code: 8480-6 BMI: 32.6 Code: 23625-5 Heart Rate 1: 81 bpm Height: 5'10" Code: 8302-2 SpO2: 95% Weight: 227 l bs Code: 12675-8 02/09/2017 Blood Pressure 1: 132/80 Code: 8480-6 BMI: 32.6 Code: 73335-0 Heart Rate 1: 89 bpm Height: 5'10" Code: 8302-2 SpO2: 96% Weight: 227 l bs Code: 56591-3 10/13/2016 Blood Pressure 1: 146/90 Code: 8480-6 BMI: 32.3 Code: 16950-4 Heart Rate 1: 88 bpm Height: 5'10" Code: 8302-2 SpO2: 98% Weight: 225 l bs Code: 75232-4 Functional Status No Functional Status data Reason For Visit Reason For Visit Effective Dates Notes diabetes mellitus 01/14/2021 diabetes mellitus 09/17/2020 diabetes [...] Performer Location Codes Date EST. PATIENT, LEVEL IV Diagnosis: Essential (primary) hypertension[ICD10: I10] Diagnosis: Type 2 diabetes mellitus with hyperglycemia[ICD10: E11.65] Diagnosis: Mixed hyperlipidemia[ICD10: E78.2] Mary espinoza MD, [facility] CPT-4: 21938 01/14/2021 ([id number]) [id number] EST. PATIENT, LEVEL IV Diagnosis: Type 2 diabetes mellitus with hyperglycemia[ICD10: E11.65] Diagnosis: Essential (primary) hypertension[ICD10: I10] Diagnosis: Mixed hyperlipidemia[ICD10: E78.2] Diagnosis: Left shoulder pain[ICD10: M25.512] Mary espinoza MD, [facility] CPT-4: 73011 09/17/2020 ([id number] 84709 EST. PATIENT, LEVEL IV Diagnosis: Essential (primary) hypertension[ICD10: I10] Diagnosis: Type 2 diabetes mellitus with hyperglycemia[ICD10: E11.65] Mary Box MD, [facility] CPT-4: 80511 06/11/2020 [id number] EST. PATIENT, LEVEL III Diagnosis: Left wrist pain[ICD10: M25.532] Miya Box MD , [facility] CPT-4: 83706 05/19/2020 [id number] EST. PATIENT, LEVEL IV Diagnosis: Essential (primary) hypertension[ICD10: I10] Diagnosis: Type 2 diabetes mellitus without complications[ICD10: E11.9] Miya Box MD, [facility] CPT-4: 28542 12/12/2019 ([id number]) 88647 EST. PATIENT, LEVEL IV Diagnosis: Type 2 diabetes mellitus with hyperglycemia[ICD10: E11.65] Diagnosis: Essential (primary) hypertension[ICD10: I10] Diagnosis: Chronic kidney disease, stage 3 (moderate)[ICD10: N18.3] Mary Box MD, [facility] CPT-4: 79065 06/13/2019 ([id number]) 12632 EST. PATIENT, LEVEL III Diagnosis: Type 2 diabetes mellitus with hyperglycemia[ICD10: E11.65] Diagnosis: Essential (primary) hypertension[ICD10: I10] Mary Box MD, [facility] CPT-4: 83702 02/14/2019 ([id number]) 87418 EST. PATIENT, LEVEL IV Diagnosis: Type 2 diabetes mellitus with hyperglycemia[ICD10: E11.65] Diagnosis: Essential (primary) hypertension[ICD10: I10] Diagnosis: Chronic kidney disease, stage 3 (moderate)[ICD10: N18.3] Diagnosis: Mixed hyperlipidemia[ICD10: E78.2] Mary espinoza MD, [facility] CPT-4: 75575 10/18/2018 ([id number]) 40826 EST. PATIENT, LEVEL IV Diagnosis: Essential (primary) hypertension[ICD10: I10] Diagnosis: Type 2 diabetes mellitus with hyperglycemia[ICD10: E11.65] Diagnosis: Localized edema[ICD10: R60.0] Mary perla MD, [facility] CPT-4: 42507 08/23/2018 ([id number]) 06050 EST. PATIENT, LEVEL IV Diagnosis: Type 2 diabetes mellitus with hyperglycemia[ICD10: E11.65] Diagnosis: Mixed hyperlipidemia[ICD10: E78.2] Diagnosis: Essential (primary) hypertension[ICD10: I10] Mary Box MD, [facility] CPT-4: 56948 07/19/2018 ([id number]) 94129 EST. PATIENT, LEVEL IV Diagnosis: Type 2 diabetes mellitus with hyperglycemia[ICD10: E11.65] Diagnosis: Essential (primary) hypertension[ICD10: I10] Diagnosis: Chronic kidney disease, stage 3 (moderate)[ICD10: N18.3] Mary Box MD, [facility] CPT-4: 17580 04/19/2018 ([id number]) 85594 EST. PATIENT, LEVEL III Diagnosis: Type 2 diabetes mellitus with hyperglycemia[ICD10: E11.65] Mary Box MD, [facility] CPT-4: 27072 01/18/2018 ([id number]) 85249 EST. PATIENT, LEVEL IV Diagnosis: Type 2 diabetes mellitus with hyperglycemia[ICD10: E11.65] Diagnosis: Essential (primary) hypertension[ICD10: I10] Diagnosis: Mixed hyperlipidemia[ICD10: E78.2] Diagnosis: Acute kidney failure, unspecified[ICD10: N17.9] Mary Box MD, [facility] CPT-4: 64029 12/21/2017 ([id number]) 42986 EST. PATIENT, LEVEL IV Diagnosis: Type 2 diabetes mellitus with hyperglycemia[ICD10: E11.65] Diagnosis: Essential (primary) hypertension[ICD10: I10] Diagnosis: Mixed hyperlipidemia[ICD10: E78.2] Mary espinoza MD, [facility] CPT-4: 96455 08/17/2017 [id number] EST. PATIENT, LEVEL III Diagnosis: Pain in right shoulder[ICD10: M25.511] Miya Hanley MD, [facility] CPT-4: 72836 07/12/2017 ([id number]) 11528 EST. PATIENT, LEVEL IV Diagnosis: Type 2 diabetes mellitus with hyperglycemia[ICD10: E11.65] Diagnosis: Essential (primary) hypertension[ICD10: I10] Diagnosis: Mixed hyperlipidemia[ICD10: E78.2] Diagnosis: Bicipital tendinitis, right shoulder[ICD10: M75.21] Diagnosis: Acute recurrent maxillary sinusitis[ICD10: J01.01] Mary Box MD, [facility] CPT-4: 50958 05/18/2017 ([id number]) 83567 EST. PATIENT, LEVEL III Diagnosis: Type 2 diabetes mellitus with hyperglycemia[ICD10: E11.65] [facility] CPT-4: 51220 03/16/2017 ([id number]) 05294 EST. PATIENT, LEVEL III Diagnosis: Type 2 diabetes mellitus with hyperglycemia[ICD10: E11.65] Diagnosis: Essential (primary) hypertension[ICD10: I10] [facility] CPT-4: 35465 02/09/2017 OFFICE VISIT, NEW - LEVEL 4 Diagnosis: Essential (primary) hypertension[ICD10: I10] Diagnosis: Type 2 diabetes mellitus without complications[ICD10: E11.9] Diagnosis: Personal history of malignant melanoma of skin[ICD10: Z85.820] [facility] CPT-4: 22400 10/13/2016 Plan of Care Planned Activity Notes Codes Status Date Appointment: Mary Crawley WPtel: [facility]9 [phone] (15 min) Moderate 04/15/2021 Visit Plan: Hypertension [...] current medications 01/14/2021 Appointment: Mary Crawley WPtel: [phone] [phone] (15 min) Moderate 01/14/2021 Patient Education: Patient [...] 09/17/2020 Appointment: Mary Crawley WPtel: [phone] [phone] (15 min) Moderate 09/17/2020 Patient Education: [...] home. 06/11/2020 Appointment: Mary Crawley WPtel: [phone] [phone] [place] (15 min) Moderate 06/11/2020 Patient Education: [...] or concerns. 05/19/2020 Appointment: Miya Ruelas WPtel: [phone] [phone] (30 min) Complex 05/19/2020 Patient Education: Patient [...] glucose control. 12/12/2019 Appointment: Miya Ruelas WPtel: [phone] [facility] [place] (15 min) Moderate 12/12/2019 Patient Education: [...] labs today 06/13/2019 Appointment: Mary Crawley WPtel: [facility]5 [phone] [place] [address] (15 min) Moderate 06/13/2019 Patient Education: Patient [...] at home. 02/14/2019 Appointment: Mary Crawley WPtel: [facility]5 [phone] [place] [address] (15 min) Moderate 02/14/2019 Patient Education: Patient Medication Summary Completed 02/14/2019 Patient Education: Hypertension Completed 02/14/2019 Appointment: Mary Crawley WPtel: [facility]5 [phone] (15 min) Moderate 11/22/2018 Visit Plan: Diabetes [...] 10/18/2018 Appointment: Mary Crawley WPtel: [phone] [phone] (15 min) Moderate 10/18/2018 Patient Education: [...] labs in 3 months to monitor a1c Aedce-fwcveb-agnsf lasix only as needed for swelling-check kidney function today 08/23/2018 [facility]ment: [phone] [phone] (15 min) Moderate 08/23/2018 Patient Education: Patient [...] less controlled. 07/19/2018 Appointment: Mary Crawley WPtel: [address] [place], [place] [phone] (15 min) Moderate 07/19/2018 Patient Education: Patient [...] to medications. 04/19/2018 Appointment: [phone] [phone] (15 min) Moderate 04/19/2018 Patient Education: Patient [...] today 01/18/2018 Appointment: [phone] [phone] (15 min) Moderate 01/18/2018 Patient Education: Patient [...] 1 month to monitor 12/21/2017 Appointment: Mary Crawleyl: [phone] [phone] (15 min) Moderate 12/21/2017 Patient Education: Patient Medication Summary Completed 12/21/2017 Care Plan: Comp Metabolic patient to have done in 1 month before appt Pending 12/21/2017 Appointment: Jonnathan Crawleyhanie WPtel: [phone] [phone] (30 min) Complex 12/14/2017 Visit Plan: [...] to medications. 08/17/2017 Appointment: [facility] [phone] [phone] [place] (15 min) Moderate 08/17/2017 Patient Education: Patient [...] improve. 07/12/2017 Appointment: Miya Ruelas [facility]el[phone] [phone] (30 min) Complex 07/12/2017 Patient Education: Patient [...] improved. 05/18/2017 Appointment: [facility]el[phone] [phone] (15 min) Moderate 05/18/2017 Patient Education: Patient [...] control. 03/16/2017 Appointment: Mary Crawley WPtel: [phone] [phone] (15 min) Moderate 03/16/2017 Patient Education: [...] home. 02/09/2017 Appointment: Mary Crawley WPtel: [phone] [phone] (30 min) Complex 02/09/2017 Patient Education: Patient Medication Summary Completed 02/09/2017 Patient Education: Obesity Completed 0 02/09/2017 Referral: Maryana Wick WPtel: Referral Initiated 10/17/2016 Care Plan: Referral Order SNOMED-CT : [id number] Pending 10/15/2016 Visit Plan: Hypertension - well [...] Appointment: Miya Ruelas WPtel: [facility] [facility] Patient 10/13/2016 Patient Education: Patient Medication Summary Completed 10/13/2016 Care Plan: Comp Metabolic Pending Care Plan: Cbc With Differential Pending 10/13/2016 Care Plan: %Hba1C LOINC : 78505-6 Pending 10/13/2016 Care Plan: Tsh Pending 10/13/2016 Care Plan: Lipid Pending 10/13/2016 Referral: Maryana Wick WPtel: Referral Initiated Instructions Comment START BASAGLAR AT 1/2 DOSE TWICE A [...] labs in 3 months to monitor a1c Lsyre-cedozk-cfter lasix only as needed for swelling-check kidney [...] LABS DOXYCYCLINE 100MG TWICE DAILY SENT TO [facility]-START OVER THE WEEKEND IF NEEDED FOR SINUSES/COUGH-CALL [...]
[2021-05-20 11:33] LABS: ABG BASE EXCESS -9.8 MMOL/L (-2.5-2.5); ABG OXYGEN SATURATION 91 % (94-100); ABG PCO2 28 MMHG (35-45); ABG PO2 67 MMHG (79-93); ABG TCO2 15.7 MMOL/L (21.0-31.0)
[2021-05-20 11:35] LABS: ABG PH 7.34 (7.37-7.43); ALLENS TEST POSITIVE; BASOPHILS % (AUTO) 0 % (0-10); EOSINOPHILS % (AUTO) 0 % (0-10); HEMATOCRIT 42 % (40-54); HEMOGLOBIN 13.4 g/dL (13.3-17.7); INSPIRED O2 10 L; LYMPHOCYTES % (AUTO) 17 % (12-44); MEAN CORPUSCULAR HEMOGLOBIN 28 pg (25-34); MEAN CORPUSCULAR HGB CONC 32 g/dL (32-36); MEAN CORPUSCULAR VOLUME 87 fL (80-99); MONOCYTES # (AUTO) 0.3 10^3/uL (0.0-1.0); MONOCYTES % (AUTO) 6 % (0-12); NEUTROPHILS # (AUTO) 4.4 10^3/uL (1.8-7.8); NEUTROPHILS % (AUTO) 74 % (42-75); PATIENT TEMP 36.6; PLATELET COUNT 257 10^3/uL (130-400); VENTILATOR NO
--- NOTE | 2021-05-20 11:42 | Diagnostic Imaging Report ---
INDICATION: Shortness of breath, pneumonia. COMPARISON: None FINDINGS: Single view of the chest demonstrates bilateral pulmonary infiltrates. Heart is normal. There is no pneumothorax or effusion. Osseous structures are normal. IMPRESSION: Bilateral pulmonary infiltrates compatible with pneumonia. Dictated by: Dictated on workstation # [id number]
[2021-05-20 11:43] LABS: ALBUMIN 3.5 GM/DL (3.2-4.5); POTASSIUM 4.3 MMOL/L (3.6-5.0)
[2021-05-20 11:46] LABS: TOTAL PROTEIN 7.5 GM/DL (6.4-8.2)
[2021-05-20 11:47] LABS: BILIRUBIN,TOTAL 0.5 MG/DL (0.1-1.0)
[2021-05-20 11:49] LABS: CREATININE SERUM 1.6 MG/DL (0.60-1.30)
[2021-05-20] MEDS ORDERED: cefTRIAXone 1,000 MG in WATER (STERILE) FOR INJECTION 10 ML IV ONE (12:30)
[2021-05-20] MEDS ORDERED: HOLD METFORMIN - RECEIVED CONTRAST 20 ML VIAL IV SCH (14:15)
[2021-05-20] MEDS ORDERED: IOHEXOL 350 MG/ML 100 ML (OMNIPAQUE 350) VIAL IV ONE (14:15)
[2021-05-20] MEDS ORDERED: NS 100 ML (IVPB) BAG IV ONE (14:15)
--- NOTE | 2021-05-20 14:33 | Diagnostic Imaging Report ---
PROCEDURE: CT angiography of the chest with contrast. TECHNIQUE: Multiple contiguous axial images were obtained through the chest after uneventful bolus administration of intravenous contrast. 3D reconstructed CTA MIP acquisitions were also performed. Auto Exposure Controls were utilized during the CT exam to meet ALARA standards for radiation dose reduction. INDICATION: Elevated D-dimer with shortness of air and hypoxia. Patient is Covid 19 positive. COMPARISON: No prior studies are available for comparison. Evaluation of the pulmonary arterial system is without evidence of thromboembolism. No definite filling defects are seen within central, lobar or segmental branches. The thoracic aorta is normal caliber. No dissection is identified. There is no pericardial fluid. Trace bilateral pleural effusions are noted. No axillary lymphadenopathy is seen. There are shotty lymph nodes in the mediastinum and chelsea but no pathologically enlarged lymph nodes are identified. Parenchymal evaluation does demonstrate diffuse groundglass infiltrates throughout bilateral upper and lower lobes with more significant parenchymal consolidation bilateral lower lobes. Features are suggestive of Covid 19 pneumonia. Upper abdomen is unremarkable. IMPRESSION: 1. No evidence of pulmonary embolism or thoracic aortic dissection. 2. Trace bilateral pleural effusions. There are extensive bilateral pulmonary infiltrates suggestive of Covid 19 pneumonia. Dictated by: Dictated on workstation # [id number]
[2021-05-20] MEDS ORDERED: WATER (STERILE) FOR INJECTION 10 ML ONE (14:45)
[2021-05-20] MEDS ORDERED: cefTRIAXone 1,000 MG VIAL ONE (14:45)
--- NOTE | 2021-05-20 15:47 | History & Physical-Hospitalist ---
History of Present Illness HPI/Chief Complaint Patient is a 50-year-old male with a past medical history of insulin- dependent diabetes and hypertension who presented to the emergency department due to hypoxia. He was diagnosed with Covid on May 12 and presented today to the outpatient [facility]. He was found to have oxygen saturations in the 60s and brought emergently to the ER. He was placed on 15 L nonrebreather and saturations only came up to the mid 80s. He was then placed on BiPAP. He is able to answer yes/no questions but otherwise has difficulty with providing history. He is able to nod and shake his head appropriately when asked questions. He complains of minor productive cough, headache, generalized weakness and myalgias. He denies fever, nausea or vomiting, diarrhea, loss of taste or smell. He is unvaccinated against Covid. Source: patient Date Seen 05/20/21 Time Seen by a Provider: 15:49 Attending Physician Sherly Somers Holly A MD Referring Physician Date of Admission Home Medications & Allergies Home Medications Reviewed patient Home Medication Reconciliation performed by pharmacy medication reconciliations production line technician and/or nursing. Patients Allergies have been reviewed. Allergies Allergies Coded Allergies No Known Drug Allergies (Unverified06/09/10) Past Cvdzveo-Wmuwll-Nryrjg Hx Patient Social History Marrital Status: Employed/Student: employed Tobacco Use?: No Smoking Status: Unknown if Ever Smoked Use of E-Cig and/or Vaping dev: No Substance use?: No Alcohol Use?: No Pt feels they are or have been: No Immunizations Up To Date First/Initial COVID19 Vaccinat: NONE Second COVID19 Vaccination Aly: NONE Current Status Advance Directives: No Communicates: Verbally Primary Language: Japanese Preferred Spoken Language: Japanese Is interpretation needed?: No Implanted or Applied Medical D: None Past Medical History Hypertension Diabetes, Insulin dep Family Medical History Reviewed Nursing Family Hx No Pertinent Family Hx Review of Systems Constitutional: No chills, No fever; malaise EENTM: no symptoms reported Respiratory: cough, short of breath Gastrointestinal: No abdominal pain, No diarrhea, No nausea, No vomiting Genitourinary: no symptoms reported Musculoskeletal: no symptoms reported Skin: no symptoms reported Psychiatric/Neurological: No Symptoms Reported Physical Exam Physical Exam Vital Signs Vital Signs - First Documented 05/20/21 05/20/21 11:14 16:52 Temp 35.8 Pulse 108 Resp 26 B/P (MAP) 125/86 (99) Pulse Ox 87 O2 Delivery OxyMask O2 Flow Rate 15.00 FiO2 60 Capillary Refill : Less Than 3 Seconds Height, Weight, BMI Height: '" Weight: lbs. oz. kg; 30.00 BMI Method: General Appearance: No Apparent Distress, WD/WN, Obese HEENT: PERRL/EOMI; No Scleral Icterus (L), No Scleral Icterus (R); Other (ob scured somewhat by BiPAP) Neck: Normal Inspection, Supple Respiratory: No Accessory Muscle Use, Rhonci, Other (on BiPAP) Cardiovascular: Regular Rate, Rhythm, No Murmur Gastrointestinal: Normal Bowel Sounds, Non Tender, Soft Extremity: Normal Capillary Refill, No Calf Tenderness, No Pedal Edema Neurologic/Psychiatric: Alert, Oriented x3, Normal Mood/Affect Skin: Normal Color, Warm/Dry Results Results/Procedures Labs Laboratory Tests 05/20/21 11:11 05/21/21 05:08 Patient resulted labs reviewed. Imaging: Reviewed Imaging Films, Reviewed Imaging Report Imaging [facility] [place] NAME: NAVA GAMEZ [facility] REC#: [id number] PT STATUS: REG ER : 1970 PHYSICIAN: MONICA SALES BEE WORKER ADMIT DATE: 05/20/21/ER Draft Date of Exam:05/20/21 CT ANGIO CHEST W PROCEDURE: CT angiography of the chest with contrast. TECHNIQUE: Multiple contiguous axial images were obtained through the chest after uneventful bolus administration of intravenous contrast. 3D reconstructed CTA MIP acquisitions were also performed. Auto Exposure Controls were utilized during the CT exam to meet ALARA standards for radiation dose reduction. INDICATION: Elevated D-dimer with shortness of air and hypoxia. Patient is Covid 19 positive. COMPARISON: No prior studies are available for comparison. Evaluation of the pulmonary arterial system is without evidence of thromboembolism. No definite filling defects are seen within central, lobar or segmental branches. The thoracic aorta is normal caliber. No dissection is identified. There is no pericardial fluid. Trace bilateral pleural effusions are noted. No axillary lymphadenopathy is seen. There are shotty lymph nodes in the mediastinum and chelsea but no pathologically enlarged lymph nodes are identified. Parenchymal evaluation does demonstrate diffuse groundglass infiltrates throughout bilateral upper and lower lobes with more significant parenchymal consolidation bilateral lower lobes. Features are suggestive of Covid 19 pneumonia. Upper abdomen is unremarkable. IMPRESSION: 1. No evidence of pulmonary embolism or thoracic aortic dissection. 2. Trace bilateral pleural effusions. There are extensive bilateral pulmonary infiltrates suggestive of Covid 19 pneumonia. Dictated on workstation # [id number] Dict: 05/20/21 1427 Trans: 05/20/21 1433 [facility] [id number] Interpreted by: DANIELLA PA MD Electronically signed by: Assessment/Plan Admission Diagnosis Acute hypoxic respiratory failure due to COVID19 Admission Status: Inpatient Order (span 2 midnights) Reason for Inpatient Admission: see below Assessment and Plan Acute hypoxic respiratory failure due to COVID19 Currently on BiPAP, high risk for intubation Patient at first said he did not want intubation if needed and to let him if it came to that, then decided to discuss this with his Continue Decadron Discussed EUA status of Actemra with patient including risks and benefits and he agrees to treatment Encouraged proning TeleICU consulted, appreciate recs Lovenox CTA negative MAT protocol IS IDDMII Discussed with his PCP, Dr Box- last A1c was 14 this spring SSI Anticipate high BS due to critical illness and steroids HTN Continue home meds as able, BP well controlled in ER DVT ppx: Lovenox Diagnosis/Problems Diagnosis/Problems (1) Acute respiratory failure Qualifiers: Respiratory failure complication: hypoxia Qualified Codes: J96.01 - Acute respiratory failure with hypoxia (2) Essential (primary) hypertension Status: Chronic (3) Insulin dependent diabetes mellitus Status: Chronic (4) Obesity Qualifiers: Obesity type: unspecified obesity type Obesity classification: adult class 1 (BMI 30 - 34.9) Serious obesity comorbidity presence: without serious comorbidity Body mass index: BMI 30.0-30.9 Qualified Codes: E66.9 - Obesity, unspecified; Z68.30 - Body mass index [BMI]30.0-30.9, adult (5) MARIA GUADALUPE (acute kidney injury) (6) Counseling regarding end of life decision making Status: Acute (7) COVID-19 Status: Acute Copy Copies To 1: NADYA BOX MD, KATELYN M MD May 20, 2021 15:47
[2021-05-20 17:55] VITALS: BP 140/98
[2021-05-20] MEDS ORDERED: NS IV NR (18:00)
[2021-05-20] MEDS ORDERED: CATHETER FLUSH 10 ML SYR IV PRN (18:00)
[2021-05-20] MEDS ORDERED: ONDANSETRON 4 MG/2 ML (SDV) Z0FRAN IV PRN (18:00)
[2021-05-20] MEDS ORDERED: TOCILIZUMAB IV NR (18:00)
[2021-05-20] MEDS ORDERED: ACETAMINOPHEN 325 MG TABLET PO PRN (18:00)
[2021-05-20] MEDS ORDERED: IBUPROFEN 600 MG (MOTRIN) TAB PO PRN (18:00)
[2021-05-20] MEDS: LACTATED RINGERS 1,000 ML IV SCH (18:54)
[2021-05-20] MEDS: ENOXAPARIN 40 MG/0.4 ML (LOVENOX) SYR SC SCH (18:54)
[2021-05-20] MEDS: inSUlin ASPART (NovoLOG) 1 UNIT/0.01 ML (CHARGE PER UNIT) SC SCH (20:36)
[2021-05-20] MEDS: RT-ALBUTEROL HFA 8.5 GM INHALER IH SCH (23:57)
[2021-05-21 02:46] VITALS: BP 127/81
[2021-05-21] MEDS: RT-ALBUTEROL HFA 8.5 GM INHALER IH SCH ×6 (02:46→22:45)
[2021-05-21 05:12] LABS: BASOPHILS % (AUTO) 0 % (0-10); EOSINOPHILS % (AUTO) 0 % (0-10); HEMATOCRIT 40 % (40-54); HEMOGLOBIN 12.6 g/dL (13.3-17.7); LYMPHOCYTES # (AUTO) 0.6 10^3/uL (1.0-4.0); LYMPHOCYTES % (AUTO) 14 % (12-44); MEAN CORPUSCULAR HEMOGLOBIN 28 pg (25-34); MEAN CORPUSCULAR HGB CONC 32 g/dL (32-36); MEAN CORPUSCULAR VOLUME 87 fL (80-99); MEAN PLATELET VOLUME 9.7 fL (9.0-12.2); MONOCYTES # (AUTO) 0.2 10^3/uL (0.0-1.0); MONOCYTES % (AUTO) 5 % (0-12); NEUTROPHILS # (AUTO) 3.4 10^3/uL (1.8-7.8); NEUTROPHILS % (AUTO) 77 % (42-75); PLATELET COUNT 228 10^3/uL (130-400); WHITE BLOOD COUNT 4.5 10^3/uL (4.3-11.0)
[2021-05-21 05:31] LABS: ALBUMIN 3.3 GM/DL (3.2-4.5); POTASSIUM 4.9 MMOL/L (3.6-5.0)
[2021-05-21 05:33] LABS: CALCIUM 9.8 MG/DL (8.5-10.1)
[2021-05-21 05:34] LABS: TOTAL PROTEIN 7.1 GM/DL (6.4-8.2)
[2021-05-21 05:36] LABS: BILIRUBIN,TOTAL 0.4 MG/DL (0.1-1.0)
[2021-05-21 05:37] LABS: PHOSPHORUS 4.7 MG/DL (2.3-4.7)
[2021-05-21 05:38] LABS: CREATININE SERUM 1.39 MG/DL (0.60-1.30)
[2021-05-21 05:40] LABS: MAGNESIUM 2.5 MG/DL (1.6-2.4)
[2021-05-21] MEDS: LACTATED RINGERS 1,000 ML IV SCH ×2 (05:48→06:55)
[2021-05-21] MEDS: inSUlin ASPART (NovoLOG) 1 UNIT/0.01 ML (CHARGE PER UNIT) SC SCH ×4 (06:55→20:40)
--- NOTE | 2021-05-21 09:12 | Progress Note - Hospitalist ---
Subjective HPI/CC On Admission Date Seen by Provider: May 21, 2021 Time Seen by Provider: 09:10 Patient is a 50-year-old male with a past medical history of insulin- dependent diabetes and hypertension who presented to the emergency department due to hypoxia. He was diagnosed with Covid on May 12 and presented today to the outpatient [facility]. He was found to have oxygen saturations in the 60s and brought emergently to the ER. He was placed on 15 L nonrebreather and saturations only came up to the mid 80s. He was then placed on BiPAP. He is able to answer yes/no questions but otherwise has difficulty with providing history. He is able to nod and shake his head appropriately when asked questions. He complains of minor productive cough, headache, generalized weakness and myalgias. He denies fever, nausea or vomiting, diarrhea, loss of taste or smell. He is unvaccinated against Covid. Subjective/Events-last exam Pt reports feeling better today. Breathing easier. Currently on Vpaotherm and eating breakfast. Rn reports no concerns. Focused Exam Lactate Level 05/20/21 11:11: Lactic Acid Level 2.14*H 05/20/21 13:11: Lactic Acid Level 0.94 Objective Exam Vital Signs Vital Signs Date Time Temp Pulse Resp B/P (MAP) Pulse Ox O2 Delivery O2 Flow Rate FiO2 05/21/21 08:31 36.4 05/21/21 08:00 96 141/80 93 Vapotherm 40.00 90.00 05/21/21 07:54 90 05/21/21 05:00 33 Capillary Refill : Less Than 3 Seconds General Appearance: No Apparent Distress, WD/WN Respiratory: Decreased Breath Sounds, Rhonci, Other (Vapotherm- 40lpm at 90%) Cardiovascular: Regular Rate, Rhythm, No Murmur Gastrointestinal: Normal Bowel Sounds, Non Tender, Soft Neurologic/Psychiatric: Alert, Oriented x3 Results/Procedures Lab Laboratory Tests 05/20/21 11:11 05/21/21 05:08 Patient resulted labs reviewed. Imaging: Reviewed Imaging Films, Reviewed Imaging Report Assessment/Plan Assessment and Plan Assess & Plan/Chief Complaint Acute hypoxic respiratory failure due to COVID19 Currently vapotherm, improved from yesterday but stil high risk for decompensation Continue Decadron s/p Actemra Encouraged proning TeleICU consulted, appreciate recs Lovenox CTA negative MAT protocol IS IDDMII Discussed with his PCP, Dr Box- last A1c was 14 this spring SSI Anticipate high BS due to critical illness and steroids Fasting BS 185, trend HTN Continue home meds as able, BP well controlled still DVT ppx: Lovenox Diagnosis/Problems Diagnosis/Problems (1) Acute respiratory failure Qualifiers: Respiratory failure complication: hypoxia Qualified Codes: J96.01 - Acute respiratory failure with hypoxia (2) Essential (primary) hypertension Status: Chronic (3) Insulin dependent diabetes mellitus Status: Chronic (4) Obesity Qualifiers: Obesity type: unspecified obesity type Obesity classification: adult class 1 (BMI 30 - 34.9) Serious obesity comorbidity presence: without serious comorbidity Body mass index: BMI 30.0-30.9 Qualified Codes: E66.9 - Obesity, unspecified; Z68.30 - Body mass index [BMI]30.0-30.9, adult (5) MARIA GUADALUPE (acute kidney injury) (6) Counseling regarding end of life decision making Status: Acute (7) COVID-19 Status: Acute EDILSON ALVARADO MD May 21, 2021 09:12
--- NOTE | 2021-05-21 10:00 | Tele-ICU Progress Note ---
Subjective Date Seen by a Provider: May 21, 2021 Time Seen by a Provider: 09:25 Subjective/Events-last exam This virtual visit was conducted using real time audio/video. Thank you for asking us to see this patient for respiratory insufficiency and distress due to Covid pna. HPC: Recent events: Off BiPAP and now on VT 40 LPM/90%. PE: VSS. O2 sat 95 % on VT HEENT: No obvious masses, adenopathy or JVD. Chest: Decreased BS, clear to auscultation. CV: RRR S1 S2 No murmur or added sounds. Abd: Non-tender. Bowel sounds Y. : Unremarkable. Calderón N. OSTOMY RN/psychiatric: Alert and oriented, grossly intact. No obvious focal findings. Extremities: No edema. Capillary refill < 3 seconds. Skin: unremarkable. Results: Elevated BUN 31, Creat. 1.39. Decreased Hb 12.6. ABG 7.34/28/67. CXR w B infilts. CTC: no PE, trace effusions. A/P: Respiratory insufficiency/distress: Wean VT as scot. Available chart/ vitals / labs /images reviewed. Video assessment done using teleICU camera, rest of exam as per RN. Respiratory: Continue present management with VT, wean as scot. Critical Care: critically ill patient. Cont Dex., Dilshad. Discussed with RN MARIE . Asked RN to reach out to eICU if any questions or concerns later. Time spent with patientcoordination of care with other health professionals (mins): 20 Sepsis Event Evaluation Height, Weight, BMI Height: '" Weight: lbs. oz. kg; 30.84 BMI Method: Focused Exam Lactate Level 05/20/21 11:11: Lactic Acid Level 2.14*H 05/20/21 13:11: Lactic Acid Level 0.94 Exam Exam Patient acknowledged, consented, and participated in this virtual visit which was conducted using real time audio/video Vital Signs Date Time Temp Pulse Resp B/P (MAP) Pulse Ox O2 Delivery O2 Flow Rate FiO2 05/21/21 08:31 36.4 05/21/21 08:00 96 141/80 93 Vapotherm 40.00 90.00 05/21/21 08:00 91 Vapotherm 40.00 90 05/21/21 07:54 90 Vapotherm 40.00 90 05/21/21 07:00 78 9/11/21 07:00 80 142/88 97 Vapotherm 40.00 90.00 05/21/21 06:55 95 Vapotherm 40.00 90.00 05/21/21 06:00 76 92 NIV Bilevel 60.00 05/21/21 05:00 88 33 93 NIV Bilevel 60.00 05/21/21 04:00 35.9 05/21/21 04:00 85 33 136/91 93 NIV Bilevel 60.00 05/21/21 04:00 93 NIV Bilevel 60 05/21/21 03:00 78 27 131/81 92 NIV Bilevel 60.00 05/21/21 02:46 84 25 93 60.00 05/21/21 02:00 73 22 127/81 92 NIV Bilevel 60.00 05/21/21 01:00 81 27 128/82 93 NIV Bilevel 60.00 05/21/21 01:00 82 05/21/21 00:00 93 NIV Bilevel 60 05/21/21 00:00 88 36 132/80 92 NIV Bilevel 60.00 05/21/21 00:00 36.8 05/20/21 23:00 96 116/75 93 NIV Bilevel 60.00 05/20/21 22:00 93 118/75 95 NIV Bilevel 60.00 05/20/21 21:00 93 23 115/79 96 NIV Bilevel 60.00 05/20/21 20:46 NIV Bilevel 60.00 05/20/21 20:00 95 Vapotherm 40.00 95.00 05/20/21 20:00 101 26 144/88 93 Vapotherm 40.00 95.00 05/20/21 20:00 Vapotherm 40.00 100 05/20/21 19:36 36.8 Vapotherm 40.00 100.00 05/20/21 19:04 105 05/20/21 19:03 98 Vapotherm 40.00 100 05/20/21 19:00 86 37 161/89 93 OxyMask 15.00 05/20/21 18:00 93 37 135/96 93 OxyMask 15.00 05/20/21 17:55 35.8 99 94 60 05/20/21 17:00 81 26 134/91 95 OxyMask 15.00 05/20/21 16:52 NIV Bilevel 60 05/20/21 16:34 36.1 99 32 140/98 90 OxyMask 15.00 05/20/21 16:29 94 18 131/93 94 OxyMask 15.00 05/20/21 11:14 35.8 108 26 125/86 (99) 87 OxyMask 15.00 I & O 05/21/21 06:59 Intake Total 1160 ml Output Total 1900 ml Balance -740 ml Height & Weight Height: '" Weight: lbs. oz. kg; 30.84 BMI Method: General Appearance: No Apparent Distress, WD/WN HEENT: PERRL/EOMI, TMs Normal Neck: Full Range of Motion, Normal Inspection Respiratory: Decreased Breath Sounds, Rhonci, Other (Vapotherm- 40lpm at 90%) Cardiovascular: Regular Rate, Rhythm, No Murmur Capillary Refill: Less Than 3 Seconds Peripheral Pulses: 1+ Dorsalis Pedis (R) (see free text), 1+ Left Dors-Pedis (L) Extremity: Normal Capillary Refill, Normal Inspection Neurologic/Psychiatric: Alert, Oriented x3 Skin: Normal Color, Warm/Dry Results Lab Laboratory Tests 05/20/21 11:11 05/21/21 05:08 Assessment/Plan Assessment/Plan See free text Critical Care: Critically Ill Patient CODI ANGELA MD May 21, 2021 10:00
[2021-05-21] MEDS: ENOXAPARIN 40 MG/0.4 ML (LOVENOX) SYR SC SCH (17:58)
[2021-05-22] MEDS: RT-ALBUTEROL HFA 8.5 GM INHALER IH SCH ×6 (02:28→22:10)
[2021-05-22 02:29] VITALS: BP 118/75
[2021-05-22 06:24] LABS: BASOPHILS % (AUTO) 0 % (0-10); EOSINOPHILS % (AUTO) 0 % (0-10); HEMATOCRIT 38 % (40-54); HEMOGLOBIN 11.9 g/dL (13.3-17.7); LYMPHOCYTES # (AUTO) 0.6 10^3/uL (1.0-4.0); LYMPHOCYTES % (AUTO) 12 % (12-44); MEAN CORPUSCULAR HEMOGLOBIN 27 pg (25-34); MEAN CORPUSCULAR HGB CONC 32 g/dL (32-36); MEAN CORPUSCULAR VOLUME 86 fL (80-99); MEAN PLATELET VOLUME 9.7 fL (9.0-12.2); MONOCYTES # (AUTO) 0.3 10^3/uL (0.0-1.0); MONOCYTES % (AUTO) 7 % (0-12); NEUTROPHILS # (AUTO) 3.5 10^3/uL (1.8-7.8); NEUTROPHILS % (AUTO) 74 % (42-75); PLATELET COUNT 280 10^3/uL (130-400); WHITE BLOOD COUNT 4.8 10^3/uL (4.3-11.0)
[2021-05-22 06:43] LABS: ALBUMIN 3.2 GM/DL (3.2-4.5); POTASSIUM 4.4 MMOL/L (3.6-5.0)
[2021-05-22 06:44] LABS: CALCIUM 9.5 MG/DL (8.5-10.1)
[2021-05-22 06:45] LABS: TOTAL PROTEIN 6.8 GM/DL (6.4-8.2)
[2021-05-22 06:47] LABS: BILIRUBIN,TOTAL 0.4 MG/DL (0.1-1.0)
[2021-05-22 06:48] LABS: PHOSPHORUS 3.6 MG/DL (2.3-4.7)
[2021-05-22 06:49] LABS: CREATININE SERUM 1.4 MG/DL (0.60-1.30)
[2021-05-22 06:52] LABS: MAGNESIUM 2.2 MG/DL (1.6-2.4)
[2021-05-22] MEDS: inSUlin ASPART (NovoLOG) 1 UNIT/0.01 ML (CHARGE PER UNIT) SC SCH ×4 (06:55→20:08)
[2021-05-22 07:04] VITALS: BP 146/92
[2021-05-22 07:20] LABS: BAND NEUTROPHILS 4 %; LYMPHOCYTES % (MANUAL) 12 %; MONOCYTES % (MANUAL) 6 %; MYELOCYTES % 2 %; NEUTROPHILS % (MANUAL) 76 %
[2021-05-22] MEDS ORDERED: EMPA10TA PO (09:17)
[2021-05-22] MEDS ORDERED: FENO160T12 PO (09:20)
[2021-05-22] MEDS ORDERED: METO50TA7 PO (09:20)
[2021-05-22] MEDS ORDERED: ATOR40TA70 PO (09:20)
[2021-05-22] MEDS ORDERED: LOSA100T57 PO (09:20)
[2021-05-22] MEDS ORDERED: INSU100I44 SQ (09:20)
--- NOTE | 2021-05-22 10:20 | Tele-ICU Progress Note ---
Subjective Date Seen by a Provider: May 22, 2021 Time Seen by a Provider: 09:35 Subjective/Events-last exam This virtual visit was conducted using real time audio/video. Thank you for asking us to see this patient for respiratory insufficiency and distress due to Covid pna requiring Vapotherm. HPC: Recent events: On BiPAP earlier, now VT 40 LPM/90%. PE: VSS. O2 sat 91% on VT HEENT: No obvious masses, adenopathy or JVD. Chest: rhonchi. CV: RRR S1 S2 No murmur or added sounds. Abd: Non-tender. Bowel sounds Y. : Unremarkable. Calderón N. ELECTRONICS TECHNICIAN APPRENTICE/psychiatric: Alert and oriented, grossly intact. No obvious focal findings. Extremities: No edema. Capillary refill < 3 seconds. Skin: unremarkable. Results: Decreased Hb 11.9. Elevated BG 237, D-dimer 3.66. CXR 05/20 w B infilts. A/P: Respiratory insufficiency/distress: Wean O2 as scot. Available chart/ vitals / labs /images reviewed. Video assessment done using teleICU camera, rest of exam as per RN. Monitor for increasing oxygenation needs and/or need for intubation. Critical Care: critically ill patient. Consider full dose Lovenox w elevated D-Dimer. Cont Alb., Ins., Dex., Dilshad. Consider full strength. Discussed with VITOR Vera. Asked RN to reach out to eICU if any questions or concerns later. Time spent with patient/coordination of care with other health professionals (mins): 23 Sepsis Event Evaluation Height, Weight, BMI Height: '" Weight: lbs. oz. kg; 30.84 BMI Method: Focused Exam Lactate Level 05/20/21 11:11: Lactic Acid Level 2.14*H 05/20/21 13:11: Lactic Acid Level 0.94 Exam Exam Patient acknowledged, consented, and participated in this virtual visit which was conducted using real time audio/video Vital Signs Date Time Temp Pulse Resp B/P (MAP) Pulse Ox O2 Delivery O2 Flow Rate FiO2 05/22/21 09:02 Vapotherm 40.00 100.00 05/22/21 09:00 93 152/98 96 NIV Bilevel 55.00 05/22/21 08:45 96 Vapotherm 40.00 100 05/22/21 08:00 80 144/94 92 NIV Bilevel 55.00 05/22/21 07:59 36.0 05/22/21 07:06 94 55.00 05/22/21 07:04 80 21 88 45.00 05/22/21 07:00 74 05/22/21 07:00 78 146/92 95 NIV Bilevel 45.00 05/22/21 06:00 81 135/89 93 NIV Bilevel 45.00 05/22/21 05:00 71 129/82 92 NIV Bilevel 45.00 05/22/21 04:00 35.9 98 NIV Bilevel 45.00 05/22/21 04:00 73 139/85 91 NIV Bilevel 45.00 05/22/21 04:00 98 NIV Bilevel 60 05/22/21 03:00 75 121/74 93 NIV Bilevel 60.00 05/22/21 02:29 74 24 93 60.00 05/22/21 02:00 87 118/75 93 NIV Bilevel 60.00 05/22/21 01:00 90 110/73 92 NIV Bilevel 60.00 05/22/21 01:00 91 05/22/21 00:30 36.6 92 NIV Bilevel 60.00 05/22/21 00:05 91 Vapotherm 40.00 80.00 05/22/21 00:00 91 Vapotherm 40.00 80 05/22/21 00:00 96 123/74 92 Vapotherm 40.00 75.00 05/21/21 23:00 92 13 123/70 92 Vapotherm 40.00 75.00 05/21/21 22:54 Vapotherm 40.00 75.00 05/21/21 22:49 Vapotherm 40.00 75.00 05/21/21 22:45 92 Vapotherm 40.00 75 05/21/21 22:00 94 17 134/85 90 Vapotherm 40.00 70.00 05/21/21 21:00 90 18 127/73 92 Vapotherm 40.00 70.00 05/21/21 20:44 Vapotherm 40.00 70.00 05/21/21 20:40 97 Vapotherm 40.00 80.00 05/21/21 20:30 97 Vapotherm 40.00 80 05/21/21 20:00 37.0 05/21/21 20:00 93 21 155/92 95 Vapotherm 40.00 90.00 05/21/21 19:00 108 05/21/21 19:00 108 28 122/80 95 Vapotherm 40.00 90.00 05/21/21 18:37 94 Vapotherm 40.00 90 05/21/21 18:00 107 27 148/90 97 Vapotherm 40.00 90.00 05/21/21 17:00 94 21 145/85 98 Vapotherm 40.00 90.00 05/21/21 16:00 108 19 155/83 93 Vapotherm 40.00 90.00 05/21/21 16:00 94 Vapotherm 40.00 90 05/21/21 15:50 36.8 05/21/21 15:00 109 35 146/81 97 Vapotherm 40.00 90.00 05/21/21 14:37 92 Vapotherm 40.00 90 05/21/21 14:00 98 26 139/84 96 Vapotherm 40.00 90.00 05/21/21 13:00 103 166/94 94 Vapotherm 40.00 90.00 05/21/21 12:51 98 05/21/21 12:06 36.8 05/21/21 12:00 96 15 141/80 95 Vapotherm 40.00 90.00 05/21/21 12:00 94 Vapotherm 40.00 90 05/21/21 11:00 100 19 126/74 94 Vapotherm 40.00 90.00 05/21/21 10:45 93 Vapotherm 40.00 90 I & O 05/22/21 07:00 Intake Total 1860 ml Output Total 4526 ml Balance -2666 ml Height & Weight Height: '" Weight: lbs. oz. kg; 30.84 BMI Method: General Appearance: No Apparent Distress, WD/WN, Obese HEENT: PERRL/EOMI; No Scleral Icterus (L), No Scleral Icterus (R); Other (obscured somewhat by BiPAP) Neck: Normal Inspection, Supple Respiratory: No Accessory Muscle Use, Rhonci, Other (on BiPAP) Cardiovascular: Regular Rate, Rhythm, No Murmur Capillary Refill: Less Than 3 Seconds Peripheral Pulses: 1+ Dorsalis Pedis (R) (see free text), 1+ Left Dors-Pedis (L) Extremity: Normal Capillary Refill, No Calf Tenderness, No Pedal Edema Neurologic/Psychiatric: Alert, Oriented x3, Normal Mood/Affect Skin: Normal Color, Warm/Dry Results Lab Laboratory Tests 05/20/21 11:11 05/21/21 05:08 05/22/21 06:05 Assessment/Plan Assessment/Plan See free text. Critical Care: Critically Ill Patient CODI ANGELA MD May 22, 2021 10:20
--- NOTE | 2021-05-22 10:47 | Progress Note - Hospitalist ---
Subjective HPI/CC On Admission Date Seen by Provider: May 22, 2021 Time Seen by Provider: 09:00 Patient is a 50-year-old male with a past medical history of insulin- dependent diabetes and hypertension who presented to the emergency department due to hypoxia. He was diagnosed with Covid on May 12 and presented today to the outpatient [facility]. He was found to have oxygen saturations in the 60s and brought emergently to the ER. He was placed on 15 L nonrebreather and saturations only came up to the mid 80s. He was then placed on BiPAP. He is able to answer yes/no questions but otherwise has difficulty with providing history. He is able to nod and shake his head appropriately when asked questions. He complains of minor productive cough, headache, generalized weakness and myalgias. He denies fever, nausea or vomiting, diarrhea, loss of taste or smell. He is unvaccinated against Covid. Subjective/Events-last exam Pt reports feeling ok, about the same. Is currently on Vapotherm but had to go back on BiPAP last night. Attempting to prone but wires in the way. We discussed his code status again. he states he would not want to be on a vent but his is very opposed to him being a DNR. Informed him to let us knwo his final decision after talking with his further and that we will respect his wishes whatever they are. Focused Exam Lactate Level 05/20/21 11:11: Lactic Acid Level 2.14*H 05/20/21 13:11: Lactic Acid Level 0.94 Objective Exam Vital Signs Vital Signs Date Time Temp Pulse Resp B/P (MAP) Pulse Ox O2 Delivery O2 Flow Rate FiO2 05/22/21 10:00 70 10 148/91 98 Vapotherm 40.00 100.00 05/22/21 08:45 100 05/22/21 07:59 36.0 Capillary Refill : Less Than 3 Seconds General Appearance: No Apparent Distress, Obese Respiratory: Decreased Breath Sounds, Other (on max vapotherm) Cardiovascular: Regular Rate, Rhythm, No Murmur Neurologic/Psychiatric: Alert, Oriented x3 Results/Procedures Lab Laboratory Tests 05/22/21 06:05 Patient resulted labs reviewed. Imaging: Reviewed Imaging Films, Reviewed Imaging Report Assessment/Plan Assessment and Plan Assess & Plan/Chief Complaint Acute hypoxic respiratory failure due to COVID19 Currently vapotherm, had to go back on BiPAP overnight High risk for intubation still Continue Decadron s/p Actemra Encouraged proning TeleICU consulted, appreciate recs Lovenox. increase to therapeutic dose given rise in d dimer CTA negative MAT protocol IS IDDMII CKD stage 3a Discussed with his PCP, Dr Box- last A1c was 14 this spring SSI Anticipate high BS due to critical illness and steroids Fasting BS 237 trend Increased sliding scale Add Levemir HTN Continue home meds as able, BP well controlled still DVT ppx: Lovenox Critical Care Critically Ill Patient Diagnosis/Problems Diagnosis/Problems (1) Acute respiratory failure Qualifiers: Respiratory failure complication: hypoxia Qualified Codes: J96.01 - Acute respiratory failure with hypoxia (2) Essential (primary) hypertension Status: Chronic (3) Insulin dependent diabetes mellitus Status: Chronic (4) Obesity Qualifiers: Obesity type: unspecified obesity type Obesity classification: adult class 1 (BMI 30 - 34.9) Serious obesity comorbidity presence: without serious comorbidity Body mass index: BMI 30.0-30.9 Qualified Codes: E66.9 - Obesity, unspecified; Z68.30 - Body mass index [BMI]30.0-30.9, adult (5) MARIA GUADALUPE (acute kidney injury) (6) Counseling regarding end of life decision making Status: Acute (7) COVID-19 Status: Acute EDILSON ALVARADO MD May 22, 2021 10:47
[2021-05-22] MEDS: ENOXAPARIN 100 MG/1 ML (LOVENOX) SYR SC SCH (17:40)
[2021-05-22] MEDS: FENOFIBRATE 134 MG (LOFIBRA) CAPSULE PO SCH (20:08)
[2021-05-23] MEDS: RT-ALBUTEROL HFA 8.5 GM INHALER IH SCH ×6 (01:40→21:50)
[2021-05-23 05:16] LABS: BASOPHILS % (AUTO) 0 % (0-10); EOSINOPHILS % (AUTO) 0 % (0-10); HEMATOCRIT 39 % (40-54); HEMOGLOBIN 12.3 g/dL (13.3-17.7); LYMPHOCYTES # (AUTO) 0.5 10^3/uL (1.0-4.0); LYMPHOCYTES % (AUTO) 11 % (12-44); MEAN CORPUSCULAR HEMOGLOBIN 27 pg (25-34); MEAN CORPUSCULAR HGB CONC 32 g/dL (32-36); MEAN CORPUSCULAR VOLUME 85 fL (80-99); MEAN PLATELET VOLUME 9.6 fL (9.0-12.2); MONOCYTES # (AUTO) 0.4 10^3/uL (0.0-1.0); MONOCYTES % (AUTO) 7 % (0-12); NEUTROPHILS # (AUTO) 3.8 10^3/uL (1.8-7.8); NEUTROPHILS % (AUTO) 75 % (42-75); PLATELET COUNT 278 10^3/uL (130-400)
[2021-05-23 05:31] LABS: ALBUMIN 3.1 GM/DL (3.2-4.5); POTASSIUM 4.5 MMOL/L (3.6-5.0)
[2021-05-23 05:32] LABS: CALCIUM 9.4 MG/DL (8.5-10.1)
[2021-05-23 05:34] LABS: TOTAL PROTEIN 6.4 GM/DL (6.4-8.2)
[2021-05-23 05:35] LABS: BILIRUBIN,TOTAL 0.4 MG/DL (0.1-1.0)
[2021-05-23 05:37] LABS: CREATININE SERUM 1.17 MG/DL (0.60-1.30)
[2021-05-23] MEDS: inSUlin ASPART (NovoLOG) 1 UNIT/0.01 ML (CHARGE PER UNIT) SC SCH ×4 (06:28→20:07)
[2021-05-23] MEDS: ENOXAPARIN 100 MG/1 ML (LOVENOX) SYR SC SCH ×2 (06:28→18:01)
[2021-05-23] MEDS: meTOproloL SUCCINATE 50 MG (TOPROL XL) TAB PO SCH (08:19)
[2021-05-23] MEDS: LOSARTAN 100 MG (COZAAR) TABLET PO SCH (08:19)
--- NOTE | 2021-05-23 08:25 | Progress Note ---
CRESCENCIO DE ANDA MED STUDENT 05/23/21 0825: Subjective Date Seen by a Provider: May 23, 2021 Time Seen by a Provider: 08:15 Subjective/Events-last exam Pt deescalated from Bipap to vapotherm yesterday am. Pt has tolerated vapotherm since - subsequently decreased from 40 LPM to 35 LPM this am. O2 sat at 96% during encounter. Focused Exam Lactate Level 05/20/21 11:11: Lactic Acid Level 2.14*H 05/20/21 13:11: Lactic Acid Level 0.94 Objective Exam Last Set of Vital Signs Vital Signs Date Time Temp Pulse Resp B/P (MAP) Pulse Ox O2 Delivery O2 Flow Rate FiO2 05/23/21 08:00 35.6 05/23/21 07:00 79 05/23/21 06:38 35.00 65 05/23/21 06:35 95 Vapotherm 05/23/21 06:00 151/94 05/23/21 05:00 8 Capillary Refill : Less Than 3 Seconds I&O Intake and Output 05/23/21 00:00 Intake Total 1900 ml Output Total 3225 ml Balance -1325 ml Intake Oral 1900 ml Output Urine Total 3225 ml # Bowel Movements 1 Results Lab Laboratory Tests 05/22/21 10:30: Glucometer 283H 05/22/21 15:43: Glucometer 289H 05/22/21 19:56: Glucometer 349H 05/23/21 04:50: White Blood Count 5.0, Red Blood Count 4.53, Hemoglobin 12.3L, Hematocrit 39L, Mean Corpuscular Volume 85, Mean Corpuscular Hemoglobin 27, Mean Corpuscular Hemoglobin Concent 32, Red Cell Distribution Width 12.7, Platelet Count 278, Mean Platelet Volume 9.6, Immature Granulocyte % (Auto) 6, Neutrophils (%) (Auto) 75, Lymphocytes (%) (Auto) 11L, Monocytes (%) (Auto) 7, Eosinophils (%) (Auto) 0, Basophils (%) (Auto) 0, Neutrophils # (Auto) 3.8, Lymphocytes # (Auto) 0.5L, Monocytes # (Auto) 0.4, Eosinophils # (Auto) 0.0, Basophils # (Auto) 0.0, Immature Granulocyte # (Auto) 0.3H, Sodium Level 137, Potassium Level 4.5, Chloride Level 102, Carbon Dioxide Level 23, Anion Gap 12, Blood Urea Nitrogen 29H, Creatinine 1.17, Estimat Glomerular Filtration Rate 65, BUN/Creatinine Ratio 25, Glucose Level 275H, Calcium Level 9.4, Corrected Calcium 10.1, Phosphorus Level 3.0, Magnesium Level 2.0, Total Bilirubin 0.4, Aspartate Amino Transf (AST/SGOT) 25, Alanine Aminotransferase (ALT/SGPT) 31, Alkaline Phosphatase 58, Total Protein 6.4, Albumin 3.1L Microbiology 05/20/21 Blood Culture - Preliminary, Resulted No growth Assessment/Plan Assessment/Plan Assess & Plan/Chief Complaint Acute hypoxic respiratory failure 10/12 COVIF-19 inf known infection since 05/12 (when first symptomatic) Not COVID vaccinated. 05/20 ER encounter: CTA neg for PE, lactic acid 2.14 05/20 CXR: bilateral pulm infiltrates s/p Rocephin injection s/p Acetemra Repeat CXR TeleICU following. Decadron MAT protocol IS Lovenox, therapeutic. Discuss code status. MARIA GUADALUPE Resolving. Cr 1.17 from 1.6 at admission. Hx of poorly control DM, but baseline kidney function unknown. IDDM HTN Hypercholesterolemia Last Hga1c 14 per PCP. Order Hga1c Detemir + SSI Home meds DVT prophylaxis: Lovenox GI prophylaxis: Start protonix. NADYA DOMINIQUE MD 05/24/21 0837: Subjective Subjective/Events-last exam PT REPORTS THAT HE IS FEELING FAIRLY GOOD TODAY. HE STATES THAT HIS BREATHING DOES FEEL LESS LABOR INTENSIVE VERSUS ADMISSION. HE REPORTS A GOOD APPETITE, NO NAUSEA, DIARRHEA, STOMACH UPSET. HE CONTINUES TO HAVE A MILD COUGH. Review of Systems General: No Chills; Fatigue, Malaise HEENT: No Head Aches Pulmonary: No Dyspnea; Cough Cardiovascular: No: Chest Pain, Palpitations Gastrointestinal: No: Nausea, Abdominal Pain Genitourinary: No Dysuria Neurological: Weakness; No: Confusion Objective Exam General: Alert, Oriented X3, Cooperative, No Acute Distress HEENT: Atraumatic, PERRLA Neck: Supple Lungs: Other (DECREASED THROUGHOUT) Heart: Regular Rate Abdomen: Normal Bowel Sounds, Soft Neuro: Normal Speech, Cranial Nerves 3-12 NL Psych/Mental Status: Mental Status NL, Mood NL Assessment/Plan Assessment/Plan Assess & Plan/Chief Complaint COVID-19 PNEUMONIA RESPIRATORY FAILURE DIABETES MELLITUS - INSULIN DEPENDENT HYPERTENSION HYPERLIPIDEMIA COVID-19 PNEUMONIA WITH RESPIRATORY FAILURE - IMPROVED SINCE ADMISSION - PT ON REMDESIVIR, DECADRON, BREATHING TREATMENTS, AND HAS BEEN ABLE TO BE WEANED DOWN FROM BIPAP TO VAPOTHERM - CONTINUE WITH WEANING WILL ANTICIPATE TRANSFER FROM ICU TO 4TH FLOOR TOMORROW. DIABETES MELLITUS - INSULIN DEPENDENT - CONTINUE WITH CURRENT REGIMEN - MONITOR FSBS, CHECK HGBA1C HYPERTENSION - STABLE - CONTINUE WITH HOME METOPROLOL HYPERLIPIDEMIA - PT ON HOME STATIN THERAPY GI PROPHYLAXIS WITH PPI DVT PROPHYLAXIS WITH LOVENOX Supervisory-Addendum Brief Verification & Attestation Participated in pt care: history, MDM, physical Personally performed: exam, history, MDM, supervision of care Care discussed with: Medical Student Procedures: n/a Results interpretation: Verified all documentation DISCUSSED WITH PT - MEDICAL STUDENT'S NOTE CORRECT DOCUMENTED - SEE MY DOCUMENTATION FOR FURTHER DETAILS. CRESCENCIO DE ANDA MED STUDENT May 23, 2021 08:25 NADYA DOMINIQUE MD May 24, 2021 08:37
[2021-05-23] MEDS: PANTOPRAZOLE 40 MG (PROTONIX) VIAL IV SCH ×2 (09:28→20:07)
--- NOTE | 2021-05-23 09:34 | Diagnostic Imaging Report ---
INDICATION: COVID 19 pneumonia. TIME OF EXAM: 9:13 AM Correlation is made with prior chest from 05/20/2021. The heart size is normal. Bilateral infiltrates persist and show no real change. There is no effusion or pneumothorax identified. IMPRESSION: Stable bilateral infiltrates when compared to examination 3 days earlier. Dictated by: Dictated on workstation # [id number]
[2021-05-23] MEDS ORDERED: ALBU18HF2 INH (12:44)
[2021-05-23] MEDS ORDERED: AZIT250T12 PO (12:44)
[2021-05-23] MEDS ORDERED: MULT-1136 PO (12:44)
[2021-05-23] MEDS ORDERED: ASPI-1238 PO (12:44)
--- NOTE | 2021-05-23 13:54 | Progress Note ---
ERMELINDA IRVIN MED STUDENT 05/23/21 1354: Subjective Date Seen by a Provider: May 23, 2021 Time Seen by a Provider: 07:45 Subjective/Events-last exam Awake and alert upon exam. Denies SOB, fevers, chills, chest pain, headache, vomiting, and palpitations. Tolerating vapotherm at 35L and 60% currently. Oxygen sat's 98-100% on VT. Review of Systems General: No Chills, No Night Sweats HEENT: No Head Aches, No Visual Changes Pulmonary: No Dyspnea, No Cough Cardiovascular: No: Chest Pain, Palpitations, Edema Gastrointestinal: No: Nausea, Vomiting, Abdominal Pain Genitourinary: No Dysuria, No Frequency Musculoskeletal: No: neck pain, back pain Neurological: No: Weakness, Numbness, Confusion Objective Exam Last Set of Vital Signs Vital Signs Date Time Temp Pulse Resp B/P (MAP) Pulse Ox O2 Delivery O2 Flow Rate FiO2 05/23/21 13:26 89 05/23/21 12:35 Vapotherm 35.00 60 05/23/21 12:00 19 128/80 97 05/23/21 11:30 36.2 Capillary Refill : Less Than 3 Seconds I&O Intake and Output 05/23/21 00:00 Intake Total 1900 ml Output Total 3225 ml Balance -1325 ml Intake Oral 1900 ml Output Urine Total 3225 ml # Bowel Movements 1 General: Alert, Oriented X3, Cooperative, No Acute Distress HEENT: Atraumatic, PERRLA, EOMI, Mucous Memb Moist/[place] Neck: Supple, No JVD, No LAD Lungs: Clear to Auscultation (Significantly diminished all solano. No rhonchi, wheezes, or crackles heard. ) Heart: Regular Rate, Normal S1, Normal S2, No Murmurs Abdomen: Normal Bowel Sounds, Soft, No Tenderness Extremities: No Clubbing, No Cyanosis, No Edema, Normal Pulses Skin: No Rashes, No Breakdown, No Significant Lesion Neuro: Normal Speech, Strength at 5/5 X4 Ext, Normal Tone, Sensation Intact, Cranial Nerves 3-12 NL Psych/Mental Status: Mental Status NL, Mood NL Results Lab Laboratory Tests 05/22/21 15:43: Glucometer 289H 05/22/21 19:56: Glucometer 349H 05/23/21 04:50: White Blood Count 5.0, Red Blood Count 4.53, Hemoglobin 12.3L, Hematocrit 39L, Mean Corpuscular Volume 85, Mean Corpuscular Hemoglobin 27, Mean Corpuscular Hemoglobin Concent 32, Red Cell Distribution Width 12.7, Platelet Count 278, Mean Platelet Volume 9.6, Immature Granulocyte % (Auto) 6, Neutrophils (%) (Auto) 75, Lymphocytes (%) (Auto) 11L, Monocytes (%) (Auto) 7, Eosinophils (%) (Auto) 0, Basophils (%) (Auto) 0, Neutrophils # (Auto) 3.8, Lymphocytes # (Auto) 0.5L, Monocytes # (Auto) 0.4, Eosinophils # (Auto) 0.0, Basophils # (Auto) 0.0, Immature Granulocyte # (Auto) 0.3H, Sodium Level 137, Potassium Level 4.5, Chloride Level 102, Carbon Dioxide Level 23, Anion Gap 12, Blood Urea Nitrogen 29H, Creatinine 1.17, Estimat Glomerular Filtration Rate 65, BUN/Creatinine Ratio 25, Glucose Level 275H, Calcium Level 9.4, Corrected Calcium 10.1, Phosphorus Level 3.0, Magnesium Level 2.0, Total Bilirubin 0.4, Aspartate Amino Transf (AST/SGOT) 25, Alanine Aminotransferase (ALT/SGPT) 31, Alkaline Phosphatase 58, Total Protein 6.4, Albumin 3.1L 05/23/21 10:48: Glucometer 359H Microbiology 05/20/21 Blood Culture - Preliminary, Resulted No growth Assessment/Plan Assessment/Plan Assess & Plan/Chief Complaint Acute hypoxic respiratory failure due to COVID-19 -Vapotherm 35L and 100%, wean as tolerated to keep sats >90% -IS Q2HR WA -prone as tolerated -albuterol -CTA 9-10 No evidence of pulmonary embolism. Trace bilateral pleural effusions. Extensive bilateral pulmonary infiltrates suggestive of Covid 19 PNA COVID-19 PNA -s/p actemra -decadron Hypercoagulable state associated with COVID-19 -d dimer 3.66 -therapeutic lovenox Acute on chronic kidney failure -creatinine down to 1.17 -continue to push fluids Anemia -hgb 12.3 -continue to monitor IDDM -accuchecks achs + SSI -Hgb A1C pending GI ppx -protonix HTN -continue home antihypertensives WHIT MUNROE DO 05/24/21 0537: Subjective Subjective/Events-last exam Patient maintained on Vapotherm Objective Exam General: Alert Assessment/Plan Assessment/Plan Assess & Plan/Chief Complaint Respiratory failure management Supervisory-Addendum Brief Verification & Attestation Participated in pt care: history, MDM, physical Personally performed: exam, history, MDM, supervision of care Care discussed with: Medical Student Procedures: n/a Results interpretation: Verified all documentation Verification and Attestation of Medical Student E/M Service A medical student performed and documented this service in my presence. I reviewed and verified all information documented by the medical student and made modifications to such information, when appropriate. I personally performed the physical exam and medical decision making. Whit Munroe, May 24, 2021,05:36 ERMELINDA IRVIN MED STUDENT May 23, 2021 13:54 WHIT MUNROE DO May 24, 2021 05:37
[2021-05-23] MEDS: RT-ALBUTEROL HFA 8.5 GM INHALER IH PRN (19:02)
[2021-05-23] MEDS: FENOFIBRATE 134 MG (LOFIBRA) CAPSULE PO SCH (20:06)
[2021-05-24] MEDS: RT-ALBUTEROL HFA 8.5 GM INHALER IH SCH ×6 (02:42→22:40)
[2021-05-24] MEDS: ENOXAPARIN 100 MG/1 ML (LOVENOX) SYR SC SCH (05:55)
[2021-05-24] MEDS: inSUlin ASPART (NovoLOG) 1 UNIT/0.01 ML (CHARGE PER UNIT) SC SCH ×4 (05:56→20:40)
[2021-05-24 05:57] LABS: BASOPHILS % (AUTO) 1 % (0-10); EOSINOPHILS % (AUTO) 1 % (0-10); HEMATOCRIT 42 % (40-54); HEMOGLOBIN 13.5 g/dL (13.3-17.7); LYMPHOCYTES # (AUTO) 0.7 10^3/uL (1.0-4.0); LYMPHOCYTES % (AUTO) 18 % (12-44); MEAN CORPUSCULAR HEMOGLOBIN 28 pg (25-34); MEAN CORPUSCULAR HGB CONC 32 g/dL (32-36); MEAN CORPUSCULAR VOLUME 86 fL (80-99); MONOCYTES # (AUTO) 0.3 10^3/uL (0.0-1.0); MONOCYTES % (AUTO) 7 % (0-12); NEUTROPHILS # (AUTO) 2.9 10^3/uL (1.8-7.8); NEUTROPHILS % (AUTO) 68 % (42-75); PLATELET COUNT 106 10^3/uL (130-400); WHITE BLOOD COUNT 4.2 10^3/uL (4.3-11.0)
[2021-05-24 06:07] LABS: ALBUMIN 3.1 GM/DL (3.2-4.5)
[2021-05-24 06:09] LABS: CALCIUM 9.1 MG/DL (8.5-10.1)
[2021-05-24 06:10] LABS: TOTAL PROTEIN 6.3 GM/DL (6.4-8.2)
[2021-05-24 06:12] LABS: BILIRUBIN,TOTAL 0.5 MG/DL (0.1-1.0)
[2021-05-24 06:13] LABS: PHOSPHORUS 3.3 MG/DL (2.3-4.7)
[2021-05-24 06:14] LABS: CREATININE SERUM 0.99 MG/DL (0.60-1.30)
--- NOTE | 2021-05-24 07:48 | Progress Note ---
CRESCENCIO DE ANDA MED STUDENT 05/24/21 0748: Subjective Date Seen by a Provider: May 24, 2021 Time Seen by a Provider: 08:00 Objective Exam Last Set of Vital Signs Vital Signs Date Time Temp Pulse Resp B/P (MAP) Pulse Ox O2 Delivery O2 Flow Rate FiO2 05/24/21 07:17 95 Vapotherm 25.00 50 05/24/21 06:00 66 23 159/93 05/24/21 04:00 36.1 Capillary Refill : Less Than 3 Seconds I&O Intake and Output 05/23/21 23:59 Intake Total 1570 ml Output Total 1750 ml Balance -180 ml Intake Oral 1570 ml Output Urine Total 1750 ml # Voids 1 # Bowel Movements 1 Results Lab Laboratory Tests 05/23/21 10:48: Glucometer 359H 05/23/21 15:48: Glucometer 341H 05/23/21 19:59: Glucometer 293H 05/24/21 05:40: White Blood Count 4.2L, Red Blood Count 4.90, Hemoglobin 13.5, Hematocrit 42, Mean Corpuscular Volume 86, Mean Corpuscular Hemoglobin 28, Mean Corpuscular Hemoglobin Concent 32, Red Cell Distribution Width 12.6, Platelet Count 106L, Mean Platelet Volume 11.0, Immature Granulocyte % (Auto) 6, Neutrophils (%) (Auto) 68, Lymphocytes (%) (Auto) 18, Monocytes (%) (Auto) 7, Eosinophils (%) (Auto) 1, Basophils (%) (Auto) 1, Neutrophils # (Auto) 2.9, Lymphocytes # (Auto) 0.7L, Monocytes # (Auto) 0.3, Eosinophils # (Auto) 0.0, Basophils # (Auto) 0.0, Immature Granulocyte # (Auto) 0.3H, Percent Immature Platelet Fraction 8.9H, Sodium Level 136, Potassium Level 5.0, Chloride Level 101, Carbon Dioxide Level 23, Anion Gap 12, Blood Urea Nitrogen 22H, Creatinine 0.99, Estimat Glomerular Filtration Rate 79, BUN/Creatinine Ratio 22, Glucose Level 225H, Calcium Level 9.1, Corrected Calcium 9.8, Phosphorus Level 3.3, Magnesium Level 2.0, Total Bilirubin 0.5, Aspartate Amino Transf (AST/SGOT) 25, Alanine Aminotransferase (ALT/SGPT) 26, Alkaline Phosphatase 59, Total Protein 6.3L, Albumin 3.1L 05/24/21 05:53: Glucometer 242H Microbiology 05/20/21 Blood Culture - Preliminary, Resulted No growth Assessment/Plan Assessment/Plan Assess & Plan/Chief Complaint Acute hypoxic respiratory failure 2/ COVIF-19 inf known infection since 05/12 (when first symptomatic) Not COVID vaccinated. 05/20 ER encounter: CTA neg for PE, lactic acid 2.14 05/23 CXR: Stable bilateral pulm infiltrates. Shows no change. s/p Rocephin injection in ER s/p Acetemra Oxygen requirements decreasing. Move pt to gen/surg floor today. TeleICU following. Decadron MAT protocol IS, albuterol. Thrombocytopenia Leukopenia Drop in plt count today to 106 from 278. Immature plt % elevated today. Today is day 5 of Lovenox use. 4T's score greater than 4. Monitor for signs of HIT Consider d-dimer, coag, and AB testing. Resolved MARIA GUADALUPE Cr 0.99 from 1.6 at admission. Hx of poorly control DM, but baseline kidney function unknown. IDDM HTN Hypercholesterolemia 05/23 HgA1cP: 12.9 Detemir 10U BID + SSI Recommend outpt follow-up to make changes to home insulin regimen. Home meds for lipids and HTN. DVT prophylaxis: GI prophylaxis: protonix. NADYA DOMINIQUE MD 05/24/21 0933: Subjective Date Seen by a Provider: May 24, 2021 Time Seen by a Provider: 08:30 Subjective/Events-last exam PT REPORTS FEELING BETTER TODAY - "READY TO GO HOME" HE DENIES ABDOMINAL PAIN, NAUSEA, CHEST PAIN. HE REPORTS THAT HIS COUGH IS GONE, IS READY TO GET UP AND MOVE AROUND MORE Review of Systems General: Fatigue HEENT: No Head Aches Pulmonary: No Dyspnea, No Cough Cardiovascular: No: Palpitations Gastrointestinal: No: Nausea, Abdominal Pain, Diarrhea, Constipation Genitourinary: No Dysuria Neurological: No: Weakness, Confusion Objective Exam General: Alert, Oriented X3, Cooperative, No Acute Distress HEENT: Atraumatic, PERRLA Lungs: Other (DECREASED IN BASES, CLEAR IN UPPER) Heart: Regular Rate Abdomen: Normal Bowel Sounds, Soft Extremities: No Clubbing, No Cyanosis Skin: No Breakdown Neuro: Normal Speech, Cranial Nerves 3-12 NL Psych/Mental Status: Mental Status NL, Mood NL Assessment/Plan Assessment/Plan Assess & Plan/Chief Complaint COVID-19 PNEUMONIA RESPIRATORY FAILURE DIABETES MELLITUS - INSULIN DEPENDENT HYPERTENSION HYPERLIPIDEMIA COVID-19 PNEUMONIA WITH RESPIRATORY FAILURE - IMPROVED SINCE ADMISSION - PT ON REMDESIVIR, DECADRON, BREATHING TREATMENTS, AND HAS BEEN ABLE TO BE WEANED DOWN FROM BIPAP TO VAPOTHERM - CONTINUE WITH WEANING WILL TRANSFER FROM ICU TO 4TH FLOOR TODAY DIABETES MELLITUS - INSULIN DEPENDENT - CONTINUE WITH CURRENT REGIMEN - MONITOR FSBS, CHECKED HGBA1C -IMPROVED FROM OUTPT RESULTS - ON DC PT WILL NEED TO HAVE INSULIN - [facility] SENT TO [facility] WITH GOOD RX PT CANNOT AFFORD OUT OF POCKET FOR OTHER LONG ACTING INSULIN. HYPERTENSION - STABLE - CONTINUE WITH HOME METOPROLOL HYPERLIPIDEMIA - PT ON HOME STATIN THERAPY TRANSFER FROM ICU TO 4TH FLOOR TODAY - START PHYSICAL THERAPY ATTEMPTED CALL TO SPOUSE - NO ANSWER - VOICE MESSAGE LEFT ON HER PHONE GI PROPHYLAXIS WITH PPI DVT PROPHYLAXIS WITH LOVENOX Supervisory-Addendum Brief Verification & Attestation Participated in pt care: history, MDM, physical Personally performed: exam, history, MDM, supervision of care Care discussed with: Medical Student Procedures: n/a Results interpretation: Verified all documentation SEE MY DOCUMENTATION CRESCENCIO DE ANDA MED STUDENT May 24, 2021 07:48 NADYA DOMINIQUE MD May 24, 2021 09:33
[2021-05-24] MEDS: meTOproloL SUCCINATE 50 MG (TOPROL XL) TAB PO SCH (08:38)
[2021-05-24] MEDS: LOSARTAN 100 MG (COZAAR) TABLET PO SCH (08:38)
[2021-05-24] MEDS: PANTOPRAZOLE 40 MG (PROTONIX) VIAL IV SCH (08:38)
--- NOTE | 2021-05-24 12:14 | Progress Note ---
ERMELINDA IRVIN MED STUDENT 05/24/21 1214: Subjective Date Seen by a Provider: May 24, 2021 Time Seen by a Provider: 07:50 Subjective/Events-last exam Reports doing ok today. Slept fairly well. Tolerating po intake well. Reports not walking or moving around much since admission. Would like to go home as soon as possible. Requiring vapotherm at 25L and 50% this am. Vitals stable per bedside monitor. Denies chest pain, fevers, chills, headache, and diarrhea. Reports minimal SOB. Review of Systems General: No Chills, No Night Sweats HEENT: No Head Aches, No Visual Changes Pulmonary: Dyspnea; No Cough, No Pleuritic Chest Pain Cardiovascular: No: Chest Pain, Palpitations Gastrointestinal: No: Nausea, Vomiting Genitourinary: No Dysuria, No Frequency Musculoskeletal: No: neck pain, back pain Neurological: No: Weakness, Numbness Objective Exam Last Set of Vital Signs Vital Signs Date Time Temp Pulse Resp B/P (MAP) Pulse Ox O2 Delivery O2 Flow Rate FiO2 05/24/21 11:08 96 Vapotherm 25.00 50 05/24/21 11:05 36.8 18 124/93 05/24/21 10:00 98 Capillary Refill : Less Than 3 Seconds I&O Intake and Output 05/24/21 00:00 Intake Total 1570 ml Output Total 1750 ml Balance -180 ml Intake Oral 1570 ml Output Urine Total 1750 ml # Voids 1 # Bowel Movements 1 General: Alert, Oriented X3, Cooperative, No Acute Distress HEENT: Atraumatic, PERRLA, EOMI, Mucous Memb Moist/[place] Neck: Supple, No LAD Lungs: Clear to Auscultation (Minimal air movement posteriorly ) Heart: Regular Rate, No Murmurs Abdomen: Normal Bowel Sounds, Soft Extremities: No Clubbing, No Cyanosis, No Edema, Normal Pulses Skin: No Rashes, No Breakdown, No Significant Lesion Neuro: Normal Gait, Normal Speech, Normal Tone, Sensation Intact, Cranial Nerves 3-12 NL Psych/Mental Status: Mental Status NL, Mood NL Results Lab Laboratory Tests 05/23/21 15:48: Glucometer 341H 05/23/21 19:59: Glucometer 293H 05/24/21 05:40: White Blood Count 4.2L, Red Blood Count 4.90, Hemoglobin 13.5, Hematocrit 42, Mean Corpuscular Volume 86, Mean Corpuscular Hemoglobin 28, Mean Corpuscular Hemoglobin Concent 32, Red Cell Distribution Width 12.6, Platelet Count 106L, Mean Platelet Volume 11.0, Immature Granulocyte % (Auto) 6, Neutrophils (%) (Auto) 68, Lymphocytes (%) (Auto) 18, Monocytes (%) (Auto) 7, Eosinophils (%) (Auto) 1, Basophils (%) (Auto) 1, Neutrophils # (Auto) 2.9, Lymphocytes # (Auto) 0.7L, Monocytes # (Auto) 0.3, Eosinophils # (Auto) 0.0, Basophils # (Auto) 0.0, Immature Granulocyte # (Auto) 0.3H, Percent Immature Platelet Fraction 8.9H, Sodium Level 136, Potassium Level 5.0, Chloride Level 101, Carbon Dioxide Level 23, Anion Gap 12, Blood Urea Nitrogen 22H, Creatinine 0.99, Estimat Glomerular Filtration Rate 79, BUN/Creatinine Ratio 22, Glucose Level 225H, Calcium Level 9.1, Corrected Calcium 9.8, Phosphorus Level 3.3, Magnesium Level 2.0, Total Bilirubin 0.5, Aspartate Amino Transf (AST/SGOT) 25, Alanine Aminotransferase (ALT/SGPT) 26, Alkaline Phosphatase 59, Total Protein 6.3L, Albumin 3.1L 05/24/21 05:53: Glucometer 242H 05/24/21 10:55: Glucometer 349H Microbiology 05/20/21 Blood Culture - Preliminary, Resulted No growth Assessment/Plan Assessment/Plan Assess & Plan/Chief Complaint Acute hypoxic respiratory failure due to COVID-19 -Vapotherm 25L and 50%, wean as tolerated to keep sats >90% -IS Q2HR WA -prone as tolerated -albuterol -CTA 9-10 No evidence of pulmonary embolism. Trace bilateral pleural effusions. Extensive bilateral pulmonary infiltrates suggestive of Covid 19 PNA COVID-19 PNA -s/p actemra -decadron Hypercoagulable state associated with COVID-19 -d dimer 3.66 -lovenox Acute on chronic kidney failure -creatinine down to 0.99 -continue to monitor Thrombocytopenia -platelets down to 106 from 278 yesterday -consider HIT antibody assay Anemia -improving -hgb 13.5 today -continue to monitor IDDM poorly controlled -accuchecks achs + SSI -Hgb A1C 12.9 GI ppx -protonix HTN -continue home antihypertensives WHIT MUNROE DO 05/25/21 0545: Supervisory-Addendum Brief Verification & Attestation Participated in pt care: history, MDM, physical Personally performed: exam, history, MDM, supervision of care Care discussed with: Medical Student Procedures: n/a Results interpretation: Verified all documentation Verification and Attestation of Medical Student E/M Service A medical student performed and documented this service in my presence. I reviewed and verified all information documented by the medical student and made modifications to such information, when appropriate. I personally performed the physical exam and medical decision making. Whit Munroe, May 25, 2021,05:45 ERMELINDA IRVIN MED STUDENT May 24, 2021 12:14 WHIT MUNROE DO May 25, 2021 05:45
--- NOTE | 2021-05-24 14:27 | Physical Therapy Progress Note ---
Therapy Progress Note Patient reports he does not have difficulty with mobility and does not feel weak. Patient states his only limitation is the O2 tubing. Patient is standing in front of the recliner without difficulty. PT instructed patient to stand occasionally and to begin ambulation when on NC. (patient currently on Vapotherm). RN notified of no skilled PT indicated. 1 visit JUSTA OCHOA PT May 24, 2021 14:27
[2021-05-24 16:11] LABS: HEMATOCRIT 41 % (40-54); HEMOGLOBIN 13.7 g/dL (13.3-17.7); MEAN CORPUSCULAR HEMOGLOBIN 28 pg (25-34); MEAN CORPUSCULAR HGB CONC 33 g/dL (32-36); MEAN CORPUSCULAR VOLUME 85 fL (80-99); MEAN PLATELET VOLUME 9.8 fL (9.0-12.2); PLATELET COUNT 307 10^3/uL (130-400); WHITE BLOOD COUNT 5.8 10^3/uL (4.3-11.0)
[2021-05-24] MEDS: PANTOPRAZOLE 40 MG (PROTONIX) TAB PO SCH (20:39)
[2021-05-24] MEDS: FENOFIBRATE 134 MG (LOFIBRA) CAPSULE PO SCH (20:39)
[2021-05-25] MEDS: RT-ALBUTEROL HFA 8.5 GM INHALER IH SCH ×4 (02:50→20:48)
[2021-05-25 03:31] VITALS: BP 123/82
[2021-05-25] MEDS: inSUlin ASPART (NovoLOG) 1 UNIT/0.01 ML (CHARGE PER UNIT) SC SCH ×4 (05:48→21:43)
[2021-05-25 06:14] LABS: BASOPHILS % (AUTO) 1 % (0-10); EOSINOPHILS # (AUTO) 0.1 10^3/uL (0.0-0.3); EOSINOPHILS % (AUTO) 2 % (0-10); HEMATOCRIT 41 % (40-54); HEMOGLOBIN 13.1 g/dL (13.3-17.7); LYMPHOCYTES % (AUTO) 22 % (12-44); MEAN CORPUSCULAR HEMOGLOBIN 28 pg (25-34); MEAN CORPUSCULAR HGB CONC 32 g/dL (32-36); MEAN CORPUSCULAR VOLUME 85 fL (80-99); MEAN PLATELET VOLUME 9.8 fL (9.0-12.2); MONOCYTES # (AUTO) 0.4 10^3/uL (0.0-1.0); MONOCYTES % (AUTO) 9 % (0-12); NEUTROPHILS # (AUTO) 2.7 10^3/uL (1.8-7.8); NEUTROPHILS % (AUTO) 62 % (42-75); PLATELET COUNT 262 10^3/uL (130-400); WHITE BLOOD COUNT 4.4 10^3/uL (4.3-11.0)
[2021-05-25 06:34] LABS: POTASSIUM 4.1 MMOL/L (3.6-5.0)
[2021-05-25 06:36] LABS: CALCIUM 9.3 MG/DL (8.5-10.1)
[2021-05-25 06:37] LABS: TOTAL PROTEIN 5.9 GM/DL (6.4-8.2)
[2021-05-25 06:39] LABS: BILIRUBIN,TOTAL 0.5 MG/DL (0.1-1.0)
[2021-05-25 06:40] LABS: CREATININE SERUM 0.98 MG/DL (0.60-1.30)
--- NOTE | 2021-05-25 08:17 | Progress Note ---
CRESCENCIO DE ANDA MED STUDENT 05/25/21 0817: Subjective Date Seen by a Provider: May 25, 2021 Time Seen by a Provider: 08:00 Subjective/Events-last exam Pts oxygen requirement continues to decrease. Yesterday pm patient was taken off vapotherm, tolerating 8LPM of HFNC this am, O2 sat in the low 90's. Pt denies any abd pain, chest pain, palpations, dysuria, nausea, or constipation. Review of Systems General: No Chills, No Night Sweats HEENT: No Dysphasia, No Sore Throat Pulmonary: Dyspnea; No Pleuritic Chest Pain Cardiovascular: No: Chest Pain, Palpitations, Edema Gastrointestinal: No: Diarrhea, Constipation Genitourinary: No Dysuria, No Incontinence Musculoskeletal: No: back pain, leg pain Neurological: No: Weakness, Change in speech, Confusion PSYCH: normal affect, no psychosis, no depressed mood. Objective Exam Last Set of Vital Signs Vital Signs Date Time Temp Pulse Resp B/P (MAP) Pulse Ox O2 Delivery O2 Flow Rate FiO2 05/25/21 04:13 37.0 98 20 123/74 91 High Flow N/C 8.00 05/25/21 03:31 Capillary Refill : Less Than 3 Seconds I&O Intake and Output 05/25/21 00:00 Intake Total 1050 ml Output Total 2250 ml Balance -1200 ml Intake Oral 1050 ml Output Urine Total 2250 ml # Voids 1 # Bowel Movements 1 General: Alert, Oriented X3, Cooperative, No Acute Distress HEENT: EOMI, Mucous Memb Moist/[place] Neck: Supple, No Thyromegaly Lungs: Other (b/l crackles in lower lung [place]. ) Heart: No Murmurs, Other (tachycardic ) Abdomen: Soft, No Tenderness Extremities: No Clubbing, No Edema Skin: No Breakdown, No Significant Lesion Neuro: Normal Speech, Cranial Nerves 3-12 NL Psych/Mental Status: Mental Status NL, Mood NL Results Lab Laboratory Tests 05/24/21 10:55: Glucometer 349H 05/24/21 15:45: Glucometer 306H 05/24/21 16:06: White Blood Count 5.8, Red Blood Count 4.89, Hemoglobin 13.7, Hematocrit 41, Mean Corpuscular Volume 85, Mean Corpuscular Hemoglobin 28, Mean Corpuscular Hemoglobin Concent 33, Red Cell Distribution Width 12.6, Platelet Count 307, Mean Platelet Volume 9.8 05/24/21 20:23: Glucometer 260H 05/25/21 05:47: Glucometer 178H 05/25/21 05:57: White Blood Count 4.4, Red Blood Count 4.75, Hemoglobin 13.1L, Hematocrit 41, Mean Corpuscular Volume 85, Mean Corpuscular Hemoglobin 28, Mean Corpuscular Hemoglobin Concent 32, Red Cell Distribution Width 12.6, Platelet Count 262, Mean Platelet Volume 9.8, Immature Granulocyte % (Auto) 5, Neutrophils (%) (Auto) 62, Lymphocytes (%) (Auto) 22, Monocytes (%) (Auto) 9, Eosinophils (%) (Auto) 2, Basophils (%) (Auto) 1, Neutrophils # (Auto) 2.7, Lymphocytes # (Auto) 1.0, Monocytes # (Auto) 0.4, Eosinophils # (Auto) 0.1, Basophils # (Auto) 0.0, Immature Granulocyte # (Auto) 0.2H, Sodium Level 136, Potassium Level 4.1, Chloride Level 102, Carbon Dioxide Level 24, Anion Gap 10, Blood Urea Nitrogen 24H, Creatinine 0.98, Estimat Glomerular Filtration Rate 80, BUN/Creatinine Ratio 24, Glucose Level 171H, Calcium Level 9.3, Corrected Calcium 10.1, Total Bilirubin 0.5, Aspartate Amino Transf (AST/SGOT) 27, Alanine Aminotransferase (ALT/SGPT) 26, Alkaline Phosphatase 56, Total Protein 5.9L, Albumin 3.0L Microbiology 05/20/21 Blood Culture - Preliminary, Resulted No growth Assessment/Plan Assessment/Plan Assess & Plan/Chief Complaint Acute hypoxic respiratory failure / COVIF-19 inf known infection since 05/12 (when first symptomatic) Not COVID vaccinated. 05/20 ER encounter: CTA neg for PE, lactic acid 2.14 05/23 CXR: Stable bilateral pulm infiltrates. Shows no change. s/p Rocephin injection in ER s/p Acetemra 05/24: pt moved from ICU to gen/surg floor. 05/24: Physical therapy eval: No skilled PT indicated. Oxygen requirements decreasing. Decadron MAT protocol IS, albuterol. IDDM HTN Hypercholesterolemia 05/23 HgA1cP: 12.9 Detemir 10U BID + SSI Recommend outpt follow-up to make changes to home insulin regimen. Home meds for lipids and HTN. Resolved MARIA GUADALUPE. DVT prophylaxis: Lovenox 40mg GI prophylaxis: PO protonix 40mg BID . NADYA DOMINIQUE MD 05/26/21 0912: Subjective Date Seen by a Provider: May 25, 2021 Time Seen by a Provider: 08:45 Subjective/Events-last exam PT REPORTS THAT HE IS FEELING GOOD, IS HOPEFUL TO BE DISCHARGED SOON. HE REPORTS USING THE INCENTIVE SPIROMETER 5 TO 10 MINUTES AT A TIME TWICE AN HOUR. HE DENIES DYSPNEA EXCEPT WHEN GETTING UP AND MOVING AROUND. HE DENIES ABDOMINAL PAIN, NAUSEA, GERD SYMPTOMS. Review of Systems General: No Chills, No Fatigue, No Malaise HEENT: No Head Aches Pulmonary: Dyspnea (WITH AMBULATION), Cough (INTERMITTENT) Cardiovascular: No: Chest Pain, Palpitations Gastrointestinal: No: Nausea, Abdominal Pain Genitourinary: No Dysuria Neurological: Weakness; No: Confusion Objective Exam General: Alert, Oriented X3, Cooperative, No Acute Distress HEENT: Atraumatic Neck: Supple Lungs: Clear to Auscultation, Normal Air Movement Heart: Regular Rate Abdomen: Normal Bowel Sounds, Soft, No Tenderness Extremities: No Cyanosis Neuro: Cranial Nerves 3-12 NL Psych/Mental Status: Mental Status NL, Mood NL Assessment/Plan Assessment/Plan Assess & Plan/Chief Complaint COVID-19 PNEUMONIA RESPIRATORY FAILURE DIABETES MELLITUS - INSULIN DEPENDENT HYPERTENSION HYPERLIPIDEMIA COVID-19 PNEUMONIA WITH RESPIRATORY FAILURE - IMPROVED SINCE ADMISSION - PT ON REMDESIVIR, DECADRON, BREATHING TREATMENTS, AND HAS BEEN ABLE TO BE WEANED DOWN FROM BIPAP TO VAPOTHERM - CONTINUE WITH WEANING OXYGEN. - AMBULATORY OXYGEN TODAY TO DETERMINE NEED WITH SEATED AND AMBULATION FOR HOME OXYGEN REQUIREMENT NEEDS. DIABETES MELLITUS - INSULIN DEPENDENT - CONTINUE WITH CURRENT REGIMEN - MONITOR FSBS, CHECKED HGBA1C -IMPROVED FROM OUTPT RESULTS - ON DC PT WILL NEED TO HAVE INSULIN - SEMGLEE SENT TO [facility] WITH GOOD RX PT CANNOT AFFORD OUT OF POCKET FOR OTHER LONG ACTING INSULIN. HYPERTENSION - STABLE - CONTINUE WITH HOME METOPROLOL HYPERLIPIDEMIA - PT ON HOME STATIN THERAPY WEAKNESS - STARTED PHYSICAL THERAPY GI PROPHYLAXIS WITH PPI DVT PROPHYLAXIS WITH LOVENOX Supervisory-Addendum Brief Verification & Attestation Participated in pt care: history, MDM, physical Personally performed: exam, history, MDM, supervision of care Care discussed with: Medical Student Procedures: n/a Results interpretation: Verified all documentation SEE MY DOCUMENTATION FOR DETAILS AGREE WITH STUDENT NOTES CRESCENCIO DE ANDA MED STUDENT May 25, 2021 08:17 NADYA DOMINIQUE MD May 26, 2021 09:12
[2021-05-25] MEDS: ENOXAPARIN 40 MG/0.4 ML (LOVENOX) SYR SC SCH (10:37)
[2021-05-25] MEDS: LOSARTAN 100 MG (COZAAR) TABLET PO SCH (10:37)
[2021-05-25] MEDS: meTOproloL SUCCINATE 50 MG (TOPROL XL) TAB PO SCH (10:38)
[2021-05-25] MEDS: PANTOPRAZOLE 40 MG (PROTONIX) TAB PO SCH ×2 (10:38→19:43)
[2021-05-25] MEDS: predniSONE 20 MG TAB PO SCH (17:56)
[2021-05-25] MEDS: FENOFIBRATE 134 MG (LOFIBRA) CAPSULE PO SCH (19:43)
[2021-05-26] MEDS: RT-ALBUTEROL HFA 8.5 GM INHALER IH SCH ×4 (03:36→21:04)
[2021-05-26] MEDS: inSUlin ASPART (NovoLOG) 1 UNIT/0.01 ML (CHARGE PER UNIT) SC SCH ×4 (06:16→21:13)
[2021-05-26 07:49] LABS: BASOPHILS % (AUTO) 0 % (0-10); EOSINOPHILS % (AUTO) 1 % (0-10); HEMATOCRIT 42 % (40-54); HEMOGLOBIN 13.7 g/dL (13.3-17.7); LYMPHOCYTES # (AUTO) 0.5 10^3/uL (1.0-4.0); LYMPHOCYTES % (AUTO) 9 % (12-44); MEAN CORPUSCULAR HEMOGLOBIN 27 pg (25-34); MEAN CORPUSCULAR HGB CONC 32 g/dL (32-36); MEAN CORPUSCULAR VOLUME 85 fL (80-99); MONOCYTES # (AUTO) 0.3 10^3/uL (0.0-1.0); MONOCYTES % (AUTO) 5 % (0-12); NEUTROPHILS # (AUTO) 4.5 10^3/uL (1.8-7.8); NEUTROPHILS % (AUTO) 80 % (42-75); PLATELET COUNT 248 10^3/uL (130-400); WHITE BLOOD COUNT 5.6 10^3/uL (4.3-11.0)
[2021-05-26 08:07] LABS: ALBUMIN 3.1 GM/DL (3.2-4.5); BILIRUBIN,TOTAL 0.6 MG/DL (0.1-1.0); CALCIUM 9.7 MG/DL (8.5-10.1); CREATININE SERUM 0.96 MG/DL (0.60-1.30); POTASSIUM 4.7 MMOL/L (3.6-5.0); TOTAL PROTEIN 5.9 GM/DL (6.4-8.2)
--- NOTE | 2021-05-26 08:18 | Progress Note ---
CRESCENCIO DE ANDA MED STUDENT 05/26/21 0817: Subjective Date Seen by a Provider: May 26, 2021 Time Seen by a Provider: 08:00 Subjective/Events-last exam Pts oxygen requirement has plateaued over the last day. Yesterday am pt was in low 90's O2 sat on 9LPM, today he is 95% on 10LPM. Pts ambulatory O2 requirement yesterday was 14LPM to keep O2 sat at 90%. Today pt denies any new complaints - denies chest pain, palpitations, abd pain, dysuria, worsening cough. Review of Systems General: No Chills, No Night Sweats HEENT: No Head Aches, No Dysphasia Pulmonary: Dyspnea; No Pleuritic Chest Pain Cardiovascular: No: Chest Pain, Palpitations Gastrointestinal: No: Nausea, Vomiting, Abdominal Pain Genitourinary: No Dysuria, No Incontinence Musculoskeletal: No: shoulder pain, leg pain Neurological: No: Numbness, Change in speech, Confusion Psych: no AMS, no psychosis, or depressed mood. Objective Exam Last Set of Vital Signs Vital Signs Date Time Temp Pulse Resp B/P (MAP) Pulse Ox O2 Delivery O2 Flow Rate FiO2 05/26/21 04:19 36.4 90 20 129/81 95 High Flow N/C 10.00 05/25/21 03:31 Capillary Refill : Less Than 3 Seconds I&O Intake and Output 05/26/21 00:00 Intake Total 2570 ml Balance 2570 ml Intake Oral 2570 ml # Voids 8 # Bowel Movements 5 General: Alert, Oriented X3, Cooperative, No Acute Distress HEENT: EOMI, Mucous Memb Moist/[place] Neck: Supple, No Thyromegaly Lungs: Other (soft crackles over both lung [place]. ) Heart: Regular Rate, No Murmurs Abdomen: Soft, No Tenderness Extremities: No Clubbing, No Cyanosis Skin: No Breakdown, No Significant Lesion Neuro: Normal Speech, Cranial Nerves 3-12 NL Psych/Mental Status: Mental Status NL, Mood NL Results Lab Laboratory Tests 05/25/21 11:59: Glucometer 285H 05/25/21 16:24: Glucometer 251H 05/25/21 21:27: Glucometer 222H 05/26/21 05:43: Glucometer 236H 05/26/21 07:28: White Blood Count 5.6, Red Blood Count 5.00, Hemoglobin 13.7, Hematocrit 42, Mean Corpuscular Volume 85, Mean Corpuscular Hemoglobin 27, Mean Corpuscular Hemoglobin Concent 32, Red Cell Distribution Width 12.8, Platelet Count 248, Mean Platelet Volume 10.0, Immature Granulocyte % (Auto) 5, Neutrophils (%) ( Auto) 80H, Lymphocytes (%) (Auto) 9L, Monocytes (%) (Auto) 5, Eosinophils (%) (Auto) 1, Basophils (%) (Auto) 0, Neutrophils # (Auto) 4.5, Lymphocytes # (Auto) 0.5L, Monocytes # (Auto) 0.3, Eosinophils # (Auto) 0.0, Basophils # (Auto) 0.0, Immature Granulocyte # (Auto) 0.3H, Sodium Level 136, Potassium Level 4.7, Chloride Level 102, Carbon Dioxide Level 25, Anion Gap 9, Blood Urea Nitrogen 23H, Creatinine 0.96, Estimat Glomerular Filtration Rate 82, BUN/Creatinine Ratio 24, Glucose Level 223H, Calcium Level 9.7, Corrected Calcium 10.4H, Total Bilirubin 0.6, Aspartate Amino Transf (AST/SGOT) 30, Alanine Aminotransferase (ALT/SGPT) 32, Alkaline Phosphatase 63, Total Protein 5.9L, Albumin 3.1L Microbiology 05/20/21 Blood Culture - Final, Complete No growth Assessment/Plan Assessment/Plan Assess & Plan/Chief Complaint Acute hypoxic respiratory failure / COVIF-19 inf known infection since 05/12 (when first symptomatic) Not COVID vaccinated. 05/20 ER encounter: CTA neg for PE, lactic acid 2.14 05/23 CXR: Stable bilateral pulm infiltrates. Shows no change compared to 05/20 CXR. s/p Rocephin injection in ER s/p Acetemra 05/24: pt moved from ICU to gen/surg floor. 05/24: Physical therapy eval: No skilled PT indicated. 05/25: 14 LPM HFNC required to keep sat 90% while walking around room. Oxygen requirements today same as yesterday. Prednisone 20mg BID MAT protocol IS, albuterol. IDDM HTN Hypercholesterolemia 05/23 HgA1cP: 12.9 Detemir 13U BID + SSI Recommend outpt follow-up to make changes to home insulin regimen. Home meds for lipids and HTN. Resolved MARIA GUADALUPE. DVT prophylaxis: Lovenox 40mg GI prophylaxis: PO protonix 40mg BID . NADYA DOMINIQUE MD 05/26/21 0919: Subjective Date Seen by a Provider: May 26, 2021 Time Seen by a Provider: 08:45 Subjective/Events-last exam PT REPORTS THAT HE FEELS BETTER EVERY DAY. HE SHOWED A COPY OF HIS LETTER OF ISOLATION FROM THE [facility] - HE WILL BE IN ISOLATION UNTIL 06/01/2021 HE REPORTS THAT HE IS BREATHING BETTER, AND DENIES ANY SHORTNESS OF BREATH EXCEPT WITH AMBULATION. HE DENIES CHEST PAIN, NAUSEA, HAS A GOOD APPETITE, AND DENIES ANY OTHER GI ISSUES. Review of Systems General: No Chills, No Fatigue, No Malaise HEENT: No Head Aches Pulmonary: Dyspnea; No Cough, No Pleuritic Chest Pain Cardiovascular: No: Chest Pain, Palpitations Gastrointestinal: No: Nausea, Vomiting, Abdominal Pain, Diarrhea, Constipation Genitourinary: No Incontinence Musculoskeletal: No: other Neurological: Weakness (MILD); No: Numbness Objective Exam General: Alert, Oriented X3, Cooperative, No Acute Distress HEENT: Atraumatic, PERRLA, Mucous Memb Moist/[place] Neck: Supple Lungs: Clear to Auscultation Heart: Regular Rate Abdomen: Normal Bowel Sounds, Soft, No Tenderness Extremities: No Clubbing, No Cyanosis Skin: No Breakdown Neuro: Normal Speech, Cranial Nerves 3-12 NL Psych/Mental Status: Mental Status NL, Mood NL Assessment/Plan Assessment/Plan Assess & Plan/Chief Complaint COVID-19 PNEUMONIA RESPIRATORY FAILURE DIABETES MELLITUS - INSULIN DEPENDENT HYPERTENSION HYPERLIPIDEMIA COVID-19 PNEUMONIA WITH RESPIRATORY FAILURE - IMPROVED SINCE ADMISSION - PT ON REMDESIVIR, DECADRON, BREATHING TREATMENTS, AND HAS BEEN ABLE TO BE WEANED DOWN FROM BIPAP TO VAPOTHERM - CONTINUE WITH WEANING OXYGEN. - REQUIRED 10LITERS AT REST AND 14 LITERS WITH AMBULATION, CANNOT DC TO HOME WITH LESS THAN 10LPM AMBULATORY OXYGEN REQUIREMENT - WILL REPEAT AMBULATORY OXYGEN TOMORROW MORNING. DIABETES MELLITUS - INSULIN DEPENDENT - CONTINUE WITH CURRENT REGIMEN - MONITOR FSBS, CHECKED HGBA1C -IMPROVED FROM OUTPT RESULTS - PT ON 13 UNITS BID OF LEVEMIR - ON DC PT WILL NEED TO HAVE INSULIN - SEMGLEE SENT TO [facility] WITH GOOD RX PT CANNOT AFFORD OUT OF POCKET FOR OTHER LONG ACTING INSULIN. HYPERTENSION - STABLE - CONTINUE WITH HOME METOPROLOL HYPERLIPIDEMIA - PT ON HOME STATIN THERAPY WEAKNESS - STARTED PHYSICAL THERAPY GI PROPHYLAXIS WITH PPI DVT PROPHYLAXIS WITH LOVENOX ATTEMPTED TO CALL PT'S AGAIN - LEFT VOICEMAIL THAT WE CANNOT DC TO HOME YET DUE TO HIS OXYGEN REQUIREMENT. Supervisory-Addendum Brief Verification & Attestation Participated in pt care: history, MDM, physical Personally performed: exam, history, MDM, supervision of care Care discussed with: Medical Student Procedures: n/a Results interpretation: Verified all documentation AGREE WITH STUDENT NOTE DOCUMENTED CRESCENCIO DE ANDA MED STUDENT May 26, 2021 08:17 NADYA DOMINIQUE MD May 26, 2021 09:19
[2021-05-26] MEDS: ENOXAPARIN 40 MG/0.4 ML (LOVENOX) SYR SC SCH (09:08)
[2021-05-26] MEDS: PANTOPRAZOLE 40 MG (PROTONIX) TAB PO SCH ×2 (09:09→19:22)
[2021-05-26] MEDS: LOSARTAN 100 MG (COZAAR) TABLET PO SCH (09:09)
[2021-05-26] MEDS: predniSONE 20 MG TAB PO SCH ×2 (09:10→17:09)
[2021-05-26] MEDS: meTOproloL SUCCINATE 50 MG (TOPROL XL) TAB PO SCH (09:10)
--- NOTE | 2021-05-26 12:59 | Diagnostic Imaging Report ---
EXAMINATION: Chest radiograph, portable AP view. DATE: 05/26/2021 11:27 AM INDICATION: 50-year-old male, shortness of breath. Pneumonia. COMPARISON: May 23, 2021. FINDINGS: There is multifocal bilateral lung consolidation. Heart size and mediastinal contours are unchanged. There is no identified pneumothorax. There is no large pleural effusion. There is surgical material projecting over the right lateral chest and left lower neck. IMPRESSION: 1. Multifocal bilateral alveolar consolidation which is essentially unchanged since the comparison study. Dictated by: Dictated on workstation # [id number]
[2021-05-26] MEDS: FENOFIBRATE 134 MG (LOFIBRA) CAPSULE PO SCH (19:22)
[2021-05-27] MEDS: RT-ALBUTEROL HFA 8.5 GM INHALER IH SCH (03:28)
[2021-05-27] MEDS: inSUlin ASPART (NovoLOG) 1 UNIT/0.01 ML (CHARGE PER UNIT) SC SCH ×2 (05:36→11:16)
[2021-05-27 06:10] LABS: BASOPHILS % (AUTO) 0 % (0-10); EOSINOPHILS % (AUTO) 1 % (0-10); HEMATOCRIT 42 % (40-54); HEMOGLOBIN 13.3 g/dL (13.3-17.7); LYMPHOCYTES # (AUTO) 0.6 10^3/uL (1.0-4.0); LYMPHOCYTES % (AUTO) 9 % (12-44); MEAN CORPUSCULAR HEMOGLOBIN 28 pg (25-34); MEAN CORPUSCULAR HGB CONC 32 g/dL (32-36); MEAN CORPUSCULAR VOLUME 86 fL (80-99); MONOCYTES # (AUTO) 0.4 10^3/uL (0.0-1.0); MONOCYTES % (AUTO) 7 % (0-12); NEUTROPHILS % (AUTO) 80 % (42-75); PLATELET COUNT 256 10^3/uL (130-400); WHITE BLOOD COUNT 6.3 10^3/uL (4.3-11.0)
[2021-05-27 06:26] LABS: ALBUMIN 3.1 GM/DL (3.2-4.5); POTASSIUM 4.4 MMOL/L (3.6-5.0)
[2021-05-27 06:27] LABS: CALCIUM 9.4 MG/DL (8.5-10.1)
[2021-05-27 06:29] LABS: TOTAL PROTEIN 5.9 GM/DL (6.4-8.2)
[2021-05-27 06:30] LABS: BILIRUBIN,TOTAL 0.5 MG/DL (0.1-1.0)
[2021-05-27 06:32] LABS: CREATININE SERUM 1.05 MG/DL (0.60-1.30)
[2021-05-27] MEDS: RT-ALBUTEROL HFA 8.5 GM INHALER IH PRN (07:31)
[2021-05-27] MEDS: ENOXAPARIN 40 MG/0.4 ML (LOVENOX) SYR SC SCH (08:49)
[2021-05-27] MEDS: predniSONE 20 MG TAB PO SCH (08:50)
[2021-05-27] MEDS: LOSARTAN 100 MG (COZAAR) TABLET PO SCH (08:50)
[2021-05-27] MEDS: meTOproloL SUCCINATE 50 MG (TOPROL XL) TAB PO SCH (08:50)
[2021-05-27] MEDS: PANTOPRAZOLE 40 MG (PROTONIX) TAB PO SCH (08:50)
[2021-05-27] MEDS ORDERED: PANT40TA52 PO (09:26)
[2021-05-27] MEDS ORDERED: METO50TA7 PO (09:26)
[2021-05-27] MEDS ORDERED: LOSA100T57 PO (09:26)
[2021-05-27] MEDS ORDERED: INSU100I44 SQ (09:26)
[2021-05-27] MEDS ORDERED: PRED10TA22 PO (09:26)
[2021-05-27] MEDS ORDERED: INSU100I68 SQ (09:26)
--- NOTE | 2021-05-27 09:27 | Discharge Inst-Simple/Standard ---
Discharge Inst-Standard Reconcile Patient Problems Problems Reviewed?: Yes Discharge Medications New, Converted or Re-Newed RX: Transmitted to Pharmacy Patient Instructions/Follow Up Plan of Care/Instructions/FU: 1 wk follow up with [facility] Activity as Tolerated: Yes Discharge Diet: ADA Diet Health Concerns: diabetes mellitus hypertension covid pneumonia weakness oxygen dependence Medication List: Active Scripts Active Semglee Pen (Insulin Glargine,Hum.rec.anlog) 100 Unit/1 Ml Insuln.pen 13 Unit SQ BID Prednisone 10 Mg Tab.ds.pk 10 Mg PO DAILY Take 6 tabs(60mg)daily,decrease by 1 tab(10MG)daily. Pantoprazole Sodium 40 Mg Tablet.dr 40 Mg PO BID Metoprolol Succinate 50 Mg Tab.er.24h 50 Mg PO DAILY Losartan Potassium 100 Mg Tablet 100 Mg PO UD 1/2 pill daily - increase up to a full pill if blood pressures are at or above 140 systolic Relion Novolin 70-30 Flexpen (Insulin NPH Hum/Reg Insulin Hm) 100 Unit/1 Ml Insuln.pen 15 Unit SQ BID 30 Days Reported Aspirin EC (Aspirin) 81 Mg Tablet.dr 81 Mg PO DAILY Multivitamin 1 Each Tablet 1 Each PO DAILY Ventolin Hfa (Albuterol Sulfate) 18 Gm Hfa.aer.ad 1-2 Puff INH Q6H PRN Azithromycin 250 Mg Tablet 250 Mg PO DAILY FILLED 05-19-2021 #6/5 DAY SUPPLY Atorvastatin Calcium 40 Mg Tablet 40 Mg PO DAILY Metoprolol Succinate 50 Mg Tab.er.24h 50 Mg PO BID Fenofibrate 160 Mg Tablet 160 Mg PO DAILY Jardiance (Empagliflozin) 10 Mg Tablet 10 Mg PO DAILY Lab results: Laboratory Tests Test 05/26/21 11:25 05/26/21 16:25 05/27/21 03:29 05/27/21 05:07 Range/Units Glucometer 225 H 359 H 213 H 70-110 MG/DL Sodium Level 135 135-145 MMOL/L Potassium Level 4.4 3.6-5.0 MMOL/L Chloride Level 101 98-107 MMOL/L Carbon Dioxide Level 26 21-32 MMOL/L Anion Gap 8 5-14 MMOL/L Blood Urea Nitrogen 24 H 7-18 MG/DL Creatinine 1.05 0.60-1.30 MG/DL Estimat Glomerular Filtration Rate 74 BUN/Creatinine Ratio 23 Glucose Level 227 H 70-105 MG/DL Calcium Level 9.4 8.5-10.1 MG/DL Corrected Calcium 10.1 8.5-10.1 MG/DL Total Bilirubin 0.5 0.1-1.0 MG/DL Aspartate Amino Transf (AST/SGOT) 28 5-34 U/L Alanine Aminotransferase (ALT/SGPT) 40 0-55 U/L Alkaline Phosphatase 61 40-136 U/L Total Protein 5.9 L 6.4-8.2 GM/DL Albumin 3.1 L 3.2-4.5 GM/DL Test 05/27/21 05:30 Range/Units White Blood Count 6.3 4.3-11.0 10^3/uL Red Blood Count 4.84 4.30-5.52 10^6/uL Hemoglobin 13.3 13.3-17.7 g/dL Hematocrit 42 40-54 % Mean Corpuscular Volume 86 80-99 fL Mean Corpuscular Hemoglobin 28 25-34 pg Mean Corpuscular Hemoglobin Concent 32 32-36 g/dL Red Cell Distribution Width 12.9 10.0-14.5 % Platelet Count 256 130-400 10^3/uL Mean Platelet Volume 10.0 9.0-12.2 fL Immature Granulocyte % (Auto) 4 % Neutrophils (%) (Auto) 80 H 42-75 % Lymphocytes (%) (Auto) 9 L 12-44 % Monocytes (%) (Auto) 7 0-12 % Eosinophils (%) (Auto) 1 0-10 % Basophils (%) (Auto) 0 0-10 % Neutrophils # (Auto) 5.0 1.8-7.8 10^3/uL Lymphocytes # (Auto) 0.6 L 1.0-4.0 10^3/uL Monocytes # (Auto) 0.4 0.0-1.0 10^3/uL Eosinophils # (Auto) 0.0 0.0-0.3 10^3/uL Basophils # (Auto) 0.0 0.0-0.1 10^3/uL Immature Granulocyte # (Auto) 0.2 H 0.0-0.1 10^3/uL My orders: Orders - NADYA DOMINIQUE MD Attending Discharge Inpt/Inobs (05/27/21 09:19) NADYA DOMINIQUE MD May 27, 2021 09:27
--- NOTE | 2021-05-27 09:29 | Discharge Summary ---
Diagnosis/Chief Complaint Date of Admission May 20, 2021 at 11:54 Date of Discharge Discharge Date: May 27, 2021 Discharge Time: 1030 Admission Diagnosis Admission Diagnosis COVID-19 PNEUMONIA RESPIRATORY FAILURE DIABETES MELLITUS - INSULIN DEPENDENT HYPERTENSION HYPERLIPIDEMIA Discharge Diagnosis COVID-19 PNEUMONIA RESPIRATORY FAILURE DIABETES MELLITUS - INSULIN DEPENDENT HYPERTENSION HYPERLIPIDEMIA HYPOXIA Reason Hospital Visit Patient is a 50-year-old male with a past medical history of insulin- dependent diabetes and hypertension who presented to the emergency department du e to hypoxia. He was diagnosed with Covid on May 12 and presented today to the outpatient [facility]. He was found to have oxygen saturations in the 60s and brought emergently to the ER. He was placed on 15 L nonrebreather and saturations only came up to the mid 80s. He was then placed on BiPAP. He is able to answer yes/no questions but otherwise has difficulty with providing history. He is able to nod and shake his head appropriately when asked questions. He complains of minor productive cough, headache, generalized weakness and myalgias. He denies fever, nausea or vomiting, diarrhea, loss of taste or smell. He is unvaccinated against Covid. Discharge Summary Discharge Physical Examination Allergies: Coded Allergies: No Known Drug Allergies (Unverified , 06/09/10) Vitals & I&Os Vital Signs Date Time Temp Pulse Resp B/P (MAP) Pulse Ox O2 Delivery O2 Flow Rate FiO2 05/27/21 08:00 Room Air 05/27/21 07:31 91 0.00 05/27/21 05:49 86 127/84 05/27/21 04:01 36.2 22 05/25/21 03:31 General Appearance: Alert, Oriented X3, Cooperative, No Acute Distress HEENT: Atraumatic, PERRLA, Mucous Memb Moist/[place] Respiratory: Clear to Auscultation, Normal Air Movement Cardiovascular: Regular Rate Abdominal: Normal Bowel Sounds, Soft, No Tenderness Extremities: No Clubbing, No Cyanosis Skin: No Rashes Neuro: Normal Speech, Cranial Nerves 3-12 NL Psych/Mental Status: Mental Status NL, Mood NL Hospital Course Was the Problem List Reviewed?: Yes COVID-19 PNEUMONIA RESPIRATORY FAILURE DIABETES MELLITUS - INSULIN DEPENDENT HYPERTENSION HYPERLIPIDEMIA COVID-19 PNEUMONIA WITH RESPIRATORY FAILURE - IMPROVED SINCE ADMISSION - PT ON REMDESIVIR, DECADRON, BREATHING TREATMENTS, AND HAS BEEN ABLE TO BE WEANED DOWN FROM BIPAP TO VAPOTHERM - CONTINUE WITH WEANING OXYGEN. - INITIAL AMBULATORY OXYGEON ON 05/25/2021 PT REQUIRED 10LITERS AT REST AND 14 LITERS WITH AMBULATION, CANNOT DC TO HOME WITH LESS THAN 10LPM AMBULATORY OXYGEN REQUIREMENT REPEAT AMBULATORY OXYGEN WAS 2 LITERS WITH ACTIVITY AND NO OXYGEN AT REST NEEDED. DIABETES MELLITUS - INSULIN DEPENDENT - CONTINUE WITH CURRENT REGIMEN - MONITOR FSBS, CHECKED HGBA1C -IMPROVED FROM OUTPT RESULTS - PT WAS ON 13 UNITS BID OF LEVEMIR - RX FOR SEMGLEE SENT TO [facility] WITH [facility] PT CANNOT AFFORD OUT OF POCKET FOR OTHER LONG ACTING INSULIN. HYPERTENSION - STABLE - CONTINUE WITH HOME METOPROLOL HYPERLIPIDEMIA - PT ON HOME STATIN THERAPY WEAKNESS -RESOLVED FOLLOW UP APPT WITH [facility] IN 1 WK Pending Labs Laboratory Tests 05/27/21 03:29: Sodium Level 135, Potassium Level 4.4, Chloride Level 101, Carbon Dioxide Level 26, Anion Gap 8, Blood Urea Nitrogen 24, Creatinine 1.05, Estimat Glomerular Filtration Rate 74, BUN/Creatinine Ratio 23, Glucose Level 227, Calcium Level 9.4, Corrected Calcium 10.1, Total Bilirubin 0.5, Aspartate Amino Transf (AST/SGOT) 28, Alanine Aminotransferase (ALT/SGPT) 40, Alkaline Phosphatase 61, Total Protein 5.9, Albumin 3.1 05/27/21 05:07: Glucometer 213 05/27/21 05:30: White Blood Count 6.3, Red Blood Count 4.84, Hemoglobin 13.3, Hematocrit 42, Mean Corpuscular Volume 86, Mean Corpuscular Hemoglobin 28, Mean Corpuscular Hemoglobin Concent 32, Red Cell Distribution Width 12.9, Platelet Count 256, Mean Platelet Volume 10.0, Immature Granulocyte % (Auto) 4, Neutrophils (%) (Auto) 80, Lymphocytes (%) (Auto) 9, Monocytes (%) (Auto) 7, Eosinophils (%) (Auto) 1, Basophils (%) (Auto) 0, Neutrophils # (Auto) 5.0, Lymphocytes # (Auto) 0.6, Monocytes # (Auto) 0.4, Eosinophils # (Auto) 0.0, Basophils # (Auto) 0.0, Immature Granulocyte # (Auto) 0.2 Discharge Condition at discharge IMPROVING Instructions to patient/family Please see electronic discharge instructions given to patient. Discharge Medications Reviewed and agree with Discharge Medication list on patient's Discharge Instruction sheet NADYA DOMINIQUE MD May 27, 2021 09:29
[2021-05-27 13:00] VITALS: BP 104/66
== END 2021-05-27 13:40 | disposition home or self-care (01) | DRG 177 ==
LOC: EDUNIT# 11:14 → ER 11:16 → ICU 11:54 → 4TH 05-24 12:53
PROVIDERS: ADMIT Family Medicine; ATTEND Family Medicine
PROC: 5A09457 Assistance with Respiratory Ventilation, 24-96 Consecutive Hours, Continuous Positive Airway Pressure (ICD-10-PCS; principal; 2021-05-20)
DX: U07.1 COVID-19 (principal); J96.01 Acute respiratory failure with hypoxia; N17.9 Acute kidney failure, unspecified; D68.69 Other thrombophilia; Z79.84 Long term (current) use of oral hypoglycemic drugs; Z73.0 Burn-out; R53.1 Weakness; E78.00 Pure hypercholesterolemia, unspecified; D69.6 Thrombocytopenia, unspecified; D64.9 Anemia, unspecified; E11.22 Type 2 diabetes mellitus with diabetic chronic kidney disease; I12.9 Hypertensive chronic kidney disease with stage 1 through stage 4 chronic kidney disease, or unspecified chronic kidney disease; D72.819 Decreased white blood cell count, unspecified; N18.31 Chronic kidney disease, stage 3a; E66.9 Obesity, unspecified; Z68.30 Body mass index [BMI] 30.0-30.9, adult; Z79.82 Long term (current) use of aspirin; Z79.899 Other long term (current) drug therapy
CPT/HCPCS: 36415; 71045; 71275; 80053; 82805; 82947; 83036; 83605; 83735; 84100; 84145; 85007; 85025; 85027; 85379; 86141; 87040; 94640; 94660; 94760; 94761; 96374; 96375; 99291

== ENCOUNTER → 2021-05-20 | Outpatient (CLI) | payer OTHER ==
[~2021-05-20] MED LIST changes: +ACETAMINOPHEN 500 MG TAB (TYLENOL) PO PRN; +ALBU18HF2 INH; +ASPI-1238 PO; +ATOR40TA70 PO; +AZIT250T12 PO; +CASIRIVIMAB/IMDEVIMAB 1,200 MG in NS (IVPB) 250 ML IV ONE; +EMPA10TA PO; +EPINEPHrine INJECTION 1 MG/ML AMP IM PRN; +FENO160T12 PO; +INSU100I44 SQ; +LOSA100T57 PO; +METO50TA7 PO; +MULT-1136 PO; +ONDANSETRON 4 MG/2 ML (SDV) Z0FRAN IV PRN; +diphenhydrAMINE 50 MG/ML INJ (BENADRYL) IV PRN
== END ==
LOC: INFUSION 11:00
PROVIDERS: ATTEND Nurse Practitioner Family
DX: Z23 Encounter for immunization (principal); U07.1 COVID-19

== ENCOUNTER → 2021-06-24 | Outpatient (CLI) | payer OTHER ==
[~2021-06-24] MED LIST changes: +ALBU18HF2 INH; +ASPI-1238 PO; +ATOR40TA70 PO; +AZIT250T12 PO; +CATHETER FLUSH 10 ML SYR IV PRN; +EMPA10TA PO; +FENO160T12 PO; +HOLD METFORMIN - RECEIVED CONTRAST 20 ML VIAL IV SCH; +INSU100I44 SQ; +INSU100I68 SQ; +IOHEXOL 350 MG/ML 100 ML (OMNIPAQUE 350) VIAL IV ONE; +LOSA100T57 PO; +METO50TA7 PO; +MULT-1136 PO; +NS 100 ML (IVPB) BAG IV ONE; +PANT40TA52 PO; +PRED10TA22 PO
[2021-06-24 12:01] LABS: CREATININE SERUM 1.11 MG/DL (0.60-1.30)
--- NOTE | 2021-06-24 13:09 | Diagnostic Imaging Report ---
PROCEDURE: CT angiography of the chest with contrast. TECHNIQUE: Multiple contiguous axial images were obtained through the chest after uneventful bolus administration of intravenous contrast. 3D reconstructed CTA MIP acquisitions were also performed. Auto Exposure Controls were utilized during the CT exam to meet ALARA standards for radiation dose reduction. DATE: June 24, 2021. COMPARISON: CT chest May 20, 2021. INDICATION: 50-year-old male, shortness of breath and tachycardia. History of COVID 19 infection on May 20. History of melanoma. FINDINGS: There is no identified pulmonary nodule or lung mass. There are multifocal bilateral linear and areas of groundglass lung consolidation. There is no pneumothorax. There is no pleural effusion. The central airways are patent. There is no identified pulmonary embolus. Main pulmonary artery diameter is within normal limits. The heart is not enlarged. There is no pericardial effusion. There is no identified abnormally enlarged mediastinal, hilar, or axillary lymph node which meets CT size criteria for adenopathy. There is a low-attenuation left renal lesion on axial image 157 which measures 2.7 cm in size. Internal attenuation is consistent with a benign cyst. There is a fat-containing right adrenal lesion consistent with a myelolipoma on axial image 132 measuring 2.0 cm in size. There are multilevel degenerative changes of the spine. There is no identified acute bony abnormality. IMPRESSION: CT CHEST. 1. No identified pulmonary embolus. 2. Multifocal bilateral predominantly linear opacities and areas of groundglass lung attenuation in the distribution of prior airspace consolidative process most likely relating to scarring and sequela of prior COVID 19 infection. 3. No identified acute cardiopulmonary abnormality. Report was faxed to [facility] by shukri at 1:07PM. Dictated by: Dictated on workstation # [id number]
== END ==
LOC: RAD 11:25
PROVIDERS: ATTEND Nurse Practitioner Family
DX: R00.0 Tachycardia, unspecified (principal); R06.02 Shortness of breath; Z86.16 Personal history of COVID-19; Z85.820 Personal history of malignant melanoma of skin
CPT/HCPCS: 36415; 71275; 82565; 84520

== ENCOUNTER → 2021-06-24 | Outpatient (CLI) | payer OTHER ==
[~2021-06-24] MED LIST changes: -CATHETER FLUSH 10 ML SYR IV PRN; -HOLD METFORMIN - RECEIVED CONTRAST 20 ML VIAL IV SCH; -IOHEXOL 350 MG/ML 100 ML (OMNIPAQUE 350) VIAL IV ONE; -NS 100 ML (IVPB) BAG IV ONE
== END ==
LOC: RAD 10:43
PROVIDERS: ATTEND Family Medicine